=== PATIENT | male | born 1945 ===

== ENCOUNTER 2020-09-12 13:47 | Inpatient (IN) | payer MEDICARE, MEDICAID, SELFPAY ==
[2020-09-12] VITALS (10 sets, daily range): BP systolic 117–147; BP diastolic 62–86; PULSE 101–160; RESP 18–28; TEMP 36.5–37.8; O2SAT 87–100; BMI 35.4
--- NOTE | 2020-09-12 16:17 | PC.NURSE ---
sob with minimal exertion. skin pale, dusky finger tips at arrival but improvement with 4l nc. sao2 fluxates 86-93 on 4l.
--- NOTE | 2020-09-12 16:39 | ECG_ITS ---
Test Reason : ARHYTHMIA Blood Pressure : / mmHG Vent. Rate : 132 BPM Atrial Rate : 150 BPM P-R Int : 000 ms QRS Dur : 092 ms QT Int : 320 ms P-R-T Axes : 000 -26 042 degrees QTc Int : 474 ms Atrial fibrillation with rapid ventricular response Cannot rule out Inferior infarct , age undetermined Possible Anterior infarct , age undetermined Abnormal ECG No previous ECGs available Referred By: Julia Baum Electronically Signed By:ANGELICA EVANS MD
--- NOTE | 2020-09-12 16:40 | ED.GENADULT ---
HPI - General Adult General Chief complaint: Upper Respiratory Symptoms Stated complaint: covid symptoms Time Seen by Provider: 09/12/20 16:38 Source: patient Mode of arrival: ambulatory Limitations: no limitations History of Present Illness HPI narrative: 75 y/o male with history of COPD, HTN, DM on insulin, Afib on Coumadin who presents to the ED with 1 week of generalized body aches, fatigue, and cough for the last 1 week. He presents with his who has similar complaints. They live in an assisted living where there have been known COVID-19 cases. He reports compliance with Coumadin and over the last 1 week he has had bloody sputum. He has subjective fevers and chills at night. He denies chest pain. He reports decrease in PO intake and poor appetite. No N/V or abdominal pain but occassional diarrhea over the last week. MD complaint: COVID symptoms Onset (ago): day(s) (7) Location: head, chest and back Radiation: non-radiation Severity: moderate Quality: aching Pain Consistency: intermittent Relieving factors: none Exacerbating factors: movement Associated symptoms: cough, fever/chills, headaches, loss of appetite, malaise, shortness of breath and weakness Treatments prior to arrival: none Related Data Allergies Allergy/AdvReac Type Severity Reaction Status Date / Time No Known Allergies Allergy Verified 09/12/20 16:17 Review of Systems Review of Systems: Constitutional: + Fever, + Chills ENT/Mouth: + sore throat, No Rhinorrhea, No Swallowing Difficulty Eyes: No Eye Pain, No Swelling, No Redness Cardiovascular: No Chest Pain, No SOB, No Orthopnea, No Edema Respiratory: + Cough, + Sputum, No Wheezing, + dyspnea Gastrointestinal: No Nausea, No Vomiting, + Diarrhea, No abdominal Pain, No Hematochezia, No Melena Genitourinary: No Dysuria, No Urinary Frequency, No Hematuria Musculoskeletal: No joint pain, + Myalgias Skin: No Skin Lesions, No rash Neuro: + Weakness, No Numbness, No Dizziness, + Headache Psych: + Anxiety/Panic, No Depression Heme/Lymph: No Bruising, No Lymphadenopathy Endocrine: No Polyuria, No Polydipsia PMFSH Past Medical History Attestation statement: The following information was validated with the patient. Medical History (Updated 09/12/20 @ 18:00 by GABI Schwartz) Atrial fibrillation Diabetes Hypertension Social History Social History Advance Directives: No Advance Directives Information Provided: Yes Physical Exam Vital Signs: Vital Signs: Last Vital Signs Temp 98.6 F 09/12/20 17:25 Pulse 101 H 09/12/20 17:25 Resp 22 H 09/12/20 17:25 BP 117/67 09/12/20 17:25 Pulse Ox 98 09/12/20 17:25 Body Mass Index 35.4 Appearance: Alert. Oriented X3. No acute distress. Eyes: Pupils equal, round and reactive to light. ENT: Pharynx normal. Neck: Normal inspection. Neck supple. CVS: irregularly irregular, rapid rate. Pulses normal. Respiratory: Mild respiratory distress with RR Mid-20's, mild expiratory wheeze RLL. Abdomen: Soft and nontender. +BS x4 Skin: Skin warm and dry. Normal skin color. Normal skin turgor. No rashes. Extremities: No lower extremity edema. Negative Victorina's sign. Neuro: Oriented X 3. No motor deficit. No sensory deficit. Course Course Course Narrative: 75 yo male with hx COPD, HTN, DM, Afib on Coumadin presenting with COVID-19 symptoms. His is being seen in the ER with similar complaints and just returned COVID positive. COVID workup has been initiated. He is in mild respiratory distress, but overall is feeling better than arrival. Hypoxic to 80's on room air in the waiting room. Now on 4L NC with SpO2 93%. HR 140's - rapid afib. On metoprolol 50 mg PO BID. Will give 5 mg IV lopressor now and reassess. SBP 110's. IV decadron ordered. He reports mild hemoptysis, likely due to bronchitis/COVID infection, doubt PE given he is anticoagulated. INR pending. Patient will require admission. Reevaluation(s) Reevaluation #1: 5:15 - HR improved to 100's after 5 mg IV lopressor. Will continue with home dose of oral lopressor 50mg. Labs show ELLEN, lactic acid 2.8, troponin 323, INR 6.1. No chest pain at this time, likely demand ischemic due to sepsis and rapid afib. Sepsis is due to viral infection. 2nd liter IVF ordered. Medical Decision Making Lab Data Result diagrams: 09/12/20 16:44 09/12/20 16:43 Labs: Lab Results 09/12/20 09/12/20 09/12/20 Range/Units 16:42 16:43 16:43 WBC (4.8-10.8) X10*3/uL RBC (4.60-5.80) X10*6/uL Hgb (14.0-18.0) g/dl Hct (42-52) % MCV (80-98) fL MCH (27.0-33.0) pg MCHC (31.0-36.0) g/dl RDW (11.0-16.0) % Plt Count (160-400) X10*3/uL MPV (9.4-12.4) fL Immature Gran % (Auto) (0.0-0.4) % Neut % (Auto) (45-73) % Lymph % (Auto) (20-40) % [place] % (Auto) (2-11) % Eos % (Auto) (0-4) % Baso % (Auto) (0-2) % Lymph # (Auto) (1.2-4.9) X10*3/uL [place] # (Auto) (0.1-1.2) X10*3/uL Eos # (Auto) (0.0-0.4) X10*3/uL Baso # (Auto) (0.0-0.2) X10*3/uL Abs Immat Gran (auto) (0.00-0.03) X10*3/uL Absolute Neuts (auto) (2.0-8.3) X10*3/uL Absolute Nucleated RBC (0.0-0.012) X10*3/uL Nucleated RBC % (auto) (0.0-0.2) /100WBC Smear Tech's Comments PT (10.8-13.0) SEC INR (0.9-1.1) D-Dimer NG/ML Sodium 134 L (135-145) mmol/L Potassium 4.3 (3.3-5.1) mmol/l Chloride 100 (96-108) mmol/L Carbon Dioxide 19 L (22-29) mmol/L Anion Gap 19 (12-20) BUN 26 H (9-16) mg/dL Creatinine 1.67 H (0.5-1.4) mg/dL Estim Creat Clear Calc 46.4 Estimated GFR 40 Random Glucose 188 H (60-115) mg/dL Lactic Acid 2.8 H* (0.5-2.0) mmol/L Calcium 7.9 L (8.4-10.2) mg/dL Magnesium 1.7 (1.6-2.6) mg/dL Total Bilirubin 0.9 (0.0-1.0) mg/dL Direct Bilirubin 0.6 H (0.0-0.5) mg/dL AST 45 H (5-37) U/L ALT 28 (0-40) U/L Alkaline Phosphatase 74 (39-117) U/L Troponin I High Sens (<3.5-35.0) ng/L C-Reactive Protein 18.49 H (< or = 0.50) mg/dL B-Natriuretic Peptide (<100) pg/mL Total Protein 6.2 L (6.5-8.0) g/dL Albumin 3.7 (3.5-5.0) g/dL Procalcitonin ng/mL Coronavirus (PCR) POSITIVE A (Negative) Influenza Type A (PCR) NEGATIVE (Negative) Influenza Type B (PCR) NEGATIVE (Negative) RSV RNA Qual (PCR) NEGATIVE (Negative) 09/12/20 09/12/20 09/12/20 Range/Units 16:43 16:43 16:44 WBC 11.7 H (4.8-10.8) X10*3/uL RBC 4.80 (4.60-5.80) X10*6/uL Hgb 15.5 (14.0-18.0) g/dl Hct 45.6 (42-52) % MCV 95.0 (80-98) fL MCH 32.3 (27.0-33.0) pg MCHC 34.0 (31.0-36.0) g/dl RDW 13.6 (11.0-16.0) % Plt Count 140 L (160-400) X10*3/uL MPV 11.8 (9.4-12.4) fL Immature Gran % (Auto) 0.8 H (0.0-0.4) % Neut % (Auto) 91.8 H (45-73) % Lymph % (Auto) 4.5 L (20-40) % [place] % (Auto) 2.8 (2-11) % Eos % (Auto) 0.0 (0-4) % Baso % (Auto) 0.1 (0-2) % Lymph # (Auto) 0.5 L (1.2-4.9) X10*3/uL [place] # (Auto) 0.3 (0.1-1.2) X10*3/uL Eos # (Auto) 0.0 (0.0-0.4) X10*3/uL Baso # (Auto) 0.0 (0.0-0.2) X10*3/uL Abs Immat Gran (auto) 0.09 H (0.00-0.03) X10*3/uL Absolute Neuts (auto) 10.8 H (2.0-8.3) X10*3/uL Absolute Nucleated RBC 0.000 (0.0-0.012) X10*3/uL Nucleated RBC % (auto) 0.0 (0.0-0.2) /100WBC Smear Tech's Comments VERIFIED PT (10.8-13.0) SEC INR (0.9-1.1) D-Dimer NG/ML Sodium (135-145) mmol/L Potassium (3.3-5.1) mmol/l Chloride (96-108) mmol/L Carbon Dioxide (22-29) mmol/L Anion Gap (12-20) BUN (9-16) mg/dL Creatinine (0.5-1.4) mg/dL Estim Creat Clear Calc Estimated GFR Random Glucose (60-115) mg/dL Lactic Acid (0.5-2.0) mmol/L Calcium (8.4-10.2) mg/dL Magnesium (1.6-2.6) mg/dL Total Bilirubin (0.0-1.0) mg/dL Direct Bilirubin (0.0-0.5) mg/dL AST (5-37) U/L ALT (0-40) U/L Alkaline Phosphatase (39-117) U/L Troponin I High Sens 323.0 H (<3.5-35.0) ng/L C-Reactive Protein (< or = 0.50) mg/dL B-Natriuretic Peptide 209 H (<100) pg/mL Total Protein (6.5-8.0) g/dL Albumin (3.5-5.0) g/dL Procalcitonin 1.43 ng/mL Coronavirus (PCR) (Negative) Influenza Type A (PCR) (Negative) Influenza Type B (PCR) (Negative) RSV RNA Qual (PCR) (Negative) 09/12/20 Range/Units 16:44 WBC (4.8-10.8) X10*3/uL RBC (4.60-5.80) X10*6/uL Hgb (14.0-18.0) g/dl Hct (42-52) % MCV (80-98) fL MCH (27.0-33.0) pg MCHC (31.0-36.0) g/dl RDW (11.0-16.0) % Plt Count (160-400) X10*3/uL MPV (9.4-12.4) fL Immature Gran % (Auto) (0.0-0.4) % Neut % (Auto) (45-73) % Lymph % (Auto) (20-40) % [place] % (Auto) (2-11) % Eos % (Auto) (0-4) % Baso % (Auto) (0-2) % Lymph # (Auto) (1.2-4.9) X10*3/uL [place] # (Auto) (0.1-1.2) X10*3/uL Eos # (Auto) (0.0-0.4) X10*3/uL Baso # (Auto) (0.0-0.2) X10*3/uL Abs Immat Gran (auto) (0.00-0.03) X10*3/uL Absolute Neuts (auto) (2.0-8.3) X10*3/uL Absolute Nucleated RBC (0.0-0.012) X10*3/uL Nucleated RBC % (auto) (0.0-0.2) /100WBC Smear Tech's Comments PT 73.7 H (10.8-13.0) SEC INR 6.1 H* (0.9-1.1) D-Dimer 378 NG/ML Sodium (135-145) mmol/L Potassium (3.3-5.1) mmol/l Chloride (96-108) mmol/L Carbon Dioxide (22-29) mmol/L Anion Gap (12-20) BUN (9-16) mg/dL Creatinine (0.5-1.4) mg/dL Estim Creat Clear Calc Estimated GFR Random Glucose (60-115) mg/dL Lactic Acid (0.5-2.0) mmol/L Calcium (8.4-10.2) mg/dL Magnesium (1.6-2.6) mg/dL Total Bilirubin (0.0-1.0) mg/dL Direct Bilirubin (0.0-0.5) mg/dL AST (5-37) U/L ALT (0-40) U/L Alkaline Phosphatase (39-117) U/L Troponin I High Sens (<3.5-35.0) ng/L C-Reactive Protein (< or = 0.50) mg/dL B-Natriuretic Peptide (<100) pg/mL Total Protein (6.5-8.0) g/dL Albumin (3.5-5.0) g/dL Procalcitonin ng/mL Coronavirus (PCR) (Negative) Influenza Type A (PCR) (Negative) Influenza Type B (PCR) (Negative) RSV RNA Qual (PCR) (Negative) ECG Data Attestation: I personally reviewed and interpreted this ECG as follows: Interpretation: atrial fibrillation with rapid ventricular response, HR 132, normal QRS duration. Critical Care Time Critical Care Time Critical Care Time: Yes Total Critical Care Time: 60 Attestation: I attest to the critical care time being spent taking care of this patient with life-threatening diagnosis. Frequent bedside reassessments of respiratory status and hemodynamics. Discharge Plan Discharge Clinical Impression: Acute respiratory failure with hypoxia, Atrial fibrillation with RVR, COVID-19 Patient Disposition: Admitted As Inpatient
[2020-09-12 17:03] LABS: D Dimer 378 NG/ML
[2020-09-12 17:04] LABS: Basophils Percent Auto 0.1 % (0-2); Hemoglobin 15.5 g/dl (14.0-18.0); MANUAL DIFF FLAG SCAN; PLT CLUMP 1; Red Cell Distribution Width 13.6 % (11.0-16.0); SCAN SMEAR FLAG 1
[2020-09-12 17:06] LABS: Hematocrit 45.6 % (42-52); Imm Gran Abs Auto 0.09 X10*3/uL (0.00-0.03); Imm Gran Pct Auto 0.8 % (0.0-0.4); Lymphocytes Absolute Auto 0.5 X10*3/uL (1.2-4.9); Lymphocytes Percent Auto 4.5 % (20-40); Mean Corpuscular Hemoglobin 32.3 pg (27.0-33.0); Mean Platelet Volume 11.8 fL (9.4-12.4); Monocytes Absolute Auto 0.3 X10*3/uL (0.1-1.2); Monocytes Percent Auto 2.8 % (2-11); Neutrophils Absolute Auto 10.8 X10*3/uL (2.0-8.3); Neutrophils Percent Auto 91.8 % (45-73); White Blood Count 11.7 X10*3/uL (4.8-10.8)
[2020-09-12 17:07] LABS: Prothrombin Time 73.7 SEC (10.8-13.0)
[2020-09-12] MEDS: 0.9 % Sodium Chloride 1,000 ML 999 ML IVCONT ×2 (17:09→19:56)
[2020-09-12] MEDS: Metoprolol Tartrate 5 MG/5 ML VIAL IVPUSH ×2 (17:10→23:54)
[2020-09-12] MEDS: dexAMETHasone sod phosphate 4 MG/ML VIAL 6 MG IVPUSH (17:10)
[2020-09-12 17:21] LABS: Alanine Aminotransferase 28 U/L (0-40); Albumin Level 3.7 g/dL (3.5-5.0); Alkaline Phosphatase 74 U/L (39-117); Anion Gap 19 (12-20); Aspartate Amino Transferase 45 U/L (5-37); Bilirubin Direct 0.6 mg/dL (0.0-0.5); Bilirubin Total 0.9 mg/dL (0.0-1.0); Blood Urea Nitrogen 26 mg/dL (9-16); C Reactive Protein 18.49 mg/dL (< or = 0.50); Calcium 7.9 mg/dL (8.4-10.2); Carbon Dioxide 19 mmol/L (22-29); Chloride 100 mmol/L (96-108); Creatinine Clr Calc Pharmacy 46.4; Estimated Glomerular Filt Rate 40; Glucose Random 188 mg/dL (60-115); Magnesium 1.7 mg/dL (1.6-2.6); Potassium 4.3 mmol/l (3.3-5.1); Sodium 134 mmol/L (135-145); Total Protein 6.2 g/dL (6.5-8.0)
[2020-09-12 17:24] LABS: INTERNATIONAL NORM RATIO 6.1 (0.9-1.1)
[2020-09-12 17:29] LABS: B Type Natriuretic Peptide 209 pg/mL (<100); Lactic Acid 2.8 mmol/L (0.5-2.0)
[2020-09-12 17:32] LABS: Platelet Count 140 X10*3/uL (160-400)
[2020-09-12 17:33] LABS: SLIDE REVIEW VERIFIED
[2020-09-12 17:40] LABS: Influenza A PCR NEGATIVE (Negative); Influenza B PCR NEGATIVE (Negative); Resp Syncy Virus RNA Qual PCR NEGATIVE (Negative); SARS COV2 PCR INHOUSE POSITIVE (Negative)
[2020-09-12 17:40] LABS: Procalcitonin 1.43 ng/mL
--- NOTE | 2020-09-12 17:44 | XR_ITS ---
EXAMINATION: XR CHEST CLINICAL INFORMATION: Shortness of breath with hypoxia and Covid 19. COMPARISON: None TECHNIQUE: Frontal view of the chest was obtained. FINDINGS: Bilateral ill-defined patchy infiltrates are seen throughout the lungs, right greater than left. There is mild cardiomegaly. No effusions are seen. XR/XR chest 1V IMPRESSION: Multifocal ill-defined patchy infiltrates throughout both lungs. Appearances are suggestive of Covid 19 pulmonary disease.
[2020-09-12 18:27] LABS: Ferritin 3578 ng/mL (20-250)
[2020-09-12] MEDS: Metoprolol Tartrate 50 MG TABLET PO (18:37)
[2020-09-12] MEDS: Magnesium Sulfate/H2O 2 GM/50 ML PIGGYBACK IV (18:38)
--- NOTE | 2020-09-12 18:38 | PC.NURSE ---
unlabored at resp. skijn pwd. a fib on monitor. 100-1teens. sao2 100% on 4l titrated down to 2l.
[2020-09-12 18:48] LABS: Reflex Lactate? Lactic Acid Added
[2020-09-12 20:22] LABS: ~Lactic Acid-LAB USE ONLY 1.9 mmol/L (0.5-2.0)
[2020-09-12 20:36] LABS: Troponin-I High Sensitivity 1007.6 ng/L (<3.5-35.0)
--- NOTE | 2020-09-12 21:07 | PM.IMHP ---
History of Present Illness Date of Service: 09/12/20 Chief Complaint: weakness, sob This is a 75 A.fib, HTN and DM who comes to the hospital with complaints of his, shortness of breath, fatigue, and generally not feeling well. Patient reports that his symptoms started about a week ago. He was also had low appetite and oral intake. He is also having a mildly productive cough, diarrhea about 2 to 3 times a day, he denies any chest pain, no palpitations, no abdominal pain nausea or vomiting, no urinary symptoms and no lower extremity edema. He reports that him and his have similar symptoms of note his came in to the hospital with him and was found to be COVID-19 positive and is currently admitted the hospital. Patient reports that they usually do not have any outside contacts but they did go grocery shopping about a week ago at a [employer]. Heart rate of 123, temp of a 100.0?, respiratory rate of 26, blood pressure of 147/86, satting 87% on room air. Labs are significant for WBC count of 11.7, PT of 73.7, INR of 6.1, sodium of 134, BUN of 26, creatinine of 1.67 (), lactic acid of 2.8 that improved to 1.9 after fluids, ferritin of 3578, direct bili of 0.6, AST of 45, initial high sensitivity troponin of 323, rpt 1007.6, COVID 19 +ve chest xray shows multifocal ill-defined patchy infiltrates throughout both lungs. Past medical history: Hypertension, diabetes, AFib on Coumadin, COPD, colon cancer status post colectomy Surgical history: History of colon cancer status post colectomy 4 years ago Family history: Mother had cancer, Social history: Lives with , walks independently, denies any tobacco alcohol or illicit drugs Review of Systems Review of Systems: Yes all other systems are reviewed and are negative [facility] Medical History Atrial fibrillation Diabetes Hypertension Social History Advance Directives: No Advance Directives Information Provided: Yes Meds Allergies Allergy/AdvReac Type Severity Reaction Status Date / Time No Known Allergies Allergy Verified 09/12/20 16:17 Home Medications Medication Instructions Recorded Confirmed Type atorvastatin 80 mg PO DAILY 09/12/20 09/12/20 History glipizide 5 mg PO DAILY 09/12/20 09/12/20 History insulin degludec [Tresiba 10 unit SUBCUT BEDTIME 09/12/20 09/12/20 History FlexTouch U-100] lisinopril 20 mg PO DAILY 09/12/20 09/12/20 History metformin 500 mg PO BID 09/12/20 09/12/20 History metoprolol tartrate 50 mg PO BID 09/12/20 09/12/20 History montelukast 10 mg PO DAILY 09/12/20 09/12/20 History warfarin 5 mg PO DAILY 09/12/20 09/12/20 History Physical Exam Vital Signs and Narrative: Vital Signs: Last Vital Signs Temp 97.7 F 09/12/20 19:47 Pulse 105 H 09/12/20 19:47 Resp 26 H 09/12/20 19:47 BP 126/73 09/12/20 19:47 Pulse Ox 96 09/12/20 19:47 Body Mass Index 35.4 Const: General: cooperative and no acute distress Orientation/consciousness: patient oriented x3 Eyes: General: appearance normal, both eyes and all related structures Resp: Effort & Inspection: normal respiratory effort and able to speak in complete sentences Cardio: Rate: regular rate Rhythm: regular rhythm GI: Palpation (GI): Soft to palpation Auscultation: normal bowel sounds Skin: General skin exam: no rashes or lesions noted Neuro: General: patient oriented x3 Cognition (Neuro): normal cognition Extrem: General: Yes normal to inspection and Yes no pedal edema Results Labs CBC and Chem 7: 09/12/20 16:44 09/12/20 16:43 Labs: Laboratory Results - last 24 hr 09/12/20 09/12/20 09/12/20 16:42 16:43 16:43 MCV MCH MCHC RDW Plt Count MPV Immature Gran % (Auto) Neut % (Auto) Lymph % (Auto) [place] % (Auto) Eos % (Auto) Baso % (Auto) Lymph # (Auto) [place] # (Auto) Eos # (Auto) Baso # (Auto) Abs Immat Gran (auto) Absolute Neuts (auto) Absolute Nucleated RBC Nucleated RBC % (auto) Smear Tech's Comments PT INR D-Dimer Anion Gap 19 Estim Creat Clear Calc 46.4 Estimated GFR 40 Random Glucose 188 H Lactic Acid 2.8 H* Lactic Acid Fup @ 2Hr Calcium 7.9 L Magnesium 1.7 Ferritin Total Bilirubin 0.9 Direct Bilirubin 0.6 H AST 45 H ALT 28 Alkaline Phosphatase 74 Troponin I High Sens C-Reactive Protein 18.49 H B-Natriuretic Peptide Total Protein 6.2 L Albumin 3.7 Procalcitonin Coronavirus (PCR) POSITIVE A Influenza Type A (PCR) NEGATIVE Influenza Type B (PCR) NEGATIVE RSV RNA Qual (PCR) NEGATIVE 09/12/20 09/12/20 09/12/20 16:43 16:43 16:44 MCV 95.0 MCH 32.3 MCHC 34.0 RDW 13.6 Plt Count 140 L MPV 11.8 Immature Gran % (Auto) 0.8 H Neut % (Auto) 91.8 H Lymph % (Auto) 4.5 L [place] % (Auto) 2.8 Eos % (Auto) 0.0 Baso % (Auto) 0.1 Lymph # (Auto) 0.5 L [place] # (Auto) 0.3 Eos # (Auto) 0.0 Baso # (Auto) 0.0 Abs Immat Gran (auto) 0.09 H Absolute Neuts (auto) 10.8 H Absolute Nucleated RBC 0.000 Nucleated RBC % (auto) 0.0 Smear Tech's Comments VERIFIED PT INR D-Dimer Anion Gap Estim Creat Clear Calc Estimated GFR Random Glucose Lactic Acid Lactic Acid Fup @ 2Hr Calcium Magnesium Ferritin Total Bilirubin Direct Bilirubin AST ALT Alkaline Phosphatase Troponin I High Sens 323.0 H C-Reactive Protein B-Natriuretic Peptide 209 H Total Protein Albumin Procalcitonin 1.43 Coronavirus (PCR) Influenza Type A (PCR) Influenza Type B (PCR) RSV RNA Qual (PCR) 09/12/20 09/12/20 09/12/20 16:44 16:44 19:49 MCV MCH MCHC RDW Plt Count MPV Immature Gran % (Auto) Neut % (Auto) Lymph % (Auto) [place] % (Auto) Eos % (Auto) Baso % (Auto) Lymph # (Auto) [place] # (Auto) Eos # (Auto) Baso # (Auto) Abs Immat Gran (auto) Absolute Neuts (auto) Absolute Nucleated RBC Nucleated RBC % (auto) Smear Tech's Comments PT 73.7 H INR 6.1 H* D-Dimer 378 Anion Gap Estim Creat Clear Calc Estimated GFR Random Glucose Lactic Acid Lactic Acid Fup @ 2Hr 1.9 Calcium Magnesium Ferritin 3578 H Total Bilirubin Direct Bilirubin AST ALT Alkaline Phosphatase Troponin I High Sens C-Reactive Protein B-Natriuretic Peptide Total Protein Albumin Procalcitonin Coronavirus (PCR) Influenza Type A (PCR) Influenza Type B (PCR) RSV RNA Qual (PCR) 09/12/20 19:50 MCV MCH MCHC RDW Plt Count MPV Immature Gran % (Auto) Neut % (Auto) Lymph % (Auto) [place] % (Auto) Eos % (Auto) Baso % (Auto) Lymph # (Auto) [place] # (Auto) Eos # (Auto) Baso # (Auto) Abs Immat Gran (auto) Absolute Neuts (auto) Absolute Nucleated RBC Nucleated RBC % (auto) Smear Tech's Comments PT INR D-Dimer Anion Gap Estim Creat Clear Calc Estimated GFR Random Glucose Lactic Acid Lactic Acid Fup @ 2Hr Calcium Magnesium Ferritin Total Bilirubin Direct Bilirubin AST ALT Alkaline Phosphatase Troponin I High Sens 1007.6 H D C-Reactive Protein B-Natriuretic Peptide Total Protein Albumin Procalcitonin Coronavirus (PCR) Influenza Type A (PCR) Influenza Type B (PCR) RSV RNA Qual (PCR) Imaging Radiologist's Impressions: Impressions Chest X-Ray 09/12/20 17:44 IMPRESSION: Multifocal ill-defined patchy infiltrates throughout both lungs. Appearances are suggestive of Covid 19 pulmonary disease. Assessment and Plan (1) Acute respiratory failure with hypoxia: Status: Acute (2) Atrial fibrillation with RVR: Status: Acute (3) Pneumonia due to COVID-19 virus: Status: Acute (4) Elevated troponin: Status: Acute (5) Sepsis: Status: Acute (6) Supratherapeutic INR: Status: Acute This is a 75-year-old male with past medical history as mentioned above who presents to the hospital with complaints of shortness of breath found to be COVID-19 positive. # acute respiratory failure with hypoxia -secondary to COVID-19 pneumonia versus superimposed bacterial as his procalcitonin is elevated - has leukocytosis, febrile with a temp of 100.0 - presented with an O2 of a 7% on room air, currently on 4 L satting 96% Plan: - given elevated procalcitonin will start him on broad-spectrum antibiotics, strep and Legionella urine antigens, - given hypoxia will start patient on dexamethasone 6 mg daily - consult ID for possible remdesivir treatment - follow blood cultures # sepsis - secondary to pneumonia as above - has leukocytosis, febrile and lactic acidosis - lactic acidosis resolved with fluid Plan: - IV antibiotics, follow cultures # COVID-19 pneumonia - COVID PCR positive, chest x-ray findings correlates with COVID-19 pneumonia Plan: - dexamethasone daily - id consult for possible remdesivir # elevated troponin - has no chest pain, EKG is AFib with RVR - spoke to Cardiology, most likely type 2 in the setting of AFib, pneumonia, hypoxia - patient has supratherapeutic INR - will trend troponin - cardiology to follow # AFib with RVR - most likely secondary to pneumonia and sepsis - received Lopressor IV pushes, currently heart rate less than 100 - will continue home metoprolol - hold Coumadin in the setting of supratherapeutic INR # supratherapeutic INR - hold Coumadin, no evidence of bleed - follow PT INR daily DVT prophylaxis Coumadin
[2020-09-12] MEDS: cefTRIAXone sodium 1 GM in 0.9 % Sodium Chloride 50 ML IV (21:29)
[2020-09-12] MEDS: Azithromycin 500 MG TABLET PO (21:29)
[2020-09-12] MEDS: Insulin Glargine,Hum.rec.anlog 100 UNIT/ML 10 ML VIAL 7 UNIT SUBCUT (21:35)
[2020-09-12 22:24] LABS: Glucose Urine UA NEG (NEG); Leukocyte Esterase Urine NEG (NEG); Nitrite Urine NEG (NEG); PH 5.5 (5.0-8.0); Specific Gravity - Urine >= 1.030 (1.005-1.025); Urine Blood 1+ (NEG); Urine Ketones 5 MG/DL (NEG); Urine Protein 2+ MG/DL (NEG-TRACE)
[2020-09-12 22:26] LABS: Appearance Urine CLEAR; Color Urine YELLOW
[2020-09-12 22:54] LABS: Troponin-I High Sensitivity 822.3 ng/L (<3.5-35.0)
[2020-09-12 22:57] LABS: Bacteria Urine TRACE /LPF; RBC Urine 0-2 /HPF (0); Squamous Epithelial Cell Urine TRACE /LPF; WBC Urine 0-2 /HPF (0-4)
[2020-09-12 22:58] LABS: Amorphous Sediment Urine TRACE /LPF
[2020-09-13] VITALS (16 sets, daily range): BP systolic 95–170; BP diastolic 60–90; PULSE 91–158; RESP 19–25; TEMP 36.4–37.7; O2SAT 80–95; BMI 35.4
[2020-09-13] MEDS: Metoprolol Tartrate 50 MG TABLET PO ×3 (01:56→21:08)
[2020-09-13] MEDS: 0.9 % Sodium Chloride Flush 3 ML SYRINGE IVFLUSH ×2 (01:59→07:59)
--- NOTE | 2020-09-13 03:43 | PC.NURSE ---
REPORT GIVEN TO AMBREEN WASHINGTON. PT TO FLOOR ON STRETCHER WITH MONITOR. IV FLUSHES EASILY W/O RESISTANCE, SITE INTACT. PT LEFT ED IN NAD.
[2020-09-13] MEDS: dilTIAZem HCL 125 MG in 0.9 % Sodium Chloride 100 ML 10 MG IVCONT (05:52)
--- NOTE | 2020-09-13 06:13 | PC.NURSE ---
Patient admitted for Hypoxia and COVID , upon arrival to room patient ambulated from stretcher to bed HR increased to 150's. Patient continued to have fluctuating HR in range of 130's to 150's. MD notified, order for Cardizem drip at rate of 10mg/hr started at 0555. HR at 0620 noted to be 120's , increased drip rate by 5mg for new rate of 15mg/hr. will continue to monitor.
[2020-09-13 06:51] LABS: Basophils Percent Auto 0.1 % (0-2); Hematocrit 43.8 % (42-52); Hemoglobin 14.9 g/dl (14.0-18.0); Imm Gran Abs Auto 0.14 X10*3/uL (0.00-0.03); Imm Gran Pct Auto 0.9 % (0.0-0.4); Lymphocytes Absolute Auto 0.7 X10*3/uL (1.2-4.9); Lymphocytes Percent Auto 4.3 % (20-40); MANUAL DIFF FLAG SCAN; Mean Corpuscular Hemoglobin 32.1 pg (27.0-33.0); Mean Corpuscular Volume 94.4 fL (80-98); Monocytes Absolute Auto 0.5 X10*3/uL (0.1-1.2); Neutrophils Absolute Auto 13.8 X10*3/uL (2.0-8.3); Neutrophils Percent Auto 91.7 % (45-73); Platelet Count 151 X10*3/uL (160-400); Red Blood Count 4.64 X10*6/uL (4.60-5.80); Red Cell Distribution Width 13.6 % (11.0-16.0); SCAN SMEAR FLAG 1
[2020-09-13 07:20] LABS: Anion Gap 17 (12-20); Blood Urea Nitrogen 28 mg/dL (9-16); Calcium 7.6 mg/dL (8.4-10.2); Carbon Dioxide 16 mmol/L (22-29); Chloride 106 mmol/L (96-108); Creatinine Clr Calc Pharmacy 71.1; Estimated Glomerular Filt Rate > 60; Glucose Random 173 mg/dL (60-115); Sodium 135 mmol/L (135-145)
[2020-09-13 07:55] LABS: SLIDE REVIEW VERIFIED
[2020-09-13] MEDS: dexAMETHasone sod phosphate 4 MG/ML VIAL 6 MG IVPUSH (07:59)
[2020-09-13] MEDS: lisinopriL 20 MG TABLET PO (08:00)
[2020-09-13] MEDS: Montelukast Sodium 10 MG TABLET PO (08:00)
[2020-09-13] MEDS: Atorvastatin Calcium 80 MG TABLET PO (08:00)
--- NOTE | 2020-09-13 09:13 | MHC.CM.PN ---
IMM 09/13/20 MALE 75 DX COVID SYMPTOMS. Pt lives with his who is admitted to ISO unit DX Covid+. Info gathered for this assessment was obtained from EMR and staff. Patient was independent with all functional mobility. No HCP on file. Only contact listed is Pts . Plan to add additional contacts, as well as a HCP document. DP home with private transport. CM will follow for change in DC needs.
[2020-09-13 10:02] LABS: Prothrombin Time 83.1 SEC (10.8-13.0)
[2020-09-13 11:00] LABS: INTERNATIONAL NORM RATIO 6.9 (0.9-1.1)
--- NOTE | 2020-09-13 11:15 | MHC.CM.PN ---
HCP documented with Patient. Copies have been provided to the Patient. A copy has also been placed on his chart. Per NSG SUP, the Pt and his will be sharing a room, 469 on the COVID unit. CM will follow.
--- NOTE | 2020-09-13 14:43 | HO.PM.IMPN ---
Subjective Subjective Date of Service: 09/13/20 Interval History: Seen in f/u for acute hypoxic respiratory failure due to covid 19. Remains short or breath and requiring oxygen. Has been in AFIB with RVR Constitutional Constitutional: Denies fever(s) Respiratory Respiratory: Reports no additional respiratory complaints Physical Exam Vital Signs: Vital Signs: Last Vital Signs Temp 97.5 F 09/13/20 11:28 Pulse 123 H 09/13/20 11:28 Resp 19 09/13/20 11:28 BP 112/62 09/13/20 11:28 Pulse Ox 91 L 09/13/20 11:28 Body Mass Index 35.4 Const: General: cooperative and no acute distress Orientation/consciousness: patient oriented x3 Resp: Effort & Inspection: normal respiratory effort and able to speak in complete sentences Cardio: Rate: Other (iregular) Heart sounds: S1 normal heart sound present and S2 normal heart sound present GI: Palpation (GI): Soft to palpation Auscultation: normal bowel sounds Skin: General skin exam: no rashes or lesions noted Neuro: General: patient oriented x3 Cognition (Neuro): normal cognition Extrem: General: Yes normal to inspection and Yes no pedal edema Objective Data Current Medications Generic Name Dose Route Start Last Admin Trade Name Freq PRN Reason Stop Dose Admin Acetaminophen 650 mg 09/12/20 21:06 Acetaminophen 325 Mg Tablet PO Q6H PRN Pain, Mild (Pain Scale 1-3) Atorvastatin Calcium 80 mg 09/13/20 09:00 09/13/20 08:00 Atorvastatin Calcium 80 Mg Tablet PO 80 mg DAILY SAL Administration Azithromycin 500 mg 09/12/20 21:06 09/12/20 21:29 Azithromycin 500 Mg Tablet PO 500 mg Q24H SAL Administration Dexamethasone Sodium Phosphate 6 mg 09/13/20 09:00 09/13/20 07:59 Dexamethasone Sod Phosphate 4 Mg/Ml Vial IVPUSH 6 mg DAILY SAL Administration Docusate Sodium 100 mg 09/12/20 21:06 Docusate Sodium 100 Mg Capsule PO DAILY PRN Constipation Ceftriaxone Sodium 1 gm/ 50 mls @ 100 mls/hr 09/12/20 21:06 09/13/20 00:26 Sodium Chloride IV Infused Q24H SAL Infusion Diltiazem HCl 125 mg/ Sodium 125 mls @ 0 mls/hr 09/13/20 05:15 09/13/20 12:20 Chloride IVCONT 5 mg/hr .Q0M SAL 5 mls/hr Titration Protocol Per Protocol Insulin Glargine 7 unit 09/12/20 21:06 09/12/20 21:35 Insulin Glargine,Hum.Rec.Anlog 100 Unit/Ml 10 Ml Vial SUBCUT 7 unit BEDTIME SAL Administration Lisinopril 20 mg 09/13/20 09:00 09/13/20 08:00 Lisinopril 20 Mg Tablet PO 20 mg DAILY SAL Administration Protocol Metoprolol Tartrate 50 mg 09/12/20 21:06 09/13/20 08:00 Metoprolol Tartrate 50 Mg Tablet PO 50 mg BID SAL Administration Protocol Montelukast Sodium 10 mg 09/13/20 09:00 09/13/20 08:00 Montelukast Sodium 10 Mg Tablet PO 10 mg DAILY SAL Administration Ondansetron HCl 4 mg 09/13/20 04:14 Ondansetron Hcl 4 Mg/2 Ml Vial IVPUSH Q8H PRN Nausea and Vomiting Pharmacy Consult 1 each 09/12/20 17:34 Consult Rx Perform Med Rec MISCELLANE ONCE PRN Consult order Sodium Chloride 3 ml 09/13/20 00:00 09/13/20 07:59 0.9 % Sodium Chloride Flush 3 Ml Syringe IVFLUSH 3 ml QSHIFT SAL Administration Labs CBC & Chem 7: 09/13/20 05:44 09/13/20 05:44 Assessment and Plan (1) Acute respiratory failure with hypoxia: Status: Acute (2) Atrial fibrillation with RVR: Status: Acute (3) Pneumonia due to COVID-19 virus: Status: Acute (4) Elevated troponin: Status: Acute (5) Sepsis: Status: Acute (6) Supratherapeutic INR: Status: Acute Assessment and Plan: 75-year-old male with past medical history as mentioned above who presents to the hospital with complaints of shortness of breath found to be COVID-19 positive. # acute respiratory failure with hypoxia -secondary to COVID-19 pneumonia versus superimposed bacterial as his procalcitonin is elevated - has leukocytosis, febrile with a temp of 100.0 - presented with an O2 of a 76% on room air, then required high flow and back to nasal canula Plan: - given elevated procalcitonin will start him on broad-spectrum antibiotics, strep and Legionella urine antigens, - given hypoxia will start patient on dexamethasone 6 mg daily - consult ID for possible remdesivir treatment - follow blood cultures # Sepsis - secondary to pneumonia as above - has leukocytosis, febrile and lactic acidosis - lactic acidosis resolved with fluid Plan: - IV antibiotics, follow cultures # COVID-19 pneumonia - COVID PCR positive, chest x-ray findings correlates with COVID-19 pneumonia Plan: - dexamethasone daily - id consult for possible remdesivir # elevated troponin - has no chest pain, EKG is AFib with RVR - spoke to Cardiology, most likely type 2 in the setting of AFib, pneumonia, hypoxia - patient has supratherapeutic INR - will trend troponin - cardiology to follow # AFib with RVR - most likely secondary to pneumonia and sepsis - received Lopressor IV pushes, currently heart rate less than 100 - will continue home metoprolol - hold Coumadin in the setting of supratherapeutic INR -DC IV cardizem # supratherapeutic INR - hold Coumadin, no evidence of bleed - follow PT INR daily DVT prophylaxis Coumadin
--- NOTE | 2020-09-13 16:02 | P.CNID_ITS ---
History of Present Illness Data of Consult Service Date: 09/13/20 Requesting physician: Aubrey Purvis Primary Care Provider: Gonzalo Hollingsworth DO, MD [facility] Reason for consult: COVID He reports starting with cough and rhinorrhea on 09/05 specifically He was exposed to COVID at assisted living facility He has no fever or chills Review of Systems Review of Systems: Yes all other systems are reviewed and are negative PMFSH Past Medical History Medical History Atrial fibrillation Diabetes Hypertension Family History Family history: reviewed and not pertinent Social History Social History Household Members: Spouse Housing: Apartment Do you presently have visiting nurse or other home services: Yes Smoking Status: Former smoker Use of substances other than those prescribed or required for medical reasons: No Currently Displaying Signs/Symptoms of Drug Intoxication Withdrawal: No Have you been hit, kicked, punched, or otherwise hurt by someone within the past year? If so, by whom?: No Do you feel safe in your current relationship?: Yes Is there a partner from a previous relationship who is making you feel unsafe now?: No Are you made to feel afraid or neglected: No Advance Directives: No Advance Directives Information Provided: Yes Do you have thoughts of harming others: None Do you have a plan to hurt others: No Plan Recently lost weight without trying: No service: No Current occupational status: retired Meds Allergies Allergy/AdvReac Type Severity Reaction Status Date / Time No Known Allergies Allergy Verified 09/12/20 16:17 Home Medications Medication Instructions Recorded Confirmed Type atorvastatin 80 mg PO DAILY 09/12/20 09/12/20 History glipizide 5 mg PO DAILY 09/12/20 09/12/20 History insulin degludec [Tresiba 10 unit SUBCUT BEDTIME 09/12/20 09/12/20 History FlexTouch U-100] lisinopril 20 mg PO DAILY 09/12/20 09/12/20 History metformin 500 mg PO BID 09/12/20 09/12/20 History metoprolol tartrate 50 mg PO BID 09/12/20 09/12/20 History montelukast 10 mg PO DAILY 09/12/20 09/12/20 History warfarin 5 mg PO DAILY 09/12/20 09/12/20 History Physical Exam Vital Signs: Vital Signs: Last Vital Signs Temp 98.7 F 09/13/20 15:18 Pulse 91 09/13/20 15:18 Resp 19 09/13/20 15:18 BP 95/66 09/13/20 15:18 Pulse Ox 90 L 09/13/20 15:18 Body Mass Index 35.4 Const: General: cooperative Orientation/consciousness: patient oriented x3 HENMT: Head: Yes normal to inspection Mouth: Normal oral and palatal mucosa present Eyes: General: appearance normal, both eyes and all related structures Resp: Effort & Inspection: normal respiratory effort Cardio: Rate: regular rate Rhythm: regular rhythm GI: Inspection: Yes normal to inspection : General: Yes no CVA tenderness Back/Spine/Pelvis: Back: no CVA tenderness Skin: General skin exam: no rashes or lesions noted Neuro: General: patient oriented x3 Extrem: General: Yes normal to inspection Assessment and Plan (1) Pneumonia due to COVID-19 virus: Problem details: He has some shortness of breath He has hypoxia as well as his and recent COVID exposure Status: Acute Would give Remdesivir and Dexamethasone due to recent diagnosis Check LFTS Oxygen support (2) Sepsis: Status: Acute Results Labs CBC & Chem 7: 09/13/20 05:44 09/13/20 05:44 Labs: Short CBC 09/12/20 09/13/20 Range/Units 16:44 05:44 WBC 11.7 H 15.0 H (4.8-10.8) X10*3/uL Hgb 15.5 14.9 (14.0-18.0) g/dl Hct 45.6 43.8 (42-52) % Plt Count 140 L 151 L (160-400) X10*3/uL BMP 09/12/20 09/13/20 16:43 05:44 Sodium 134 L 135 Potassium 4.3 4.0 Chloride 100 106 Carbon Dioxide 19 L 16 L BUN 26 H 28 H Creatinine 1.67 H 1.09 Calcium 7.9 L 7.6 L Liver Function 09/12/20 Range/Units 16:43 Total Bilirubin 0.9 (0.0-1.0) mg/dL Direct Bilirubin 0.6 H (0.0-0.5) mg/dL AST 45 H (5-37) U/L ALT 28 (0-40) U/L Alkaline Phosphatase 74 (39-117) U/L Albumin 3.7 (3.5-5.0) g/dL Urine 09/12/20 Range/Units 22:19 Urine Color YELLOW Urine Appearance CLEAR Urine pH 5.5 (5.0-8.0) Ur Specific [place] >= 1.030 H (1.005-1.025) Urine Protein 2+ H (NEG-TRACE) MG/DL Urine Glucose (UA) NEG (NEG) MG/DL
[2020-09-13 17:00] LABS: Alanine Aminotransferase 32 U/L (0-40); Albumin Level 3.1 g/dL (3.5-5.0); Alkaline Phosphatase 71 U/L (39-117); Aspartate Amino Transferase 49 U/L (5-37); Bilirubin Direct 0.5 mg/dL (0.0-0.5); Bilirubin Total 0.8 mg/dL (0.0-1.0); Total Protein 5.3 g/dL (6.5-8.0)
[2020-09-13] MEDS: Remdesivir 200 MG in 0.9 % Sodium Chloride 210 ML 105 MG IV (18:51)
[2020-09-13 20:51] LABS: Glucose, Whole Blood 176 mg/dL (60-115)
[2020-09-13] MEDS: cefTRIAXone sodium 1 GM in 0.9 % Sodium Chloride 50 ML IV (21:05)
[2020-09-13] MEDS: Azithromycin 500 MG TABLET PO (21:06)
[2020-09-13] MEDS: Insulin Glargine,Hum.rec.anlog 100 UNIT/ML 10 ML VIAL 7 UNIT SUBCUT (21:09)
[2020-09-14] VITALS (8 sets, daily range): BP systolic 98–136; BP diastolic 53–76; PULSE 88–110; RESP 18–20; TEMP 36.4–37.1; O2SAT 89–96
[2020-09-14] MEDS: 0.9 % Sodium Chloride Flush 3 ML SYRINGE IVFLUSH ×4 (01:46→21:08)
--- NOTE | 2020-09-14 08:48 | MHC.CM.PN ---
DP Pts preference is home without services. Dispo will be determined by Pts recovery from COVID-19. His Oxygen Route of administration is now a non-rebreather.His has bee moved into hia room. She is also Covid+. CM will follow.
[2020-09-14] MEDS: Atorvastatin Calcium 80 MG TABLET PO (09:26)
[2020-09-14] MEDS: dexAMETHasone sod phosphate 4 MG/ML VIAL 6 MG IVPUSH (09:27)
[2020-09-14] MEDS: Montelukast Sodium 10 MG TABLET PO (09:27)
[2020-09-14] MEDS: Metoprolol Tartrate 50 MG TABLET PO ×2 (09:27→21:07)
[2020-09-14] MEDS: lisinopriL 20 MG TABLET PO (09:28)
[2020-09-14 09:53] LABS: Prothrombin Time 82.8 SEC (10.8-13.0)
[2020-09-14 10:18] LABS: INTERNATIONAL NORM RATIO 6.8 (0.9-1.1)
--- NOTE | 2020-09-14 15:03 | HO.PM.IMPN ---
Subjective Subjective Date of Service: 09/14/20 Interval History: Seen in f/u for acute hypoxic respiratory failure due to covid 19. Remains short or breath and requiring oxygen. Has been in AFIB with RVR Constitutional Constitutional: Denies fever(s) Respiratory Respiratory: Reports no additional respiratory complaints Physical Exam Vital Signs: Vital Signs: Last Vital Signs Temp 97.6 F 09/14/20 11:07 Pulse 88 09/14/20 11:07 Resp 18 09/14/20 11:07 BP 98/53 L 09/14/20 11:07 Pulse Ox 94 09/14/20 11:07 Body Mass Index 35.4 Const: General: cooperative and no acute distress Orientation/consciousness: patient oriented x3 Resp: Effort & Inspection: normal respiratory effort and able to speak in complete sentences Cardio: Rate: Other (iregular) Heart sounds: S1 normal heart sound present and S2 normal heart sound present GI: Palpation (GI): Soft to palpation Auscultation: normal bowel sounds Skin: General skin exam: no rashes or lesions noted Neuro: General: patient oriented x3 Cognition (Neuro): normal cognition Extrem: General: Yes normal to inspection and Yes no pedal edema Objective Data Current Medications Generic Name Dose Route Start Last Admin Trade Name Freq PRN Reason Stop Dose Admin Acetaminophen 650 mg 09/12/20 21:06 Acetaminophen 325 Mg Tablet PO Q6H PRN Pain, Mild (Pain Scale 1-3) Atorvastatin Calcium 80 mg 09/13/20 09:00 09/14/20 09:26 Atorvastatin Calcium 80 Mg Tablet PO 80 mg DAILY SAL Administration Azithromycin 500 mg 09/12/20 21:06 09/13/20 21:06 Azithromycin 500 Mg Tablet PO 500 mg Q24H SAL Administration Dexamethasone Sodium Phosphate 6 mg 09/13/20 09:00 09/14/20 09:27 Dexamethasone Sod Phosphate 4 Mg/Ml Vial IVPUSH 6 mg DAILY SAL Administration Docusate Sodium 100 mg 09/12/20 21:06 Docusate Sodium 100 Mg Capsule PO DAILY PRN Constipation Ceftriaxone Sodium 1 gm/ 50 mls @ 100 mls/hr 09/12/20 21:06 09/13/20 22:16 Sodium Chloride IV Infused Q24H SAL Infusion Remdesivir 100 mg/ Sodium 230 mls @ 115 mls/hr 09/14/20 17:00 Chloride IV Q24H SAL Insulin Glargine 7 unit 09/12/20 21:06 09/13/20 21:09 Insulin Glargine,Hum.Rec.Anlog 100 Unit/Ml 10 Ml Vial SUBCUT 7 unit BEDTIME [facility] Administration Lisinopril 20 mg 09/13/20 09:00 09/14/20 09:28 Lisinopril 20 Mg Tablet PO 20 mg DAILY [facility] Administration Protocol Metoprolol Tartrate 50 mg 09/12/20 21:06 09/14/20 09:27 Metoprolol Tartrate 50 Mg Tablet PO 50 mg BID [facility] Administration Protocol Montelukast Sodium 10 mg 09/13/20 09:00 09/14/20 09:27 Montelukast Sodium 10 Mg Tablet PO 10 mg DAILY [facility] Administration Ondansetron HCl 4 mg 09/13/20 04:14 Ondansetron Hcl 4 Mg/2 Ml Vial IVPUSH Q8H PRN Nausea and Vomiting Pharmacy Consult 1 each 09/12/20 17:34 Consult Rx Perform Med Rec MISCELLANE ONCE PRN Consult order Sodium Chloride 3 ml 09/13/20 00:00 09/14/20 09:26 0.9 % Sodium Chloride Flush 3 Ml Syringe IVFLUSH 3 ml QSHIFT [facility] Administration Labs CBC & Chem 7: 09/13/20 05:44 09/13/20 05:44 Microbiology Microbiology Results: Microbiology 09/12/20 16:55 Blood - Venous Blood Culture - Preliminary No growth after 24 hours. 09/12/20 16:42 Blood - Venous Blood Culture - Preliminary No growth after 24 hours. Assessment and Plan (1) Acute respiratory failure with hypoxia: Status: Acute (2) Atrial fibrillation with RVR: Status: Acute (3) Pneumonia due to COVID-19 virus: Status: Acute (4) Elevated troponin: Status: Acute (5) Sepsis: Status: Acute (6) Supratherapeutic INR: Status: Acute Assessment and Plan: 75-year-old male with past medical history as mentioned above who presents to the hospital with complaints of shortness of breath found to have covid 19 with resp failure # Acute respiratory failure with hypoxia d/t covid-persistent hypoxia on high flow -Supportive care with oxygen #Covid 19 with viral sepsis and Pneumonia. -empirically on Ceftriaxone in case of superimposed bacterial pneumonia. -Remdesevir D1/5 -Dexamethasone D2/10 -ID following AFIB now rate controlled. Continue Metorprolol. -INR is supratherapeutic, no bleeding so monitor # supratherapeutic INR 6.8 today - hold Coumadin, no evidence of bleed - follow PT INR daily DVT prophylaxis Coumadin
[2020-09-14 16:46] LABS: Glucose, Whole Blood 284 mg/dL (60-115)
[2020-09-14] MEDS: Remdesivir 100 MG in 0.9 % Sodium Chloride 230 ML 115 MG IV (17:45)
[2020-09-14] MEDS: Insulin Glargine,Hum.rec.anlog 100 UNIT/ML 10 ML VIAL 7 UNIT SUBCUT (21:07)
[2020-09-14] MEDS: Azithromycin 500 MG TABLET PO (21:07)
[2020-09-14] MEDS: cefTRIAXone sodium 1 GM in 0.9 % Sodium Chloride 50 ML IV (21:16)
[2020-09-14 21:21] LABS: Glucose, Whole Blood 266 mg/dL (60-115)
[2020-09-15] VITALS (8 sets, daily range): BP systolic 110–138; BP diastolic 61–89; PULSE 88–100; RESP 17–23; TEMP 36.2–37.1; O2SAT 90–98
[2020-09-15 08:37] LABS: Hematocrit 41.5 % (42-52); Hemoglobin 13.9 g/dl (14.0-18.0); Mean Corpuscular HGB Conc 33.5 g/dl (31.0-36.0); Mean Corpuscular Hemoglobin 31.5 pg (27.0-33.0); Mean Corpuscular Volume 94.1 fL (80-98); Mean Platelet Volume 10.9 fL (9.4-12.4); Platelet Count 207 X10*3/uL (160-400); Red Blood Count 4.41 X10*6/uL (4.60-5.80); Red Cell Distribution Width 13.6 % (11.0-16.0); White Blood Count 11.6 X10*3/uL (4.8-10.8)
[2020-09-15] MEDS: Montelukast Sodium 10 MG TABLET PO (08:37)
[2020-09-15] MEDS: 0.9 % Sodium Chloride Flush 3 ML SYRINGE IVFLUSH ×2 (08:37→16:41)
[2020-09-15] MEDS: dexAMETHasone sod phosphate 4 MG/ML VIAL 6 MG IVPUSH (08:37)
[2020-09-15] MEDS: Atorvastatin Calcium 80 MG TABLET PO (08:37)
[2020-09-15] MEDS: lisinopriL 20 MG TABLET PO (08:37)
[2020-09-15] MEDS: Metoprolol Tartrate 50 MG TABLET PO ×2 (08:38→20:28)
[2020-09-15 08:43] LABS: Prothrombin Time 59.9 SEC (10.8-13.0)
[2020-09-15 09:09] LABS: Alanine Aminotransferase 75 U/L (0-40); Albumin Level 2.9 g/dL (3.5-5.0); Alkaline Phosphatase 86 U/L (39-117); Anion Gap 15 (12-20); Aspartate Amino Transferase 69 U/L (5-37); Bilirubin Direct 0.5 mg/dL (0.0-0.5); Blood Urea Nitrogen 32 mg/dL (9-16); Calcium 7.8 mg/dL (8.4-10.2); Carbon Dioxide 18 mmol/L (22-29); Chloride 110 mmol/L (96-108); Creatinine Clr Calc Pharmacy 85.2; Estimated Glomerular Filt Rate > 60; Glucose Random 211 mg/dL (60-115); Potassium 4.2 mmol/l (3.3-5.1); Sodium 139 mmol/L (135-145); Total Protein 5.2 g/dL (6.5-8.0)
[2020-09-15] MEDS: Remdesivir 100 MG in 0.9 % Sodium Chloride 230 ML 115 MG IV (16:40)
[2020-09-15 17:04] LABS: Glucose, Whole Blood 276 mg/dL (60-115)
--- NOTE | 2020-09-15 17:15 | PC.NURSE ---
Patient remains on 14L humidifed NC. Vitals stable. Continues on remdesevir. OOB to chair. Will continue to monitor.
--- NOTE | 2020-09-15 17:48 | HO.PM.IMPN ---
Subjective Subjective Date of Service: 09/15/20 Interval History: seen and examined this AM feels intermittently sob, but okay otherwise ROS General - no fevers or chills Cardiovascular - no chest pain Respiratory - +SOB Abdominal- no abdominal pain, nausea, vomiting, diarrhea Physical Exam Vital Signs: Vital Signs: Last Vital Signs Temp 97.4 F 09/15/20 15:34 Pulse 88 09/15/20 15:34 Resp 20 09/15/20 15:34 BP 128/62 09/15/20 15:34 Pulse Ox 97 09/15/20 15:34 Body Mass Index 35.4 Const: Other: General - no acute distress, appears comfortable Cardiovascular - IRR, S1-S2 Lungs - normal respiratory effort, clear to auscultation bilaterally, no wheezing Abdomen - soft, nontender, no rebound or guarding Extremities - no edema bilaterally Neuro - awake and alert, no focal deficits Objective Data Current Medications Generic Name Dose Route Start Last Admin Trade Name Freq PRN Reason Stop Dose Admin Acetaminophen 650 mg 09/12/20 21:06 Acetaminophen 325 Mg Tablet PO Q6H PRN Pain, Mild (Pain Scale 1-3) Atorvastatin Calcium 80 mg 09/13/20 09:00 09/15/20 08:37 Atorvastatin Calcium 80 Mg Tablet PO 80 mg DAILY SAL Administration Azithromycin 500 mg 09/12/20 21:06 09/14/20 21:07 Azithromycin 500 Mg Tablet PO 500 mg Q24H SAL Administration Dexamethasone Sodium Phosphate 6 mg 09/13/20 09:00 09/15/20 08:37 Dexamethasone Sod Phosphate 4 Mg/Ml Vial IVPUSH 6 mg DAILY SAL Administration Docusate Sodium 100 mg 09/12/20 21:06 Docusate Sodium 100 Mg Capsule PO DAILY PRN Constipation Ceftriaxone Sodium 1 gm/ 50 mls @ 100 mls/hr 09/12/20 21:06 09/14/20 21:52 Sodium Chloride IV Infused Q24H SAL Infusion Remdesivir 100 mg/ Sodium 230 mls @ 115 mls/hr 09/14/20 17:00 09/15/20 16:40 Chloride IV 115 mls/hr Q24H SAL Administration Insulin Glargine 7 unit 09/12/20 21:06 09/14/20 21:07 Insulin Glargine,Hum.Rec.Anlog 100 Unit/Ml 10 Ml Vial SUBCUT 7 unit BEDTIME SAL Administration Lisinopril 20 mg 09/13/20 09:00 09/15/20 08:37 Lisinopril 20 Mg Tablet PO 20 mg DAILY [facility] Administration Protocol Metoprolol Tartrate 50 mg 09/12/20 21:06 09/15/20 08:38 Metoprolol Tartrate 50 Mg Tablet PO 50 mg BID SAL Administration Protocol Montelukast Sodium 10 mg 09/13/20 09:00 09/15/20 08:37 Montelukast Sodium 10 Mg Tablet PO 10 mg DAILY SAL Administration Ondansetron HCl 4 mg 09/13/20 04:14 Ondansetron Hcl 4 Mg/2 Ml Vial IVPUSH Q8H PRN Nausea and Vomiting Pharmacy Consult 1 each 09/12/20 17:34 Consult Rx Perform Med Rec MISCELLANE ONCE PRN Consult order Sodium Chloride 3 ml 09/13/20 00:00 09/15/20 16:41 0.9 % Sodium Chloride Flush 3 Ml Syringe IVFLUSH 3 ml QSHIFT SAL Administration Labs CBC & Chem 7: 09/15/20 08:19 09/15/20 08:19 Microbiology Microbiology Results: Microbiology 09/12/20 16:55 Blood - Venous Blood Culture - Preliminary No growth after 48 hours. 09/12/20 16:42 Blood - Venous Blood Culture - Preliminary No growth after 48 hours. Assessment and Plan (1) Acute respiratory failure with hypoxia: Status: Acute (2) Atrial fibrillation with RVR: Status: Acute (3) Pneumonia due to COVID-19 virus: Status: Acute (4) Elevated troponin: Status: Acute (5) Sepsis: Status: Acute (6) Supratherapeutic INR: Status: Acute Assessment and Plan: 75-year-old male with past medical history as mentioned above who presents to the hospital with complaints of shortness of breath found to have covid 19 with resp failure 1. Acute respiratory failure with hypoxia d/t covid-persistent hypoxia on high flow On O2, wean as tolerated 2. Covid 19 with viral sepsis remedesivir: day 11/04 + decadron: 11/09 empiric zithromax / rocephin 3., AFIB now rate controlled metoprolol INR downtrending, continue holding 4. supratherapeutic hold coumadin no evidence of bleeding 5. DM latnus + ISS DVT prophylaxis Coumadin
[2020-09-15 20:26] LABS: Glucose, Whole Blood 331 mg/dL (60-115)
[2020-09-15] MEDS: cefTRIAXone sodium 1 GM in 0.9 % Sodium Chloride 50 ML IV (20:28)
[2020-09-15] MEDS: Azithromycin 500 MG TABLET PO (20:28)
[2020-09-15] MEDS: Insulin Glargine,Hum.rec.anlog 100 UNIT/ML 10 ML VIAL 7 UNIT SUBCUT (20:28)
[2020-09-15] MEDS: Insulin Lispro 100 UNIT/ML 3 ML VIAL SUBCUT (20:29)
[2020-09-16] VITALS (8 sets, daily range): BP systolic 135–158; BP diastolic 63–93; PULSE 90–114; RESP 18–20; TEMP 36.4–37.2; O2SAT 90–100
--- NOTE | 2020-09-16 | XR_ITS ---
EXAMINATION: XR CHEST CLINICAL INFORMATION: Covid infection. Follow-up. COMPARISON: Previous x-ray 09/12/2020 TECHNIQUE: Frontal view of the chest was obtained. FINDINGS: The cardiac silhouette is enlarged but stable. Hilar and mediastinal contours are unremarkable. There are bilateral infiltrates and areas of increased attenuation. Findings are suggestive of bilateral multilobar pneumonia/pneumonitis. This does not appear appreciably changed from 09/12/2020 exam. There is no pleural effusion or pneumothorax. There are degenerative changes of the spine. XR/XR chest 1V IMPRESSION: Bilateral pulmonary infiltrates and areas of increased attenuation similar to 09/12/2020 exam.
[2020-09-16] MEDS: 0.9 % Sodium Chloride Flush 3 ML SYRINGE IVFLUSH ×4 (03:26→22:41)
[2020-09-16 07:26] LABS: Hematocrit 44.3 % (42-52); Hemoglobin 14.7 g/dl (14.0-18.0); Mean Corpuscular HGB Conc 33.2 g/dl (31.0-36.0); Mean Corpuscular Hemoglobin 31.7 pg (27.0-33.0); Mean Corpuscular Volume 95.5 fL (80-98); Mean Platelet Volume 11.1 fL (9.4-12.4); Platelet Count 247 X10*3/uL (160-400); Red Blood Count 4.64 X10*6/uL (4.60-5.80); Red Cell Distribution Width 13.5 % (11.0-16.0); White Blood Count 12.3 X10*3/uL (4.8-10.8)
[2020-09-16 07:27] LABS: INTERNATIONAL NORM RATIO 3.5 (0.9-1.1); Prothrombin Time 42.2 SEC (10.8-13.0)
[2020-09-16 07:42] LABS: Anion Gap 17 (12-20); Blood Urea Nitrogen 31 mg/dL (9-16); Carbon Dioxide 18 mmol/L (22-29); Chloride 109 mmol/L (96-108); Creatinine Clr Calc Pharmacy 93.5; Estimated Glomerular Filt Rate > 60; Glucose Random 165 mg/dL (60-115); Potassium 4.1 mmol/l (3.3-5.1); Sodium 140 mmol/L (135-145)
[2020-09-16 08:17] LABS: Glucose, Whole Blood 170 mg/dL (60-115)
[2020-09-16] MEDS: Insulin Lispro 100 UNIT/ML 3 ML VIAL SUBCUT ×4 (09:26→22:40)
[2020-09-16] MEDS: Montelukast Sodium 10 MG TABLET PO (09:26)
[2020-09-16] MEDS: Atorvastatin Calcium 80 MG TABLET PO (09:26)
[2020-09-16] MEDS: lisinopriL 20 MG TABLET PO (09:26)
[2020-09-16] MEDS: dexAMETHasone sod phosphate 4 MG/ML VIAL 6 MG IVPUSH (09:26)
[2020-09-16] MEDS: Metoprolol Tartrate 50 MG TABLET PO (09:27)
[2020-09-16 11:42] LABS: Glucose, Whole Blood 205 mg/dL (60-115)
--- NOTE | 2020-09-16 13:35 | MHC.CM.PN ---
DP home with services family transport. LOS R/T need for supplemental oxygen. CM will follow to assess for change in DC needs.
--- NOTE | 2020-09-16 14:30 | HO.PM.IMPN ---
Subjective Subjective Date of Service: 09/16/20 Interval History: seen and examined this AM feels better despite increasing o2 requirements ROS General - no fevers or chills Cardiovascular - no chest pain Respiratory - +SOB Abdominal- no abdominal pain, nausea, vomiting, diarrhea Physical Exam Vital Signs: Vital Signs: Last Vital Signs Temp 98.2 F 09/16/20 10:55 Pulse 103 H 09/16/20 10:55 Resp 20 09/16/20 10:55 BP 155/69 H 09/16/20 10:55 Pulse Ox 94 09/16/20 10:55 Body Mass Index 35.4 Const: Other: General - no acute distress, appears comfortable Cardiovascular - IRR, S1-S2 Lungs - normal respiratory effort, dim sounds, no distress at rest Abdomen - soft, nontender, no rebound or guarding Extremities - no edema bilaterally Neuro - awake and alert, no focal deficits Objective Data Current Medications Generic Name Dose Route Start Last Admin Trade Name Freq PRN Reason Stop Dose Admin Acetaminophen 650 mg 09/12/20 21:06 Acetaminophen 325 Mg Tablet PO Q6H PRN Pain, Mild (Pain Scale 1-3) Atorvastatin Calcium 80 mg 09/13/20 09:00 09/16/20 09:26 Atorvastatin Calcium 80 Mg Tablet PO 80 mg DAILY SAL Administration Azithromycin 500 mg 09/12/20 21:06 09/15/20 20:28 Azithromycin 500 Mg Tablet PO 500 mg Q24H SAL Administration Dexamethasone Sodium Phosphate 6 mg 09/13/20 09:00 09/16/20 09:26 Dexamethasone Sod Phosphate 4 Mg/Ml Vial IVPUSH 6 mg DAILY SAL Administration Docusate Sodium 100 mg 09/12/20 21:06 Docusate Sodium 100 Mg Capsule PO DAILY PRN Constipation Ceftriaxone Sodium 1 gm/ 50 mls @ 100 mls/hr 09/12/20 21:06 09/15/20 21:21 Sodium Chloride IV Infused Q24H SAL Infusion Remdesivir 100 mg/ Sodium 230 mls @ 115 mls/hr 09/14/20 17:00 09/15/20 20:30 Chloride IV Infused Q24H SAL Infusion Insulin Glargine 7 unit 09/12/20 21:06 09/15/20 20:28 Insulin Glargine,Hum.Rec.Anlog 100 Unit/Ml 10 Ml Vial SUBCUT 7 unit BEDTIME [facility] Administration Insulin Human Lispro 0 unit 09/15/20 21:00 09/16/20 12:00 Insulin Lispro 100 Unit/Ml 3 Ml Vial SUBCUT 4 unit QIDACHS [facility] Administration Protocol Lisinopril 20 mg 09/13/20 09:00 09/16/20 09:26 Lisinopril 20 Mg Tablet PO 20 mg DAILY [facility] Administration Protocol Metoprolol Tartrate 50 mg 09/12/20 21:06 09/16/20 09:27 Metoprolol Tartrate 50 Mg Tablet PO 50 mg BID [facility] Administration Protocol Montelukast Sodium 10 mg 09/13/20 09:00 09/16/20 09:26 Montelukast Sodium 10 Mg Tablet PO 10 mg DAILY [facility] Administration Ondansetron HCl 4 mg 09/13/20 04:14 Ondansetron Hcl 4 Mg/2 Ml Vial IVPUSH Q8H PRN Nausea and Vomiting Pharmacy Consult 1 each 09/12/20 17:34 Consult Rx Perform Med Rec MISCELLANE ONCE PRN Consult order Sodium Chloride 3 ml 09/13/20 00:00 09/16/20 09:26 0.9 % Sodium Chloride Flush 3 Ml Syringe IVFLUSH 3 ml QSHIFT [facility] Administration Labs CBC & Chem 7: 09/16/20 06:17 09/16/20 06:17 Microbiology Microbiology Results: Microbiology 09/12/20 16:55 Blood - Venous Blood Culture - Preliminary No growth after 48 hours. 09/12/20 16:42 Blood - Venous Blood Culture - Preliminary No growth after 48 hours. Assessment and Plan (1) Acute respiratory failure with hypoxia: Status: Acute (2) Atrial fibrillation with RVR: Status: Acute (3) Pneumonia due to COVID-19 virus: Status: Acute (4) Elevated troponin: Status: Acute (5) Sepsis: Status: Acute (6) Supratherapeutic INR: Status: Acute Assessment and Plan: 75-year-old male with past medical history as mentioned above who presents to the hospital with complaints of shortness of breath found to have covid 19 with resp failure 1. Acute respiratory failure with hypoxia d/t covid-persistent hypoxia on high flow On O2, wean as tolerated requirements increased from 15L NC to 100% NRBM 2. Covid 19 with viral sepsis remedesivir: day 4 + decadron: 12/10 empiric rocephin, change zithromax to doxy 3., AFIB now rate controlled metoprolol INR downtrending, continue holding 4. supratherapeutic hold coumadin no evidence of bleeding anticipate restarting by tomorrow 5. DM latnus + ISS DVT prophylaxis Coumadin
[2020-09-16 15:04] LABS: C Reactive Protein 5.21 mg/dL (< or = 0.50)
[2020-09-16] MEDS: Furosemide 20 MG/2 ML VIAL IVPUSH (15:10)
[2020-09-16 16:07] LABS: Strep Pneumo Ag urine Not Detected (Not Detected)
[2020-09-16 16:27] LABS: Glucose, Whole Blood 258 mg/dL (60-115)
--- NOTE | 2020-09-16 16:30 | PC.NURSE ---
Patient O2 sat was 82% on 15L via nasal cannula. Notified respiratory therapy patient placed on 100% nonrebreather, patient satting at 91%. Dr. Purvis recommended weaning patient off O2, patient placed on 55% ventimask, patient O2 sat 89% once place on ventimask. AT 1400 patient was satting at 85% on the ventimask, patient placed on nonrebreather and satting in the 91-92%.
[2020-09-16] MEDS: Remdesivir 100 MG in 0.9 % Sodium Chloride 230 ML 115 MG IV (17:09)
[2020-09-16 20:25] LABS: Glucose, Whole Blood 259 mg/dL (60-115)
[2020-09-16] MEDS: cefTRIAXone sodium 1 GM in 0.9 % Sodium Chloride 50 ML IV (22:39)
[2020-09-16] MEDS: Metoprolol Tartrate 50 MG TABLET 75 MG PO (22:39)
[2020-09-16] MEDS: Doxycycline Hyclate 100 MG in 0.9 % Sodium Chloride 250 ML 166.67 MG IV (22:39)
[2020-09-16] MEDS: Insulin Glargine,Hum.rec.anlog 100 UNIT/ML 10 ML VIAL 7 UNIT SUBCUT (22:40)
[2020-09-17 02:05] VITALS: O2SAT 91
[2020-09-17 04:00] VITALS: BP 134/70; PULSE 88; RESP 18; TEMP 36.8; O2SAT 92
--- NOTE | 2020-09-17 05:38 | PC.NURSE ---
Patient on 100% NRB @ 2300. Switched to [place] DC with humidification @ 15L. Satting low 90's. Desats easily with any exertion w/ prolonged recovery period. OOB to recliner this am. Offers no complaints.
[2020-09-17 07:12] LABS: INTERNATIONAL NORM RATIO 3.4 (0.9-1.1); Prothrombin Time 40.5 SEC (10.8-13.0)
[2020-09-17 07:32] LABS: Hematocrit 45.5 % (42-52); Hemoglobin 15.5 g/dl (14.0-18.0); Mean Corpuscular HGB Conc 34.1 g/dl (31.0-36.0); Mean Corpuscular Hemoglobin 32.5 pg (27.0-33.0); Mean Corpuscular Volume 95.4 fL (80-98); Platelet Count 169 X10*3/uL (160-400); Red Blood Count 4.77 X10*6/uL (4.60-5.80); Red Cell Distribution Width 13.4 % (11.0-16.0); White Blood Count 11.7 X10*3/uL (4.8-10.8)
[2020-09-17 07:37] LABS: Anion Gap 17 (12-20); Blood Urea Nitrogen 24 mg/dL (9-16); Calcium 8.2 mg/dL (8.4-10.2); Carbon Dioxide 19 mmol/L (22-29); Chloride 107 mmol/L (96-108); Creatinine Clr Calc Pharmacy 95.8; Estimated Glomerular Filt Rate > 60; Glucose Random 124 mg/dL (60-115); Potassium 4.2 mmol/l (3.3-5.1); Sodium 139 mmol/L (135-145)
[2020-09-17 07:55] LABS: Procalcitonin 0.15 ng/mL
[2020-09-17 08:00] VITALS: BP 133/77; PULSE 101; RESP 19; TEMP 36.8; O2SAT 91
[2020-09-17 08:05] LABS: Glucose, Whole Blood 137 mg/dL (60-115)
[2020-09-17] MEDS: 0.9 % Sodium Chloride Flush 3 ML SYRINGE IVFLUSH ×3 (08:28→23:14)
[2020-09-17] MEDS: Doxycycline Hyclate 100 MG in 0.9 % Sodium Chloride 250 ML 166.67 MG IV ×2 (08:28→19:40)
[2020-09-17] MEDS: Metoprolol Tartrate 50 MG TABLET 75 MG PO ×2 (08:29→20:52)
[2020-09-17] MEDS: dexAMETHasone sod phosphate 4 MG/ML VIAL 6 MG IVPUSH (08:29)
[2020-09-17] MEDS: Atorvastatin Calcium 80 MG TABLET PO (08:30)
[2020-09-17] MEDS: Montelukast Sodium 10 MG TABLET PO (08:30)
[2020-09-17] MEDS: lisinopriL 20 MG TABLET PO (08:30)
[2020-09-17] MEDS: Furosemide 20 MG/2 ML VIAL IVPUSH (10:06)
--- NOTE | 2020-09-17 10:59 | HO.PM.IMPN ---
Subjective Subjective Date of Service: 09/17/20 Interval History: seen and examined this AM feels the same sats dropping with activity ROS General - no fevers or chills Cardiovascular - no chest pain Respiratory - +SOB Abdominal- no abdominal pain, nausea, vomiting, diarrhea Physical Exam Vital Signs: Vital Signs: Last Vital Signs Temp 98.3 F 09/17/20 08:00 Pulse 101 H 09/17/20 08:00 Resp 19 09/17/20 08:00 BP 133/77 09/17/20 08:00 Pulse Ox 91 L 09/17/20 08:00 Body Mass Index 35.4 Const: Other: General - no acute distress, appears comfortable Cardiovascular - IRR, S1-S2 Lungs - normal respiratory effort, dim sounds, no distress at rest Abdomen - soft, nontender, no rebound or guarding Extremities - no edema bilaterally Neuro - awake and alert, no focal deficits Objective Data Current Medications Generic Name Dose Route Start Last Admin Trade Name Freq PRN Reason Stop Dose Admin Acetaminophen 650 mg 09/12/20 21:06 Acetaminophen 325 Mg Tablet PO Q6H PRN Pain, Mild (Pain Scale 1-3) Atorvastatin Calcium 80 mg 09/13/20 09:00 09/17/20 08:30 Atorvastatin Calcium 80 Mg Tablet PO 80 mg DAILY [facility] Administration Dexamethasone Sodium Phosphate 6 mg 09/13/20 09:00 09/17/20 08:29 Dexamethasone Sod Phosphate 4 Mg/Ml Vial IVPUSH 6 mg DAILY [facility] Administration Docusate Sodium 100 mg 09/12/20 21:06 Docusate Sodium 100 Mg Capsule PO DAILY PRN Constipation Ceftriaxone Sodium 1 gm/ 50 mls @ 100 mls/hr 09/12/20 21:06 09/16/20 23:16 Sodium Chloride IV Infused Q24H SAL Infusion Remdesivir 100 mg/ Sodium 230 mls @ 115 mls/hr 09/14/20 17:00 09/16/20 19:27 Chloride IV 09/17/20 18:59 Infused Q24H SAL Infusion Doxycycline Hyclate 100 mg/ 250 mls @ 166.67 mls/hr 09/16/20 20:00 09/17/20 10:06 Sodium Chloride IV Infused Q12H SAL Infusion Insulin Glargine 7 unit 09/12/20 21:06 09/16/20 22:40 Insulin Glargine,Hum.Rec.Anlog 100 Unit/Ml 10 Ml Vial SUBCUT 1 unit BEDTIME [facility] Administration Insulin Human Lispro 0 unit 09/15/20 21:00 09/17/20 08:29 Insulin Lispro 100 Unit/Ml 3 Ml Vial SUBCUT Not Given QIDACHS [facility] Protocol Lisinopril 20 mg 09/13/20 09:00 09/17/20 08:30 Lisinopril 20 Mg Tablet PO 20 mg DAILY [facility] Administration Protocol Metoprolol Tartrate 75 mg 09/16/20 21:00 09/17/20 08:29 Metoprolol Tartrate 50 Mg Tablet PO 75 mg BID [facility] Administration Protocol Montelukast Sodium 10 mg 09/13/20 09:00 09/17/20 08:30 Montelukast Sodium 10 Mg Tablet PO 10 mg DAILY [facility] Administration Ondansetron HCl 4 mg 09/13/20 04:14 Ondansetron Hcl 4 Mg/2 Ml Vial IVPUSH Q8H PRN Nausea and Vomiting Pharmacy Consult 1 each 09/12/20 17:34 Consult Rx Perform Med Rec MISCELLANE ONCE PRN Consult order Sodium Chloride 3 ml 09/13/20 00:00 09/17/20 08:28 0.9 % Sodium Chloride Flush 3 Ml Syringe IVFLUSH 3 ml QSHIFT [facility] Administration Labs CBC & Chem 7: 09/17/20 06:27 09/17/20 06:27 Microbiology Microbiology Results: Microbiology 09/12/20 16:55 Blood - Venous Blood Culture - Preliminary No growth after 48 hours. 09/12/20 16:42 Blood - Venous Blood Culture - Preliminary No growth after 48 hours. Assessment and Plan (1) Acute respiratory failure with hypoxia: Status: Acute (2) Atrial fibrillation with RVR: Status: Acute (3) Pneumonia due to COVID-19 virus: Status: Acute (4) Elevated troponin: Status: Acute (5) Sepsis: Status: Acute (6) Supratherapeutic INR: Status: Acute Assessment and Plan: 75-year-old male with past medical history as mentioned above who presents to the hospital with complaints of shortness of breath found to have covid 19 with resp failure 1. Acute respiratory failure with hypoxia d/t covid-persistent hypoxia on high flow On O2, wean as tolerated Back on 15L by [place] overnight 2. Covid 19 with viral sepsis remedesivir: day 5/5 + decadron: 02/09 empiric rocephin - 01/04; continue doxy - day #2 3., AFIB now rate controlled metoprolol 75mg BID INR downtrending, continue holding 4. supratherapeutic hold coumadin no evidence of bleeding restart coumadin once INR below 3 5. DM latnus + ISS DVT prophylaxis Coumadin
[2020-09-17 11:45] LABS: Glucose, Whole Blood 197 mg/dL (60-115)
[2020-09-17 12:00] VITALS: BP 120/72; PULSE 107; RESP 20; TEMP 36.4; O2SAT 92
[2020-09-17] MEDS: Insulin Lispro 100 UNIT/ML 3 ML VIAL SUBCUT ×3 (12:05→20:52)
[2020-09-17 15:22] VITALS: BP 170/70; PULSE 112; RESP 18; TEMP 36.6; O2SAT 96
[2020-09-17] MEDS: Remdesivir 100 MG in 0.9 % Sodium Chloride 230 ML 115 MG IV (16:10)
[2020-09-17 16:17] LABS: Glucose, Whole Blood 275 mg/dL (60-115)
[2020-09-17 18:56] VITALS: BP 121/59; PULSE 100; RESP 18; TEMP 36.5; O2SAT 97
[2020-09-17 20:17] LABS: Glucose, Whole Blood 211 mg/dL (60-115)
[2020-09-17] MEDS: Insulin Glargine,Hum.rec.anlog 100 UNIT/ML 10 ML VIAL 7 UNIT SUBCUT (20:53)
[2020-09-18] VITALS (11 sets, daily range): BP systolic 116–140; BP diastolic 66–86; PULSE 88–104; RESP 18–22; TEMP 35.9–36.6; O2SAT 90–95
[2020-09-18 06:24] LABS: Hematocrit 41.1 % (42-52); Mean Corpuscular HGB Conc 34.1 g/dl (31.0-36.0); Mean Corpuscular Hemoglobin 32.2 pg (27.0-33.0); Mean Corpuscular Volume 94.5 fL (80-98); Mean Platelet Volume 10.7 fL (9.4-12.4); Platelet Count 171 X10*3/uL (160-400); Red Blood Count 4.35 X10*6/uL (4.60-5.80); Red Cell Distribution Width 13.2 % (11.0-16.0)
[2020-09-18 06:48] LABS: Anion Gap 16 (12-20); Blood Urea Nitrogen 27 mg/dL (9-16); Carbon Dioxide 21 mmol/L (22-29); Chloride 106 mmol/L (96-108); Creatinine Clr Calc Pharmacy 100.7; Estimated Glomerular Filt Rate > 60; Glucose Random 167 mg/dL (60-115); Potassium 3.9 mmol/l (3.3-5.1); Sodium 139 mmol/L (135-145)
[2020-09-18 07:56] LABS: Glucose, Whole Blood 167 mg/dL (60-115)
[2020-09-18 08:02] LABS: INTERNATIONAL NORM RATIO 2.7 (0.9-1.1); Prothrombin Time 31.9 SEC (10.8-13.0)
[2020-09-18] MEDS: Insulin Lispro 100 UNIT/ML 3 ML VIAL SUBCUT ×4 (08:45→20:57)
[2020-09-18] MEDS: 0.9 % Sodium Chloride Flush 3 ML SYRINGE IVFLUSH ×2 (08:46→17:16)
[2020-09-18] MEDS: dexAMETHasone sod phosphate 4 MG/ML VIAL 6 MG IVPUSH (08:47)
[2020-09-18] MEDS: Metoprolol Tartrate 50 MG TABLET 75 MG PO ×2 (08:52→20:57)
[2020-09-18] MEDS: Atorvastatin Calcium 80 MG TABLET PO (08:53)
[2020-09-18] MEDS: lisinopriL 20 MG TABLET PO (08:53)
[2020-09-18] MEDS: Montelukast Sodium 10 MG TABLET PO (08:53)
[2020-09-18] MEDS: Doxycycline Hyclate 100 MG in 0.9 % Sodium Chloride 250 ML 166.67 MG IV ×2 (11:02→20:56)
[2020-09-18 11:41] LABS: Glucose, Whole Blood 226 mg/dL (60-115)
--- NOTE | 2020-09-18 12:12 | P.PNIM_ITS ---
Subjective Subjective Date of Service: 09/18/20 Interval History: seen and examined this AM reports slowly improving able to take deeper breaths ROS General - no fevers or chills Cardiovascular - no chest pain Respiratory - +SOB Abdominal- no abdominal pain, nausea, vomiting, diarrhea Physical Exam Vital Signs: Vital Signs: Last Vital Signs Temp 97.8 F 09/18/20 11:45 Pulse 96 09/18/20 11:45 Resp 19 09/18/20 11:45 BP 116/70 09/18/20 11:45 Pulse Ox 91 L 09/18/20 11:45 Body Mass Index 35.4 Const: Other: General - no acute distress, appears comfortable Cardiovascular - IRR, S1-S2 Lungs - normal respiratory effort, dim sounds, no distress at rest Abdomen - soft, nontender, no rebound or guarding Extremities - no edema bilaterally Neuro - awake and alert, no focal deficits Objective Data Current Medications Generic Name Dose Route Start Last Admin Trade Name Freq PRN Reason Stop Dose Admin Acetaminophen 650 mg 09/12/20 21:06 Acetaminophen 325 Mg Tablet PO Q6H PRN Pain, Mild (Pain Scale 1-3) Atorvastatin Calcium 80 mg 09/13/20 09:00 09/18/20 08:53 Atorvastatin Calcium 80 Mg Tablet PO 80 mg DAILY [facility] Administration Dexamethasone Sodium Phosphate 6 mg 09/13/20 09:00 09/18/20 08:47 Dexamethasone Sod Phosphate 4 Mg/Ml Vial IVPUSH 6 mg DAILY [facility] Administration Docusate Sodium 100 mg 09/12/20 21:06 Docusate Sodium 100 Mg Capsule PO DAILY PRN Constipation Doxycycline Hyclate 100 mg/ 250 mls @ 166.67 mls/hr 09/16/20 20:00 09/18/20 11:02 Sodium Chloride IV 166.67 mls/hr Q12H [facility] Administration Insulin Glargine 7 unit 09/12/20 21:06 09/17/20 20:53 Insulin Glargine,Hum.Rec.Anlog 100 Unit/Ml 10 Ml Vial SUBCUT 7 unit BEDTIME [facility] Administration Insulin Human Lispro 0 unit 09/15/20 21:00 09/18/20 11:46 Insulin Lispro 100 Unit/Ml 3 Ml Vial SUBCUT 4 unit QIDACHS [facility] Administration Protocol Lisinopril 20 mg 09/13/20 09:00 09/18/20 08:53 Lisinopril 20 Mg Tablet PO 20 mg DAILY [facility] Administration Protocol Metoprolol Tartrate 75 mg 09/16/20 21:00 09/18/20 08:52 Metoprolol Tartrate 50 Mg Tablet PO 75 mg BID [facility] Administration Protocol Montelukast Sodium 10 mg 09/13/20 09:00 09/18/20 08:53 Montelukast Sodium 10 Mg Tablet PO 10 mg DAILY [facility] Administration Ondansetron HCl 4 mg 09/13/20 04:14 Ondansetron Hcl 4 Mg/2 Ml Vial IVPUSH Q8H PRN Nausea and Vomiting Pharmacy Consult 1 each 09/12/20 17:34 Consult Rx Perform Med Rec MISCELLANE ONCE PRN Consult order Sodium Chloride 3 ml 09/13/20 00:00 09/18/20 08:46 0.9 % Sodium Chloride Flush 3 Ml Syringe IVFLUSH 3 ml QSHIFT [facility] Administration Labs CBC & Chem 7: 09/18/20 05:27 09/18/20 05:27 Microbiology Microbiology Results: Microbiology 09/12/20 16:55 Blood - Venous Blood Culture - Final No growth after 5 days. 09/12/20 16:42 Blood - Venous Blood Culture - Final No growth after 5 days. Assessment and Plan (1) Acute respiratory failure with hypoxia: Status: Acute (2) Atrial fibrillation with RVR: Status: Acute (3) Pneumonia due to COVID-19 virus: Status: Acute (4) Elevated troponin: Status: Acute (5) Sepsis: Status: Acute (6) Supratherapeutic INR: Status: Acute Assessment and Plan: 75-year-old male with past medical history as mentioned above who presents to the hospital with complaints of shortness of breath found to have covid 19 with resp failure 1. Acute respiratory failure with hypoxia d/t covid-persistent hypoxia on high flow On O2, wean as tolerated on 10L this AM, sats low 90s 2. Covid 19 with viral sepsis decadron day 03/11 completed remedesivir, 5 days of rocephin continue doxy - day #2/5 3., A. Fib with RVR now rate controlled metoprolol 75mg BID restart coumadin 4. supratherapeutic resolved restart coumadin 5. DM latnus + ISS DVT prophylaxis Coumadin
[2020-09-18 16:52] LABS: Glucose, Whole Blood 286 mg/dL (60-115)
[2020-09-18] MEDS: Warfarin Sodium 2.5 MG TABLET PO (17:16)
[2020-09-18 20:45] LABS: Glucose, Whole Blood 253 mg/dL (60-115)
[2020-09-18] MEDS: Insulin Glargine,Hum.rec.anlog 100 UNIT/ML 10 ML VIAL 7 UNIT SUBCUT (20:57)
--- NOTE | 2020-09-18 22:58 | PC.NURSE ---
Addendum entered by Evon Beal RN 09/19/20 06:10: RT at bedside attempted to wean pt off NRB onto 15L [place], pt desatted to 83/34% sustaining. Placed back on NRB by RT, O2 sustaining >90%. Addendum entered by Evon Beal RN 09/19/20 01:25: Pt noted to be desatting to 85 on 15 L [place], mouth breathing. Placed pt on nonrebreather, O2 sustaining > 95%. Will continue to monitor and titrate as tolerated. Original Note: Pt desatting at 85-86% on 12 L [place]. Pt titrated up to 15 L and maintaining O2 SAT > 90%.
[2020-09-19] VITALS (9 sets, daily range): BP systolic 101–167; BP diastolic 63–84; PULSE 82–101; RESP 18–22; TEMP 36.1–36.7; O2SAT 85–100
[2020-09-19] MEDS: 0.9 % Sodium Chloride Flush 3 ML SYRINGE IVFLUSH ×4 (00:47→21:53)
[2020-09-19 06:43] LABS: Hematocrit 39.7 % (42-52); Hemoglobin 13.4 g/dl (14.0-18.0); Mean Corpuscular HGB Conc 33.8 g/dl (31.0-36.0); Mean Corpuscular Hemoglobin 31.7 pg (27.0-33.0); Mean Corpuscular Volume 93.9 fL (80-98); Mean Platelet Volume 10.9 fL (9.4-12.4); Platelet Count 177 X10*3/uL (160-400); Red Blood Count 4.23 X10*6/uL (4.60-5.80); Red Cell Distribution Width 13.2 % (11.0-16.0)
[2020-09-19 07:01] LABS: Anion Gap 14 (12-20); Blood Urea Nitrogen 24 mg/dL (9-16); Calcium 7.9 mg/dL (8.4-10.2); Carbon Dioxide 21 mmol/L (22-29); Chloride 106 mmol/L (96-108); Creatinine Clr Calc Pharmacy 104.8; Estimated Glomerular Filt Rate > 60; Glucose Random 160 mg/dL (60-115); Potassium 3.9 mmol/l (3.3-5.1); Sodium 137 mmol/L (135-145)
[2020-09-19 07:02] LABS: INTERNATIONAL NORM RATIO 2.1 (0.9-1.1); Prothrombin Time 24.6 SEC (10.8-13.0)
[2020-09-19 08:32] LABS: Glucose, Whole Blood 144 mg/dL (60-115)
[2020-09-19] MEDS: dexAMETHasone sod phosphate 4 MG/ML VIAL 6 MG IVPUSH (09:23)
[2020-09-19] MEDS: Doxycycline Hyclate 100 MG in 0.9 % Sodium Chloride 250 ML 166.67 MG IV ×2 (09:25→19:47)
[2020-09-19] MEDS: Atorvastatin Calcium 80 MG TABLET PO (09:27)
[2020-09-19] MEDS: Metoprolol Tartrate 50 MG TABLET 75 MG PO ×2 (09:27→21:46)
[2020-09-19] MEDS: Montelukast Sodium 10 MG TABLET PO (09:27)
[2020-09-19] MEDS: lisinopriL 20 MG TABLET PO (09:27)
[2020-09-19 11:58] LABS: Glucose, Whole Blood 283 mg/dL (60-115)
[2020-09-19] MEDS: Insulin Lispro 100 UNIT/ML 3 ML VIAL SUBCUT ×3 (12:05→21:45)
--- NOTE | 2020-09-19 14:49 | HO.PM.IMPN ---
Subjective Subjective Date of Service: 09/19/20 Interval History: still sob, weak Cardiovascular Cardiovascular: Reports no additional cardiovascular complaints Gastrointestinal Gastrointestinal: Reports no additional gastrointestinal complaints Physical Exam Vital Signs: Vital Signs: Last Vital Signs Temp 97.7 F 09/19/20 12:00 Pulse 92 09/19/20 12:00 Resp 22 H 09/19/20 12:00 BP 101/63 09/19/20 12:00 Pulse Ox 92 09/19/20 12:00 Body Mass Index 35.4 General: AO X 3, no acute distress Resp: CTA bilateral CVS: S1,S2,RRR GI: soft, non tender, non distended Neuro: motor grossly intact Psych: appropriate affect Objective Data Current Medications Generic Name Dose Route Start Last Admin Trade Name Freq PRN Reason Stop Dose Admin Acetaminophen 650 mg 09/12/20 21:06 Acetaminophen 325 Mg Tablet PO Q6H PRN Pain, Mild (Pain Scale 1-3) Atorvastatin Calcium 80 mg 09/13/20 09:00 09/19/20 09:27 Atorvastatin Calcium 80 Mg Tablet PO 80 mg DAILY [facility] Administration Dexamethasone Sodium Phosphate 6 mg 09/13/20 09:00 09/19/20 09:23 Dexamethasone Sod Phosphate 4 Mg/Ml Vial IVPUSH 6 mg DAILY [facility] Administration Docusate Sodium 100 mg 09/12/20 21:06 Docusate Sodium 100 Mg Capsule PO DAILY PRN Constipation Doxycycline Hyclate 100 mg/ 250 mls @ 166.67 mls/hr 09/16/20 20:00 09/19/20 11:00 Sodium Chloride IV 09/21/20 09:29 Infused Q12H SAL Infusion Insulin Glargine 7 unit 09/12/20 21:06 09/18/20 20:57 Insulin Glargine,Hum.Rec.Anlog 100 Unit/Ml 10 Ml Vial SUBCUT 7 unit BEDTIME [facility] Administration Insulin Human Lispro 0 unit 09/15/20 21:00 09/19/20 12:05 Insulin Lispro 100 Unit/Ml 3 Ml Vial SUBCUT 6 unit QIDACHS [facility] Administration Protocol Lisinopril 20 mg 09/13/20 09:00 09/19/20 09:27 Lisinopril 20 Mg Tablet PO 20 mg DAILY [facility] Administration Protocol Metoprolol Tartrate 75 mg 09/16/20 21:00 09/19/20 09:27 Metoprolol Tartrate 50 Mg Tablet PO 75 mg BID [facility] Administration Protocol Montelukast Sodium 10 mg 09/13/20 09:00 09/19/20 09:27 Montelukast Sodium 10 Mg Tablet PO 10 mg DAILY [facility] Administration Ondansetron HCl 4 mg 09/13/20 04:14 Ondansetron Hcl 4 Mg/2 Ml Vial IVPUSH Q8H PRN Nausea and Vomiting Pharmacy Consult 1 each 09/12/20 17:34 Consult Rx Perform Med Rec MISCELLANE ONCE PRN Consult order Sodium Chloride 3 ml 09/13/20 00:00 09/19/20 09:25 0.9 % Sodium Chloride Flush 3 Ml Syringe IVFLUSH 3 ml QSHIFT [facility] Administration Warfarin Sodium 2.5 mg 09/18/20 18:00 09/18/20 17:16 Warfarin Sodium 2.5 Mg Tablet PO 2.5 mg DAILY@1800 [facility] Administration Labs CBC & Chem 7: 09/19/20 05:24 09/19/20 05:24 Microbiology Microbiology Results: Microbiology 09/12/20 16:55 Blood - Venous Blood Culture - Final No growth after 5 days. 09/12/20 16:42 Blood - Venous Blood Culture - Final No growth after 5 days. Assessment and Plan (1) Acute respiratory failure with hypoxia: Status: Acute (2) Atrial fibrillation with RVR: Status: Acute (3) Pneumonia due to COVID-19 virus: Status: Acute (4) Elevated troponin: Status: Acute (5) Sepsis: Status: Acute (6) Supratherapeutic INR: Status: Acute Assessment and Plan: 75-year-old male presented to the hospital with complaints of shortness of breath found to have covid 19 with resp failure Acute respiratory failure with hypoxia d/t covid On O2, wean as tolerated, now on 15L [place] viral sepsis decadron day 04/11 completed remedesivir, 5 days of rocephin continue doxy - day #3/5 A. Fib now rate controlled metoprolol 75mg BID restarted coumadin DM latnus + ISS
[2020-09-19 16:35] LABS: Glucose, Whole Blood 273 mg/dL (60-115)
[2020-09-19] MEDS: Warfarin Sodium 2.5 MG TABLET PO (17:00)
[2020-09-19] MEDS: Insulin Glargine,Hum.rec.anlog 100 UNIT/ML 10 ML VIAL 7 UNIT SUBCUT (21:44)
[2020-09-20] VITALS (8 sets, daily range): BP systolic 114–146; BP diastolic 59–83; PULSE 65–106; RESP 19–22; TEMP 36.4–37; O2SAT 95–99
[2020-09-20 00:01] LABS: Glucose, Whole Blood 277 mg/dL (60-115)
[2020-09-20 06:12] LABS: INTERNATIONAL NORM RATIO 2.3 (0.9-1.1); Prothrombin Time 27.4 SEC (10.8-13.0)
[2020-09-20 06:21] LABS: Hematocrit 43.1 % (42-52); Hemoglobin 14.7 g/dl (14.0-18.0); Mean Corpuscular HGB Conc 34.1 g/dl (31.0-36.0); Mean Corpuscular Hemoglobin 32.2 pg (27.0-33.0); Mean Corpuscular Volume 94.5 fL (80-98); Mean Platelet Volume 10.4 fL (9.4-12.4); Platelet Count 181 X10*3/uL (160-400); Red Blood Count 4.56 X10*6/uL (4.60-5.80); Red Cell Distribution Width 13.2 % (11.0-16.0); White Blood Count 14.7 X10*3/uL (4.8-10.8)
[2020-09-20 06:43] LABS: Anion Gap 14 (12-20); Blood Urea Nitrogen 23 mg/dL (9-16); Calcium 8.2 mg/dL (8.4-10.2); Carbon Dioxide 22 mmol/L (22-29); Chloride 105 mmol/L (96-108); Creatinine Clr Calc Pharmacy 98.2; Estimated Glomerular Filt Rate > 60; Glucose Random 173 mg/dL (60-115); Potassium 4.4 mmol/l (3.3-5.1); Sodium 137 mmol/L (135-145)
[2020-09-20 07:49] LABS: Glucose, Whole Blood 171 mg/dL (60-115)
[2020-09-20] MEDS: 0.9 % Sodium Chloride Flush 3 ML SYRINGE IVFLUSH ×2 (08:32→17:14)
[2020-09-20] MEDS: Montelukast Sodium 10 MG TABLET PO (08:39)
[2020-09-20] MEDS: Atorvastatin Calcium 80 MG TABLET PO (08:40)
[2020-09-20] MEDS: lisinopriL 20 MG TABLET PO (08:40)
[2020-09-20] MEDS: Metoprolol Tartrate 50 MG TABLET 75 MG PO ×2 (08:40→20:40)
[2020-09-20] MEDS: Doxycycline Hyclate 100 MG in 0.9 % Sodium Chloride 250 ML 166.67 MG IV ×2 (08:48→19:15)
[2020-09-20] MEDS: dexAMETHasone sod phosphate 4 MG/ML VIAL 6 MG IVPUSH (08:49)
[2020-09-20] MEDS: Omeprazole 40 MG CAPSULE.DR PO (10:53)
[2020-09-20 11:45] LABS: Glucose, Whole Blood 236 mg/dL (60-115)
[2020-09-20] MEDS: Insulin Lispro 100 UNIT/ML 3 ML VIAL SUBCUT ×3 (11:54→20:40)
--- NOTE | 2020-09-20 12:05 | HO.PM.IMPN ---
Subjective Subjective Date of Service: 09/20/20 Interval History: sob, heartburn Cardiovascular Cardiovascular: Reports no additional cardiovascular complaints Gastrointestinal Gastrointestinal: Reports no additional gastrointestinal complaints Physical Exam Vital Signs: Vital Signs: Last Vital Signs Temp 97.6 F 09/20/20 07:54 Pulse 106 H 09/20/20 08:40 Resp 22 H 09/20/20 07:54 BP 121/59 L 09/20/20 08:40 Pulse Ox 97 09/20/20 07:54 Body Mass Index 35.4 General: AO X 3, no acute distress Resp: CTA bilateral CVS: S1,S2,RRR GI: soft, non tender, non distended Neuro: motor grossly intact Psych: appropriate affect Objective Data Current Medications Generic Name Dose Route Start Last Admin Trade Name Freq PRN Reason Stop Dose Admin Acetaminophen 650 mg 09/12/20 21:06 Acetaminophen 325 Mg Tablet PO Q6H PRN Pain, Mild (Pain Scale 1-3) Atorvastatin Calcium 80 mg 09/13/20 09:00 09/20/20 08:40 Atorvastatin Calcium 80 Mg Tablet PO 80 mg DAILY [facility] Administration Dexamethasone Sodium Phosphate 6 mg 09/13/20 09:00 09/20/20 08:49 Dexamethasone Sod Phosphate 4 Mg/Ml Vial IVPUSH 6 mg DAILY [facility] Administration Docusate Sodium 100 mg 09/12/20 21:06 Docusate Sodium 100 Mg Capsule PO DAILY PRN Constipation Doxycycline Hyclate 100 mg/ 250 mls @ 166.67 mls/hr 09/16/20 20:00 09/20/20 10:50 Sodium Chloride IV 09/21/20 09:29 Infused Q12H SAL Infusion Insulin Glargine 7 unit 09/12/20 21:06 09/19/20 21:44 Insulin Glargine,Hum.Rec.Anlog 100 Unit/Ml 10 Ml Vial SUBCUT 7 unit BEDTIME [facility] Administration Insulin Human Lispro 0 unit 09/15/20 21:00 09/20/20 11:54 Insulin Lispro 100 Unit/Ml 3 Ml Vial SUBCUT 4 unit QIDACHS [facility] Administration Protocol Lisinopril 20 mg 09/13/20 09:00 09/20/20 08:40 Lisinopril 20 Mg Tablet PO 20 mg DAILY [facility] Administration Protocol Metoprolol Tartrate 75 mg 09/16/20 21:00 09/20/20 08:40 Metoprolol Tartrate 50 Mg Tablet PO 75 mg BID [facility] Administration Protocol Montelukast Sodium 10 mg 09/13/20 09:00 09/20/20 08:39 Montelukast Sodium 10 Mg Tablet PO 10 mg DAILY [facility] Administration Omeprazole 40 mg 09/20/20 09:35 09/20/20 10:53 Omeprazole 40 Mg Capsule. PO 40 mg DAILY@0630 [facility] Administration Ondansetron HCl 4 mg 09/13/20 04:14 Ondansetron Hcl 4 Mg/2 Ml Vial IVPUSH Q8H PRN Nausea and Vomiting Pharmacy Consult 1 each 09/12/20 17:34 Consult Rx Perform Med Rec MISCELLANE ONCE PRN Consult order Sodium Chloride 3 ml 09/13/20 00:00 09/20/20 08:32 0.9 % Sodium Chloride Flush 3 Ml Syringe IVFLUSH 3 ml QSHIFT [facility] Administration Warfarin Sodium 2.5 mg 09/18/20 18:00 09/19/20 17:00 Warfarin Sodium 2.5 Mg Tablet PO 2.5 mg DAILY@1800 [facility] Administration Labs CBC & Chem 7: 09/20/20 05:15 09/20/20 05:18 Microbiology Microbiology Results: Microbiology 09/12/20 16:55 Blood - Venous Blood Culture - Final No growth after 5 days. 09/12/20 16:42 Blood - Venous Blood Culture - Final No growth after 5 days. Assessment and Plan (1) Acute respiratory failure with hypoxia: Status: Acute (2) Atrial fibrillation with RVR: Status: Acute (3) Pneumonia due to COVID-19 virus: Status: Acute (4) Elevated troponin: Status: Acute (5) Sepsis: Status: Acute (6) Supratherapeutic INR: Status: Acute Assessment and Plan: 75-year-old male presented to the hospital with complaints of shortness of breath found to have covid 19 with resp failure Acute respiratory failure with hypoxia d/t covid On O2, wean as tolerated, now on 15L [place] viral sepsis decadron day 05/12 completed remedesivir, 5 days of rocephin continue doxy - day #4/5 continue to wean A. Fib now rate controlled metoprolol 75mg BID restarted coumadin DM latnus + ISS
--- NOTE | 2020-09-20 12:25 | MHC.CLN ---
F/U PO INTAKE 75/100% SLIGHT DECLINE TODAY 25/50% DIET RX: 2000DM-APPROPRIATE PT RECEIVING GLUCERNA TID PROVIDES 711KCALS, 30G PROTEIN MONITOR PO INTAKE CLOSELY FOLLOWING
[2020-09-20 16:47] LABS: Legionella Ag Urine Not Detected (Not Detected)
[2020-09-20 16:56] LABS: Glucose, Whole Blood 313 mg/dL (60-115)
[2020-09-20] MEDS: Warfarin Sodium 2.5 MG TABLET PO (17:17)
--- NOTE | 2020-09-20 18:10 | PC.NURSE ---
report called to Gonzalez, Nurse at [facility]. Pt awaits ambulance transport to facility. She is resting quietly and has tolerated a meal
[2020-09-20 20:15] LABS: Glucose, Whole Blood 231 mg/dL (60-115)
[2020-09-20] MEDS: Insulin Glargine,Hum.rec.anlog 100 UNIT/ML 10 ML VIAL 7 UNIT SUBCUT (20:41)
[2020-09-21] VITALS (8 sets, daily range): BP systolic 103–134; BP diastolic 63–74; PULSE 90–102; RESP 18–20; TEMP 36.4–36.8; O2SAT 90–98
[2020-09-21] MEDS: 0.9 % Sodium Chloride Flush 3 ML SYRINGE IVFLUSH ×4 (00:02→20:53)
[2020-09-21] MEDS: Omeprazole 40 MG CAPSULE.DR PO (05:33)
[2020-09-21 07:16] LABS: Anion Gap 12 (12-20); Blood Urea Nitrogen 18 mg/dL (9-16); Calcium 8.2 mg/dL (8.4-10.2); Carbon Dioxide 26 mmol/L (22-29); Chloride 104 mmol/L (96-108); Creatinine Clr Calc Pharmacy 106.3; Estimated Glomerular Filt Rate > 60; Glucose Random 148 mg/dL (60-115); Potassium 4.3 mmol/l (3.3-5.1); Sodium 138 mmol/L (135-145)
[2020-09-21 07:33] LABS: Hematocrit 43.2 % (42-52); Hemoglobin 14.6 g/dl (14.0-18.0); Mean Corpuscular HGB Conc 33.8 g/dl (31.0-36.0); Mean Corpuscular Volume 94.7 fL (80-98); Mean Platelet Volume 10.3 fL (9.4-12.4); Platelet Count 163 X10*3/uL (160-400); Red Blood Count 4.56 X10*6/uL (4.60-5.80); Red Cell Distribution Width 13.4 % (11.0-16.0); White Blood Count 15.8 X10*3/uL (4.8-10.8)
[2020-09-21 07:45] LABS: Glucose, Whole Blood 157 mg/dL (60-115)
[2020-09-21] MEDS: Doxycycline Hyclate 100 MG in 0.9 % Sodium Chloride 250 ML 166.67 MG IV (09:44)
[2020-09-21] MEDS: lisinopriL 20 MG TABLET PO (09:45)
[2020-09-21] MEDS: Atorvastatin Calcium 80 MG TABLET PO (09:45)
[2020-09-21] MEDS: Metoprolol Tartrate 50 MG TABLET 75 MG PO ×2 (09:45→20:53)
[2020-09-21] MEDS: dexAMETHasone sod phosphate 4 MG/ML VIAL 6 MG IVPUSH (09:45)
[2020-09-21] MEDS: Montelukast Sodium 10 MG TABLET PO (09:47)
[2020-09-21] MEDS: Insulin Lispro 100 UNIT/ML 3 ML VIAL SUBCUT ×4 (09:47→20:51)
[2020-09-21 11:18] LABS: Glucose, Whole Blood 238 mg/dL (60-115)
--- NOTE | 2020-09-21 12:27 | P.PNIM_ITS ---
Subjective Subjective Date of Service: 09/21/20 Interval History: a bit better today Cardiovascular Cardiovascular: Reports no additional cardiovascular complaints Gastrointestinal Gastrointestinal: Reports no additional gastrointestinal complaints Physical Exam Vital Signs: Vital Signs: Last Vital Signs Temp 97.8 F 09/21/20 08:00 Pulse 102 H 09/21/20 09:45 Resp 18 09/21/20 08:00 BP 130/74 09/21/20 09:45 Pulse Ox 90 L 09/21/20 08:00 Body Mass Index 35.4 General: AO X 3, no acute distress Resp: CTA bilateral CVS: S1,S2,RRR GI: soft, non tender, non distended Neuro: motor grossly intact Psych: appropriate affect Objective Data Current Medications Generic Name Dose Route Start Last Admin Trade Name Freq PRN Reason Stop Dose Admin Acetaminophen 650 mg 09/12/20 21:06 Acetaminophen 325 Mg Tablet PO Q6H PRN Pain, Mild (Pain Scale 1-3) Atorvastatin Calcium 80 mg 09/13/20 09:00 09/21/20 09:45 Atorvastatin Calcium 80 Mg Tablet PO 80 mg DAILY [facility] Administration Dexamethasone Sodium Phosphate 6 mg 09/13/20 09:00 09/21/20 09:45 Dexamethasone Sod Phosphate 4 Mg/Ml Vial IVPUSH 6 mg DAILY [facility] Administration Docusate Sodium 100 mg 09/12/20 21:06 Docusate Sodium 100 Mg Capsule PO DAILY PRN Constipation Insulin Glargine 7 unit 09/12/20 21:06 09/20/20 20:41 Insulin Glargine,Hum.Rec.Anlog 100 Unit/Ml 10 Ml Vial SUBCUT 7 unit BEDTIME [facility] Administration Insulin Human Lispro 0 unit 09/15/20 21:00 09/21/20 12:15 Insulin Lispro 100 Unit/Ml 3 Ml Vial SUBCUT 4 unit QIDACHS [facility] Administration Protocol Lisinopril 20 mg 09/13/20 09:00 09/21/20 09:45 Lisinopril 20 Mg Tablet PO 20 mg DAILY [facility] Administration Protocol Metoprolol Tartrate 75 mg 09/16/20 21:00 09/21/20 09:45 Metoprolol Tartrate 50 Mg Tablet PO 75 mg BID [facility] Administration Protocol Montelukast Sodium 10 mg 09/13/20 09:00 09/21/20 09:47 Montelukast Sodium 10 Mg Tablet PO 10 mg DAILY [facility] Administration Omeprazole 40 mg 09/20/20 09:35 09/21/20 05:33 Omeprazole 40 Mg Capsule. PO 40 mg DAILY@0630 [facility] Administration Ondansetron HCl 4 mg 09/13/20 04:14 Ondansetron Hcl 4 Mg/2 Ml Vial IVPUSH Q8H PRN Nausea and Vomiting Pharmacy Consult 1 each 09/12/20 17:34 Consult Rx Perform Med Rec MISCELLANE ONCE PRN Consult order Sodium Chloride 3 ml 09/13/20 00:00 09/21/20 09:45 0.9 % Sodium Chloride Flush 3 Ml Syringe IVFLUSH 3 ml QSHIFT [facility] Administration Warfarin Sodium 2.5 mg 09/18/20 18:00 09/20/20 17:17 Warfarin Sodium 2.5 Mg Tablet PO 2.5 mg DAILY@1800 [facility] Administration Labs CBC & Chem 7: 09/21/20 05:36 09/21/20 05:36 Microbiology Microbiology Results: Microbiology 09/12/20 16:55 Blood - Venous Blood Culture - Final No growth after 5 days. 09/12/20 16:42 Blood - Venous Blood Culture - Final No growth after 5 days. Assessment and Plan (1) Acute respiratory failure with hypoxia: Status: Acute (2) Atrial fibrillation with RVR: Status: Acute (3) Pneumonia due to COVID-19 virus: Status: Acute (4) Elevated troponin: Status: Acute (5) Sepsis: Status: Acute (6) Supratherapeutic INR: Status: Acute Assessment and Plan: 75-year-old male presented to the hospital with complaints of shortness of breath found to have covid 19 with resp failure Acute respiratory failure with hypoxia d/t covid On O2, wean as tolerated viral sepsis decadron day 06/11 completed remedesivir, 5 days of rocephin continue doxy - day #5/5 continue to wean A. Fib now rate controlled metoprolol 75mg BID restarted coumadin DM latnus + ISS
--- NOTE | 2020-09-21 12:34 | MHC.CM.PN ---
DP Male 75 DX Covid+. Discharge plan is home no services. Dispo will depend on Pts recovery. CM will follow to assess for change in DC needs.
[2020-09-21 17:13] LABS: Glucose, Whole Blood 244 mg/dL (60-115)
[2020-09-21] MEDS: Warfarin Sodium 2.5 MG TABLET PO (17:33)
[2020-09-21 20:45] LABS: Glucose, Whole Blood 338 mg/dL (60-115)
[2020-09-21] MEDS: Insulin Glargine,Hum.rec.anlog 100 UNIT/ML 10 ML VIAL 7 UNIT SUBCUT (20:51)
[2020-09-22] VITALS (9 sets, daily range): BP systolic 104–137; BP diastolic 57–77; PULSE 86–97; RESP 18–22; TEMP 36.4–36.8; O2SAT 94–96
[2020-09-22] MEDS: Omeprazole 40 MG CAPSULE.DR PO (06:43)
[2020-09-22 06:52] LABS: Hematocrit 41.6 % (42-52); Hemoglobin 13.9 g/dl (14.0-18.0); Mean Corpuscular HGB Conc 33.4 g/dl (31.0-36.0); Mean Corpuscular Hemoglobin 31.9 pg (27.0-33.0); Mean Corpuscular Volume 95.4 fL (80-98); Mean Platelet Volume 10.6 fL (9.4-12.4); Platelet Count 147 X10*3/uL (160-400); Red Blood Count 4.36 X10*6/uL (4.60-5.80); Red Cell Distribution Width 13.2 % (11.0-16.0); White Blood Count 18.9 X10*3/uL (4.8-10.8)
[2020-09-22 06:56] LABS: INTERNATIONAL NORM RATIO 3.3 (0.9-1.1); Prothrombin Time 39.2 SEC (10.8-13.0)
[2020-09-22 07:17] LABS: Anion Gap 14 (12-20); Blood Urea Nitrogen 20 mg/dL (9-16); Carbon Dioxide 20 mmol/L (22-29); Chloride 107 mmol/L (96-108); Creatinine Clr Calc Pharmacy 106.3; Estimated Glomerular Filt Rate > 60; Glucose Random 154 mg/dL (60-115); Potassium 4.2 mmol/l (3.3-5.1); Sodium 137 mmol/L (135-145)
[2020-09-22 07:36] LABS: Glucose, Whole Blood 146 mg/dL (60-115)
[2020-09-22] MEDS: Metoprolol Tartrate 50 MG TABLET 75 MG PO ×2 (08:25→20:26)
[2020-09-22] MEDS: Montelukast Sodium 10 MG TABLET PO (08:28)
[2020-09-22] MEDS: lisinopriL 20 MG TABLET PO (08:28)
[2020-09-22] MEDS: Atorvastatin Calcium 80 MG TABLET PO (08:28)
[2020-09-22] MEDS: 0.9 % Sodium Chloride Flush 3 ML SYRINGE IVFLUSH (08:28)
[2020-09-22] MEDS: dexAMETHasone sod phosphate 4 MG/ML VIAL 6 MG IVPUSH (08:29)
--- NOTE | 2020-09-22 10:01 | P.PNIM_ITS ---
Subjective Subjective Date of Service: 09/22/20 Interval History: a bit better today Cardiovascular Cardiovascular: Reports no additional cardiovascular complaints Gastrointestinal Gastrointestinal: Reports no additional gastrointestinal complaints Physical Exam Vital Signs: Vital Signs: Last Vital Signs Temp 97.6 F 09/22/20 07:47 Pulse 90 09/22/20 08:28 Resp 20 09/22/20 07:47 BP 104/67 09/22/20 08:28 Pulse Ox 96 09/22/20 07:47 Body Mass Index 35.4 General: AO X 3, no acute distress Resp: CTA bilateral CVS: S1,S2,RRR GI: soft, non tender, non distended Neuro: motor grossly intact Psych: appropriate affect Objective Data Current Medications Generic Name Dose Route Start Last Admin Trade Name Freq PRN Reason Stop Dose Admin Acetaminophen 650 mg 09/12/20 21:06 Acetaminophen 325 Mg Tablet PO Q6H PRN Pain, Mild (Pain Scale 1-3) Atorvastatin Calcium 80 mg 09/13/20 09:00 09/22/20 08:28 Atorvastatin Calcium 80 Mg Tablet PO 80 mg DAILY [facility] Administration Dexamethasone Sodium Phosphate 6 mg 09/13/20 09:00 09/22/20 08:29 Dexamethasone Sod Phosphate 4 Mg/Ml Vial IVPUSH 6 mg DAILY [facility] Administration Docusate Sodium 100 mg 09/12/20 21:06 Docusate Sodium 100 Mg Capsule PO DAILY PRN Constipation Insulin Glargine 7 unit 09/12/20 21:06 09/21/20 20:51 Insulin Glargine,Hum.Rec.Anlog 100 Unit/Ml 10 Ml Vial SUBCUT 7 unit BEDTIME [facility] Administration Insulin Human Lispro 0 unit 09/15/20 21:00 09/22/20 07:37 Insulin Lispro 100 Unit/Ml 3 Ml Vial SUBCUT Not Given QIDACHS [facility] Protocol Lisinopril 20 mg 09/13/20 09:00 09/22/20 08:28 Lisinopril 20 Mg Tablet PO 20 mg DAILY [facility] Administration Protocol Metoprolol Tartrate 75 mg 09/16/20 21:00 09/22/20 08:25 Metoprolol Tartrate 50 Mg Tablet PO 75 mg BID [facility] Administration Protocol Montelukast Sodium 10 mg 09/13/20 09:00 09/22/20 08:28 Montelukast Sodium 10 Mg Tablet PO 10 mg DAILY [facility] Administration Omeprazole 40 mg 09/20/20 09:35 09/22/20 06:43 Omeprazole 40 Mg Capsule. PO 40 mg DAILY@0630 [facility] Administration Ondansetron HCl 4 mg 09/13/20 04:14 Ondansetron Hcl 4 Mg/2 Ml Vial IVPUSH Q8H PRN Nausea and Vomiting Pharmacy Consult 1 each 09/12/20 17:34 Consult Rx Perform Med Rec MISCELLANE ONCE PRN Consult order Sodium Chloride 3 ml 09/13/20 00:00 09/22/20 08:28 0.9 % Sodium Chloride Flush 3 Ml Syringe IVFLUSH 3 ml QSHIFT [facility] Administration Warfarin Sodium 2.5 mg 09/18/20 18:00 09/21/20 17:33 Warfarin Sodium 2.5 Mg Tablet PO 2.5 mg DAILY@1800 [facility] Administration Labs CBC & Chem 7: 09/22/20 06:24 09/22/20 06:24 Microbiology Microbiology Results: Microbiology 09/12/20 16:55 Blood - Venous Blood Culture - Final No growth after 5 days. 09/12/20 16:42 Blood - Venous Blood Culture - Final No growth after 5 days. Assessment and Plan (1) Acute respiratory failure with hypoxia: Status: Acute (2) Atrial fibrillation with RVR: Status: Acute (3) Pneumonia due to COVID-19 virus: Status: Acute (4) Elevated troponin: Status: Acute (5) Sepsis: Status: Acute (6) Supratherapeutic INR: Status: Acute Assessment and Plan: 75-year-old male presented to the hospital with complaints of shortness of breath found to have covid 19 with resp failure Acute respiratory failure with hypoxia d/t covid On O2, wean as tolerated viral sepsis appears to be improving completed 10 days decadron completed remedesivir, 5 days of rocephin, doxy continue to wean A. Fib now rate controlled metoprolol 75mg BID coumadin DM latnus + ISS
[2020-09-22 11:47] LABS: Glucose, Whole Blood 270 mg/dL (60-115)
[2020-09-22] MEDS: Insulin Lispro 100 UNIT/ML 3 ML VIAL SUBCUT ×3 (12:21→20:26)
[2020-09-22 16:05] LABS: Glucose, Whole Blood 402 mg/dL (60-115)
[2020-09-22] MEDS: Insulin Lispro 100 UNIT/ML 3 ML VIAL 10 UNIT SUBCUT (16:35)
[2020-09-22 20:04] LABS: Glucose, Whole Blood 256 mg/dL (60-115)
[2020-09-22] MEDS: Insulin Glargine,Hum.rec.anlog 100 UNIT/ML 10 ML VIAL 7 UNIT SUBCUT (20:25)
[2020-09-23 03:49] VITALS: BP 117/59; PULSE 93; RESP 20; TEMP 37.1; O2SAT 97
[2020-09-23] MEDS: Omeprazole 40 MG CAPSULE.DR PO (06:17)
[2020-09-23 06:46] LABS: INTERNATIONAL NORM RATIO 2.1 (0.9-1.1); Prothrombin Time 25.6 SEC (10.8-13.0)
[2020-09-23 07:04] LABS: Eosinophils Percent Auto 0.4 % (0-4); MANUAL DIFF FLAG SCAN; PLT CLUMP 1; SCAN SMEAR FLAG 1
[2020-09-23 07:06] LABS: Basophils Percent Auto 0.2 % (0-2); Eosinophils Absolute Auto 0.1 X10*3/uL (0.0-0.4); Hematocrit 41.6 % (42-52); Imm Gran Abs Auto 0.51 X10*3/uL (0.00-0.03); Imm Gran Pct Auto 2.2 % (0.0-0.4); Lymphocytes Absolute Auto 1.7 X10*3/uL (1.2-4.9); Lymphocytes Percent Auto 7.4 % (20-40); Mean Corpuscular HGB Conc 33.7 g/dl (31.0-36.0); Mean Corpuscular Volume 95.2 fL (80-98); Monocytes Absolute Auto 1.4 X10*3/uL (0.1-1.2); Monocytes Percent Auto 5.9 % (2-11); Neutrophils Absolute Auto 19.6 X10*3/uL (2.0-8.3); Neutrophils Percent Auto 83.9 % (45-73); Red Blood Count 4.37 X10*6/uL (4.60-5.80); Red Cell Distribution Width 13.3 % (11.0-16.0); White Blood Count 23.4 X10*3/uL (4.8-10.8)
[2020-09-23 07:19] LABS: Anion Gap 14 (12-20); Blood Urea Nitrogen 24 mg/dL (9-16); Calcium 7.8 mg/dL (8.4-10.2); Carbon Dioxide 21 mmol/L (22-29); Chloride 105 mmol/L (96-108); Creatinine Clr Calc Pharmacy 106.3; Estimated Glomerular Filt Rate > 60; Glucose Fasting 134 mg/dL (60-99); Potassium 3.9 mmol/l (3.3-5.1); Sodium 136 mmol/L (135-145)
[2020-09-23 07:50] VITALS: BP 117/67; PULSE 95; RESP 20; TEMP 36.6; O2SAT 98
[2020-09-23 07:59] LABS: Glucose, Whole Blood 143 mg/dL (60-115)
[2020-09-23] MEDS: Atorvastatin Calcium 80 MG TABLET PO (08:16)
[2020-09-23] MEDS: Montelukast Sodium 10 MG TABLET PO (08:16)
[2020-09-23] MEDS: Metoprolol Tartrate 50 MG TABLET 75 MG PO ×2 (08:16→21:32)
[2020-09-23] MEDS: lisinopriL 20 MG TABLET PO (08:16)
[2020-09-23 08:44] LABS: Platelet Count 154 X10*3/uL (160-400)
--- NOTE | 2020-09-23 10:12 | PC.NURSE ---
DR BENITES AWARE THAT PT WITHOUT IV ACCESS
[2020-09-23 10:40] VITALS: O2SAT 96
--- NOTE | 2020-09-23 11:49 | P.PNIM_ITS ---
Subjective Subjective Date of Service: 09/23/20 Interval History: improving Cardiovascular Cardiovascular: Reports no additional cardiovascular complaints Gastrointestinal Gastrointestinal: Reports no additional gastrointestinal complaints Physical Exam Vital Signs: Vital Signs: Last Vital Signs Temp 97.8 F 09/23/20 07:50 Pulse 95 09/23/20 07:50 Resp 20 09/23/20 07:50 BP 117/67 09/23/20 07:50 Pulse Ox 96 09/23/20 10:40 Body Mass Index 35.4 General: AO X 3, no acute distress Resp: CTA bilateral CVS: S1,S2,RRR GI: soft, non tender, non distended Neuro: motor grossly intact Psych: appropriate affect Objective Data Current Medications Generic Name Dose Route Start Last Admin Trade Name Freq PRN Reason Stop Dose Admin Acetaminophen 650 mg 09/12/20 21:06 Acetaminophen 325 Mg Tablet PO Q6H PRN Pain, Mild (Pain Scale 1-3) Atorvastatin Calcium 80 mg 09/13/20 09:00 09/23/20 08:16 Atorvastatin Calcium 80 Mg Tablet PO 80 mg DAILY SAL Administration Docusate Sodium 100 mg 09/12/20 21:06 Docusate Sodium 100 Mg Capsule PO DAILY PRN Constipation Insulin Glargine 7 unit 09/12/20 21:06 09/22/20 20:25 Insulin Glargine,Hum.Rec.Anlog 100 Unit/Ml 10 Ml Vial SUBCUT 7 unit BEDTIME SAL Administration Insulin Human Lispro 0 unit 09/15/20 21:00 09/23/20 08:15 Insulin Lispro 100 Unit/Ml 3 Ml Vial SUBCUT Not Given QIDACHS PENDING SALE TO [facility] Protocol Lisinopril 20 mg 09/13/20 09:00 09/23/20 08:16 Lisinopril 20 Mg Tablet PO 20 mg DAILY SAL Administration Protocol Metoprolol Tartrate 75 mg 09/16/20 21:00 09/23/20 08:16 Metoprolol Tartrate 50 Mg Tablet PO 75 mg BID SAL Administration Protocol Montelukast Sodium 10 mg 09/13/20 09:00 09/23/20 08:16 Montelukast Sodium 10 Mg Tablet PO 10 mg DAILY SAL Administration Omeprazole 40 mg 09/20/20 09:35 09/23/20 06:17 Omeprazole 40 Mg Capsule.Dr PO 40 mg DAILY@0630 SAL Administration Ondansetron HCl 4 mg 09/13/20 04:14 Ondansetron Hcl 4 Mg/2 Ml Vial IVPUSH Q8H PRN Nausea and Vomiting Pharmacy Consult 1 each 09/12/20 17:34 Consult Rx Perform Med Rec MISCELLANE ONCE PRN Consult order Sodium Chloride 3 ml 09/13/20 00:00 09/23/20 08:16 0.9 % Sodium Chloride Flush 3 Ml Syringe IVFLUSH Not Given QSHIFT PENDING SALE TO [facility] Warfarin Sodium 2.5 mg 09/18/20 18:00 09/21/20 17:33 Warfarin Sodium 2.5 Mg Tablet PO 2.5 mg DAILY@1800 PENDING SALE TO [facility] Administration Labs CBC & Chem 7: 09/23/20 05:54 09/23/20 05:54 Microbiology Microbiology Results: Microbiology 09/12/20 16:55 Blood - Venous Blood Culture - Final No growth after 5 days. 09/12/20 16:42 Blood - Venous Blood Culture - Final No growth after 5 days. Assessment and Plan (1) Acute respiratory failure with hypoxia: Status: Acute (2) Atrial fibrillation with RVR: Status: Acute (3) Pneumonia due to COVID-19 virus: Status: Acute (4) Elevated troponin: Status: Acute (5) Sepsis: Status: Acute (6) Supratherapeutic INR: Status: Acute Assessment and Plan: 75-year-old male presented to the hospital with complaints of shortness of breath found to have covid 19 with resp failure Acute respiratory failure with hypoxia d/t covid On O2, wean as tolerated viral sepsis appears to be improving, continue to wean, once on about 4L will send to SNF completed 10 days decadron completed remedesivir, 5 days of rocephin, doxy ASharad Fib now rate controlled metoprolol 75mg BID coumadin DM latnus + ISS
[2020-09-23 11:52] LABS: Glucose, Whole Blood 218 mg/dL (60-115)
[2020-09-23 12:00] VITALS: BP 110/63; PULSE 90; RESP 20; TEMP 36.6; O2SAT 95
[2020-09-23] MEDS: Sodium Chloride 0.65 % Nasal 44 ML SPRBTL 1 SPRAY NOSTRIL-B (13:12)
[2020-09-23] MEDS: Insulin Lispro 100 UNIT/ML 3 ML VIAL SUBCUT ×3 (13:12→21:33)
--- NOTE | 2020-09-23 13:25 | MHC.CM.PN ---
DP Male 75 DX Covid. Pt continues on 13L Spo2 96%. The Pt is being weaned of o2. Home with VNA or STR. BLS for transportation. CM will follow.
--- NOTE | 2020-09-23 13:31 | MHC.CM.PN ---
DP Female Covid+, HF. Anticipate DC 2-3 days. She continues on IV LASIX. Her Dtr Is a retired [employer] [facility] nurse. She assists the Pt prn. Pt is not interested in VNA or STR. CM will follow.
[2020-09-23 13:42] LABS: SLIDE REVIEW VERIFIED
[2020-09-23 16:00] VITALS: BP 123/56; PULSE 89; RESP 18; TEMP 36.6; O2SAT 98
[2020-09-23 16:37] LABS: Glucose, Whole Blood 231 mg/dL (60-115)
[2020-09-23] MEDS: Warfarin Sodium 2.5 MG TABLET PO (17:11)
[2020-09-23 19:09] VITALS: BP 114/60; PULSE 96; RESP 18; TEMP 36.8; O2SAT 95
[2020-09-23 20:42] LABS: Glucose, Whole Blood 223 mg/dL (60-115)
[2020-09-23] MEDS: Insulin Glargine,Hum.rec.anlog 100 UNIT/ML 10 ML VIAL 7 UNIT SUBCUT (21:33)
[2020-09-24] VITALS (7 sets, daily range): BP systolic 104–131; BP diastolic 55–78; PULSE 88–97; RESP 16–19; TEMP 36–36.6; O2SAT 90–100
[2020-09-24] MEDS: Omeprazole 40 MG CAPSULE.DR PO (05:57)
[2020-09-24 06:29] LABS: Hematocrit 44.7 % (42-52); Hemoglobin 14.6 g/dl (14.0-18.0); Mean Corpuscular HGB Conc 32.7 g/dl (31.0-36.0); Mean Corpuscular Hemoglobin 31.5 pg (27.0-33.0); Mean Corpuscular Volume 96.5 fL (80-98); Mean Platelet Volume 10.3 fL (9.4-12.4); Platelet Count 167 X10*3/uL (160-400); Red Blood Count 4.63 X10*6/uL (4.60-5.80); Red Cell Distribution Width 13.3 % (11.0-16.0); White Blood Count 15.1 X10*3/uL (4.8-10.8)
[2020-09-24 06:31] LABS: INTERNATIONAL NORM RATIO 1.9 (0.9-1.1); Prothrombin Time 23.2 SEC (10.8-13.0)
[2020-09-24 07:09] LABS: Blood Urea Nitrogen 20 mg/dL (9-16); Calcium 7.9 mg/dL (8.4-10.2); Estimated Glomerular Filt Rate > 60; Glucose Random 152 mg/dL (60-115)
[2020-09-24 07:23] LABS: Anion Gap 17 (12-20); Carbon Dioxide 20 mmol/L (22-29); Chloride 106 mmol/L (96-108); Sodium 138 mmol/L (135-145)
[2020-09-24 07:27] LABS: Glucose, Whole Blood 156 mg/dL (60-115)
[2020-09-24] MEDS: Atorvastatin Calcium 80 MG TABLET PO (07:47)
[2020-09-24] MEDS: Montelukast Sodium 10 MG TABLET PO (07:47)
[2020-09-24] MEDS: lisinopriL 20 MG TABLET PO (07:47)
[2020-09-24] MEDS: Metoprolol Tartrate 50 MG TABLET 75 MG PO ×2 (07:49→20:10)
[2020-09-24] MEDS: Insulin Lispro 100 UNIT/ML 3 ML VIAL SUBCUT ×4 (07:50→20:11)
[2020-09-24 11:41] LABS: Glucose, Whole Blood 194 mg/dL (60-115)
--- NOTE | 2020-09-24 12:11 | HO.PM.IMPN ---
Subjective Subjective Date of Service: 09/24/20 Interval History: rash Cardiovascular Cardiovascular: Reports no additional cardiovascular complaints Gastrointestinal Gastrointestinal: Reports no additional gastrointestinal complaints Physical Exam Vital Signs: Vital Signs: Last Vital Signs Temp 97.5 F 09/24/20 07:40 Pulse 92 09/24/20 07:40 Resp 18 09/24/20 07:40 BP 115/78 09/24/20 07:40 Pulse Ox 95 09/24/20 07:40 Body Mass Index 35.4 General: AO X 3, no acute distress Resp: CTA bilateral CVS: S1,S2,RRR GI: soft, non tender, non distended Neuro: motor grossly intact Psych: appropriate affect SKIN: morbilliform rash on legs Objective Data Current Medications Generic Name Dose Route Start Last Admin Trade Name Freq PRN Reason Stop Dose Admin Acetaminophen 650 mg 09/12/20 21:06 Acetaminophen 325 Mg Tablet PO Q6H PRN Pain, Mild (Pain Scale 1-3) Atorvastatin Calcium 80 mg 09/13/20 09:00 09/24/20 07:47 Atorvastatin Calcium 80 Mg Tablet PO 80 mg DAILY SAL Administration Docusate Sodium 100 mg 09/12/20 21:06 Docusate Sodium 100 Mg Capsule PO DAILY PRN Constipation Insulin Glargine 7 unit 09/12/20 21:06 09/23/20 21:33 Insulin Glargine,Hum.Rec.Anlog 100 Unit/Ml 10 Ml Vial SUBCUT 7 unit BEDTIME SAL Administration Insulin Human Lispro 0 unit 09/15/20 21:00 09/24/20 11:56 Insulin Lispro 100 Unit/Ml 3 Ml Vial SUBCUT 2 unit QIDACHS SAL Administration Protocol Lisinopril 20 mg 09/13/20 09:00 09/24/20 07:47 Lisinopril 20 Mg Tablet PO 20 mg DAILY SAL Administration Protocol Metoprolol Tartrate 75 mg 09/16/20 21:00 09/24/20 07:49 Metoprolol Tartrate 50 Mg Tablet PO 75 mg BID SAL Administration Protocol Montelukast Sodium 10 mg 09/13/20 09:00 09/24/20 07:47 Montelukast Sodium 10 Mg Tablet PO 10 mg DAILY SAL Administration Omeprazole 40 mg 09/20/20 09:35 09/24/20 05:57 Omeprazole 40 Mg Capsule.Dr PO 40 mg DAILY@0630 SAL Administration Ondansetron HCl 4 mg 09/13/20 04:14 Ondansetron Hcl 4 Mg/2 Ml Vial IVPUSH Q8H PRN Nausea and Vomiting Pharmacy Consult 1 each 09/12/20 17:34 Consult Rx Perform Med Rec MISCELLANE ONCE PRN Consult order Sodium Chloride 3 ml 09/13/20 00:00 09/24/20 07:51 0.9 % Sodium Chloride Flush 3 Ml Syringe IVFLUSH Not Given QSHIFT [facility] Sodium Chloride 1 spray 09/23/20 12:31 09/23/20 13:12 Sodium Chloride 0.65 % Nasal 44 Ml Sprbtl NOSTRIL-B 1 spray Q1H PRN Administration Dry Nasal Passages Warfarin Sodium 2.5 mg 09/18/20 18:00 09/23/20 17:11 Warfarin Sodium 2.5 Mg Tablet PO 2.5 mg DAILY@1800 SAL Administration Labs CBC & Chem 7: 09/24/20 06:05 09/24/20 06:05 Microbiology Microbiology Results: Microbiology 09/12/20 16:55 Blood - Venous Blood Culture - Final No growth after 5 days. 09/12/20 16:42 Blood - Venous Blood Culture - Final No growth after 5 days. Assessment and Plan (1) Acute respiratory failure with hypoxia: Status: Acute (2) Atrial fibrillation with RVR: Status: Acute (3) Pneumonia due to COVID-19 virus: Status: Acute (4) Elevated troponin: Status: Acute (5) Sepsis: Status: Acute (6) Supratherapeutic INR: Status: Acute Assessment and Plan: 75-year-old male presented to the hospital with complaints of shortness of breath found to have covid 19 with resp failure Acute respiratory failure with hypoxia d/t covid On O2, wean as tolerated viral sepsis appears to be improving, continue to wean, once on about 4L will send to SNF, now on 12L completed 10 days decadron completed remedesivir, 5 days of rocephin, doxy moprbilliform rash likely due to covid no signs of mucosal involvement, will check crp and lfts, monitor A. Fib now rate controlled metoprolol 75mg BID coumadin DM latnus + ISS
[2020-09-24 16:21] LABS: Glucose, Whole Blood 188 mg/dL (60-115)
[2020-09-24] MEDS: Warfarin Sodium 2.5 MG TABLET PO (17:03)
[2020-09-24 20:07] LABS: Glucose, Whole Blood 224 mg/dL (60-115)
[2020-09-24] MEDS: Insulin Glargine,Hum.rec.anlog 100 UNIT/ML 10 ML VIAL 7 UNIT SUBCUT (20:11)
[2020-09-24] MEDS: 0.9 % Sodium Chloride Flush 3 ML SYRINGE IVFLUSH (20:12)
[2020-09-25] VITALS (10 sets, daily range): BP systolic 92–118; BP diastolic 54–71; PULSE 57–106; RESP 18–20; TEMP 36.1–37.1; O2SAT 91–99
[2020-09-25] MEDS: Omeprazole 40 MG CAPSULE.DR PO (05:18)
[2020-09-25 06:50] LABS: MANUAL DIFF FLAG NO
[2020-09-25 07:06] LABS: INTERNATIONAL NORM RATIO 1.9 (0.9-1.1); Prothrombin Time 22.7 SEC (10.8-13.0)
[2020-09-25 07:20] LABS: Basophils Percent Auto 0.2 % (0-2); Eosinophils Absolute Auto 0.1 X10*3/uL (0.0-0.4); Eosinophils Percent Auto 0.5 % (0-4); Hemoglobin 14.8 g/dl (14.0-18.0); Imm Gran Pct Auto 2.1 % (0.0-0.4); Lymphocytes Absolute Auto 1.5 X10*3/uL (1.2-4.9); Lymphocytes Percent Auto 10.6 % (20-40); Mean Corpuscular HGB Conc 32.9 g/dl (31.0-36.0); Mean Corpuscular Hemoglobin 32.2 pg (27.0-33.0); Mean Corpuscular Volume 97.8 fL (80-98); Mean Platelet Volume 10.9 fL (9.4-12.4); Monocytes Absolute Auto 1.2 X10*3/uL (0.1-1.2); Monocytes Percent Auto 8.6 % (2-11); Neutrophils Absolute Auto 11.1 X10*3/uL (2.0-8.3); Platelet Count 165 X10*3/uL (160-400); Red Cell Distribution Width 13.5 % (11.0-16.0); White Blood Count 14.2 X10*3/uL (4.8-10.8)
[2020-09-25 07:40] LABS: Alanine Aminotransferase 48 U/L (0-40); Albumin Level 2.7 g/dL (3.5-5.0); Alkaline Phosphatase 136 U/L (39-117); Anion Gap 14 (12-20); Aspartate Amino Transferase 43 U/L (5-37); Bilirubin Direct 0.4 mg/dL (0.0-0.5); Bilirubin Total 1.1 mg/dL (0.0-1.0); Blood Urea Nitrogen 17 mg/dL (9-16); C Reactive Protein 2.52 mg/dL (< or = 0.50); Calcium 7.8 mg/dL (8.4-10.2); Carbon Dioxide 21 mmol/L (22-29); Chloride 107 mmol/L (96-108); Creatinine Clr Calc Pharmacy 103.4; Estimated Glomerular Filt Rate > 60; Glucose Fasting 155 mg/dL (60-99); Potassium 4.1 mmol/l (3.3-5.1); Sodium 138 mmol/L (135-145); Total Protein 5.2 g/dL (6.5-8.0)
[2020-09-25 07:44] LABS: Glucose, Whole Blood 161 mg/dL (60-115)
[2020-09-25] MEDS: Insulin Lispro 100 UNIT/ML 3 ML VIAL SUBCUT ×4 (08:10→22:21)
[2020-09-25] MEDS: Atorvastatin Calcium 80 MG TABLET PO (08:11)
[2020-09-25] MEDS: Metoprolol Tartrate 50 MG TABLET 75 MG PO ×2 (08:11→22:21)
[2020-09-25] MEDS: Montelukast Sodium 10 MG TABLET PO (08:11)
[2020-09-25] MEDS: lisinopriL 20 MG TABLET PO (08:11)
--- NOTE | 2020-09-25 11:39 | HO.PM.IMPN ---
Subjective Subjective Date of Service: 09/25/20 Interval History: rash unchanged Cardiovascular Cardiovascular: Reports no additional cardiovascular complaints Gastrointestinal Gastrointestinal: Reports no additional gastrointestinal complaints Physical Exam Vital Signs: Vital Signs: Last Vital Signs Temp 98.7 F 09/25/20 07:55 Pulse 106 H 09/25/20 08:11 Resp 20 09/25/20 07:55 BP 101/55 L 09/25/20 08:11 Pulse Ox 91 L 09/25/20 10:35 Body Mass Index 35.4 General: AO X 3, no acute distress Resp: CTA bilateral CVS: S1,S2,RRR GI: soft, non tender, non distended Neuro: motor grossly intact Psych: appropriate affect Objective Data Current Medications Generic Name Dose Route Start Last Admin Trade Name Freq PRN Reason Stop Dose Admin Acetaminophen 650 mg 09/12/20 21:06 Acetaminophen 325 Mg Tablet PO Q6H PRN Pain, Mild (Pain Scale 1-3) Atorvastatin Calcium 80 mg 09/13/20 09:00 09/25/20 08:11 Atorvastatin Calcium 80 Mg Tablet PO 80 mg DAILY SAL Administration Docusate Sodium 100 mg 09/12/20 21:06 Docusate Sodium 100 Mg Capsule PO DAILY PRN Constipation Insulin Glargine 7 unit 09/12/20 21:06 09/24/20 20:11 Insulin Glargine,Hum.Rec.Anlog 100 Unit/Ml 10 Ml Vial SUBCUT 7 unit BEDTIME SAL Administration Insulin Human Lispro 0 unit 09/15/20 21:00 09/25/20 08:10 Insulin Lispro 100 Unit/Ml 3 Ml Vial SUBCUT 2 unit QIDACHS SLA Administration Protocol Lisinopril 20 mg 09/13/20 09:00 09/25/20 08:11 Lisinopril 20 Mg Tablet PO 20 mg DAILY SAL Administration Protocol Metoprolol Tartrate 75 mg 09/16/20 21:00 09/25/20 08:11 Metoprolol Tartrate 50 Mg Tablet PO 75 mg BID SAL Administration Protocol Montelukast Sodium 10 mg 09/13/20 09:00 09/25/20 08:11 Montelukast Sodium 10 Mg Tablet PO 10 mg DAILY SAL Administration Omeprazole 40 mg 09/20/20 09:35 09/25/20 05:18 Omeprazole 40 Mg Capsule.Dr PO 40 mg DAILY@0630 SAL Administration Ondansetron HCl 4 mg 09/13/20 04:14 Ondansetron Hcl 4 Mg/2 Ml Vial IVPUSH Q8H PRN Nausea and Vomiting Pharmacy Consult 1 each 09/12/20 17:34 Consult Rx Perform Med Rec MISCELLANE ONCE PRN Consult order Sodium Chloride 3 ml 09/13/20 00:00 09/25/20 08:10 0.9 % Sodium Chloride Flush 3 Ml Syringe IVFLUSH Not Given [facility] Sodium Chloride 1 spray 09/23/20 12:31 09/23/20 13:12 Sodium Chloride 0.65 % Nasal 44 Ml Sprbtl NOSTRIL-B 1 spray Q1H PRN Administration Dry Nasal Passages Warfarin Sodium 2.5 mg 09/18/20 18:00 09/24/20 17:03 Warfarin Sodium 2.5 Mg Tablet PO 2.5 mg DAILY@1800 SAL Administration Labs CBC & Chem 7: 09/25/20 05:58 09/25/20 05:57 Microbiology Microbiology Results: Microbiology 09/12/20 16:55 Blood - Venous Blood Culture - Final No growth after 5 days. 09/12/20 16:42 Blood - Venous Blood Culture - Final No growth after 5 days. Assessment and Plan (1) Acute respiratory failure with hypoxia: Status: Acute (2) Atrial fibrillation with RVR: Status: Acute (3) Pneumonia due to COVID-19 virus: Status: Acute (4) Elevated troponin: Status: Acute (5) Sepsis: Status: Acute (6) Supratherapeutic INR: Status: Acute Assessment and Plan: 75-year-old male presented to the hospital with complaints of shortness of breath found to have covid 19 with resp failure Acute respiratory failure with hypoxia d/t covid On O2, wean as tolerated viral sepsis appears to be improving, continue to wean, once on about 4L will send to SNF, now on 7L completed 10 days decadron completed remedesivir, 5 days of rocephin, doxy moprbilliform rash likely due to covid no signs of mucosal involvement A. Fib now rate controlled metoprolol 75mg BID coumadin DM latnus + ISS
[2020-09-25 11:40] LABS: Glucose, Whole Blood 204 mg/dL (60-115)
[2020-09-25 16:47] LABS: Glucose, Whole Blood 172 mg/dL (60-115)
[2020-09-25] MEDS: Warfarin Sodium 2.5 MG TABLET PO (17:25)
[2020-09-25 20:38] LABS: Glucose, Whole Blood 245 mg/dL (60-115)
[2020-09-25] MEDS: Insulin Glargine,Hum.rec.anlog 100 UNIT/ML 10 ML VIAL 7 UNIT SUBCUT (22:21)
[2020-09-26] VITALS (8 sets, daily range): BP systolic 98–123; BP diastolic 54–71; PULSE 85–113; RESP 18–20; TEMP 36.6–37.1; O2SAT 92–95
[2020-09-26 07:51] LABS: Glucose, Whole Blood 182 mg/dL (60-115)
[2020-09-26 08:41] LABS: Prothrombin Time 24.5 SEC (10.8-13.0)
[2020-09-26] MEDS: Insulin Lispro 100 UNIT/ML 3 ML VIAL SUBCUT ×4 (09:03→21:02)
[2020-09-26] MEDS: Montelukast Sodium 10 MG TABLET PO (09:04)
[2020-09-26] MEDS: Atorvastatin Calcium 80 MG TABLET PO (09:04)
[2020-09-26] MEDS: Metoprolol Tartrate 50 MG TABLET 75 MG PO ×2 (09:04→21:02)
[2020-09-26] MEDS: lisinopriL 20 MG TABLET PO (09:04)
[2020-09-26 11:52] LABS: Glucose, Whole Blood 225 mg/dL (60-115)
--- NOTE | 2020-09-26 11:52 | MHC.CM.PN ---
Male 75 Covid+ PT eval indicates the need for STR. Pt is agreeable to DP. A home O2 eval is planned as well. Otto Espinosa is following. CM will follow.
--- NOTE | 2020-09-26 11:54 | PM.DS ---
DS: Providers Provider Date of Service: 09/26/20 Date of admission: 09/12/20 20:32 Primary care physician: Gonzalo Hollingsworth DO, MD Consults: 09/12/20 21:06 Consult to Infectious Diseases Routine Consulting Provider: Dulce Grullon Reason for consultation: Remdesevir? Has provider been notified: No DS: Diagnosis Discharge Diagnosis (1) Acute respiratory failure with hypoxia: Status: Acute (2) Atrial fibrillation with RVR: Status: Acute (3) Pneumonia due to COVID-19 virus: Status: Acute (4) Elevated troponin: Status: Acute (5) Sepsis: Status: Acute (6) Supratherapeutic INR: Status: Acute DS: Medications Discharge Medications Home Medications: Home Medications Medication Instructions Recorded Confirmed atorvastatin 80 mg PO DAILY 09/12/20 09/12/20 glipizide 5 mg PO DAILY 09/12/20 09/12/20 insulin degludec [Tresiba 10 unit SUBCUT BEDTIME 09/12/20 09/12/20 FlexTouch U-100] lisinopril 20 mg PO DAILY 09/12/20 09/12/20 metformin 500 mg PO BID 09/12/20 09/12/20 metoprolol tartrate 50 mg PO BID 09/12/20 09/12/20 montelukast 10 mg PO DAILY 09/12/20 09/12/20 warfarin 5 mg PO DAILY 09/12/20 09/12/20 DS: Summary Hospital Course Hospital Course: Patient was admitted for acute hypoxic respiratory failure secondary to COVID. He was given 10 days of Decadron and 5 days of remdesivir, Rocephin, doxycycline. Symptoms improved. Patient was able to be weaned down to 2 L of oxygen. He did have a morbilliform rash which is likely viral exanthem. Otherwise, patient will continue with physical therapy and wean oxygen as tolerated. Time Spent with Patient Time attestation: Total time spent providing and/or coordinating discharge services: Discharge coordination time: Greater than 30 minutes Physical Exam Vital Signs: Vital Signs: Last Vital Signs Temp 98.3 F 09/26/20 08:00 Pulse 113 H 09/26/20 11:17 Resp 20 09/26/20 08:00 BP 101/58 L 09/26/20 11:17 Pulse Ox 92 09/26/20 11:17 Body Mass Index 35.4 General: AO X 3, no acute distress Resp: CTA bilateral CVS: S1,S2,RRR GI: soft, non tender, non distended Neuro: motor grossly intact Psych: appropriate affect DS: Data Data Completed and Pending Labs on day of discharge: Laboratory Tests 09/12/20 09/12/20 09/12/20 16:42 16:43 16:43 WBC RBC Hgb Hct MCV MCH MCHC RDW Plt Count MPV Immature Gran % (Auto) Neut % (Auto) Lymph % (Auto) [place] % (Auto) Eos % (Auto) Baso % (Auto) Lymph # (Auto) [place] # (Auto) Eos # (Auto) Baso # (Auto) Abs Immat Gran (auto) Absolute Neuts (auto) Absolute Nucleated RBC Nucleated RBC % (auto) Smear Tech's Comments PT INR D-Dimer Sodium 134 L Potassium 4.3 Chloride 100 Carbon Dioxide 19 L Anion Gap 19 BUN 26 H Creatinine 1.67 H Estim Creat Clear Calc 46.4 Estimated GFR 40 POC Glucose Random Glucose 188 H Fasting Glucose Lactic Acid 2.8 H* Lactic Acid Fup @ 2Hr Calcium 7.9 L Magnesium 1.7 Ferritin Total Bilirubin 0.9 Direct Bilirubin 0.6 H AST 45 H ALT 28 Alkaline Phosphatase 74 Troponin I High Sens C-Reactive Protein 18.49 H B-Natriuretic Peptide Total Protein 6.2 L Albumin 3.7 Procalcitonin Urine Color Urine Appearance Urine pH Ur Specific [place] Urine Protein Urine Glucose (UA) Urine Ketones Urine Blood Urine Nitrite Ur Leukocyte Esterase Urine RBC Urine WBC Ur Squamous Epith Cells Amorphous Sediment Urine Bacteria Hyaline Casts Granular Casts Coronavirus (PCR) POSITIVE A Influenza Type A (PCR) NEGATIVE Influenza Type B (PCR) NEGATIVE Ur L.pneumophila Ag RSV RNA Qual (PCR) NEGATIVE Ur Strep pneumoniae Ag 09/12/20 09/12/20 09/12/20 16:43 16:43 16:44 WBC 11.7 H RBC 4.80 Hgb 15.5 Hct 45.6 MCV 95.0 MCH 32.3 MCHC 34.0 RDW 13.6 Plt Count 140 L MPV 11.8 Immature Gran % (Auto) 0.8 H Neut % (Auto) 91.8 H Lymph % (Auto) 4.5 L [place] % (Auto) 2.8 Eos % (Auto) 0.0 Baso % (Auto) 0.1 Lymph # (Auto) 0.5 L [place] # (Auto) 0.3 Eos # (Auto) 0.0 Baso # (Auto) 0.0 Abs Immat Gran (auto) 0.09 H Absolute Neuts (auto) 10.8 H Absolute Nucleated RBC 0.000 Nucleated RBC % (auto) 0.0 Smear Tech's Comments VERIFIED PT INR D-Dimer Sodium Potassium Chloride Carbon Dioxide Anion Gap BUN Creatinine Estim Creat Clear Calc Estimated GFR POC Glucose Random Glucose Fasting Glucose Lactic Acid Lactic Acid Fup @ 2Hr Calcium Magnesium Ferritin Total Bilirubin Direct Bilirubin AST ALT Alkaline Phosphatase Troponin I High Sens 323.0 H C-Reactive Protein B-Natriuretic Peptide 209 H Total Protein Albumin Procalcitonin 1.43 Urine Color Urine Appearance Urine pH Ur Specific [place] Urine Protein Urine Glucose (UA) Urine Ketones Urine Blood Urine Nitrite Ur Leukocyte Esterase Urine RBC Urine WBC Ur Squamous Epith Cells Amorphous Sediment Urine Bacteria Hyaline Casts Granular Casts Coronavirus (PCR) Influenza Type A (PCR) Influenza Type B (PCR) Ur L.pneumophila Ag RSV RNA Qual (PCR) Ur Strep pneumoniae Ag 09/12/20 09/12/20 09/12/20 16:44 16:44 19:49 WBC RBC Hgb Hct MCV MCH MCHC RDW Plt Count MPV Immature Gran % (Auto) Neut % (Auto) Lymph % (Auto) [place] % (Auto) Eos % (Auto) Baso % (Auto) Lymph # (Auto) [place] # (Auto) Eos # (Auto) Baso # (Auto) Abs Immat Gran (auto) Absolute Neuts (auto) Absolute Nucleated RBC Nucleated RBC % (auto) Smear Tech's Comments PT 73.7 H INR 6.1 H* D-Dimer 378 Sodium Potassium Chloride Carbon Dioxide Anion Gap BUN Creatinine Estim Creat Clear Calc Estimated GFR POC Glucose Random Glucose Fasting Glucose Lactic Acid Lactic Acid Fup @ 2Hr 1.9 Calcium Magnesium Ferritin 3578 H Total Bilirubin Direct Bilirubin AST ALT Alkaline Phosphatase Troponin I High Sens C-Reactive Protein B-Natriuretic Peptide Total Protein Albumin Procalcitonin Urine Color Urine Appearance Urine pH Ur Specific [place] Urine Protein Urine Glucose (UA) Urine Ketones Urine Blood Urine Nitrite Ur Leukocyte Esterase Urine RBC Urine WBC Ur Squamous Epith Cells Amorphous Sediment Urine Bacteria Hyaline Casts Granular Casts Coronavirus (PCR) Influenza Type A (PCR) Influenza Type B (PCR) Ur L.pneumophila Ag RSV RNA Qual (PCR) Ur Strep pneumoniae Ag 09/12/20 09/12/20 09/12/20 19:50 22:08 22:19 WBC RBC Hgb Hct MCV MCH MCHC RDW Plt Count MPV Immature Gran % (Auto) Neut % (Auto) Lymph % (Auto) [place] % (Auto) Eos % (Auto) Baso % (Auto) Lymph # (Auto) [place] # (Auto) Eos # (Auto) Baso # (Auto) Abs Immat Gran (auto) Absolute Neuts (auto) Absolute Nucleated RBC Nucleated RBC % (auto) Smear Tech's Comments PT INR D-Dimer Sodium Potassium Chloride Carbon Dioxide Anion Gap BUN Creatinine Estim Creat Clear Calc Estimated GFR POC Glucose Random Glucose Fasting Glucose Lactic Acid Lactic Acid Fup @ 2Hr Calcium Magnesium Ferritin Total Bilirubin Direct Bilirubin AST ALT Alkaline Phosphatase Troponin I High Sens 1007.6 H D 822.3 H C-Reactive Protein B-Natriuretic Peptide Total Protein Albumin Procalcitonin Urine Color YELLOW Urine Appearance CLEAR Urine pH 5.5 Ur Specific [place] >= 1.030 H Urine Protein 2+ H Urine Glucose (UA) NEG Urine Ketones 5 Urine Blood 1+ H Urine Nitrite NEG Ur Leukocyte Esterase NEG Urine RBC 0-2 Urine WBC 0-2 Ur Squamous Epith Cells TRACE Amorphous Sediment TRACE Urine Bacteria TRACE Hyaline Casts 1-4 Granular Casts 1-4 Coronavirus (PCR) Influenza Type A (PCR) Influenza Type B (PCR) Ur L.pneumophila Ag RSV RNA Qual (PCR) Ur Strep pneumoniae Ag 09/12/20 09/13/20 09/13/20 22:19 05:44 05:44 WBC 15.0 H RBC 4.64 Hgb 14.9 Hct 43.8 MCV 94.4 MCH 32.1 MCHC 34.0 RDW 13.6 Plt Count 151 L MPV 12.0 Immature Gran % (Auto) 0.9 H Neut % (Auto) 91.7 H Lymph % (Auto) 4.3 L [place] % (Auto) 3.0 Eos % (Auto) 0.0 Baso % (Auto) 0.1 Lymph # (Auto) 0.7 L [place] # (Auto) 0.5 Eos # (Auto) 0.0 Baso # (Auto) 0.0 Abs Immat Gran (auto) 0.14 H Absolute Neuts (auto) 13.8 H Absolute Nucleated RBC 0.000 Nucleated RBC % (auto) 0.0 Smear Tech's Comments VERIFIED PT INR D-Dimer Sodium 135 Potassium 4.0 Chloride 106 Carbon Dioxide 16 L Anion Gap 17 BUN 28 H Creatinine 1.09 Estim Creat Clear Calc 71.1 Estimated GFR > 60 POC Glucose Random Glucose 173 H Fasting Glucose Lactic Acid Lactic Acid Fup @ 2Hr Calcium 7.6 L Magnesium Ferritin Total Bilirubin Direct Bilirubin AST ALT Alkaline Phosphatase Troponin I High Sens C-Reactive Protein B-Natriuretic Peptide Total Protein Albumin Procalcitonin Urine Color Urine Appearance Urine pH Ur Specific [place] Urine Protein Urine Glucose (UA) Urine Ketones Urine Blood Urine Nitrite Ur Leukocyte Esterase Urine RBC Urine WBC Ur Squamous Epith Cells Amorphous Sediment Urine Bacteria Hyaline Casts Granular Casts Coronavirus (PCR) Influenza Type A (PCR) Influenza Type B (PCR) Ur L.pneumophila Ag Not Detected RSV RNA Qual (PCR) Ur Strep pneumoniae Ag Not Detected 09/13/20 09/13/20 09/13/20 09:19 16:05 16:20 WBC RBC Hgb Hct MCV MCH MCHC RDW Plt Count MPV Immature Gran % (Auto) Neut % (Auto) Lymph % (Auto) [place] % (Auto) Eos % (Auto) Baso % (Auto) Lymph # (Auto) [place] # (Auto) Eos # (Auto) Baso # (Auto) Abs Immat Gran (auto) Absolute Neuts (auto) Absolute Nucleated RBC Nucleated RBC % (auto) Smear Tech's Comments PT 83.1 H INR 6.9 H* D-Dimer Sodium Potassium Chloride Carbon Dioxide Anion Gap BUN Creatinine Estim Creat Clear Calc Estimated GFR POC Glucose Random Glucose Fasting Glucose Lactic Acid Lactic Acid Fup @ 2Hr Calcium Magnesium Ferritin Total Bilirubin 0.8 Cancelled Direct Bilirubin 0.5 Cancelled AST 49 H Cancelled ALT 32 Cancelled Alkaline Phosphatase 71 Cancelled Troponin I High Sens C-Reactive Protein B-Natriuretic Peptide Total Protein 5.3 L Cancelled Albumin 3.1 L Cancelled Procalcitonin Urine Color Urine Appearance Urine pH Ur Specific [place] Urine Protein Urine Glucose (UA) Urine Ketones Urine Blood Urine Nitrite Ur Leukocyte Esterase Urine RBC Urine WBC Ur Squamous Epith Cells Amorphous Sediment Urine Bacteria Hyaline Casts Granular Casts Coronavirus (PCR) Influenza Type A (PCR) Influenza Type B (PCR) Ur L.pneumophila Ag RSV RNA Qual (PCR) Ur Strep pneumoniae Ag 01/12/21 01/13/21 01/13/21 20:48 09:09 16:42 WBC RBC Hgb Hct MCV MCH MCHC RDW Plt Count MPV Immature Gran % (Auto) Neut % (Auto) Lymph % (Auto) [place] % (Auto) Eos % (Auto) Baso % (Auto) Lymph # (Auto) [place] # (Auto) Eos # (Auto) Baso # (Auto) Abs Immat Gran (auto) Absolute Neuts (auto) Absolute Nucleated RBC Nucleated RBC % (auto) Smear Tech's Comments PT 82.8 H INR 6.8 H* D-Dimer Sodium Potassium Chloride Carbon Dioxide Anion Gap BUN Creatinine Estim Creat Clear Calc Estimated GFR POC Glucose 176 H 284 H Random Glucose Fasting Glucose Lactic Acid Lactic Acid Fup @ 2Hr Calcium Magnesium Ferritin Total Bilirubin Direct Bilirubin AST ALT Alkaline Phosphatase Troponin I High Sens C-Reactive Protein B-Natriuretic Peptide Total Protein Albumin Procalcitonin Urine Color Urine Appearance Urine pH Ur Specific [place] Urine Protein Urine Glucose (UA) Urine Ketones Urine Blood Urine Nitrite Ur Leukocyte Esterase Urine RBC Urine WBC Ur Squamous Epith Cells Amorphous Sediment Urine Bacteria Hyaline Casts Granular Casts Coronavirus (PCR) Influenza Type A (PCR) Influenza Type B (PCR) Ur L.pneumophila Ag RSV RNA Qual (PCR) Ur Strep pneumoniae Ag 09/14/20 09/15/20 09/15/20 21:12 08:19 08:19 WBC 11.6 H RBC 4.41 L Hgb 13.9 L Hct 41.5 L MCV 94.1 MCH 31.5 MCHC 33.5 RDW 13.6 Plt Count 207 D MPV 10.9 Immature Gran % (Auto) Neut % (Auto) Lymph % (Auto) [place] % (Auto) Eos % (Auto) Baso % (Auto) Lymph # (Auto) [place] # (Auto) Eos # (Auto) Baso # (Auto) Abs Immat Gran (auto) Absolute Neuts (auto) Absolute Nucleated RBC 0.000 Nucleated RBC % (auto) 0.0 Smear Tech's Comments PT 59.9 H D INR 5.0 H* D D-Dimer Sodium Potassium Chloride Carbon Dioxide Anion Gap BUN Creatinine Estim Creat Clear Calc Estimated GFR POC Glucose 266 H Random Glucose Fasting Glucose Lactic Acid Lactic Acid Fup @ 2Hr Calcium Magnesium Ferritin Total Bilirubin Direct Bilirubin AST ALT Alkaline Phosphatase Troponin I High Sens C-Reactive Protein B-Natriuretic Peptide Total Protein Albumin Procalcitonin Urine Color Urine Appearance Urine pH Ur Specific [place] Urine Protein Urine Glucose (UA) Urine Ketones Urine Blood Urine Nitrite Ur Leukocyte Esterase Urine RBC Urine WBC Ur Squamous Epith Cells Amorphous Sediment Urine Bacteria Hyaline Casts Granular Casts Coronavirus (PCR) Influenza Type A (PCR) Influenza Type B (PCR) Ur L.pneumophila Ag RSV RNA Qual (PCR) Ur Strep pneumoniae Ag 09/15/20 09/15/20 09/15/20 08:19 08:19 17:01 WBC RBC Hgb Hct MCV MCH MCHC RDW Plt Count MPV Immature Gran % (Auto) Neut % (Auto) Lymph % (Auto) [place] % (Auto) Eos % (Auto) Baso % (Auto) Lymph # (Auto) [place] # (Auto) Eos # (Auto) Baso # (Auto) Abs Immat Gran (auto) Absolute Neuts (auto) Absolute Nucleated RBC Nucleated RBC % (auto) Smear Tech's Comments PT INR D-Dimer Sodium 139 Potassium 4.2 Chloride 110 H Carbon Dioxide 18 L Anion Gap 15 BUN 32 H Creatinine 0.91 Estim Creat Clear Calc 85.2 Estimated GFR > 60 POC Glucose 276 H Random Glucose 211 H Fasting Glucose Lactic Acid Lactic Acid Fup @ 2Hr Calcium 7.8 L Magnesium Ferritin Total Bilirubin 1.0 Direct Bilirubin 0.5 AST 69 H ALT 75 H Alkaline Phosphatase 86 D Troponin I High Sens C-Reactive Protein B-Natriuretic Peptide Total Protein 5.2 L Albumin 2.9 L Procalcitonin Urine Color Urine Appearance Urine pH Ur Specific [place] Urine Protein Urine Glucose (UA) Urine Ketones Urine Blood Urine Nitrite Ur Leukocyte Esterase Urine RBC Urine WBC Ur Squamous Epith Cells Amorphous Sediment Urine Bacteria Hyaline Casts Granular Casts Coronavirus (PCR) Influenza Type A (PCR) Influenza Type B (PCR) Ur L.pneumophila Ag RSV RNA Qual (PCR) Ur Strep pneumoniae Ag 09/15/20 09/16/20 09/16/20 20:10 06:17 06:17 WBC 12.3 H RBC 4.64 Hgb 14.7 Hct 44.3 MCV 95.5 MCH 31.7 MCHC 33.2 RDW 13.5 Plt Count 247 MPV 11.1 Immature Gran % (Auto) Neut % (Auto) Lymph % (Auto) [place] % (Auto) Eos % (Auto) Baso % (Auto) Lymph # (Auto) [place] # (Auto) Eos # (Auto) Baso # (Auto) Abs Immat Gran (auto) Absolute Neuts (auto) Absolute Nucleated RBC 0.000 Nucleated RBC % (auto) 0.0 Smear Tech's Comments PT 42.2 H D INR 3.5 H D-Dimer Sodium Potassium Chloride Carbon Dioxide Anion Gap BUN Creatinine Estim Creat Clear Calc Estimated GFR POC Glucose 331 H Random Glucose Fasting Glucose Lactic Acid Lactic Acid Fup @ 2Hr Calcium Magnesium Ferritin Total Bilirubin Direct Bilirubin AST ALT Alkaline Phosphatase Troponin I High Sens C-Reactive Protein B-Natriuretic Peptide Total Protein Albumin Procalcitonin Urine Color Urine Appearance Urine pH Ur Specific [place] Urine Protein Urine Glucose (UA) Urine Ketones Urine Blood Urine Nitrite Ur Leukocyte Esterase Urine RBC Urine WBC Ur Squamous Epith Cells Amorphous Sediment Urine Bacteria Hyaline Casts Granular Casts Coronavirus (PCR) Influenza Type A (PCR) Influenza Type B (PCR) Ur L.pneumophila Ag RSV RNA Qual (PCR) Ur Strep pneumoniae Ag 09/16/20 09/16/20 09/16/20 06:17 07:13 11:28 WBC RBC Hgb Hct MCV MCH MCHC RDW Plt Count MPV Immature Gran % (Auto) Neut % (Auto) Lymph % (Auto) [place] % (Auto) Eos % (Auto) Baso % (Auto) Lymph # (Auto) [place] # (Auto) Eos # (Auto) Baso # (Auto) Abs Immat Gran (auto) Absolute Neuts (auto) Absolute Nucleated RBC Nucleated RBC % (auto) Smear Tech's Comments PT INR D-Dimer Sodium 140 Potassium 4.1 Chloride 109 H Carbon Dioxide 18 L Anion Gap 17 BUN 31 H Creatinine 0.83 Estim Creat Clear Calc 93.5 Estimated GFR > 60 POC Glucose 170 H 205 H Random Glucose 165 H Fasting Glucose Lactic Acid Lactic Acid Fup @ 2Hr Calcium 8.0 L Magnesium Ferritin Total Bilirubin Direct Bilirubin AST ALT Alkaline Phosphatase Troponin I High Sens C-Reactive Protein 5.21 H B-Natriuretic Peptide Total Protein Albumin Procalcitonin Urine Color Urine Appearance Urine pH Ur Specific [place] Urine Protein Urine Glucose (UA) Urine Ketones Urine Blood Urine Nitrite Ur Leukocyte Esterase Urine RBC Urine WBC Ur Squamous Epith Cells Amorphous Sediment Urine Bacteria Hyaline Casts Granular Casts Coronavirus (PCR) Influenza Type A (PCR) Influenza Type B (PCR) Ur L.pneumophila Ag RSV RNA Qual (PCR) Ur Strep pneumoniae Ag 09/16/20 09/16/20 09/17/20 16:15 20:20 06:27 WBC 11.7 H RBC 4.77 Hgb 15.5 Hct 45.5 MCV 95.4 MCH 32.5 MCHC 34.1 RDW 13.4 Plt Count 169 D MPV 11.0 Immature Gran % (Auto) Neut % (Auto) Lymph % (Auto) [place] % (Auto) Eos % (Auto) Baso % (Auto) Lymph # (Auto) [place] # (Auto) Eos # (Auto) Baso # (Auto) Abs Immat Gran (auto) Absolute Neuts (auto) Absolute Nucleated RBC 0.000 Nucleated RBC % (auto) 0.0 Smear Tech's Comments PT INR D-Dimer Sodium Potassium Chloride Carbon Dioxide Anion Gap BUN Creatinine Estim Creat Clear Calc Estimated GFR POC Glucose 258 H 259 H Random Glucose Fasting Glucose Lactic Acid Lactic Acid Fup @ 2Hr Calcium Magnesium Ferritin Total Bilirubin Direct Bilirubin AST ALT Alkaline Phosphatase Troponin I High Sens C-Reactive Protein B-Natriuretic Peptide Total Protein Albumin Procalcitonin Urine Color Urine Appearance Urine pH Ur Specific [place] Urine Protein Urine Glucose (UA) Urine Ketones Urine Blood Urine Nitrite Ur Leukocyte Esterase Urine RBC Urine WBC Ur Squamous Epith Cells Amorphous Sediment Urine Bacteria Hyaline Casts Granular Casts Coronavirus (PCR) Influenza Type A (PCR) Influenza Type B (PCR) Ur L.pneumophila Ag RSV RNA Qual (PCR) Ur Strep pneumoniae Ag 09/17/20 09/17/20 09/17/20 06:27 06:27 06:27 WBC RBC Hgb Hct MCV MCH MCHC RDW Plt Count MPV Immature Gran % (Auto) Neut % (Auto) Lymph % (Auto) [place] % (Auto) Eos % (Auto) Baso % (Auto) Lymph # (Auto) [place] # (Auto) Eos # (Auto) Baso # (Auto) Abs Immat Gran (auto) Absolute Neuts (auto) Absolute Nucleated RBC Nucleated RBC % (auto) Smear Tech's Comments PT 40.5 H INR 3.4 H D-Dimer Sodium 139 Potassium 4.2 Chloride 107 Carbon Dioxide 19 L Anion Gap 17 BUN 24 H Creatinine 0.81 Estim Creat Clear Calc 95.8 Estimated GFR > 60 POC Glucose Random Glucose 124 H Fasting Glucose Lactic Acid Lactic Acid Fup @ 2Hr Calcium 8.2 L Magnesium Ferritin Total Bilirubin Direct Bilirubin AST ALT Alkaline Phosphatase Troponin I High Sens C-Reactive Protein B-Natriuretic Peptide Total Protein Albumin Procalcitonin 0.15 Urine Color Urine Appearance Urine pH Ur Specific [place] Urine Protein Urine Glucose (UA) Urine Ketones Urine Blood Urine Nitrite Ur Leukocyte Esterase Urine RBC Urine WBC Ur Squamous Epith Cells Amorphous Sediment Urine Bacteria Hyaline Casts Granular Casts Coronavirus (PCR) Influenza Type A (PCR) Influenza Type B (PCR) Ur L.pneumophila Ag RSV RNA Qual (PCR) Ur Strep pneumoniae Ag 09/17/20 09/17/20 09/17/20 07:16 11:29 16:13 WBC RBC Hgb Hct MCV MCH MCHC RDW Plt Count MPV Immature Gran % (Auto) Neut % (Auto) Lymph % (Auto) [place] % (Auto) Eos % (Auto) Baso % (Auto) Lymph # (Auto) [place] # (Auto) Eos # (Auto) Baso # (Auto) Abs Immat Gran (auto) Absolute Neuts (auto) Absolute Nucleated RBC Nucleated RBC % (auto) Smear Tech's Comments PT INR D-Dimer Sodium Potassium Chloride Carbon Dioxide Anion Gap BUN Creatinine Estim Creat Clear Calc Estimated GFR POC Glucose 137 H 197 H 275 H Random Glucose Fasting Glucose Lactic Acid Lactic Acid Fup @ 2Hr Calcium Magnesium Ferritin Total Bilirubin Direct Bilirubin AST ALT Alkaline Phosphatase Troponin I High Sens C-Reactive Protein B-Natriuretic Peptide Total Protein Albumin Procalcitonin Urine Color Urine Appearance Urine pH Ur Specific [place] Urine Protein Urine Glucose (UA) Urine Ketones Urine Blood Urine Nitrite Ur Leukocyte Esterase Urine RBC Urine WBC Ur Squamous Epith Cells Amorphous Sediment Urine Bacteria Hyaline Casts Granular Casts Coronavirus (PCR) Influenza Type A (PCR) Influenza Type B (PCR) Ur L.pneumophila Ag RSV RNA Qual (PCR) Ur Strep pneumoniae Ag 09/17/20 09/18/20 09/18/20 20:13 05:27 05:27 WBC 13.0 H RBC 4.35 L Hgb 14.0 Hct 41.1 L MCV 94.5 MCH 32.2 MCHC 34.1 RDW 13.2 Plt Count 171 MPV 10.7 Immature Gran % (Auto) Neut % (Auto) Lymph % (Auto) [place] % (Auto) Eos % (Auto) Baso % (Auto) Lymph # (Auto) [place] # (Auto) Eos # (Auto) Baso # (Auto) Abs Immat Gran (auto) Absolute Neuts (auto) Absolute Nucleated RBC 0.000 Nucleated RBC % (auto) 0.0 Smear Tech's Comments PT 31.9 H D INR 2.7 H D-Dimer Sodium Potassium Chloride Carbon Dioxide Anion Gap BUN Creatinine Estim Creat Clear Calc Estimated GFR POC Glucose 211 H Random Glucose Fasting Glucose Lactic Acid Lactic Acid Fup @ 2Hr Calcium Magnesium Ferritin Total Bilirubin Direct Bilirubin AST ALT Alkaline Phosphatase Troponin I High Sens C-Reactive Protein B-Natriuretic Peptide Total Protein Albumin Procalcitonin Urine Color Urine Appearance Urine pH Ur Specific [place] Urine Protein Urine Glucose (UA) Urine Ketones Urine Blood Urine Nitrite Ur Leukocyte Esterase Urine RBC Urine WBC Ur Squamous Epith Cells Amorphous Sediment Urine Bacteria Hyaline Casts Granular Casts Coronavirus (PCR) Influenza Type A (PCR) Influenza Type B (PCR) Ur L.pneumophila Ag RSV RNA Qual (PCR) Ur Strep pneumoniae Ag 09/18/20 09/18/20 09/18/20 05:27 07:38 11:10 WBC RBC Hgb Hct MCV MCH MCHC RDW Plt Count MPV Immature Gran % (Auto) Neut % (Auto) Lymph % (Auto) [place] % (Auto) Eos % (Auto) Baso % (Auto) Lymph # (Auto) [place] # (Auto) Eos # (Auto) Baso # (Auto) Abs Immat Gran (auto) Absolute Neuts (auto) Absolute Nucleated RBC Nucleated RBC % (auto) Smear Tech's Comments PT INR D-Dimer Sodium 139 Potassium 3.9 Chloride 106 Carbon Dioxide 21 L Anion Gap 16 BUN 27 H Creatinine 0.77 Estim Creat Clear Calc 100.7 Estimated GFR > 60 POC Glucose 167 H 226 H Random Glucose 167 H Fasting Glucose Lactic Acid Lactic Acid Fup @ 2Hr Calcium 8.0 L Magnesium Ferritin Total Bilirubin Direct Bilirubin AST ALT Alkaline Phosphatase Troponin I High Sens C-Reactive Protein B-Natriuretic Peptide Total Protein Albumin Procalcitonin Urine Color Urine Appearance Urine pH Ur Specific [place] Urine Protein Urine Glucose (UA) Urine Ketones Urine Blood Urine Nitrite Ur Leukocyte Esterase Urine RBC Urine WBC Ur Squamous Epith Cells Amorphous Sediment Urine Bacteria Hyaline Casts Granular Casts Coronavirus (PCR) Influenza Type A (PCR) Influenza Type B (PCR) Ur L.pneumophila Ag RSV RNA Qual (PCR) Ur Strep pneumoniae Ag 09/18/20 09/18/20 09/19/20 16:36 20:30 05:24 WBC 13.0 H RBC 4.23 L Hgb 13.4 L Hct 39.7 L MCV 93.9 MCH 31.7 MCHC 33.8 RDW 13.2 Plt Count 177 MPV 10.9 Immature Gran % (Auto) Neut % (Auto) Lymph % (Auto) [place] % (Auto) Eos % (Auto) Baso % (Auto) Lymph # (Auto) [place] # (Auto) Eos # (Auto) Baso # (Auto) Abs Immat Gran (auto) Absolute Neuts (auto) Absolute Nucleated RBC 0.000 Nucleated RBC % (auto) 0.0 Smear Tech's Comments PT INR D-Dimer Sodium Potassium Chloride Carbon Dioxide Anion Gap BUN Creatinine Estim Creat Clear Calc Estimated GFR POC Glucose 286 H 253 H Random Glucose Fasting Glucose Lactic Acid Lactic Acid Fup @ 2Hr Calcium Magnesium Ferritin Total Bilirubin Direct Bilirubin AST ALT Alkaline Phosphatase Troponin I High Sens C-Reactive Protein B-Natriuretic Peptide Total Protein Albumin Procalcitonin Urine Color Urine Appearance Urine pH Ur Specific [place] Urine Protein Urine Glucose (UA) Urine Ketones Urine Blood Urine Nitrite Ur Leukocyte Esterase Urine RBC Urine WBC Ur Squamous Epith Cells Amorphous Sediment Urine Bacteria Hyaline Casts Granular Casts Coronavirus (PCR) Influenza Type A (PCR) Influenza Type B (PCR) Ur L.pneumophila Ag RSV RNA Qual (PCR) Ur Strep pneumoniae Ag 09/19/20 09/19/20 09/19/20 05:24 05:24 08:28 WBC RBC Hgb Hct MCV MCH MCHC RDW Plt Count MPV Immature Gran % (Auto) Neut % (Auto) Lymph % (Auto) [place] % (Auto) Eos % (Auto) Baso % (Auto) Lymph # (Auto) [place] # (Auto) Eos # (Auto) Baso # (Auto) Abs Immat Gran (auto) Absolute Neuts (auto) Absolute Nucleated RBC Nucleated RBC % (auto) Smear Tech's Comments PT 24.6 H D INR 2.1 H D-Dimer Sodium 137 Potassium 3.9 Chloride 106 Carbon Dioxide 21 L Anion Gap 14 BUN 24 H Creatinine 0.74 Estim Creat Clear Calc 104.8 Estimated GFR > 60 POC Glucose 144 H Random Glucose 160 H Fasting Glucose Lactic Acid Lactic Acid Fup @ 2Hr Calcium 7.9 L Magnesium Ferritin Total Bilirubin Direct Bilirubin AST ALT Alkaline Phosphatase Troponin I High Sens C-Reactive Protein B-Natriuretic Peptide Total Protein Albumin Procalcitonin Urine Color Urine Appearance Urine pH Ur Specific [place] Urine Protein Urine Glucose (UA) Urine Ketones Urine Blood Urine Nitrite Ur Leukocyte Esterase Urine RBC Urine WBC Ur Squamous Epith Cells Amorphous Sediment Urine Bacteria Hyaline Casts Granular Casts Coronavirus (PCR) Influenza Type A (PCR) Influenza Type B (PCR) Ur L.pneumophila Ag RSV RNA Qual (PCR) Ur Strep pneumoniae Ag 09/19/20 09/19/20 09/19/20 11:55 16:22 21:30 WBC RBC Hgb Hct MCV MCH MCHC RDW Plt Count MPV Immature Gran % (Auto) Neut % (Auto) Lymph % (Auto) [place] % (Auto) Eos % (Auto) Baso % (Auto) Lymph # (Auto) [place] # (Auto) Eos # (Auto) Baso # (Auto) Abs Immat Gran (auto) Absolute Neuts (auto) Absolute Nucleated RBC Nucleated RBC % (auto) Smear Tech's Comments PT INR D-Dimer Sodium Potassium Chloride Carbon Dioxide Anion Gap BUN Creatinine Estim Creat Clear Calc Estimated GFR POC Glucose 283 H 273 H 277 H Random Glucose Fasting Glucose Lactic Acid Lactic Acid Fup @ 2Hr Calcium Magnesium Ferritin Total Bilirubin Direct Bilirubin AST ALT Alkaline Phosphatase Troponin I High Sens C-Reactive Protein B-Natriuretic Peptide Total Protein Albumin Procalcitonin Urine Color Urine Appearance Urine pH Ur Specific [place] Urine Protein Urine Glucose (UA) Urine Ketones Urine Blood Urine Nitrite Ur Leukocyte Esterase Urine RBC Urine WBC Ur Squamous Epith Cells Amorphous Sediment Urine Bacteria Hyaline Casts Granular Casts Coronavirus (PCR) Influenza Type A (PCR) Influenza Type B (PCR) Ur L.pneumophila Ag RSV RNA Qual (PCR) Ur Strep pneumoniae Ag 09/20/20 09/20/20 09/20/20 05:15 05:18 06:00 WBC 14.7 H RBC 4.56 L Hgb 14.7 Hct 43.1 MCV 94.5 MCH 32.2 MCHC 34.1 RDW 13.2 Plt Count 181 MPV 10.4 Immature Gran % (Auto) Neut % (Auto) Lymph % (Auto) [place] % (Auto) Eos % (Auto) Baso % (Auto) Lymph # (Auto) [place] # (Auto) Eos # (Auto) Baso # (Auto) Abs Immat Gran (auto) Absolute Neuts (auto) Absolute Nucleated RBC 0.000 Nucleated RBC % (auto) 0.0 Smear Tech's Comments PT 27.4 H INR 2.3 H D-Dimer Sodium 137 Potassium 4.4 Chloride 105 Carbon Dioxide 22 Anion Gap 14 BUN 23 H Creatinine 0.79 Estim Creat Clear Calc 98.2 Estimated GFR > 60 POC Glucose Random Glucose 173 H Fasting Glucose Lactic Acid Lactic Acid Fup @ 2Hr Calcium 8.2 L Magnesium Ferritin Total Bilirubin Direct Bilirubin AST ALT Alkaline Phosphatase Troponin I High Sens C-Reactive Protein B-Natriuretic Peptide Total Protein Albumin Procalcitonin Urine Color Urine Appearance Urine pH Ur Specific [place] Urine Protein Urine Glucose (UA) Urine Ketones Urine Blood Urine Nitrite Ur Leukocyte Esterase Urine RBC Urine WBC Ur Squamous Epith Cells Amorphous Sediment Urine Bacteria Hyaline Casts Granular Casts Coronavirus (PCR) Influenza Type A (PCR) Influenza Type B (PCR) Ur L.pneumophila Ag RSV RNA Qual (PCR) Ur Strep pneumoniae Ag 09/20/20 09/20/20 09/20/20 07:44 11:41 16:36 WBC RBC Hgb Hct MCV MCH MCHC RDW Plt Count MPV Immature Gran % (Auto) Neut % (Auto) Lymph % (Auto) [place] % (Auto) Eos % (Auto) Baso % (Auto) Lymph # (Auto) [place] # (Auto) Eos # (Auto) Baso # (Auto) Abs Immat Gran (auto) Absolute Neuts (auto) Absolute Nucleated RBC Nucleated RBC % (auto) Smear Tech's Comments PT INR D-Dimer Sodium Potassium Chloride Carbon Dioxide Anion Gap BUN Creatinine Estim Creat Clear Calc Estimated GFR POC Glucose 171 H 236 H 313 H Random Glucose Fasting Glucose Lactic Acid Lactic Acid Fup @ 2Hr Calcium Magnesium Ferritin Total Bilirubin Direct Bilirubin AST ALT Alkaline Phosphatase Troponin I High Sens C-Reactive Protein B-Natriuretic Peptide Total Protein Albumin Procalcitonin Urine Color Urine Appearance Urine pH Ur Specific [place] Urine Protein Urine Glucose (UA) Urine Ketones Urine Blood Urine Nitrite Ur Leukocyte Esterase Urine RBC Urine WBC Ur Squamous Epith Cells Amorphous Sediment Urine Bacteria Hyaline Casts Granular Casts Coronavirus (PCR) Influenza Type A (PCR) Influenza Type B (PCR) Ur L.pneumophila Ag RSV RNA Qual (PCR) Ur Strep pneumoniae Ag 09/20/20 09/21/20 09/21/20 19:57 05:36 05:36 WBC 15.8 H RBC 4.56 L Hgb 14.6 Hct 43.2 MCV 94.7 MCH 32.0 MCHC 33.8 RDW 13.4 Plt Count 163 MPV 10.3 Immature Gran % (Auto) Neut % (Auto) Lymph % (Auto) [place] % (Auto) Eos % (Auto) Baso % (Auto) Lymph # (Auto) [place] # (Auto) Eos # (Auto) Baso # (Auto) Abs Immat Gran (auto) Absolute Neuts (auto) Absolute Nucleated RBC 0.000 Nucleated RBC % (auto) 0.0 Smear Tech's Comments PT 36.0 H D INR 3.0 H D-Dimer Sodium Potassium Chloride Carbon Dioxide Anion Gap BUN Creatinine Estim Creat Clear Calc Estimated GFR POC Glucose 231 H Random Glucose Fasting Glucose Lactic Acid Lactic Acid Fup @ 2Hr Calcium Magnesium Ferritin Total Bilirubin Direct Bilirubin AST ALT Alkaline Phosphatase Troponin I High Sens C-Reactive Protein B-Natriuretic Peptide Total Protein Albumin Procalcitonin Urine Color Urine Appearance Urine pH Ur Specific [place] Urine Protein Urine Glucose (UA) Urine Ketones Urine Blood Urine Nitrite Ur Leukocyte Esterase Urine RBC Urine WBC Ur Squamous Epith Cells Amorphous Sediment Urine Bacteria Hyaline Casts Granular Casts Coronavirus (PCR) Influenza Type A (PCR) Influenza Type B (PCR) Ur L.pneumophila Ag RSV RNA Qual (PCR) Ur Strep pneumoniae Ag 09/21/20 09/21/20 09/21/20 05:36 07:36 11:15 WBC RBC Hgb Hct MCV MCH MCHC RDW Plt Count MPV Immature Gran % (Auto) Neut % (Auto) Lymph % (Auto) [place] % (Auto) Eos % (Auto) Baso % (Auto) Lymph # (Auto) [place] # (Auto) Eos # (Auto) Baso # (Auto) Abs Immat Gran (auto) Absolute Neuts (auto) Absolute Nucleated RBC Nucleated RBC % (auto) Smear Tech's Comments PT INR D-Dimer Sodium 138 Potassium 4.3 Chloride 104 Carbon Dioxide 26 Anion Gap 12 BUN 18 H Creatinine 0.73 Estim Creat Clear Calc 106.3 Estimated GFR > 60 POC Glucose 157 H 238 H Random Glucose 148 H Fasting Glucose Lactic Acid Lactic Acid Fup @ 2Hr Calcium 8.2 L Magnesium Ferritin Total Bilirubin Direct Bilirubin AST ALT Alkaline Phosphatase Troponin I High Sens C-Reactive Protein B-Natriuretic Peptide Total Protein Albumin Procalcitonin Urine Color Urine Appearance Urine pH Ur Specific [place] Urine Protein Urine Glucose (UA) Urine Ketones Urine Blood Urine Nitrite Ur Leukocyte Esterase Urine RBC Urine WBC Ur Squamous Epith Cells Amorphous Sediment Urine Bacteria Hyaline Casts Granular Casts Coronavirus (PCR) Influenza Type A (PCR) Influenza Type B (PCR) Ur L.pneumophila Ag RSV RNA Qual (PCR) Ur Strep pneumoniae Ag 09/21/20 09/21/20 09/22/20 15:48 19:17 06:24 WBC 18.9 H RBC 4.36 L Hgb 13.9 L Hct 41.6 L MCV 95.4 MCH 31.9 MCHC 33.4 RDW 13.2 Plt Count 147 L MPV 10.6 Immature Gran % (Auto) Neut % (Auto) Lymph % (Auto) [place] % (Auto) Eos % (Auto) Baso % (Auto) Lymph # (Auto) [place] # (Auto) Eos # (Auto) Baso # (Auto) Abs Immat Gran (auto) Absolute Neuts (auto) Absolute Nucleated RBC 0.000 Nucleated RBC % (auto) 0.0 Smear Tech's Comments PT INR D-Dimer Sodium Potassium Chloride Carbon Dioxide Anion Gap BUN Creatinine Estim Creat Clear Calc Estimated GFR POC Glucose 244 H 338 H Random Glucose Fasting Glucose Lactic Acid Lactic Acid Fup @ 2Hr Calcium Magnesium Ferritin Total Bilirubin Direct Bilirubin AST ALT Alkaline Phosphatase Troponin I High Sens C-Reactive Protein B-Natriuretic Peptide Total Protein Albumin Procalcitonin Urine Color Urine Appearance Urine pH Ur Specific [place] Urine Protein Urine Glucose (UA) Urine Ketones Urine Blood Urine Nitrite Ur Leukocyte Esterase Urine RBC Urine WBC Ur Squamous Epith Cells Amorphous Sediment Urine Bacteria Hyaline Casts Granular Casts Coronavirus (PCR) Influenza Type A (PCR) Influenza Type B (PCR) Ur L.pneumophila Ag RSV RNA Qual (PCR) Ur Strep pneumoniae Ag 09/22/20 09/22/20 09/22/20 06:24 06:24 07:19 WBC RBC Hgb Hct MCV MCH MCHC RDW Plt Count MPV Immature Gran % (Auto) Neut % (Auto) Lymph % (Auto) [place] % (Auto) Eos % (Auto) Baso % (Auto) Lymph # (Auto) [place] # (Auto) Eos # (Auto) Baso # (Auto) Abs Immat Gran (auto) Absolute Neuts (auto) Absolute Nucleated RBC Nucleated RBC % (auto) Smear Tech's Comments PT 39.2 H INR 3.3 H D-Dimer Sodium 137 Potassium 4.2 Chloride 107 Carbon Dioxide 20 L Anion Gap 14 BUN 20 H Creatinine 0.73 Estim Creat Clear Calc 106.3 Estimated GFR > 60 POC Glucose 146 H Random Glucose 154 H Fasting Glucose Lactic Acid Lactic Acid Fup @ 2Hr Calcium 8.0 L Magnesium Ferritin Total Bilirubin Direct Bilirubin AST ALT Alkaline Phosphatase Troponin I High Sens C-Reactive Protein B-Natriuretic Peptide Total Protein Albumin Procalcitonin Urine Color Urine Appearance Urine pH Ur Specific [place] Urine Protein Urine Glucose (UA) Urine Ketones Urine Blood Urine Nitrite Ur Leukocyte Esterase Urine RBC Urine WBC Ur Squamous Epith Cells Amorphous Sediment Urine Bacteria Hyaline Casts Granular Casts Coronavirus (PCR) Influenza Type A (PCR) Influenza Type B (PCR) Ur L.pneumophila Ag RSV RNA Qual (PCR) Ur Strep pneumoniae Ag 09/22/20 09/22/20 09/22/20 11:30 15:19 19:15 WBC RBC Hgb Hct MCV MCH MCHC RDW Plt Count MPV Immature Gran % (Auto) Neut % (Auto) Lymph % (Auto) [place] % (Auto) Eos % (Auto) Baso % (Auto) Lymph # (Auto) [place] # (Auto) Eos # (Auto) Baso # (Auto) Abs Immat Gran (auto) Absolute Neuts (auto) Absolute Nucleated RBC Nucleated RBC % (auto) Smear Tech's Comments PT INR D-Dimer Sodium Potassium Chloride Carbon Dioxide Anion Gap BUN Creatinine Estim Creat Clear Calc Estimated GFR POC Glucose 270 H 402 H* 256 H Random Glucose Fasting Glucose Lactic Acid Lactic Acid Fup @ 2Hr Calcium Magnesium Ferritin Total Bilirubin Direct Bilirubin AST ALT Alkaline Phosphatase Troponin I High Sens C-Reactive Protein B-Natriuretic Peptide Total Protein Albumin Procalcitonin Urine Color Urine Appearance Urine pH Ur Specific [place] Urine Protein Urine Glucose (UA) Urine Ketones Urine Blood Urine Nitrite Ur Leukocyte Esterase Urine RBC Urine WBC Ur Squamous Epith Cells Amorphous Sediment Urine Bacteria Hyaline Casts Granular Casts Coronavirus (PCR) Influenza Type A (PCR) Influenza Type B (PCR) Ur L.pneumophila Ag RSV RNA Qual (PCR) Ur Strep pneumoniae Ag 09/23/20 09/23/20 09/23/20 05:54 05:54 05:54 WBC 23.4 H RBC 4.37 L Hgb 14.0 Hct 41.6 L MCV 95.2 MCH 32.0 MCHC 33.7 RDW 13.3 Plt Count 154 L MPV 11.0 Immature Gran % (Auto) 2.2 H Neut % (Auto) 83.9 H Lymph % (Auto) 7.4 L [place] % (Auto) 5.9 Eos % (Auto) 0.4 Baso % (Auto) 0.2 Lymph # (Auto) 1.7 [place] # (Auto) 1.4 H Eos # (Auto) 0.1 Baso # (Auto) 0.0 Abs Immat Gran (auto) 0.51 H Absolute Neuts (auto) 19.6 H Absolute Nucleated RBC 0.000 Nucleated RBC % (auto) 0.0 Smear Tech's Comments VERIFIED PT 25.6 H D INR 2.1 H D-Dimer Sodium 136 Potassium 3.9 Chloride 105 Carbon Dioxide 21 L Anion Gap 14 BUN 24 H Creatinine 0.73 Estim Creat Clear Calc 106.3 Estimated GFR > 60 POC Glucose Random Glucose TNP Fasting Glucose 134 H Lactic Acid Lactic Acid Fup @ 2Hr Calcium 7.8 L Magnesium Ferritin Total Bilirubin Direct Bilirubin AST ALT Alkaline Phosphatase Troponin I High Sens C-Reactive Protein B-Natriuretic Peptide Total Protein Albumin Procalcitonin Urine Color Urine Appearance Urine pH Ur Specific [place] Urine Protein Urine Glucose (UA) Urine Ketones Urine Blood Urine Nitrite Ur Leukocyte Esterase Urine RBC Urine WBC Ur Squamous Epith Cells Amorphous Sediment Urine Bacteria Hyaline Casts Granular Casts Coronavirus (PCR) Influenza Type A (PCR) Influenza Type B (PCR) Ur L.pneumophila Ag RSV RNA Qual (PCR) Ur Strep pneumoniae Ag 09/23/20 09/23/20 09/23/20 07:48 11:26 16:28 WBC RBC Hgb Hct MCV MCH MCHC RDW Plt Count MPV Immature Gran % (Auto) Neut % (Auto) Lymph % (Auto) [place] % (Auto) Eos % (Auto) Baso % (Auto) Lymph # (Auto) [place] # (Auto) Eos # (Auto) Baso # (Auto) Abs Immat Gran (auto) Absolute Neuts (auto) Absolute Nucleated RBC Nucleated RBC % (auto) Smear Tech's Comments PT INR D-Dimer Sodium Potassium Chloride Carbon Dioxide Anion Gap BUN Creatinine Estim Creat Clear Calc Estimated GFR POC Glucose 143 H 218 H 231 H Random Glucose Fasting Glucose Lactic Acid Lactic Acid Fup @ 2Hr Calcium Magnesium Ferritin Total Bilirubin Direct Bilirubin AST ALT Alkaline Phosphatase Troponin I High Sens C-Reactive Protein B-Natriuretic Peptide Total Protein Albumin Procalcitonin Urine Color Urine Appearance Urine pH Ur Specific [place] Urine Protein Urine Glucose (UA) Urine Ketones Urine Blood Urine Nitrite Ur Leukocyte Esterase Urine RBC Urine WBC Ur Squamous Epith Cells Amorphous Sediment Urine Bacteria Hyaline Casts Granular Casts Coronavirus (PCR) Influenza Type A (PCR) Influenza Type B (PCR) Ur L.pneumophila Ag RSV RNA Qual (PCR) Ur Strep pneumoniae Ag 09/23/20 09/24/20 09/24/20 20:28 06:05 06:05 WBC 15.1 H RBC 4.63 Hgb 14.6 Hct 44.7 MCV 96.5 MCH 31.5 MCHC 32.7 RDW 13.3 Plt Count 167 MPV 10.3 Immature Gran % (Auto) Neut % (Auto) Lymph % (Auto) [place] % (Auto) Eos % (Auto) Baso % (Auto) Lymph # (Auto) [place] # (Auto) Eos # (Auto) Baso # (Auto) Abs Immat Gran (auto) Absolute Neuts (auto) Absolute Nucleated RBC 0.000 Nucleated RBC % (auto) 0.0 Smear Tech's Comments PT 23.2 H INR 1.9 H D-Dimer Sodium Potassium Chloride Carbon Dioxide Anion Gap BUN Creatinine Estim Creat Clear Calc Estimated GFR POC Glucose 223 H Random Glucose Fasting Glucose Lactic Acid Lactic Acid Fup @ 2Hr Calcium Magnesium Ferritin Total Bilirubin Direct Bilirubin AST ALT Alkaline Phosphatase Troponin I High Sens C-Reactive Protein B-Natriuretic Peptide Total Protein Albumin Procalcitonin Urine Color Urine Appearance Urine pH Ur Specific [place] Urine Protein Urine Glucose (UA) Urine Ketones Urine Blood Urine Nitrite Ur Leukocyte Esterase Urine RBC Urine WBC Ur Squamous Epith Cells Amorphous Sediment Urine Bacteria Hyaline Casts Granular Casts Coronavirus (PCR) Influenza Type A (PCR) Influenza Type B (PCR) Ur L.pneumophila Ag RSV RNA Qual (PCR) Ur Strep pneumoniae Ag 09/24/20 09/24/20 09/24/20 06:05 07:20 11:32 WBC RBC Hgb Hct MCV MCH MCHC RDW Plt Count MPV Immature Gran % (Auto) Neut % (Auto) Lymph % (Auto) [place] % (Auto) Eos % (Auto) Baso % (Auto) Lymph # (Auto) [place] # (Auto) Eos # (Auto) Baso # (Auto) Abs Immat Gran (auto) Absolute Neuts (auto) Absolute Nucleated RBC Nucleated RBC % (auto) Smear Tech's Comments PT INR D-Dimer Sodium 138 Potassium 5.0 D Chloride 106 Carbon Dioxide 20 L Anion Gap 17 BUN 20 H Creatinine 0.80 Estim Creat Clear Calc 97.0 Estimated GFR > 60 POC Glucose 156 H 194 H Random Glucose 152 H Fasting Glucose Lactic Acid Lactic Acid Fup @ 2Hr Calcium 7.9 L Magnesium Ferritin Total Bilirubin Direct Bilirubin AST ALT Alkaline Phosphatase Troponin I High Sens C-Reactive Protein B-Natriuretic Peptide Total Protein Albumin Procalcitonin Urine Color Urine Appearance Urine pH Ur Specific [place] Urine Protein Urine Glucose (UA) Urine Ketones Urine Blood Urine Nitrite Ur Leukocyte Esterase Urine RBC Urine WBC Ur Squamous Epith Cells Amorphous Sediment Urine Bacteria Hyaline Casts Granular Casts Coronavirus (PCR) Influenza Type A (PCR) Influenza Type B (PCR) Ur L.pneumophila Ag RSV RNA Qual (PCR) Ur Strep pneumoniae Ag 09/24/20 09/24/20 09/25/20 16:12 19:57 05:57 WBC RBC Hgb Hct MCV MCH MCHC RDW Plt Count MPV Immature Gran % (Auto) Neut % (Auto) Lymph % (Auto) [place] % (Auto) Eos % (Auto) Baso % (Auto) Lymph # (Auto) [place] # (Auto) Eos # (Auto) Baso # (Auto) Abs Immat Gran (auto) Absolute Neuts (auto) Absolute Nucleated RBC Nucleated RBC % (auto) Smear Tech's Comments PT 22.7 H INR 1.9 H D-Dimer Sodium Potassium Chloride Carbon Dioxide Anion Gap BUN Creatinine Estim Creat Clear Calc Estimated GFR POC Glucose 188 H 224 H Random Glucose Fasting Glucose Lactic Acid Lactic Acid Fup @ 2Hr Calcium Magnesium Ferritin Total Bilirubin Direct Bilirubin AST ALT Alkaline Phosphatase Troponin I High Sens C-Reactive Protein B-Natriuretic Peptide Total Protein Albumin Procalcitonin Urine Color Urine Appearance Urine pH Ur Specific [place] Urine Protein Urine Glucose (UA) Urine Ketones Urine Blood Urine Nitrite Ur Leukocyte Esterase Urine RBC Urine WBC Ur Squamous Epith Cells Amorphous Sediment Urine Bacteria Hyaline Casts Granular Casts Coronavirus (PCR) Influenza Type A (PCR) Influenza Type B (PCR) Ur L.pneumophila Ag RSV RNA Qual (PCR) Ur Strep pneumoniae Ag 09/25/20 09/25/20 09/25/20 05:57 05:58 07:10 WBC 14.2 H RBC 4.60 Hgb 14.8 Hct 45.0 MCV 97.8 MCH 32.2 MCHC 32.9 RDW 13.5 Plt Count 165 MPV 10.9 Immature Gran % (Auto) 2.1 H Neut % (Auto) 78.0 H Lymph % (Auto) 10.6 L [place] % (Auto) 8.6 Eos % (Auto) 0.5 Baso % (Auto) 0.2 Lymph # (Auto) 1.5 [place] # (Auto) 1.2 Eos # (Auto) 0.1 Baso # (Auto) 0.0 Abs Immat Gran (auto) 0.30 H Absolute Neuts (auto) 11.1 H Absolute Nucleated RBC 0.000 Nucleated RBC % (auto) 0.0 Smear Tech's Comments PT INR D-Dimer Sodium 138 Potassium 4.1 Chloride 107 Carbon Dioxide 21 L Anion Gap 14 BUN 17 H Creatinine 0.75 Estim Creat Clear Calc 103.4 Estimated GFR > 60 POC Glucose 161 H Random Glucose TNP Fasting Glucose 155 H Lactic Acid Lactic Acid Fup @ 2Hr Calcium 7.8 L Magnesium Ferritin Total Bilirubin 1.1 H Direct Bilirubin 0.4 AST 43 H ALT 48 H Alkaline Phosphatase 136 H D Troponin I High Sens C-Reactive Protein 2.52 H B-Natriuretic Peptide Total Protein 5.2 L Albumin 2.7 L Procalcitonin Urine Color Urine Appearance Urine pH Ur Specific [place] Urine Protein Urine Glucose (UA) Urine Ketones Urine Blood Urine Nitrite Ur Leukocyte Esterase Urine RBC Urine WBC Ur Squamous Epith Cells Amorphous Sediment Urine Bacteria Hyaline Casts Granular Casts Coronavirus (PCR) Influenza Type A (PCR) Influenza Type B (PCR) Ur L.pneumophila Ag RSV RNA Qual (PCR) Ur Strep pneumoniae Ag 09/25/20 09/25/20 09/25/20 11:19 16:30 20:20 WBC RBC Hgb Hct MCV MCH MCHC RDW Plt Count MPV Immature Gran % (Auto) Neut % (Auto) Lymph % (Auto) [place] % (Auto) Eos % (Auto) Baso % (Auto) Lymph # (Auto) [place] # (Auto) Eos # (Auto) Baso # (Auto) Abs Immat Gran (auto) Absolute Neuts (auto) Absolute Nucleated RBC Nucleated RBC % (auto) Smear Tech's Comments PT INR D-Dimer Sodium Potassium Chloride Carbon Dioxide Anion Gap BUN Creatinine Estim Creat Clear Calc Estimated GFR POC Glucose 204 H 172 H 245 H Random Glucose Fasting Glucose Lactic Acid Lactic Acid Fup @ 2Hr Calcium Magnesium Ferritin Total Bilirubin Direct Bilirubin AST ALT Alkaline Phosphatase Troponin I High Sens C-Reactive Protein B-Natriuretic Peptide Total Protein Albumin Procalcitonin Urine Color Urine Appearance Urine pH Ur Specific [place] Urine Protein Urine Glucose (UA) Urine Ketones Urine Blood Urine Nitrite Ur Leukocyte Esterase Urine RBC Urine WBC Ur Squamous Epith Cells Amorphous Sediment Urine Bacteria Hyaline Casts Granular Casts Coronavirus (PCR) Influenza Type A (PCR) Influenza Type B (PCR) Ur L.pneumophila Ag RSV RNA Qual (PCR) Ur Strep pneumoniae Ag 09/26/20 09/26/20 09/26/20 07:44 08:25 11:46 WBC RBC Hgb Hct MCV MCH MCHC RDW Plt Count MPV Immature Gran % (Auto) Neut % (Auto) Lymph % (Auto) [place] % (Auto) Eos % (Auto) Baso % (Auto) Lymph # (Auto) [place] # (Auto) Eos # (Auto) Baso # (Auto) Abs Immat Gran (auto) Absolute Neuts (auto) Absolute Nucleated RBC Nucleated RBC % (auto) Smear Tech's Comments PT 24.5 H INR 2.0 H D-Dimer Sodium Potassium Chloride Carbon Dioxide Anion Gap BUN Creatinine Estim Creat Clear Calc Estimated GFR POC Glucose 182 H 225 H Random Glucose Fasting Glucose Lactic Acid Lactic Acid Fup @ 2Hr Calcium Magnesium Ferritin Total Bilirubin Direct Bilirubin AST ALT Alkaline Phosphatase Troponin I High Sens C-Reactive Protein B-Natriuretic Peptide Total Protein Albumin Procalcitonin Urine Color Urine Appearance Urine pH Ur Specific [place] Urine Protein Urine Glucose (UA) Urine Ketones Urine Blood Urine Nitrite Ur Leukocyte Esterase Urine RBC Urine WBC Ur Squamous Epith Cells Amorphous Sediment Urine Bacteria Hyaline Casts Granular Casts Coronavirus (PCR) Influenza Type A (PCR) Influenza Type B (PCR) Ur L.pneumophila Ag RSV RNA Qual (PCR) Ur Strep pneumoniae Ag Discharge Plan Discharge Referrals: Gonzalo Hollingsworth DO, MD [Primary Care Provider] - Discharge Medications: Continued metformin 500 mg tablet 500 mg PO BID RF: 0 atorvastatin 80 mg tablet 80 mg PO DAILY RF: 0 lisinopril 20 mg tablet 20 mg PO DAILY RF: 0 glipizide 5 mg tablet extended release 24hr 5 mg PO DAILY RF: 0 warfarin 5 mg tablet 5 mg PO DAILY RF: 0 metoprolol tartrate 50 mg tablet 50 mg PO BID RF: 0 montelukast 10 mg tablet 10 mg PO DAILY RF: 0 Tresiba FlexTouch U-100 100 unit/mL (3 mL) insulin pen 10 unit subcut BEDTIME RF: 0 Diet: advance to usual diet Activity on Discharge: As tolerated Care Plan Goals: recovery Health Concerns: covid Plan of Treatment: PT, wean o2 as tolerated
--- NOTE | 2020-09-26 14:35 | P.PNIM_ITS ---
Subjective Subjective Date of Service: 09/26/20 Interval History: Improving Cardiovascular Cardiovascular: Reports no additional cardiovascular complaints Respiratory Respiratory: Reports no additional respiratory complaints Physical Exam Vital Signs: Vital Signs: Last Vital Signs Temp 98.0 F 09/26/20 11:58 Pulse 85 09/26/20 11:58 Resp 20 09/26/20 11:58 BP 98/54 L 09/26/20 11:58 Pulse Ox 94 09/26/20 11:58 Body Mass Index 35.4 General: AO X 3, no acute distress Resp: CTA bilateral CVS: S1,S2,RRR GI: soft, non tender, non distended Neuro: motor grossly intact Psych: appropriate affect Objective Data Current Medications Generic Name Dose Route Start Last Admin Trade Name Freq PRN Reason Stop Dose Admin Acetaminophen 650 mg 09/12/20 21:06 Acetaminophen 325 Mg Tablet PO Q6H PRN Pain, Mild (Pain Scale 1-3) Atorvastatin Calcium 80 mg 09/13/20 09:00 09/26/20 09:04 Atorvastatin Calcium 80 Mg Tablet PO 80 mg DAILY [facility] Administration Docusate Sodium 100 mg 09/12/20 21:06 Docusate Sodium 100 Mg Capsule PO DAILY PRN Constipation Insulin Glargine 7 unit 09/12/20 21:06 09/25/20 22:21 Insulin Glargine,Hum.Rec.Anlog 100 Unit/Ml 10 Ml Vial SUBCUT 7 unit BEDTIME [facility] Administration Insulin Human Lispro 0 unit 09/15/20 21:00 09/26/20 12:10 Insulin Lispro 100 Unit/Ml 3 Ml Vial SUBCUT 4 unit QIDACHS [facility] Administration Protocol Lisinopril 20 mg 09/13/20 09:00 09/26/20 09:04 Lisinopril 20 Mg Tablet PO 20 mg DAILY [facility] Administration Protocol Metoprolol Tartrate 75 mg 09/16/20 21:00 09/26/20 09:04 Metoprolol Tartrate 50 Mg Tablet PO 75 mg BID [facility] Administration Protocol Montelukast Sodium 10 mg 09/13/20 09:00 09/26/20 09:04 Montelukast Sodium 10 Mg Tablet PO 10 mg DAILY [facility] Administration Omeprazole 40 mg 09/20/20 09:35 09/26/20 06:30 Omeprazole 40 Mg Capsule.Dr PO Not Given DAILY@0630 [facility] Ondansetron HCl 4 mg 09/13/20 04:14 Ondansetron Hcl 4 Mg/2 Ml Vial IVPUSH Q8H PRN Nausea and Vomiting Pharmacy Consult 1 each 09/12/20 17:34 Consult Rx Perform Med Rec MISCELLANE ONCE PRN Consult order Sodium Chloride 3 ml 09/13/20 00:00 09/26/20 09:04 0.9 % Sodium Chloride Flush 3 Ml Syringe IVFLUSH Not Given QSHIFT [facility] Sodium Chloride 1 spray 09/23/20 12:31 09/23/20 13:12 Sodium Chloride 0.65 % Nasal 44 Ml Sprbtl NOSTRIL-B 1 spray Q1H PRN Administration Dry Nasal Passages Warfarin Sodium 2.5 mg 09/18/20 18:00 09/25/20 17:25 Warfarin Sodium 2.5 Mg Tablet PO 2.5 mg DAILY@1800 SAL Administration Labs CBC & Chem 7: 09/25/20 05:58 09/25/20 05:57 Microbiology Microbiology Results: Microbiology 09/12/20 16:55 Blood - Venous Blood Culture - Final No growth after 5 days. 09/12/20 16:42 Blood - Venous Blood Culture - Final No growth after 5 days. Assessment and Plan (1) Acute respiratory failure with hypoxia: Status: Acute (2) Atrial fibrillation with RVR: Status: Acute (3) Pneumonia due to COVID-19 virus: Status: Acute (4) Elevated troponin: Status: Acute (5) Sepsis: Status: Acute (6) Supratherapeutic INR: Status: Acute Assessment and Plan: 75-year-old male presented to the hospital with complaints of shortness of breath found to have covid 19 with resp failure Acute respiratory failure with hypoxia d/t covid On O2, wean as tolerated viral sepsis appears to be improving, was able to be weaned down to 2 L, awaiting snf placement completed 10 days decadron completed remedesivir, 5 days of rocephin, doxy moprbilliform rash likely due to covid no signs of mucosal involvement A. Fib now rate controlled metoprolol 75mg BID coumadin DM latnus + ISS
[2020-09-26 16:51] LABS: Glucose, Whole Blood 187 mg/dL (60-115)
[2020-09-26] MEDS: Warfarin Sodium 2.5 MG TABLET PO (17:02)
[2020-09-26 20:19] LABS: Glucose, Whole Blood 181 mg/dL (60-115)
[2020-09-26] MEDS: Insulin Glargine,Hum.rec.anlog 100 UNIT/ML 10 ML VIAL 7 UNIT SUBCUT (21:02)
[2020-09-26] MEDS: 0.9 % Sodium Chloride Flush 3 ML SYRINGE IVFLUSH (21:06)
[2020-09-27 03:07] VITALS: BP 106/69; PULSE 97; RESP 18; TEMP 36.6; O2SAT 94
[2020-09-27] MEDS: Omeprazole 40 MG CAPSULE.DR PO (06:16)
[2020-09-27 07:26] VITALS: BP 121/56; PULSE 93; RESP 20; TEMP 36.6; O2SAT 93
[2020-09-27 07:29] LABS: Glucose, Whole Blood 167 mg/dL (60-115)
[2020-09-27] MEDS: Insulin Lispro 100 UNIT/ML 3 ML VIAL SUBCUT ×2 (07:49→11:39)
[2020-09-27] MEDS: Atorvastatin Calcium 80 MG TABLET PO (07:50)
[2020-09-27] MEDS: Metoprolol Tartrate 50 MG TABLET 75 MG PO (07:50)
[2020-09-27] MEDS: Montelukast Sodium 10 MG TABLET PO (07:50)
[2020-09-27] MEDS: lisinopriL 20 MG TABLET PO (07:50)
[2020-09-27 09:05] LABS: INTERNATIONAL NORM RATIO 2.3 (0.9-1.1); Prothrombin Time 28.1 SEC (10.8-13.0)
--- NOTE | 2020-09-27 11:28 | MHC.CM.PN ---
IMM 09/27/20 DC today Covid+ to [facility] 1pm STR weakness due to Covid and new oxygen.
[2020-09-27 11:36] LABS: Glucose, Whole Blood 182 mg/dL (60-115)
--- NOTE | 2020-09-27 11:42 | MHC.CLN ---
F/U GOOD PO DIET RX: 2000DM -APPROPRIATE PT RECEIVING GLUCERNA TID TO INCREASE KCALS FOLLOWING
[2020-09-27 12:00] VITALS: BP 100/59; PULSE 82; RESP 20; TEMP 36.2
== END 2020-09-27 13:10 | disposition skilled nursing facility (03) | DRG 871 ==
LOC: HO.ED 17:01 → HO.IMC 09-13 02:32
PROVIDERS: Family Medicine; Internal Medicine; Physician Assistant; Admitting Provider Internal Medicine; Emergency Provider Emergency Medicine; PCP Internal Medicine; Visit Provider Internal Medicine
DX: A41.89 Other specified sepsis (principal); U07.1 COVID-19; J96.01 Acute respiratory failure with hypoxia; J12.82 Pneumonia due to coronavirus disease 2019; R04.2 Hemoptysis; R79.1 Abnormal coagulation profile; I48.91 Unspecified atrial fibrillation; E11.9 Type 2 diabetes mellitus without complications; Z79.4 Long term (current) use of insulin; Z79.01 Long term (current) use of anticoagulants; Z79.899 Other long term (current) drug therapy
CPT/HCPCS: 0241U; 36415; 71045; 80048; 80076; 81001; 82728; 82947; 83605; 83735; 83880; 84145; 84484; 85025; 85027; 85379; 85610; 86140; 87040; 87449; 87899; 93005; 96361; 96365; 96366; 96375; 97163; 97166; 99285; J0696; J1100; J1940; J3475; J3490

== ENCOUNTER 2020-10-17 05:00 | Outpatient (REF) | payer MEDICARE, MEDICAID, SELFPAY ==
[2020-10-17 06:49] LABS: MANUAL DIFF FLAG NO
[2020-10-17 07:01] LABS: Basophils Percent Auto 0.3 % (0-2); Eosinophils Absolute Auto 0.1 X10*3/uL (0.0-0.4); Eosinophils Percent Auto 1.4 % (0-4); Hematocrit 34.5 % (42-52); Hemoglobin 11.2 g/dl (14.0-18.0); Imm Gran Abs Auto 0.04 X10*3/uL (0.00-0.03); Imm Gran Pct Auto 0.7 % (0.0-0.4); Lymphocytes Absolute Auto 1.7 X10*3/uL (1.2-4.9); Lymphocytes Percent Auto 29.1 % (20-40); Mean Corpuscular HGB Conc 32.5 g/dl (31.0-36.0); Mean Corpuscular Hemoglobin 32.1 pg (27.0-33.0); Mean Corpuscular Volume 98.9 fL (80-98); Monocytes Absolute Auto 0.5 X10*3/uL (0.1-1.2); Monocytes Percent Auto 9.2 % (2-11); Neutrophils Absolute Auto 3.5 X10*3/uL (2.0-8.3); Neutrophils Percent Auto 59.3 % (45-73); Platelet Count 154 X10*3/uL (160-400); Red Blood Count 3.49 X10*6/uL (4.60-5.80); Red Cell Distribution Width 14.9 % (11.0-16.0); White Blood Count 5.9 X10*3/uL (4.8-10.8)
[2020-10-17 07:25] LABS: Anion Gap 12 (12-20); Blood Urea Nitrogen 16 mg/dL (9-16); Calcium 8.2 mg/dL (8.4-10.2); Carbon Dioxide 23 mmol/L (22-29); Chloride 111 mmol/L (96-108); Estimated Glomerular Filt Rate > 60; Glucose Random 91 mg/dL (60-115); Sodium 142 mmol/L (135-145)
[2020-10-17 07:34] LABS: INTERNATIONAL NORM RATIO 1.4 (0.9-1.1)
== END 2020-10-17 05:01 | disposition home or self-care (01) ==
LOC: HO.MMNH1L 05:00
PROVIDERS: Visit Provider Family Medicine
DX: I48.91 Unspecified atrial fibrillation (principal); E11.9 Type 2 diabetes mellitus without complications; U07.1 COVID-19; E78.5 Hyperlipidemia, unspecified
CPT/HCPCS: 36415; 80048; 85025; 85610

== ENCOUNTER 2021-08-26 10:06 | Inpatient (IN) | payer MEDICARE, MEDICAID, SELFPAY ==
[2021-08-26] VITALS (9 sets, daily range): BP systolic 108–137; BP diastolic 62–97; PULSE 85–174; RESP 16–28; TEMP 37.2; O2SAT 95–99; BMI 32.1
--- NOTE | 2021-08-26 | ECG_ITS ---
Test Reason : TACHYCARDIA Blood Pressure : / mmHG Vent. Rate : 141 BPM Atrial Rate : 000 BPM P-R Int : 000 ms QRS Dur : 086 ms QT Int : 296 ms P-R-T Axes : 000 -27 142 degrees QTc Int : 453 ms Atrial fibrillation with rapid ventricular response Low voltage QRS Inferior infarct (cited on or before 12-SEP-2020) Cannot rule out Anterior infarct (cited on or before 12-SEP-2020) Abnormal ECG When compared with ECG of 12-SEP-2020 16:17, No significant change was found Referred By: Generic ED Physician Electronically Signed By:TELLY CLIFTON
--- NOTE | ~2021-08-26 | XR_ITS ---
EXAMINATION: XR CHEST CLINICAL INFORMATION: Rapid atrial fibrillation. COMPARISON: None TECHNIQUE: Frontal view of the chest was obtained. FINDINGS: The heart size is normal. No effusions or pneumothoraces. Focal groundglass opacity is noted in the left midlung zone. Low lung volumes are visualized. XR/XR chest 1V IMPRESSION: *Focal groundglass opacity within the left middle lung zone which is suspicious for viral infection. Alternatively, findings could represent mild asymmetric pulmonary edema. *No pleural effusions. *Low lung volumes.
--- NOTE | ~2021-08-26 | CT_ITS ---
EXAMINATION: CT CERVICAL SPINE WITHOUT CONTRAST CLINICAL INFORMATION: Left-sided neck pain with intermittent left finger tingling. COMPARISON: None TECHNIQUE: CT cervical spine with coronal and sagittal reconstruction This CT examination was performed using dose optimization techniques as appropriate, variously including the following: *Automated exposure control *Adjustment of mA and/or kV according to patient size (this includes techniques or standardized protocols for targeted exams where dose is matched to indication/reason for exam; i.e. extremities or head) *Use of iterative reconstruction technique DLP: 745 mGy-cm FINDINGS: No abnormal prevertebral soft tissue swelling is seen. The paraspinal muscle fat planes are maintained. No acute cervical spine fracture is noted. There is multilevel degenerative disc disease present most significant at the C1-C2 and C6-C7 disc space levels. There is prominent spurring of the joints of L[place]ch[place] at C6-C7 causing some anterior neural foraminal encroachment bilaterally. Pterygoid plates are intact. Visualized paranasal sinuses unremarkable. No significant temporal mandibular joint abnormalities appreciated. CT/CT cervical spine wo con IMPRESSION: No acute cervical spine fracture. Multilevel degenerative disc disease and facet degenerative change. Anterior neural foraminal encroachment at the C6-C7 level bilaterally.
--- NOTE | ~2021-08-26 | CT_ITS ---
EXAMINATION: CT ANGIOGRAM OF THE CHEST WITH AND WITHOUT CONTRAST (CT PULMONARY ANGIOGRAM FOR PE) CLINICAL INFORMATION: Rule out PE versus viral infection. COMPARISON: Chest x-ray of 08/26/2021, 09/16/2020 TECHNIQUE: Prior to contrast administration, noncontrast localization images were obtained. Subsequently, multidetector volumetric imaging was performed from the thoracic inlet to below the diaphragms following the administration of 70 mL Omnipaque 350 intravenous contrast. No contrast reaction reported. Sagittal, coronal, and MIP oblique sagittal reformatted images were obtained on the CT workstation, uploaded to PACS, and reviewed. This CT examination was performed using dose optimization techniques as appropriate, variously including the following: *Automated exposure control *Adjustment of mA and/or kV according to patient size (this includes techniques or standardized protocols for targeted exams where dose is matched to indication/reason for exam; i.e. extremities or head) *Use of iterative reconstruction technique Total exam dose-length product 430 mGy-cm FINDINGS: QUALITY OF STUDY/CONTRAST BOLUS: There is satisfactory enhancement of the pulmonary arterial tree. Multiple right respiratory motion artifacts are noted. PULMONARY ARTERIES: No central or segmental pulmonary emboli. THORACIC AORTA: No aneurysm or dissection. Mild scattered calcific atherosclerosis of the aorta. LUNG: Multiple respiratory motion artifacts limit the evaluation of the lung parenchyma. Patchy airspace opacities are noted in the left upper lobe and left lower lobe. Changes of emphysema are noted in the upper lobes. A small calcified granuloma is noted in the right upper lobe medially (series 7 image 182). PLEURA: Trace right pleural effusion and small left pleural effusion. MEDIASTINUM: Normal heart size. Very small pericardial effusion. Moderate calcifications of the left anterior descending artery and left circumflex artery. There is a pretracheal lymph node measuring 1.4 cm in short axis. No hilar adenopathy. Trachea and central bronchi are well patent. No evidence of septal bowing or right heart strain. CHEST WALL/AXILLA: No axillary or internal mammary lymphadenopathy. OSSEOUS STRUCTURES: No acute or suspicious osseous abnormality. Multilevel mild degenerative changes throughout the visualized spine. UPPER ABDOMEN: There is mild thickening of the left adrenal gland without discrete nodule. No reflux of contrast into the hepatic veins to suggest elevated right heart pressures. CT/CT angio chest PE protocol IMPRESSION: 1. No evidence of pulmonary embolism. 2. Multiple respiratory motion artifacts limit evaluation of the pulmonary parenchyma. There are patchy airspace opacities in the left lung. Imaging features can be seen with COVID pneumonia, though are nonspecific and can occur with a variety of infectious and noninfectious processes. Note that multifocal bilateral patchy airspace opacities are noted on the previous x-rays of 09/12/2020 and 09/16/2020. 3. Trace right pleural effusion and small left pleural effusion. 4. A mildly prominent pretracheal lymph node, likely reactive. VTE: negative
--- NOTE | 2021-08-26 10:50 | ED.GENADULT ---
HPI - General Adult General Chief complaint: General Medical Stated complaint: neck pain spitting up blood Time Seen by Provider: 08/26/21 10:22 Source: patient Mode of arrival: ambulatory History of Present Illness HPI narrative: 76-year-old male with a past medical history of AFib on Coumadin, diabetes, HTN, presenting to the ED complaining of acute on chronic left-sided neck pain with associated intermittent left finger tingling, and spinning/coughing up blood since 5:00 a.m. Reports forcefully coughing and noted blood mixed in mucous. Reports atraumatic neck pain, similar to prior symptoms, worse with neck movement. Denies headache, CP/SOB, abdominal pain, nausea/vomiting, pedal edema Onset (ago): hour(s) Related Data Home Medications Medication Instructions Recorded Confirmed atorvastatin 80 mg tablet 80 mg PO DAILY 09/12/20 08/26/21 glipizide 5 mg tablet, extended 5 mg PO DAILY 09/12/20 08/26/21 release 24 hr insulin degludec 100 unit/mL (3 10 unit SUBCUT BEDTIME 09/12/20 08/26/21 mL) subcutaneous pen (Tresiba FlexTouch U-100 insulin) lisinopril 20 mg tablet 20 mg PO DAILY 09/12/20 08/26/21 metformin 500 mg tablet 500 mg PO BID 09/12/20 08/26/21 metoprolol tartrate 50 mg tablet 75 mg PO BID 09/12/20 08/26/21 montelukast 10 mg tablet 10 mg PO DAILY 09/12/20 08/26/21 warfarin 5 mg tablet 7.5 mg PO DAILY 09/12/20 09/12/20 amlodipine 5 mg tablet 1 tab PO DAILY 08/26/21 08/26/21 meclizine 25 mg tablet 25 mg PO TID PRN 08/26/21 08/26/21 sertraline 25 mg tablet 1 tab PO DAILY 08/26/21 08/26/21 warfarin 5 mg tablet 1 tab PO DAILY 08/26/21 08/26/21 Allergies Allergy/AdvReac Type Severity Reaction Status Date / Time No Known Allergies Allergy Verified 09/12/20 16:17 Review of Systems Review of Systems: Constitutional: No Fever, No Chills, No Fatigue, No Malaise ENT/Mouth: No Ear Pain, No Nasal Congestion, No sore throat, No Rhinorrhea Eyes: No Eye Pain, No Discharge, No Vision Changes Cardiovascular: No Chest Pain, No SOB, No Orthopnea, No Edema, No Palpitations Respiratory: + Cough, + Sputum, No Wheezing, No Dyspnea, +Hemoptysis Gastrointestinal: No Nausea, No Vomiting, No Diarrhea, No Constipation, No Abdominal pain Genitourinary: No Dysuria, No Urinary Frequency, No Hematuria, No Urinary Incontinence, No Flank Pain Musculoskeletal: + neck pain, No Myalgias, No Joint Swelling Skin: No Skin Lesions, No rash Neuro: No Weakness, No Numbness, +Paresthesias, No Dizziness, No Headache Yes all other systems are reviewed and are negative [facility] Past Medical History Attestation statement: The following information was validated with the patient. Medical History Atrial fibrillation Diabetes Hypertension Social History Social History Household Members: Spouse Housing: Apartment Do you presently have visiting nurse or other home services: Yes Advance Directives: No Advance Directives Information Provided: No service: No Current occupational status: retired Physical Exam Vital Signs: Vital Signs: Last Vital Signs Temp 98.9 F 08/26/21 10:22 Pulse 85 08/26/21 14:21 Resp 24 H 08/26/21 14:21 BP 108/68 08/26/21 14:21 Pulse Ox 97 08/26/21 14:21 BMI result Body Mass Index 32.1 Const: General: cooperative, healthy appearing and no acute distress Orientation/consciousness: patient oriented x3 Limitations: no limitations HENMT: Head: Yes normal to inspection Ears: hearing grossly normal bilaterally General nose exam: Normal external nose present Face and sinus: Yes normal facial exam Mouth: Normal oral and palatal mucosa present Eyes: General: appearance normal, both eyes and all related structures Pupils: Equal, round and reactive pupils present EOM: EOMs intact bilaterally Neck: Other: No midline cervical spinous tenderness. No paraspinal tenderness. Full range of motion intact Neck: Yes normal visual inspection, Yes no meningeal signs, Yes supple and No anterior neck swelling Resp: Effort & Inspection: normal respiratory effort Auscultation: clear to auscultation bilaterally, no rales, no rhonchi and no wheezes Cardio: Rate: regular rate Heart sounds: S1 normal heart sound present and S2 normal heart sound present GI: Inspection: Yes normal to inspection Palpation (GI): Soft to palpation, nontender, no guarding and not rigid : General: Yes no CVA tenderness Back/Spine/Pelvis: Back: no CVA tenderness Skin: Rashes: no rashes Wounds: no wounds Neuro: General: patient oriented x3, tone normal, moves all extremities and no meningeal signs Cranial nerves: Yes Equal, round and reactive pupils present Gait exam (Neuro): Normal gait present Extrem: Other: 2+ bilateral LE pitting edema General: Yes normal to inspection Course Course Course Narrative: 1143--XR chest 1V IMPRESSION: *Focal groundglass opacity within the left middle lung zone which is suspicious for viral infection. Alternatively, findings could represent mild asymmetric pulmonary edema. *No pleural effusions. *Low lung volumes. ?>> will empirically cover with Rocephin and obtain CTA to rule PE as well as pneumonia -1153--heart rate improved to 97-110 after 20mg Diltiazem -1158--added leukocytosis of 15.9. H&H is stable. INR supratherapeutic at 4.8. Lactic acid negative -1227--magnesium low 1.5 >IV repletion ordered. Bilirubin chronically elevated. BNP 493. Troponin 4.7. COVID-[address] cervical spine wo con IMPRESSION: No acute cervical spine fracture. Multilevel degenerative disc disease and facet degenerative change. Anterior neural foraminal encroachment at the C6-C7 level bilaterally. -1233--heart rate still jumping up to 115 will give 10 more mg of IV Diltiazem -1352--heart rate improved to 85-95 after 2nd dose of IV Diltiazem 1458--CT angio chest PE protocol IMPRESSION: 1. No evidence of pulmonary embolism. 2. Multiple respiratory motion artifacts limit evaluation of the pulmonary parenchyma. There are patchy airspace opacities in the left lung. Imaging features can be seen with COVID pneumonia, though are nonspecific and can occur with a variety of infectious and noninfectious processes. Note that multifocal bilateral patchy airspace opacities are noted on the previous x-rays of 09/12/2020 and 09/16/2020. 3. Trace right pleural effusion and small left pleural effusion. 4. A mildly prominent pretracheal lymph node, likely reactive. VTE: negative >> findings could be sequela previous COVID-19 infection on 09/12/2020, however with WBC of 15.9 infection now suspected. Patient meets SIRS criteria, not severe sepsis. Plan for admission Medical Decision Making MDM Narrative Medical decision making narrative: 76-year-old male with a past medical history of AFib on Coumadin, diabetes, HTN, presenting to the ED complaining of acute on chronic left-sided neck pain with associated intermittent left finger tingling, and spinning/coughing up blood since 5:00 a.m. On exam patient anxious, in rapid AFib with a heart rate 130-160, lungs CTA, no midline cervical spinous tenderness, no focal neuro deficits. Concern for bronchitis vs PNA, lower concern for PE as patient is anticoagulated. Neck pain likely musculoskeletal, not reproducible. Low concern for cervical dissection, fracture or cord compression. Lower concern for hematemesis or malignancy Low concern for severe sepsis, elevated heart rate from rapid AFib Plan: EKG, labs, CXR, cervical CT, UA, rate control, re-evaluate Medical Records Medical records reviewed: Yes I reviewed the patient's medical records. Lab Data Lab results reviewed: Yes I reviewed the patient's lab results. Result diagrams: 08/26/21 11:35 08/26/21 11:35 Labs: Lab Results 08/26/21 08/26/21 08/26/21 Range/Units 11:35 11:35 11:35 WBC 15.9 H (4.8-10.8) X10*3/uL RBC 4.70 (4.60-5.80) X10*6/uL Hgb 15.6 (14.0-18.0) g/dl Hct 46.1 (42.0-52.0) % MCV 98.1 H (80.0-98.0) fL MCH 33.2 H (27.0-33.0) pg MCHC 33.8 (31.0-36.0) g/dl RDW 13.7 (11.0-16.0) % Plt Count 130 L (160-400) X10*3/uL MPV 11.7 (9.4-12.4) fL Immature Gran % (Auto) 0.6 H (0.0-0.4) % Neut % (Auto) 86.5 H (45-73) % Lymph % (Auto) 4.7 L (20-40) % [place] % (Auto) 8.1 (2-11) % Eos % (Auto) 0.0 (0-4) % Baso % (Auto) 0.1 (0-2) % Lymph # (Auto) 0.7 L (1.2-4.9) X10*3/uL [place] # (Auto) 1.3 H (0.1-1.2) X10*3/uL Eos # (Auto) 0.0 (0.0-0.4) X10*3/uL Baso # (Auto) 0.0 (0.0-0.2) X10*3/uL Abs Immat Gran (auto) 0.09 H (0.00-0.03) X10*3/uL Absolute Neuts (auto) 13.7 H (2.0-8.3) x10*3/uL Absolute Nucleated RBC 0.000 (0.0-0.012) X10*3/uL Nucleated RBC % (auto) 0.0 (0.0-0.2) /100WBC PT 56.8 H (9.9-13.0) SEC INR 4.8 H (0.9-1.1) Sodium 140 (135-145) mmol/L Potassium 4.4 (3.3-5.1) mmol/L Chloride 109 H (96-108) mmol/L Carbon Dioxide 20 L (22-29) mmol/L Anion Gap 15 (12-20) BUN 21 H (9-16) mg/dL Creatinine 1.17 (0.5-1.4) mg/dL Estim Creat Clear Calc 66.0 Estimated GFR > 60 Random Glucose 184 H D (60-115) mg/dL Lactic Acid (0.5-2.0) mmol/L Calcium 9.4 D (8.4-10.2) mg/dL Magnesium 1.5 L (1.6-2.6) mg/dL Total Bilirubin 1.4 H (0.0-1.0) mg/dL Direct Bilirubin 0.6 H (0.0-0.5) mg/dL AST 19 D (5-37) U/L ALT 27 (0-40) U/L Alkaline Phosphatase 93 D (39-117) U/L Troponin I High Sens (<3.5-35.0) ng/L B-Natriuretic Peptide (<100) pg/mL Total Protein 6.4 L D (6.5-8.0) g/dL Albumin 4.2 D (3.5-5.0) g/dL COVID-19 (BREA) (Negative) COVID-19 Clin Com 08/26/21 08/26/21 08/26/21 Range/Units 11:35 11:35 11:35 WBC (4.8-10.8) X10*3/uL RBC (4.60-5.80) X10*6/uL Hgb (14.0-18.0) g/dl Hct (42.0-52.0) % MCV (80.0-98.0) fL MCH (27.0-33.0) pg MCHC (31.0-36.0) g/dl RDW (11.0-16.0) % Plt Count (160-400) X10*3/uL MPV (9.4-12.4) fL Immature Gran % (Auto) (0.0-0.4) % Neut % (Auto) (45-73) % Lymph % (Auto) (20-40) % [place] % (Auto) (2-11) % Eos % (Auto) (0-4) % Baso % (Auto) (0-2) % Lymph # (Auto) (1.2-4.9) X10*3/uL [place] # (Auto) (0.1-1.2) X10*3/uL Eos # (Auto) (0.0-0.4) X10*3/uL Baso # (Auto) (0.0-0.2) X10*3/uL Abs Immat Gran (auto) (0.00-0.03) X10*3/uL Absolute Neuts (auto) (2.0-8.3) x10*3/uL Absolute Nucleated RBC (0.0-0.012) X10*3/uL Nucleated RBC % (auto) (0.0-0.2) /100WBC PT (9.9-13.0) SEC INR (0.9-1.1) Sodium (135-145) mmol/L Potassium (3.3-5.1) mmol/L Chloride (96-108) mmol/L Carbon Dioxide (22-29) mmol/L Anion Gap (12-20) BUN (9-16) mg/dL Creatinine (0.5-1.4) mg/dL Estim Creat Clear Calc Estimated GFR Random Glucose (60-115) mg/dL Lactic Acid 1.9 (0.5-2.0) mmol/L Calcium (8.4-10.2) mg/dL Magnesium (1.6-2.6) mg/dL Total Bilirubin (0.0-1.0) mg/dL Direct Bilirubin (0.0-0.5) mg/dL AST (5-37) U/L ALT (0-40) U/L Alkaline Phosphatase (39-117) U/L Troponin I High Sens 4.7 (<3.5-35.0) ng/L B-Natriuretic Peptide 493 H (<100) pg/mL Total Protein (6.5-8.0) g/dL Albumin (3.5-5.0) g/dL COVID-19 (BREA) Negative (Negative) COVID-19 Clin Com See Note ECG Data Attestation: I personally reviewed and interpreted this ECG as follows: Interpretation: EKG AFib with RVR at a rate of 141. No STEMI. Inverted T-wave in leads 1 and aVL. Q-waves in lead 3 and AVF Critical Care Time Critical Care Time Critical Care Time: Yes Total Critical Care Time: 45 Attestation: I have personally provided critical care time exclusive of time spent on separately billable procedures. Time includes review of lab data, radiology results, discussion with consultants, and monitoring for potential decompensation. Intervention performed as documented. Discharge Plan Discharge Clinical Impression: Atrial fibrillation with RVR, Supratherapeutic INR, Atypical pneumonia Patient Disposition: Admitted As Inpatient
[2021-08-26] MEDS: dilTIAZem HCL 50 MG/10 ML VIAL 20 MG IVPUSH (11:39)
[2021-08-26 11:41] LABS: MANUAL DIFF FLAG NO
[2021-08-26 11:47] LABS: Basophils Percent Auto 0.1 % (0-2); Hematocrit 46.1 % (42.0-52.0); Hemoglobin 15.6 g/dl (14.0-18.0); Imm Gran Abs Auto 0.09 X10*3/uL (0.00-0.03); Imm Gran Pct Auto 0.6 % (0.0-0.4); Lymphocytes Absolute Auto 0.7 X10*3/uL (1.2-4.9); Lymphocytes Percent Auto 4.7 % (20-40); Mean Corpuscular HGB Conc 33.8 g/dl (31.0-36.0); Mean Corpuscular Hemoglobin 33.2 pg (27.0-33.0); Mean Corpuscular Volume 98.1 fL (80.0-98.0); Mean Platelet Volume 11.7 fL (9.4-12.4); Monocytes Absolute Auto 1.3 X10*3/uL (0.1-1.2); Monocytes Percent Auto 8.1 % (2-11); Neutrophils Absolute Auto 13.7 x10*3/uL (2.0-8.3); Neutrophils Percent Auto 86.5 % (45-73); Platelet Count 130 X10*3/uL (160-400); Red Cell Distribution Width 13.7 % (11.0-16.0); White Blood Count 15.9 X10*3/uL (4.8-10.8)
[2021-08-26 11:48] LABS: INTERNATIONAL NORM RATIO 4.8 (0.9-1.1); Prothrombin Time 56.8 SEC (9.9-13.0)
[2021-08-26 11:51] LABS: Lactic Acid 1.9 mmol/L (0.5-2.0)
[2021-08-26 11:59] LABS: Alanine Aminotransferase 27 U/L (0-40); Albumin Level 4.2 g/dL (3.5-5.0); Alkaline Phosphatase 93 U/L (39-117); Anion Gap 15 (12-20); Aspartate Amino Transferase 19 U/L (5-37); Bilirubin Direct 0.6 mg/dL (0.0-0.5); Bilirubin Total 1.4 mg/dL (0.0-1.0); Blood Urea Nitrogen 21 mg/dL (9-16); Calcium 9.4 mg/dL (8.4-10.2); Carbon Dioxide 20 mmol/L (22-29); Chloride 109 mmol/L (96-108); Estimated Glomerular Filt Rate > 60; Glucose Random 184 mg/dL (60-115); Magnesium 1.5 mg/dL (1.6-2.6); Potassium 4.4 mmol/L (3.3-5.1); Sodium 140 mmol/L (135-145); Total Protein 6.4 g/dL (6.5-8.0)
[2021-08-26] MEDS: cefTRIAXone sodium 1 GM in 0.9 % Sodium Chloride 50 ML IV (11:59)
[2021-08-26 12:02] LABS: B Type Natriuretic Peptide 493 pg/mL (<100); COVID-19 Test Negative (Negative); IDNOW Serial# 9DD0AD1C; Troponin-I High Sensitivity 4.7 ng/L (<3.5-35.0)
[2021-08-26] MEDS: dilTIAZem HCL 50 MG/10 ML VIAL 10 MG IVPUSH (12:54)
[2021-08-26] MEDS: Magnesium Sulfate/H2O 2 GM/50 ML PIGGYBACK IV (13:00)
[2021-08-26] MEDS: iohexoL 350 MG/ML 100 ML INFUS..BTL IV (13:27)
[2021-08-26] MEDS: Azithromycin 500 MG in 0.9 % Sodium Chloride 250 ML 125 MG IV (15:26)
--- NOTE | 2021-08-26 15:37 | PC.NURSE ---
call placed to pts sister in law (Jocelyne) [phone] to obtain phone number for pts Daughter (zana) as pt does not have his cell phone with him
--- NOTE | 2021-08-26 15:57 | PM.IMHP ---
History of Present Illness Date of Service: 08/26/21 Attending physician on admission: Kei Thornton Chief Complaint: Hemoptysis/neck pain This is a 76-year-old gentleman with past medical history significant for atrial fibrillation on Coumadin, history of hypertension, diabetes mellitus, status post COVID infection in September of 2020 presented to [facility] due to acute onset of left-sided neck discomfort that started at 05:30 this morning when he woke up without associated numbness tingling of extremities patient has history of chronic neck pain for which he does range of motion neck exercises, also for last 2 days he was having some nasal congestion and this morning when he cleared his throat yellow phlegm came but he says he continue to clear his throat and when he coughed he noted blood in his sputum that made him concerned and very nervous therefore he came to the emergency room where he was noted to be in AFib with RVR therefore required treatment with IV Cardizem bolus 10 mg followed by 20 mg bolus His heart rate since has improved, he denies any chest pain, no palpitations, but he does feel very nervous, his laboratory data showed an elevated inr of 4.8 , elevated WBC count of 15.9, chronically low platelet of 130, CTA chest showed patchy air space opacity in the left lung as seen in COVID pneumonia though are nonspecific and multifocal bilateral patchy airspace opacities were noted on the previous x-rays of 09/12/2020, demonstrates bilateral pleural effusion also noted. Since patient noted to be tachypneic tachycardic with elevated leukocytosis as a concern of pneumonia therefore patient being admitted to [facility] with a diagnosis of sepsis related to pneumonia, atrial fibrillation with RVR and hemoptysis likely due to elevated INR. Review of Systems Review of Systems: General no headache no dizziness, no fever chills. CVS no chest pain, no palpitation. Respiratory cough productive of blood-tinged sputum , sinus congestion Gastrointestinal no nausea no vomiting, no abdominal pain no urinary symptoms of urgency frequency Musculoskeletal left neck pain that is improving Skin no rash PMFSH Medical History Atrial fibrillation Diabetes Hypertension Pertinent family history: No pertinent family history to current medical admission. Social History Household Members: Spouse Housing: Apartment Do you presently have visiting nurse or other home services: Yes Advance Directives: No Advance Directives Information Provided: No service: No Current occupational status: retired Meds Allergies Allergy/AdvReac Type Severity Reaction Status Date / Time No Known Allergies Allergy Verified 09/12/20 16:17 Active Medications: Current Medications Acetaminophen (Acetaminophen 325 Mg Tablet) 650 mg PO Q6H PRN PRN Reason: Pain, Mild (Pain Scale 1-3) Atorvastatin Calcium (Atorvastatin Calcium 80 Mg Tablet) 80 mg PO BEDTIME SAL Dextrose (Dextrose 50 % 25 Gm/50 Ml Vial) 25 gm IVPUSH Q15M PRN; Protocol PRN Reason: per Hypoglycemia Standing Ord. Glucose (Glucose Gel 15 Gm Gel..Gram.) 15 gm PO Q15M PRN; Protocol PRN Reason: per Hypoglycemia Standing Ord. Azithromycin 500 mg/ Sodium (Chloride) 250 mls @ 125 mls/hr IV ONCE ONE Stop: 08/26/21 17:10 Last Admin: 08/26/21 15:26 Dose: 125 mls/hr Documented by: Insulin Human Lispro (Insulin Lispro 100 Unit/Ml 3 Ml Vial) 0 unit SUBCUT [facility]IDACHS [facility]; Protocol Metoprolol Tartrate (Metoprolol Tartrate 50 Mg Tablet) 50 mg PO BID [facility]; Protocol Ondansetron HCl (Ondansetron Hcl 4 Mg/2 Ml Vial) 4 mg IVPUSH Q8H PRN PRN Reason: Nausea and Vomiting Sodium Chloride (0.9 % Sodium Chloride Flush 3 Ml Syringe) 3 ml IVFLUSH [facility] Home Medications Medication Instructions Recorded Confirmed Last Taken Type atorvastatin 80 mg tablet 80 mg PO DAILY 09/12/20 09/12/20 Unknown History glipizide 5 mg tablet, extended 5 mg PO DAILY 09/12/20 09/12/20 Unknown History release 24 hr insulin degludec 100 unit/mL (3 10 unit SUBCUT BEDTIME 09/12/20 09/12/20 Unknown History mL) subcutaneous pen (Tresiba FlexTouch U-100 insulin) lisinopril 20 mg tablet 20 mg PO DAILY 09/12/20 09/12/20 Unknown History metformin 500 mg tablet 500 mg PO BID 09/12/20 09/12/20 Unknown History metoprolol tartrate 50 mg tablet 50 mg PO BID 09/12/20 09/12/20 Unknown History montelukast 10 mg tablet 10 mg PO DAILY 09/12/20 09/12/20 Unknown History warfarin 5 mg tablet 5 mg PO DAILY 09/12/20 09/12/20 Unknown History Physical Exam Vital Signs and Narrative: Vital Signs: Last Vital Signs Temp 98.9 F 08/26/21 10:22 Pulse 85 08/26/21 14:21 Resp 24 H 08/26/21 14:21 BP 108/68 08/26/21 14:21 Pulse Ox 97 08/26/21 14:21 BMI result Body Mass Index 32.1 General awake alert x3, anxious, no acute distress. HEENT pupils equal round reactive to light and accommodation Neck supple no JVD good range of motion exercises no muscle spasm CVS irregular rate rhythm, Respiratory lungs clear to auscultation, no respiratory distress, no wheeze, no rhonchi. Gastrointestinal abdomen soft, nontender, bowel sounds audible, obese, no guarding , no rigidity. Extremities no edema. Neuro nonfocal,speech clear. Skin no rash Psych appropriate affect/anxious Back no CVA tenderness Results Labs CBC and Chem 7: 08/26/21 11:35 08/26/21 11:35 Labs: Laboratory Results - last 24 hr 08/26/21 08/26/21 08/26/21 11:35 11:35 11:35 MCV 98.1 H MCH 33.2 H MCHC 33.8 RDW 13.7 Plt Count 130 L MPV 11.7 Immature Gran % (Auto) 0.6 H Neut % (Auto) 86.5 H Lymph % (Auto) 4.7 L [place] % (Auto) 8.1 Eos % (Auto) 0.0 Baso % (Auto) 0.1 Lymph # (Auto) 0.7 L [place] # (Auto) 1.3 H Eos # (Auto) 0.0 Baso # (Auto) 0.0 Abs Immat Gran (auto) 0.09 H Absolute Neuts (auto) 13.7 H Absolute Nucleated RBC 0.000 Nucleated RBC % (auto) 0.0 PT 56.8 H INR 4.8 H Anion Gap 15 Estim Creat Clear Calc 66.0 Estimated GFR > 60 Random Glucose 184 H D Lactic Acid Calcium 9.4 D Magnesium 1.5 L Total Bilirubin 1.4 H Direct Bilirubin 0.6 H AST 19 D ALT 27 Alkaline Phosphatase 93 D Troponin I High Sens B-Natriuretic Peptide Total Protein 6.4 L D Albumin 4.2 D COVID-19 (BREA) COVID-19 Clin Com 08/26/21 08/26/21 08/26/21 11:35 11:35 11:35 MCV MCH MCHC RDW Plt Count MPV Immature Gran % (Auto) Neut % (Auto) Lymph % (Auto) [place] % (Auto) Eos % (Auto) Baso % (Auto) Lymph # (Auto) [place] # (Auto) Eos # (Auto) Baso # (Auto) Abs Immat Gran (auto) Absolute Neuts (auto) Absolute Nucleated RBC Nucleated RBC % (auto) PT INR Anion Gap Estim Creat Clear Calc Estimated GFR Random Glucose Lactic Acid 1.9 Calcium Magnesium Total Bilirubin Direct Bilirubin AST ALT Alkaline Phosphatase Troponin I High Sens 4.7 B-Natriuretic Peptide 493 H Total Protein Albumin COVID-19 (BREA) Negative COVID-19 Clin Com See Note Imaging Radiologist's Impressions: Impressions Chest X-Ray 08/26/21 11:10 IMPRESSION: *Focal groundglass opacity within the left middle lung zone which is suspicious for viral infection. Alternatively, findings could represent mild asymmetric pulmonary edema. *No pleural effusions. *Low lung volumes. Cervical Spine CT 08/26/21 11:15 IMPRESSION: No acute cervical spine fracture. Multilevel degenerative disc disease and facet degenerative change. Anterior neural foraminal encroachment at the C6-C7 level bilaterally. Chest CTA 08/26/21 13:26 IMPRESSION: 1. No evidence of pulmonary embolism. 2. Multiple respiratory motion artifacts limit evaluation of the pulmonary parenchyma. There are patchy airspace opacities in the left lung. Imaging features can be seen with COVID pneumonia, though are nonspecific and can occur with a variety of infectious and noninfectious processes. Note that multifocal bilateral patchy airspace opacities are noted on the previous x-rays of 09/12/2020 and 09/16/2020. 3. Trace right pleural effusion and small left pleural effusion. 4. A mildly prominent pretracheal lymph node, likely reactive. VTE: negative Assessment and Plan (1) Atypical pneumonia: Status: Acute (2) Supratherapeutic INR: Status: Acute (3) Sepsis: Status: Acute (4) Hypomagnesemia: Status: Acute 76-year-old gentleman with past medical history significant for atrial fibrillation on Coumadin, hypertension, diabetes mellitus on Tresiba, history of COVID infection in September of 2020 presented to [facility] with acute onset of left-sided neck pain, hemoptysis come my in the emergency room noted to be in atrial fibrillation with RVR are, elevated INR of 4.8, as well as abnormal CTA chest with a negative COVID 19 infection patient also noted to have low magnesium will be admitted to [facility] for further treatment and evaluation. Sepsis due to pneumonia Patient noted to have tachycardia, tachypnea and elevated WBC count Will treat with IV ceftriaxone and azithromycin, follow 2 set of blood cultures CBC Supportive care with cough medication and oxygen Hemoptysis likely due to elevated INR with underlying pneumonia will hold Coumadin follow PT INR Hypomagnesemia will replete and follow labs Permanent Atrial fibrillation with RVR Continue metoprolol 50 mg b.i.d., patient asymptomatic, soft blood pressure, symptoms likely due to anxiety if noted to have worsening ventricular rate will add digoxin Neck pain history of chronic neck pain CT neck showed no acute cervical spine fracture, showed multilevel degenerative disc disease, anti and neural foraminal encroachment at the C6-C7 level bilaterally Will use Tylenol/Aspercreme and hot pack Diabetes mellitus on Tresiba since that is non formulary will place on Lantus and insulin sliding scale, diabetic DVT prophylaxis on Coumadin with therapeutic INR Code status full code Quality Stroke Does the patient have a stroke diagnosis?: No VTE Prior VTE?: No VTE Risk Level:: Medical - moderate - high VTE Device Contraindication: Treatment Not Indicated VTE Drug Contraindication: N/A - Med Ordered
--- NOTE | 2021-08-26 16:28 | PC.NURSE ---
med rec complete by this RN
[2021-08-26 18:32] LABS: Glucose, Whole Blood 96 mg/dL (60-115)
[2021-08-26] MEDS: 0.9 % Sodium Chloride Flush 3 ML SYRINGE IVFLUSH (19:19)
[2021-08-26] MEDS: Metoprolol Tartrate 50 MG TABLET PO (20:50)
[2021-08-26] MEDS: guaiFENesin DM 100/10/5 ML 5 ML SYRUP 10 ML PO (20:51)
[2021-08-26] MEDS: Insulin Glargine,Hum.rec.anlog 100 UNIT/ML 10 ML VIAL SUBCUT (20:51)
[2021-08-26 20:56] LABS: Glucose, Whole Blood 175 mg/dL (60-115)
[2021-08-26] MEDS: Insulin Lispro 100 UNIT/ML 3 ML VIAL SUBCUT (20:56)
[2021-08-27] VITALS (9 sets, daily range): BP systolic 115–136; BP diastolic 55–87; PULSE 85–107; RESP 14–22; TEMP 36.4–37.2; O2SAT 95–99
[2021-08-27 07:46] LABS: Glucose, Whole Blood 129 mg/dL (60-115)
[2021-08-27 08:00] LABS: MANUAL DIFF FLAG NO
[2021-08-27 08:01] LABS: Basophils Percent Auto 0.1 % (0-2); Eosinophils Percent Auto 0.3 % (0-4); Hematocrit 44.8 % (42.0-52.0); Imm Gran Abs Auto 0.04 X10*3/uL (0.00-0.03); Imm Gran Pct Auto 0.4 % (0.0-0.4); Lymphocytes Absolute Auto 1.5 X10*3/uL (1.2-4.9); Lymphocytes Percent Auto 14.5 % (20-40); Mean Corpuscular HGB Conc 33.5 g/dl (31.0-36.0); Mean Corpuscular Hemoglobin 33.3 pg (27.0-33.0); Mean Corpuscular Volume 99.3 fL (80.0-98.0); Mean Platelet Volume 12.5 fL (9.4-12.4); Neutrophils Absolute Auto 7.4 x10*3/uL (2.0-8.3); Neutrophils Percent Auto 74.7 % (45-73); Platelet Count 112 X10*3/uL (160-400); Red Blood Count 4.51 X10*6/uL (4.60-5.80); Red Cell Distribution Width 13.9 % (11.0-16.0)
[2021-08-27 08:06] LABS: INTERNATIONAL NORM RATIO 4.2 (0.9-1.1); Prothrombin Time 49.8 SEC (9.9-13.0)
--- NOTE | 2021-08-27 08:17 | PHA.MEDREC ---
Pharmacy Consult ? Medication Reconciliation RN completed med rec, pharmacy reviewed.
[2021-08-27 08:29] LABS: Anion Gap 13 (12-20); Blood Urea Nitrogen 17 mg/dL (9-16); Carbon Dioxide 22 mmol/L (22-29); Chloride 109 mmol/L (96-108); Creatinine Clr Calc Pharmacy 87.7; Estimated Glomerular Filt Rate > 60; Glucose Random 129 mg/dL (60-115); Magnesium 1.8 mg/dL (1.6-2.6); Potassium 3.8 mmol/L (3.3-5.1); Sodium 140 mmol/L (135-145)
[2021-08-27] MEDS: guaiFENesin DM 100/10/5 ML 5 ML SYRUP 10 ML PO ×3 (09:44→20:24)
[2021-08-27] MEDS: Metoprolol Tartrate 50 MG TABLET PO ×2 (09:45→20:25)
[2021-08-27 13:03] LABS: Glucose, Whole Blood 171 mg/dL (60-115)
[2021-08-27] MEDS: cefTRIAXone sodium 1 GM in 0.9 % Sodium Chloride 50 ML IV (13:10)
[2021-08-27] MEDS: Insulin Lispro 100 UNIT/ML 3 ML VIAL SUBCUT ×2 (13:13→20:25)
--- NOTE | 2021-08-27 15:22 | HO.PM.IMPN ---
Subjective Subjective Date of Service: 08/27/21 Interval History: Complaining of persistent blood tinged sputum, no further complain of neck pain, denies chest pain, no palpitations no other acute issues overnight. Review of Systems General no headache no dizziness no fever chills. CVS no chest pain, no palpitation. Respiratory blood tinged sputum Gastrointestinal no nausea, no vomiting, no abdominal pain Review of Systems: Yes all other systems are reviewed and are negative Physical Exam Vital Signs: Vital Signs: Last Vital Signs Temp 98.7 F 08/27/21 14:24 Pulse 93 08/27/21 14:24 Resp 14 08/27/21 14:24 BP 126/75 08/27/21 14:24 Pulse Ox 96 08/27/21 14:24 BMI result Body Mass Index 32.1 General awake emerita rt x3, anxious, no acute distress.? Neck supple no JVD good range of mot ion exercises no m uscle spasm CVS? i rregular rate rhyt hm, Respiratory george ngs clear to auscu ltation, no respir atory distress, no wheeze, no rhonch i. Gastrointestina l abdomen soft, no ntender, bowel dominick nds audible, obese ,no rigidity. Extr emities no? edema. Neuro nonfocal,sp eech clear. Skin n o rash Psych appro priate affect/anxi ous Back no CVA te nderness Objective Data Active Medications Acetaminophen (Acetaminophen 325 Mg Tablet) 650 mg PO Q6H PRN PRN Reason: Pain, Mild (Pain Scale 1-3) Atorvastatin Calcium (Atorvastatin Calcium 80 Mg Tablet) 80 mg PO BEDTIME [facility] Dextrose (Dextrose 50 % 25 Gm/50 Ml Vial) 25 gm IVPUSH Q15M PRN; Protocol PRN Reason: per Hypoglycemia Standing Ord. Glucose (Glucose Gel 15 Gm Gel..Gram.) 15 gm PO Q15M PRN; Protocol PRN Reason: per Hypoglycemia Standing Ord. Guaifenesin/Dextromethorphan (Guaifenesin Dm 100/10/5 Ml 5 Ml Syrup) 10 ml PO TID [facility] Last Admin: 08/27/21 09:44 Dose: 10 ml Documented by: HENRY Azithromycin 500 mg/ Sodium (Chloride) 250 mls @ 125 mls/hr IV Q24H [facility] Ceftriaxone Sodium 1 gm/ (Sodium Chloride) 50 mls @ 100 mls/hr IV Q24H [facility] Last Infusion: 08/27/21 13:46 Dose: 0 mls/hr Documented by: HENRY Insulin Glargine (Insulin Glargine,Hum.Rec.Anlog 100 Unit/Ml 10 Ml Vial) 5 unit SUBCUT BEDTIME [facility] Last Admin: 08/26/21 20:51 Dose: 5 unit Documented by: MARIZOL Insulin Human Lispro (Insulin Lispro 100 Unit/Ml 3 Ml Vial) 0 unit SUBCUT QIDACHS [facility]; Protocol Last Admin: 08/27/21 13:13 Dose: 2 unit Documented by: HENRY Metoprolol Tartrate (Metoprolol Tartrate 50 Mg Tablet) 50 mg PO BID [facility]; Protocol Last Admin: 08/27/21 09:45 Dose: 50 mg Documented by: HENRY Ondansetron HCl (Ondansetron Hcl 4 Mg/2 Ml Vial) 4 mg IVPUSH Q8H PRN PRN Reason: Nausea and Vomiting Sodium Chloride (0.9 % Sodium Chloride Flush 3 Ml Syringe) 3 ml IVFLUSH QSHIFT [facility] Last Admin: 08/27/21 07:28 Dose: Not Given Documented by: FRANCINE Non-Admin Reason: Med Not Available Trolamine Salicylate/Aloe Vera (Trolamine Salicylate 10%/Aloe Cream 35.4 Gm) 1 appl TOPICAL TID PRN PRN Reason: Pain, Mild (Pain Scale 1-3) Labs CBC & Chem 7: 08/27/21 07:07 08/27/21 07:07 Labs: Laboratory Results - last 24 hr 08/26/21 08/26/21 08/27/21 18:12 20:48 07:07 MCV 99.3 H MCH 33.3 H MCHC 33.5 RDW 13.9 Plt Count 112 L MPV 12.5 H Immature Gran % (Auto) 0.4 Neut % (Auto) 74.7 H Lymph % (Auto) 14.5 L [place] % (Auto) 10.0 Eos % (Auto) 0.3 Baso % (Auto) 0.1 Lymph # (Auto) 1.5 [place] # (Auto) 1.0 Eos # (Auto) 0.0 Baso # (Auto) 0.0 Abs Immat Gran (auto) 0.04 H Absolute Neuts (auto) 7.4 Absolute Nucleated RBC 0.000 Nucleated RBC % (auto) 0.0 PT INR Anion Gap Estim Creat Clear Calc Estimated GFR POC Glucose 96 175 H Random Glucose Calcium Magnesium 08/27/21 08/27/21 08/27/21 07:07 07:07 07:22 MCV MCH MCHC RDW Plt Count MPV Immature Gran % (Auto) Neut % (Auto) Lymph % (Auto) [place] % (Auto) Eos % (Auto) Baso % (Auto) Lymph # (Auto) [place] # (Auto) Eos # (Auto) Baso # (Auto) Abs Immat Gran (auto) Absolute Neuts (auto) Absolute Nucleated RBC Nucleated RBC % (auto) PT 49.8 H INR 4.2 H Anion Gap 13 Estim Creat Clear Calc 87.7 Estimated GFR > 60 POC Glucose 129 H Random Glucose 129 H Calcium 9.0 Magnesium 1.8 08/27/21 12:41 MCV MCH MCHC RDW Plt Count MPV Immature Gran % (Auto) Neut % (Auto) Lymph % (Auto) [place] % (Auto) Eos % (Auto) Baso % (Auto) Lymph # (Auto) [place] # (Auto) Eos # (Auto) Baso # (Auto) Abs Immat Gran (auto) Absolute Neuts (auto) Absolute Nucleated RBC Nucleated RBC % (auto) PT INR Anion Gap Estim Creat Clear Calc Estimated GFR POC Glucose 171 H Random Glucose Calcium Magnesium Microbiology Microbiology Results: Microbiology 08/26/21 11:38 Blood Culture - Preliminary Blood - Venous No growth after 24 hours. 08/26/21 11:35 Blood Culture - Preliminary Blood - Venous No growth after 24 hours. Assessment and Plan (1) Hypomagnesemia: Status: Acute (2) Supratherapeutic INR: Status: Acute (3) Sepsis: Status: Acute (4) Atrial fibrillation with RVR: Status: Acute (5) Atypical pneumonia: Status: Acute Assessment and Plan: 76-year-old gentleman with past medical history significant for atrial fibrillation on Coumadin, hypertension, diabetes mellitus on Tresiba, history of COVID infection in September of 2020 presented to [facility] with acute onset of left-sided neck pain, hemoptysis come my in the emergency room noted to be in atrial fibrillation with RVR are, elevated INR of 4.8, as well as abnormal CTA chest with a negative COVID 19 infection patient also noted to have low magnesium will be admitted to [facility] for further treatment and evaluation. Sepsis due to pneumonia WBC normalized, tachycardia and tachypnea improved Persistent hemoptysis likely due to elevated INR and infection Continue IV ceftriaxone and azithromycin, day 2, blood cultures x2 negative in 24 hours Continue Supportive care ,cough medication, oxygenation improved now on room air Hemoptysis likely due to elevated INR with underlying pneumonia ,hold Coumadin INR remains elevated at 4.2 Hypomagnesemia repleted repeat magnesium 1.8 Permanent Atrial fibrillation with RVR Noted to have AFib with RVR in the emergency room treated with Cardizem with good response care Stable ventricular rate, Continue metoprolol 50 mg b.i.d., patient asymptomatic, soft blood pressure, symptoms likely due to anxiety if noted to have worsening ventricular rate will add digoxin Neck pain history of chronic neck pain CT neck showed no acute cervical spine fracture, showed multilevel degenerative disc disease, b/l neural foraminal encroachment at the C6-C7 level bilaterally cont. Tylenol/Aspercreme and hot pack Diabetes mellitus is stable blood sugar, Tresiba non formulary , continue Lantus and insulin sliding scale, diabetic diet DVT prophylaxis on Coumadin with elevated INR Code status full code Quality Stroke Does the patient have a stroke diagnosis?: No VTE Prior VTE?: No VTE Risk Level:: Medical - moderate - high VTE Device Contraindication: Treatment Not Indicated VTE Drug Contraindication: N/A - Med Ordered
--- NOTE | 2021-08-27 15:55 | MHC.CM.PN ---
Met with pt to discuss d/c planning: pt resides alone - spouse passed this April: pt very teary during interview; notes how sad he feels but states his grief support group is helpful. Pt independent with care needs, drives, active with no identifiable barriers to care. Pt has a dtr, Kate who can assist if needed and who is pt's HCP - copy from home requested. IMM signed and in chart. Kate to transport home: no additional services planned at this time.
[2021-08-27] MEDS: Azithromycin 500 MG in 0.9 % Sodium Chloride 250 ML 125 MG IV (16:18)
[2021-08-27] MEDS: 0.9 % Sodium Chloride Flush 3 ML SYRINGE IVFLUSH ×2 (16:22→20:48)
[2021-08-27 17:28] LABS: Glucose, Whole Blood 92 mg/dL (60-115)
[2021-08-27 20:20] LABS: Glucose, Whole Blood 153 mg/dL (60-115)
[2021-08-27] MEDS: Insulin Glargine,Hum.rec.anlog 100 UNIT/ML 10 ML VIAL SUBCUT (20:25)
[2021-08-27] MEDS: Atorvastatin Calcium 80 MG TABLET PO (20:25)
[2021-08-28] VITALS (8 sets, daily range): BP systolic 109–145; BP diastolic 55–93; PULSE 81–103; RESP 16–25; TEMP 36.7–37.1; O2SAT 93–98
[2021-08-28 07:15] LABS: INTERNATIONAL NORM RATIO 2.1 (0.9-1.1); Prothrombin Time 24.4 SEC (9.9-13.0)
[2021-08-28 07:50] LABS: Glucose, Whole Blood 149 mg/dL (60-115)
[2021-08-28] MEDS: 0.9 % Sodium Chloride Flush 3 ML SYRINGE IVFLUSH ×2 (08:05→15:55)
[2021-08-28] MEDS: Metoprolol Tartrate 50 MG TABLET PO ×2 (08:12→20:32)
[2021-08-28] MEDS: Sertraline HCL 25 MG TABLET PO (08:12)
[2021-08-28] MEDS: guaiFENesin DM 100/10/5 ML 5 ML SYRUP 10 ML PO ×3 (08:12→20:33)
--- NOTE | 2021-08-28 08:16 | PC.NURSE ---
DENIES PAIN. PT STATES COUGHED UP VERY LITTLE BLOOD THIS MORNING WILL CONTINUE TO MONITOR.
[2021-08-28] MEDS: glipiZIDE XL 5 MG TAB.ER.24 PO (08:46)
[2021-08-28] MEDS: Insulin Lispro 100 UNIT/ML 3 ML VIAL SUBCUT ×2 (11:27→20:34)
[2021-08-28] MEDS: cefTRIAXone sodium 1 GM in 0.9 % Sodium Chloride 50 ML IV (11:28)
[2021-08-28 11:39] LABS: Glucose, Whole Blood 178 mg/dL (60-115)
--- NOTE | 2021-08-28 11:39 | HO.PM.IMPN ---
Subjective Subjective Date of Service: 08/28/21 Interval History: seen and examined this AM reports no further blood tinged sputum Review of Systems General no headache no dizziness no fever chills. CVS no chest pain, no palpitation. Respiratory blood tinged sputum resolved Gastrointestinal no nausea, no vomiting, no abdominal pain Physical Exam Vital Signs: Vital Signs: Last Vital Signs Temp 98.1 F 08/28/21 11:22 Pulse 91 08/28/21 11:22 Resp 20 08/28/21 11:22 BP 129/78 08/28/21 11:22 Pulse Ox 96 08/28/21 11:22 BMI result Body Mass Index 32.1 Const: Other: General - no acute distress, appears comfortable Cardiovascular - irregular rate and rhythm, S1-S2 Lungs - normal respiratory effort, clear to auscultation bilaterally, no wheezing Abdomen - soft, nontender, no rebound or guarding Extremities - no edema bilaterally Neuro - awake and alert, no focal deficits Objective Data Active Medications Acetaminophen (Acetaminophen 325 Mg Tablet) 650 mg PO Q6H PRN PRN Reason: Pain, Mild (Pain Scale 1-3) Atorvastatin Calcium (Atorvastatin Calcium 80 Mg Tablet) 80 mg PO BEDTIME [facility] Last Admin: 08/27/21 20:25 Dose: 80 mg Documented by: HENRY Atorvastatin Calcium (Atorvastatin Calcium 80 Mg Tablet) 80 mg PO BEDTIME [facility] Dextrose (Dextrose 50 % 25 Gm/50 Ml Vial) 25 gm IVPUSH Q15M PRN; Protocol PRN Reason: per Hypoglycemia Standing Ord. Glipizide (Glipizide Xl 5 Mg Tab.Er.24) 5 mg PO DAILY [facility] Last Admin: 08/28/21 08:46 Dose: 5 mg Documented by: KENROY Glucose (Glucose Gel 15 Gm Gel..Gram.) 15 gm PO Q15M PRN; Protocol PRN Reason: per Hypoglycemia Standing Ord. Guaifenesin/Dextromethorphan (Guaifenesin Dm 100/10/5 Ml 5 Ml Syrup) 10 ml PO TID [facility] Last Admin: 08/28/21 08:12 Dose: 10 ml Documented by: KENROY Azithromycin 500 mg/ Sodium (Chloride) 250 mls @ 125 mls/hr IV Q24H [facility] Last Infusion: 08/27/21 18:30 Dose: 0 mls/hr Documented by: HENRY Ceftriaxone Sodium 1 gm/ (Sodium Chloride) 50 mls @ 100 mls/hr IV Q24H [facility] Last Admin: 08/28/21 11:28 Dose: 100 mls/hr Documented by: KENROY Insulin Glargine (Insulin Glargine,Hum.Rec.Anlog 100 Unit/Ml 10 Ml Vial) 5 unit SUBCUT BEDTIME [facility] Last Admin: 08/27/21 20:25 Dose: 5 unit Documented by: HENRY Insulin Human Lispro (Insulin Lispro 100 Unit/Ml 3 Ml Vial) 0 unit SUBCUT QIDACHS [facility]; Protocol Last Admin: 08/28/21 11:27 Dose: 2 unit Documented by: KENROY Metoprolol Tartrate (Metoprolol Tartrate 50 Mg Tablet) 50 mg PO BID [facility]; Protocol Last Admin: 08/28/21 08:12 Dose: 50 mg Documented by: KENROY Montelukast Sodium (Montelukast Sodium 10 Mg Tablet) 10 mg PO BEDTIME [facility] Ondansetron HCl (Ondansetron Hcl 4 Mg/2 Ml Vial) 4 mg IVPUSH Q8H PRN PRN Reason: Nausea and Vomiting Sertraline HCl (Sertraline Hcl 25 Mg Tablet) 25 mg PO DAILY [facility] Last Admin: 08/28/21 08:12 Dose: 25 mg Documented by: KENROY Sodium Chloride (0.9 % Sodium Chloride Flush 3 Ml Syringe) 3 ml IVFLUSH QSHIFT [facility] Last Admin: 08/28/21 08:05 Dose: 3 ml Documented by: KENROY Trolamine Salicylate/Aloe Vera (Trolamine Salicylate 10%/Aloe Cream 35.4 Gm) 1 appl TOPICAL TID PRN PRN Reason: Pain, Mild (Pain Scale 1-3) Labs CBC & Chem 7: 08/27/21 07:07 08/27/21 07:07 Labs: Laboratory Results - last 24 hr 08/27/21 08/27/21 08/27/21 12:41 17:17 20:17 PT INR POC Glucose 171 H 92 153 H 08/28/21 08/28/21 06:43 07:47 PT 24.4 H INR 2.1 H D POC Glucose 149 H Microbiology Microbiology Results: Microbiology 08/26/21 11:38 Blood Culture - Preliminary Blood - Venous No growth after 24 hours. 08/26/21 11:35 Blood Culture - Preliminary Blood - Venous No growth after 24 hours. Assessment and Plan (1) Atypical pneumonia: Status: Acute (2) Supratherapeutic INR: Status: Acute (3) Sepsis: Status: Acute Assessment and Plan: 76-year-old gentleman with past medical history significant for atrial fibrillation on Coumadin, hypertension, diabetes mellitus on Tresiba, history of COVID infection in September of 2020 presented to [facility] with acute onset of left-sided neck pain, hemoptysis come my in the emergency room noted to be in atrial fibrillation with RVR are, elevated INR of 4.8, as well as abnormal CTA chest with a negative COVID 19 infection patient also noted to have low magnesium will be admitted to [facility] for further treatment and evaluation. Sepsis due to pneumonia WBC normalized, tachycardia and tachypnea improved Persistent hemoptysis likely due to elevated INR and infection Continue IV ceftriaxone and azithromycin, day 2, blood cultures x2 negative in 24 hours Continue Supportive care ,cough medication, oxygenation improved now on room air Hemoptysis likely due to elevated INR with underlying pneumonia resolved INR within range -- will restart coumadin, lower dose of 2.5mg Hypomagnesemia resolved Permanent Atrial fibrillation with RVR now rates controlled tolerating metoprolol Neck pain history of chronic neck pain CT neck showed no acute cervical spine fracture, showed multilevel degenerative disc disease, b/l neural foraminal encroachment at the C6-C7 level bilaterally cont. Tylenol/Aspercreme and hot pack Diabetes mellitus is stable blood sugar, Tresiba non formulary , continue Lantus and insulin sliding scale, diabetic diet HTN bp now improving (was soft at the time of admission) continue metoprolol 25mg bid, hold others for now Full Code DVT pptx, on coumadin Quality Stroke Does the patient have a stroke diagnosis?: No VTE Prior VTE?: No VTE Risk Level:: Medical - moderate - high VTE Device Contraindication: Treatment Not Indicated VTE Drug Contraindication: N/A - Med Ordered
[2021-08-28] MEDS: Azithromycin 500 MG in 0.9 % Sodium Chloride 250 ML 125 MG IV (15:51)
--- NOTE | 2021-08-28 16:04 | PC.NURSE ---
Pt medicated as per MAR orders, pt offers no complaints at this time. Aware of plan to restart coumadin tonight. Awaiting bed assignment, will continue to monitor.
--- NOTE | 2021-08-28 18:32 | PC.NURSE ---
Pt eating dinner at this time, no coverage needed, A&Ox3. Will continue to monitor.
--- NOTE | 2021-08-28 19:28 | PC.NURSE ---
Assumed care of pt at 1900. Pt resting in bed, in NAD, attached to alarm security or surveillance monitor, denies needs. Educated to call for assistance
[2021-08-28 20:07] LABS: Glucose, Whole Blood 119 mg/dL (60-115)
[2021-08-28 20:16] LABS: Glucose, Whole Blood 289 mg/dL (60-115)
[2021-08-28] MEDS: Montelukast Sodium 10 MG TABLET PO (20:31)
[2021-08-28] MEDS: Atorvastatin Calcium 80 MG TABLET PO (20:31)
[2021-08-28] MEDS: Warfarin Sodium 2.5 MG TABLET PO (20:32)
[2021-08-28] MEDS: Insulin Glargine,Hum.rec.anlog 100 UNIT/ML 10 ML VIAL SUBCUT (20:34)
[2021-08-29 00:16] VITALS: PULSE 83; RESP 16; O2SAT 96
[2021-08-29 04:00] VITALS: PULSE 86; RESP 20; O2SAT 94
[2021-08-29 06:02] VITALS: BP 133/73; PULSE 101; RESP 16; O2SAT 96
[2021-08-29 07:30] LABS: Glucose, Whole Blood 174 mg/dL (60-115)
[2021-08-29 07:38] LABS: Alanine Aminotransferase 20 U/L (0-40); Albumin Level 3.5 g/dL (3.5-5.0); Alkaline Phosphatase 78 U/L (39-117); Aspartate Amino Transferase 16 U/L (5-37); Bilirubin Direct 0.5 mg/dL (0.0-0.5); Bilirubin Total 1.3 mg/dL (0.0-1.0); Total Protein 5.6 g/dL (6.5-8.0)
[2021-08-29 07:44] VITALS: BP 127/79; PULSE 99
[2021-08-29] MEDS: Metoprolol Tartrate 50 MG TABLET PO (07:44)
[2021-08-29] MEDS: glipiZIDE XL 5 MG TAB.ER.24 PO (07:46)
[2021-08-29] MEDS: guaiFENesin DM 100/10/5 ML 5 ML SYRUP 10 ML PO (07:46)
[2021-08-29] MEDS: Sertraline HCL 25 MG TABLET PO (07:46)
[2021-08-29] MEDS: Insulin Lispro 100 UNIT/ML 3 ML VIAL SUBCUT (07:47)
[2021-08-29 07:50] VITALS: BP 127/79; PULSE 99; RESP 17; O2SAT 99
--- NOTE | 2021-08-29 07:52 | PC.NURSE ---
Pt A&Ox3, no cpmplaints of pain at this time, lab results regarding INR from yesterday reviewed w/pt, no results for today at this time. Pt afib in the 90-100's on the monitor. Using bedside urinal as well as ambulating independently. Awaiting bed assignment, will continue to monitor.
[2021-08-29 08:50] LABS: INTERNATIONAL NORM RATIO 1.6 (0.9-1.1); Prothrombin Time 18.5 SEC (9.9-13.0)
[2021-08-29 10:08] VITALS: BP 110/70; PULSE 85; RESP 22; O2SAT 96
--- NOTE | 2021-08-29 10:47 | P.F2F_ITS ---
Service Date Service Date: 08/29/21 Encounter Date of encounter: 08/29/21 Reasons for Services Signs and symptoms assessed: Changes to BP meds Changes to Coumadin Needs INR and monitoring for hemoptysis VNA needs to see patient 08/30 or latest 08/31 Reason for custodial: monitoring of PT/INR, medication management and medication treatment MD Overseeing Care: Gonzalo Hollingsworth Homebound: Leaving the home is medically contraindicated at this time without the asist of a device and/or another person due th the listed conditions above and below. Certification: Based on the above findings, I certify that this patient is confined to the home and needs intermittent custodial care, physical therapy and/or speech therapy, or continues to need occupational therapy. The patient is under my care, and I have initiated the establishment of the plan of care. The patient will be followed by a physician who will periodically review the plan of care.
--- NOTE | 2021-08-29 10:51 | PM.DS ---
DS: Providers Provider Date of Service: 08/29/21 Date of admission: 08/26/21 15:50 Primary care physician: Gonzalo Hollingsworth DO, MD Consults: 08/28/21 11:39 Consult to Care Team Routine Comment: Reason for consultation: patient is depressed since his DS: Diagnosis Discharge Diagnosis (1) Atypical pneumonia: Status: Acute (2) Supratherapeutic INR: Status: Acute (3) Sepsis: Status: Acute (4) Hemoptysis: Status: Acute (5) Hypomagnesemia: Status: Acute (6) Atrial fibrillation with RVR: Status: Acute DS: Summary Hospital Course Hospital Course: From the admission H&P: This is a 76-year-old gentleman with past medical history significant for atrial fibrillation on Coumadin, history of hypertension, diabetes mellitus, status post COVID infection in September of 2020 presented to [facility] due to acute onset of left-sided neck discomfort that started at 05:30 this morning when he woke up without associated numbness tingling of extremities patient has history of chronic neck pain for which he does range of motion neck exercises, also for last 2 days he was having some nasal congestion and this morning when he cleared his throat yellow phlegm came but he says he continue to clear his throat and when he coughed he noted blood in his sputum that made him concerned and very nervous therefore he came to the emergency room where he was noted to be in AFib with RVR therefore required treatment with IV Cardizem bolus 10 mg followed by 20 mg bolus His heart rate since has improved, he denies any chest pain, no palpitations, but he does feel very nervous, his laboratory data showed an elevated inr of 4.8 , elevated WBC count of 15.9, chronically low platelet of 130, CTA chest showed patchy air space opacity in the left lung as seen in COVID pneumonia though are nonspecific and multifocal bilateral patchy airspace opacities were noted on the previous x-rays of 09/12/2020, demonstrates bilateral pleural effusion also noted.? Since patient noted to be tachypneic tachycardic with elevated leukocytosis as a concern of pneumonia therefore patient being admitted to [facility] with a diagnosis of sepsis related to pneumonia, atrial fibrillation with RVR and hemoptysis likely due to elevated INR. Hospital Course: Did with sepsis secondary to pneumonia as well as hemoptysis which was deemed secondary to his pneumonia and supratherapeutic INR. His Coumadin was held for this reason. His hemoptysis resolved. He was treated with IV ceftriaxone and azithromycin. He will be transitioned to oral cefuroxime and azithromycin for 5 more days. Patient's blood pressure was on the softer side in the hospital. He was treated with metoprolol and his Norvasc and lisinopril were held. These will be held at the time of discharge, until seen by PCP. His Coumadin has been restarted at half the dose of 2.5 mg. He will have [facility] services arranged for INR monitoring. He should see PCP with 1 week. Time Spent with Patient Time attestation: Total time spent providing and/or coordinating discharge services: Discharge coordination time: Greater than 30 minutes Quality: Stroke Does the patient have a stroke diagnosis?: No Physical Exam Vital Signs: Vital Signs: Last Vital Signs Temp 98.3 F 08/28/21 20:04 Pulse 85 08/29/21 10:08 Resp 22 H 08/29/21 10:08 BP 110/70 08/29/21 10:08 Pulse Ox 96 08/29/21 10:08 BMI result Body Mass Index 32.1 Const: Other: General - no acute distress, appears comfortable Cardiovascular - regular rate and rhythm, S1-S2 Lungs - normal respiratory effort, clear to auscultation bilaterally, no wheezing Abdomen - soft, non-tender, no rebound or guarding Extremities - no edema bilaterally Neuro - awake and alert, no focal deficits DS: Data Data Completed and Pending Completed studies during hospitalization [Text1]: Procedures Introduction of Remdesivir Anti-infective into Peripheral Vein, Percutaneous Approach, [employer] 5 (09/12/20) Labs on day of discharge: Laboratory Results - last 24 hr 08/28/21 08/28/21 08/28/21 11:21 17:19 20:11 PT INR POC Glucose 178 H 119 H 289 H Total Bilirubin Direct Bilirubin AST ALT Alkaline Phosphatase Total Protein Albumin 08/29/21 08/29/21 08/29/21 07:08 07:21 08:37 PT 18.5 H INR 1.6 H POC Glucose 174 H Total Bilirubin 1.3 H Direct Bilirubin 0.5 AST 16 ALT 20 Alkaline Phosphatase 78 Total Protein 5.6 L Albumin 3.5 Preliminary micro results at discharge 08/26/21 11:38 Blood Culture - Preliminary Blood - Venous No growth after 48 hours. 08/26/21 11:35 Blood Culture - Preliminary Blood - Venous No growth after 48 hours. Discharge Plan Discharge Patient Disposition: Home Health Service Discharge Diagnosis: Atypical Pneumonia Referrals: Gonzalo Hollingsworth DO, MD [Primary Care Provider] - 1 Week Discharge Medications: New warfarin [Jantoven] 2.5 mg Tablet 2.5 mg PO DAILY@1800 30 Days RF: 0 cefuroxime axetil 500 mg tablet 500 mg PO BID Qty: 10 RF: 0 azithromycin 500 mg tablet 500 mg PO DAILY 5 Days Qty: 5 RF: 0 Continued metformin 500 mg tablet 500 mg PO BID RF: 0 atorvastatin 80 mg tablet 80 mg PO DAILY RF: 0 glipizide 5 mg tablet extended release 24hr 5 mg PO DAILY RF: 0 metoprolol tartrate 50 mg tablet 75 mg PO BID RF: 0 montelukast 10 mg tablet 10 mg PO DAILY RF: 0 Tresiba FlexTouch U-100 100 unit/mL (3 mL) insulin pen 10 unit subcut BEDTIME RF: 0 meclizine 25 mg Tablet 25 mg PO TID PRN (Reason: Dizziness) RF: 0 sertraline 25 mg tablet 1 tab PO DAILY RF: 0 Held lisinopril 20 mg tablet 20 mg PO DAILY RF: 0 Hold Instructions: Resume on 09/05/21. Do not start until seen by PCP amlodipine 5 mg tablet 1 tab PO DAILY RF: 0 Hold Instructions: Resume on 09/05/21. Do not start until seen by PCP Discontinued warfarin 5 mg tablet 1 tab PO DAILY RF: 0 Discharge Orders: Discharge Order (Routine); Ordered 08/29/21 Ordered By: Aubrey Purvis Diet: advance to usual diet Activity on Discharge: As tolerated Stand Alone Forms: Patient Portal Discharge page Care Plan Goals: To stay healthy and out of the hospital. Health Concerns: Hemoptysis - Pneumonia - Blood pressure Plan of Treatment: Hemoptysis - Take a lower dose of warfarin (2.5mg daily). Check your INR daily until between 2-3. Pneumonia - Take 5 more days of antibiotics Blood pressure - your blood pressure has been on the lower side. Do not take amlodipine or lisinopril until seen by your primary. You can take your metoprolol Assessment: See d/c summary
--- NOTE | 2021-08-29 11:05 | MHC.CM.PN ---
Received notification from Dr Purvis that patient will be discharged home with [facility] for INR checks and medication education. [facility] is not able to accept patient's at this time. [facility] is willing to accept patient. Dr Purvis aware face to face will be needed. Attempted to notify daughter, Kate, via telephone at [phone]. Left message stating patient will be discharged today with [facility]NA. Requested return telephone call. Continue to monitor for d/c needs.
--- NOTE | 2021-08-29 11:54 | PC.NURSE ---
DC teaching including updating his home medication list done by this RN. Pt verbalizes an understanding. Wheeled out to vehicle by tech
--- NOTE | 2021-08-29 14:52 | MHC.CARE ---
Patient discharged from [facility] [place] prior to CARE Team completing consult.
[2021-08-31 22:06] LABS: Legionella Ag Urine Not Detected (Not Detected)
== END 2021-08-29 11:57 | disposition home health service (06) | DRG 871 ==
LOC: HO.ED 15:30 → HO.EDOVER 16:01
PROVIDERS: Physician Assistant; Admitting Provider Hospitalist; Emergency Provider Emergency Medicine Emergency Medical Services; PCP Internal Medicine; Visit Provider Family Medicine
DX: A41.9 Sepsis, unspecified organism (principal); J18.9 Pneumonia, unspecified organism; R04.2 Hemoptysis; I48.21 Permanent atrial fibrillation; D68.32 Hemorrhagic disorder due to extrinsic circulating anticoagulants; I10 Essential (primary) hypertension; E83.42 Hypomagnesemia; G89.29 Other chronic pain; E11.9 Type 2 diabetes mellitus without complications; Z86.16 Personal history of COVID-19; Z20.822 Contact with and (suspected) exposure to COVID-19; Z79.01 Long term (current) use of anticoagulants; Z79.84 Long term (current) use of oral hypoglycemic drugs; Z79.899 Other long term (current) drug therapy
CPT/HCPCS: 36415; 71045; 71275; 72125; 80048; 80076; 82947; 83605; 83735; 83880; 84484; 85025; 85610; 87040; 87449; 87635; 93005; 99285; J0456; J0696; J3475; Q9967

== ENCOUNTER 2022-03-16 10:11 | Inpatient (IN) | payer MEDICARE, MEDICAID, SELFPAY ==
--- NOTE | ~2022-03-16 | XR_ITS ---
EXAMINATION: XR CHEST CLINICAL INFORMATION: Pneumonia COMPARISON: March 16, 2022 TECHNIQUE: AP portable view of the chest was obtained. FINDINGS: There has been slight improvement in aeration of the parenchymal disease within the lingula. The disease has not resolved totally. Continued follow-up is recommended. No pneumothorax or significant pleural effusion. Heart normal size. No evidence of pulmonary edema. XR/XR chest 1V IMPRESSION: Improving lingular pneumonia.
--- NOTE | ~2022-03-16 | XR_ITS ---
EXAMINATION: XR CHEST CLINICAL INFORMATION: Coughing up blood COMPARISON: Previous chest x-ray most recent August 2021 TECHNIQUE: 2 views of the chest were obtained. FINDINGS: The cardiac silhouette is enlarged but stable. Hilar and mediastinal contours are unremarkable. There is bilateral central or perihilar airspace disease, left greater than right. There is a similar in distribution but appears larger denser than on August 2021 exam. Differential would include pneumonia, pulmonary edema and pulmonary hemorrhage. There is no pleural effusion. There is no pneumothorax. There are degenerative changes of the spine. XR/XR chest 2V IMPRESSION: Bilateral perihilar airspace disease, left greater than right. Differential would include pneumonia, pulmonary edema pulmonary hemorrhage.
--- NOTE | ~2022-03-16 | CT_ITS ---
EXAMINATION: CT CHEST WITHOUT CONTRAST CLINICAL INFORMATION: Hemoptysis COMPARISON: Previous chest x-ray from earlier the same day and chest CTA August 2021 TECHNIQUE: Multidetector volumetric CT imaging of the chest was done. Axial MIP volume rendering provided. Sagittal and coronal reformatted images were obtained. This CT examination was performed using dose optimization techniques as appropriate, variously including the following: *Automated exposure control *Adjustment of mA and/or kV according to patient size (this includes techniques or standardized protocols for targeted exams where dose is matched to indication/reason for exam; i.e. extremities or head) *Use of iterative reconstruction technique DLP: 417 mGy-cm FINDINGS: LUNGS: There are multiple clustered round nodular opacities in the left upper lobe more suggestive of pneumonia than pulmonary edema or hemorrhage. There is some denser consolidation with air bronchograms. Mild cystic or emphysematous changes seen in the right upper lobe. There are small 2 mm right upper lobe nodules. The lungs are otherwise clear. MEDIASTINUM: The heart is upper normal in size. There is coronary artery and aortic valve calcification. There is a small pericardial effusion. There are no enlarged hilar or mediastinal lymph nodes. PLEURA: There is a small left pleural effusion. There is no right pleural effusion. AXILLA: No lymphadenopathy. There is increased attenuation in the subcutaneous fat of the right upper back. There is a skin thickening. Appearance is similar to 2020 exam. UPPER ABDOMEN: Small calcification in the liver. OSSEOUS STRUCTURES: There are degenerative changes of the spine. CT/CT chest wo con IMPRESSION: Clustered small nodular opacities in the left upper lobe suggestive of pneumonia. Small left pleural effusion. Coronary artery and aortic valve calcification. Small pericardial effusion. Fleischner guidelines were followed.
[2022-03-16 11:01] VITALS: BP 141/78; PULSE 97; RESP 20; TEMP 36.9; O2SAT 97; BMI 32.8
[2022-03-16 11:21] LABS: MANUAL DIFF FLAG NO
[2022-03-16 11:24] LABS: Basophils Percent Auto 0.2 % (0-2); Eosinophils Percent Auto 0.1 % (0-4); Hematocrit 47.9 % (42.0-52.0); Hemoglobin 15.8 g/dl (14.0-18.0); Imm Gran Abs Auto 0.07 X10*3/uL (0.00-0.03); Imm Gran Pct Auto 0.5 % (0.0-0.4); Lymphocytes Absolute Auto 0.8 X10*3/uL (1.2-4.9); Lymphocytes Percent Auto 5.5 % (20-40); Mean Corpuscular Hemoglobin 32.7 pg (27.0-33.0); Mean Corpuscular Volume 99.2 fL (80.0-98.0); Mean Platelet Volume 11.7 fL (9.4-12.4); Monocytes Absolute Auto 1.2 X10*3/uL (0.1-1.2); Monocytes Percent Auto 8.7 % (2-11); Platelet Count 137 X10*3/uL (160-400); Red Blood Count 4.83 X10*6/uL (4.60-5.80); Red Cell Distribution Width 13.7 % (11.0-16.0); White Blood Count 14.1 X10*3/uL (4.8-10.8)
[2022-03-16 11:36] LABS: Prothrombin Time 24.1 SEC (10.0-13.1)
[2022-03-16 11:39] LABS: Alanine Aminotransferase 25 U/L (0-40); Albumin Level 4.1 g/dL (3.5-5.0); Alkaline Phosphatase 121 U/L (39-117); Anion Gap 14 (12-20); Aspartate Amino Transferase 20 U/L (5-37); Blood Urea Nitrogen 20 mg/dL (9-16); COVID-19 Test Negative (Negative); Calcium 8.8 mg/dL (8.4-10.2); Carbon Dioxide 24 mmol/L (22-29); Chloride 109 mmol/L (96-108); Creatinine Clr Calc Pharmacy 66.7; Estimated Glomerular Filt Rate > 60; Glucose Random 193 mg/dL (60-115); IDNOW Serial# 16C4AD1C; Partial Thromboplastin Time 40.2 SEC (24.1-38.0); Potassium 4.7 mmol/L (3.3-5.1); Sodium 142 mmol/L (135-145); Total Protein 6.3 g/dL (6.5-8.0)
[2022-03-16 11:43] LABS: Troponin-I High Sensitivity 37.6 ng/L (<3.5-35.0)
--- NOTE | 2022-03-16 17:12 | ECG_ITS ---
Test Reason : VOMITTING BLOOD Blood Pressure : / mmHG Vent. Rate : 146 BPM Atrial Rate : 000 BPM P-R Int : 000 ms QRS Dur : 084 ms QT Int : 286 ms P-R-T Axes : 000 003 109 degrees QTc Int : 445 ms Atrial fibrillation with rapid ventricular response Low voltage QRS Cannot rule out Anterior infarct (cited on or before 12-SEP-2020) Abnormal ECG When compared with ECG of 26-AUG-2021 10:35, No significant change was found Referred By: Elana Lunsfodr Electronically Signed By:ANGELICA EVANS MD
--- NOTE | 2022-03-16 17:30 | ED.GENADULT ---
HPI - General Adult General Chief complaint: General Medical Stated complaint: coughing up blood Time Seen by Provider: 03/16/22 17:12 Source: patient Mode of arrival: ambulatory History of Present Illness HPI narrative: 76-year-old male with AFib on Coumadin, diabetes, COPD who comes in with onset of hemoptysis that he describes as blood tinged phlegm this started at approximately 08:00 this morning. He denies any shortness of breath, chest pain/palpitations, recent fevers/chills, GI or symptoms, denies any diarrhea or change in medications and denies any new lower extremity swelling. He states that this has happened once before 08/26/2021. Related Data Home Medications Medication Instructions Recorded Confirmed atorvastatin 80 mg tablet 80 mg PO DAILY 09/12/20 03/16/22 glipizide 5 mg tablet, extended 5 mg PO DAILY 09/12/20 03/16/22 release 24 hr insulin degludec 100 unit/mL (3 20 unit subcut BEDTIME 09/12/20 03/16/22 mL) subcutaneous pen (Tresiba FlexTouch U-100 insulin) lisinopril 20 mg tablet 20 mg PO DAILY 09/12/20 03/16/22 metformin 500 mg tablet 500 mg PO BIDWM 09/12/20 03/16/22 metoprolol tartrate 50 mg tablet 75 mg PO BID 09/12/20 03/16/22 montelukast 10 mg tablet 10 mg PO DAILY 09/12/20 03/16/22 meclizine 25 mg tablet 25 mg PO TID PRN Dizziness 08/26/21 03/16/22 sertraline 25 mg tablet 1 tab PO DAILY 08/26/21 03/16/22 warfarin 5 mg tablet 1 tab PO DAILY 03/16/22 03/16/22 Allergies Allergy/AdvReac Type Severity Reaction Status Date / Time No Known Allergies Allergy Verified 03/16/22 11:06 Review of Systems Review of Systems: Pertinent positives and negatives as stated in HPI 10 point review of systems is otherwise negative. [facility] Past Medical History Source: nursing notes reviewed Medical History Atrial fibrillation Atrial fibrillation with RVR Atypical pneumonia Diabetes Hypertension Sepsis Supratherapeutic INR Social History Social History Household Members: Spouse Housing: Apartment Do you presently have visiting nurse or other home services: Yes Alcohol intake: former Patient Tobacco Use Status: Former Tobacco user Smoked in Last 30 Days: No Use of substances other than those prescribed or required for medical reasons: No Advance Directives: Yes Advance Directives Information Provided: No Advance Directives on File: No service: No Current occupational status: retired Physical Exam ED Vital Signs: Vital Signs - 24 hr 03/16/22 11:01 03/16/22 17:39 03/16/22 17:43 Temperature 98.4 F 99.5 F Pulse Rate 97 161 H Pulse Rate [Apical] 161 H Respiratory Rate 20 16 Blood Pressure 141/78 H 118/66 Pulse Oximetry 97 93 Oxygen Delivery Method Room Air Room Air BMI result Body Mass Index 32.8 VITAL SIGNS: Reviewed. GENERAL: Well developed, well nourished, in no acute distress. HEAD: Normocephalic/atraumatic EYES: PERRLA, EOMI EARS: Ext canals without abnormality OROPHARYNX: no oral lesions noted, posterior pharynx clear, no pale mucosa LUNGS: Good inspiratory effort, phlegm is definitely blood-tinged but not a gross amount, rales positive, mild tachypnea. SpO2<97> CARDIOVASCULAR: IRR/IRR, rapid, and rhythm without noted murmurs, no JVD but bilateral 1+ pitting edema to lower extremities ABDOMEN: Soft, non-tender, non-distended with bowel sounds. No rigidity. No guarding. No palpable masses or hernias noted SKIN: Inspection of the skin reveals no rashes NEUROLOGIC: Alert and oriented x 4. Strength and sensation to light touch were grossly intact x 4. Course Course Course Narrative: 76-year-old male with history and clinical presentation consistent with hemoptysis, currently in atrial fibrillation with RVR but otherwise hemodynamically stable. On review of all investigations he is noted to have a leukocytosis as well as a mildly elevated troponin which could be secondary to patient's RVR. INR is therapeutic -2, no evidence pneumonia and COVID-19 is negative Review of all investigations demonstrates the patient has atrial fibrillation with RVR, mild hemoptysis and is otherwise hemodynamically stable, INR-2, COVID-19 is negative, CT chest noncontrast is pending and the case was discussed with the inpatient hospitalist. Although the troponin is noted to be trending upwards patient has no symptoms of chest pain and suspect that this is type 2 but will discuss with Cardiology as well. Patient received 60 mg of Lasix. Medical Decision Making Lab Data Result diagrams: 03/16/22 11:15 03/16/22 11:15 Labs: Lab Results 03/16/22 03/16/22 03/16/22 Range/Units 11:15 11:15 11:15 WBC 14.1 H (4.8-10.8) X10*3/uL RBC 4.83 (4.60-5.80) X10*6/uL Hgb 15.8 (14.0-18.0) g/dl Hct 47.9 (42.0-52.0) % MCV 99.2 H (80.0-98.0) fL MCH 32.7 (27.0-33.0) pg MCHC 33.0 (31.0-36.0) g/dl RDW 13.7 (11.0-16.0) % Plt Count 137 L (160-400) X10*3/uL MPV 11.7 (9.4-12.4) fL Immature Gran % (Auto) 0.5 H (0.0-0.4) % Neut % (Auto) 85.0 H (45-73) % Lymph % (Auto) 5.5 L (20-40) % Evangeline % (Auto) 8.7 (2-11) % Eos % (Auto) 0.1 (0-4) % Baso % (Auto) 0.2 (0-2) % Lymph # (Auto) 0.8 L (1.2-4.9) X10*3/uL Evangeline # (Auto) 1.2 (0.1-1.2) X10*3/uL Eos # (Auto) 0.0 (0.0-0.4) X10*3/uL Baso # (Auto) 0.0 (0.0-0.2) X10*3/uL Abs Immat Gran (auto) 0.07 H (0.00-0.03) X10*3/uL Absolute Neuts (auto) 12.0 H (2.0-8.3) x10*3/uL Absolute Nucleated RBC 0.000 (0.0-0.012) X10*3/uL Nucleated RBC % (auto) 0.0 (0.0-0.2) /100WBC PT 24.1 H (10.0-13.1) SEC INR 2.0 H (0.9-1.1) APTT 40.2 H (24.1-38.0) SEC Sodium 142 (135-145) mmol/L Potassium 4.7 D (3.3-5.1) mmol/L Chloride 109 H (96-108) mmol/L Carbon Dioxide 24 (22-29) mmol/L Anion Gap 14 (12-20) BUN 20 H (9-16) mg/dL Creatinine 1.17 (0.5-1.4) mg/dL Estim Creat Clear Calc 66.7 Estimated GFR > 60 Random Glucose 193 H D (60-115) mg/dL Calcium 8.8 (8.4-10.2) mg/dL Total Bilirubin 1.0 (0.0-1.0) mg/dL AST 20 (5-37) U/L ALT 25 (0-40) U/L Alkaline Phosphatase 121 H D (39-117) U/L Troponin I High Sens (<3.5-35.0) ng/L B-Natriuretic Peptide (<100) pg/mL Total Protein 6.3 L (6.5-8.0) g/dL Albumin 4.1 (3.5-5.0) g/dL Lipase 29 (8-78) U/L COVID-19 (BREA) (Negative) COVID-19 Clin Com 03/16/22 03/16/22 03/16/22 Range/Units 11:15 11:15 17:33 WBC (4.8-10.8) X10*3/uL RBC (4.60-5.80) X10*6/uL Hgb (14.0-18.0) g/dl Hct (42.0-52.0) % MCV (80.0-98.0) fL MCH (27.0-33.0) pg MCHC (31.0-36.0) g/dl RDW (11.0-16.0) % Plt Count (160-400) X10*3/uL MPV (9.4-12.4) fL Immature Gran % (Auto) (0.0-0.4) % Neut % (Auto) (45-73) % Lymph % (Auto) (20-40) % Evangeline % (Auto) (2-11) % Eos % (Auto) (0-4) % Baso % (Auto) (0-2) % Lymph # (Auto) (1.2-4.9) X10*3/uL Evangeline # (Auto) (0.1-1.2) X10*3/uL Eos # (Auto) (0.0-0.4) X10*3/uL Baso # (Auto) (0.0-0.2) X10*3/uL Abs Immat Gran (auto) (0.00-0.03) X10*3/uL Absolute Neuts (auto) (2.0-8.3) x10*3/uL Absolute Nucleated RBC (0.0-0.012) X10*3/uL Nucleated RBC % (auto) (0.0-0.2) /100WBC PT (10.0-13.1) SEC INR (0.9-1.1) APTT (24.1-38.0) SEC Sodium (135-145) mmol/L Potassium (3.3-5.1) mmol/L Chloride (96-108) mmol/L Carbon Dioxide (22-29) mmol/L Anion Gap (12-20) BUN (9-16) mg/dL Creatinine (0.5-1.4) mg/dL Estim Creat Clear Calc Estimated GFR Random Glucose (60-115) mg/dL Calcium (8.4-10.2) mg/dL Total Bilirubin (0.0-1.0) mg/dL AST (5-37) U/L ALT (0-40) U/L Alkaline Phosphatase (39-117) U/L Troponin I High Sens 37.6 H D 90.4 H D (<3.5-35.0) ng/L B-Natriuretic Peptide 471 H (<100) pg/mL Total Protein (6.5-8.0) g/dL Albumin (3.5-5.0) g/dL Lipase (8-78) U/L COVID-19 (BREA) Negative (Negative) COVID-19 Clin Com See Note ECG Data Attestation: I personally reviewed and interpreted this ECG as follows: Prior ECG tracings: available for review Interpretation: Atrial fibrillation, HR-146, no STEMI, QRS/QTC are within normal limits. Critical Care Time Critical Care Time Critical Care Time: Yes Total Critical Care Time: 30 Attestation: I personally attest to this time spent taking care of the patient. Discharge Plan Discharge Clinical Impression: Hemoptysis, Atrial fibrillation with RVR, Chronic anticoagulation, CHF exacerbation Patient Disposition: Admitted As Inpatient
[2022-03-16 17:39] VITALS: BP 118/66; PULSE 161; RESP 16; TEMP 37.5; O2SAT 93
[2022-03-16] MEDS: Metoprolol Tartrate 5 MG/5 ML VIAL IVPUSH (17:39)
[2022-03-16 17:40] LABS: Lipase 29 U/L (8-78)
[2022-03-16 17:43] VITALS: PULSE 161
--- NOTE | 2022-03-16 17:50 | PC.NURSE ---
pt A&Ox4, placed on [employer]. vital signs updated, iv placed and med given per oct. call fitzgerald within reach. will continue to monitor closely. NAD.
[2022-03-16] MEDS: Metoprolol Tartrate 5 MG/5 ML VIAL 2.5 MG IVPUSH ×2 (18:04→20:22)
[2022-03-16 18:06] LABS: B Type Natriuretic Peptide 471 pg/mL (<100); Troponin-I High Sensitivity 90.4 ng/L (<3.5-35.0)
[2022-03-16] MEDS: Furosemide 100 MG/10 ML VIAL 60 MG IVPUSH (18:19)
--- NOTE | 2022-03-16 18:32 | PHA.MEDREC ---
Pharmacy Consult ? Medication Reconciliation Pharmacy has completed the medication reconciliation. Pt states that he takes metformin 500 mg bid not 1000 mg bid
[2022-03-16] MEDS: Metoprolol Tartrate 50 MG TABLET PO (20:21)
--- NOTE | 2022-03-16 23:20 | P.HPHOSP_ITS ---
History of Present Illness Date of Service: 03/16/22 Chief Complaint: Hemoptysis This is a pleasant 76-year-old male with past medical history of AFib on Coumadin, diabetes, hypertension, presents to the hospital with complaints of hemoptysis. Patient reports that he woke up this morning, felt like there was mucus in his throat, when he cleared his throat he found the mucus to be pink tinged. He reports no chest pain, no shortness of breath more than usual, reports feeling no palpitations. He reports no headache or change in vision. He reports no dizziness no other vomiting, no diarrhea constipation, no urinary symptoms and no lower extremity edema. He denies having any cough at this time. Denies any orthopnea or PND. No fever or chills. He reports chronic lower extremity edema that has not changed, he denies any urinary symptoms. By the time of my interview, patient had sputum production that was clear. On arrival to the ED patient was found to have a heart rate in the 160s, vitals otherwise stable satting 97% on room air Labs are significant for WBC count of 14.1, left shift with neutrophil of 85, INR of 2.0, troponin of 37 that increased to 90.4, BNP of 471, Chest CT showed clusters small nodular opacities in the left upper lobe suggestive of pneumonia. Pleural effusion. Patient started on Lasix and IV antibiotics, will be admitted for further management Review of Systems Review of Systems: Yes all other systems are reviewed and are negative [facility] Medical History (Updated 03/17/22 @ 00:29 by Dominick Suero MD) Atrial fibrillation Atrial fibrillation with RVR Atypical pneumonia Diabetes History of colon cancer Hypertension Sepsis Supratherapeutic INR Family History (Updated 03/17/22 @ 00:23 by Dominick Suero MD) Other No family history of coronary artery disease Surgical History (Updated 03/17/22 @ 00:23 by Dominick Suero MD) No pertinent past surgical history Social History Household Members: Spouse Housing: Apartment Do you presently have visiting nurse or other home services: Yes Alcohol intake: former Patient Tobacco Use Status: Former Tobacco user Smoked in Last 30 Days: No Use of substances other than those prescribed or required for medical reasons: No Advance Directives: Yes Advance Directives Information Provided: No Advance Directives on File: No service: No Current occupational status: retired Meds Allergies Allergy/AdvReac Type Severity Reaction Status Date / Time No Known Allergies Allergy Verified 03/16/22 11:06 Active Medications: Current Medications Acetaminophen (Acetaminophen 325 Mg Tablet) 650 mg PO Q6H PRN PRN Reason: Pain, Mild (Pain Scale 1-3) Atorvastatin Calcium (Atorvastatin Calcium 80 Mg Tablet) 80 mg PO DAILY [facility] Dextrose (Dextrose 50 % 25 Gm/50 Ml Syringe) 25 gm IVPUSH Q15M PRN; Protocol PRN Reason: per Hypoglycemia Standing Ord. Docusate Sodium (Docusate Sodium 100 Mg Capsule) 100 mg PO DAILY PRN PRN Reason: Constipation Furosemide (Furosemide 40 Mg/4 Ml Vial) 40 mg IVPUSH DAILY [facility]; Protocol Glucose (Glucose Gel 15 Gm Gel..Gram.) 15 gm PO Q15M PRN; Protocol PRN Reason: per Hypoglycemia Standing Ord. Ceftriaxone Sodium 1 gm/ (Sodium Chloride) 50 mls @ 100 mls/hr IV Q24H [facility] Azithromycin 500 mg/ Sodium (Chloride) 250 mls @ 125 mls/hr IV Q24H [facility] Insulin Human Lispro (Insulin Lispro 100 Unit/Ml 3 Ml Vial) 0 unit SUBCUT QIDACHS [facility]; Protocol Lisinopril (Lisinopril 20 Mg Tablet) 20 mg PO DAILY [facility]; Protocol Meclizine HCl (Meclizine Hcl 25 Mg Tablet) 25 mg PO TID PRN PRN Reason: Dizziness Metoprolol Tartrate (Metoprolol Tartrate 25 Mg Tablet) 75 mg PO BID [facility]; Prot ocol Montelukast Sodium (Montelukast Sodium 10 Mg Tablet) 10 mg PO DAILY [facility] Non-Formulary Medication (Insulin Degludec [Tresiba Flextouch U-100]) 20 unit SUBCUT BEDTIME [facility] Ondansetron HCl (Ondansetron Hcl 4 Mg/2 Ml Vial) 4 mg IVPUSH Q8H PRN PRN Reason: Nausea and Vomiting Pharmacy Consult (Consult Rx Perform Med Rec) 1 each MISCELLANE ONCE PRN PRN Reason: Consult order Sertraline HCl (Sertraline Hcl 25 Mg Tablet) 25 mg PO DAILY [facility] Sodium Chloride (0.9 % Sodium Chloride Flush 3 Ml Syringe) [facility] Medications Medication Instructions Recorded Confirmed Last Taken Type atorvastatin 80 mg tablet 80 mg PO DAILY 09/12/20 03/16/22 03/16/22 History glipizide 5 mg tablet, extended 5 mg PO DAILY 09/12/20 03/16/22 03/16/22 History release 24 hr insulin degludec 100 unit/mL (3 20 unit subcut BEDTIME 09/12/20 03/16/22 03/16/22 History mL) subcutaneous pen (Tresiba FlexTouch U-100 insulin) lisinopril 20 mg tablet 20 mg PO DAILY 09/12/20 03/16/22 03/16/22 History metformin 500 mg tablet 500 mg PO BIDWM 09/12/20 03/16/22 03/16/22 History metoprolol tartrate 50 mg tablet 75 mg PO BID 09/12/20 03/16/22 03/16/22 History montelukast 10 mg tablet 10 mg PO DAILY 09/12/20 03/16/22 03/16/22 History meclizine 25 mg tablet 25 mg PO TID PRN Dizziness 08/26/21 03/16/22 Unknown History sertraline 25 mg tablet 1 tab PO DAILY 08/26/21 03/16/22 03/16/22 History warfarin 5 mg tablet 1 tab PO DAILY 03/16/22 03/16/22 03/15/22 History Physical Exam Vital Signs and Narrative: Vital Signs: Last Vital Signs Temp 99.5 F 03/16/22 17:39 Pulse 161 H 03/16/22 17:43 Resp 16 03/16/22 17:39 BP 118/66 03/16/22 17:39 Pulse Ox 93 03/16/22 17:39 O2 Del Method 03/16/22 17:39 BMI result Body Mass Index 32.8 Const: General: cooperative and no acute distress Orientation/consc iousness: patient oriented x3 Eyes: General: appearance normal, both eyes and all related structures Resp: Effort & Inspection: normal respiratory effort Auscultation: clear to auscultation bilaterally Cardio: Other: Fast rate, irregular GI: Palpation (GI): Soft to palpation Auscultation: normal bowel sounds Skin: General skin exam: no rashes or lesions noted Neuro: General: patient oriented x3 Cognition (Neuro): normal cognition Extrem: Other: Trace pitting edema General: Yes normal to inspection and Yes no pedal edema Results Labs CBC and Chem 7: 03/16/22 11:15 03/16/22 11:15 Labs: Laboratory Results - last 24 hr 03/16/22 03/16/22 03/16/22 11:15 11:15 11:15 MCV 99.2 H MCH 32.7 MCHC 33.0 RDW 13.7 Plt Count 137 L MPV 11.7 Immature Gran % (Auto) 0.5 H Neut % (Auto) 85.0 H Lymph % (Auto) 5.5 L Owen % (Auto) 8.7 Eos % (Auto) 0.1 Baso % (Auto) 0.2 Lymph # (Auto) 0.8 L Owen # (Auto) 1.2 Eos # (Auto) 0.0 Baso # (Auto) 0.0 Abs Immat Gran (auto) 0.07 H Absolute Neuts (auto) 12.0 H Absolute Nucleated RBC 0.000 Nucleated RBC % (auto) 0.0 PT 24.1 H INR 2.0 H APTT 40.2 H Anion Gap 14 Estim Creat Clear Calc 66.7 Estimated GFR > 60 Random Glucose 193 H D Calcium 8.8 Total Bilirubin 1.0 AST 20 ALT 25 Alkaline Phosphatase 121 H D Troponin I High Sens C-Reactive Protein 0.10 B-Natriuretic Peptide Total Protein 6.3 L Albumin 4.1 Lipase 29 COVID-19 (BREA) COVID-[facility] 03/16/22 03/16/22 03/16/22 11:15 11:15 17:33 MCV MCH MCHC RDW Plt Count MPV Immature Gran % (Auto) Neut % (Auto) Lymph % (Auto) Owen % (Auto) Eos % (Auto) Baso % (Auto) Lymph # (Auto) Owen # (Auto) Eos # (Auto) Baso # (Auto) Abs Immat Gran (auto) Absolute Neuts (auto) Absolute Nucleated RBC Nucleated RBC % (auto) PT INR APTT Anion Gap Estim Creat Clear Calc Estimated GFR Random Glucose Calcium Total Bilirubin AST ALT Alkaline Phosphatase Troponin I High Sens 37.6 H D 90.4 H D C-Reactive Protein B-Natriuretic Peptide 471 H Total Protein Albumin Lipase COVID-19 (BREA) Negative COVID-19 Clin Com See Note Imaging Radiologist's Impressions: Impressions Chest X-Ray 03/16/22 11:21 IMPRESSION: Bilateral perihilar airspace disease, left greater than right. Differential would include pneumonia, pulmonary edema pulmonary hemorrhage. Chest CT 03/16/22 18:57 IMPRESSION: Clustered small nodular opacities in the left upper lobe suggestive of pneumonia. Small left pleural effusion. Coronary artery and aortic valve calcification. Small pericardial effusion. Fleischner guidelines were followed. Assessment and Plan (1) Hemoptysis: Status: Acute (2) Atrial fibrillation with RVR: Status: Acute (3) Pneumonia: Status: Acute (4) CHF exacerbation: Status: Acute Plan This is a 76-year-old male with past medical in presents to the hospital with complaints of multiple episodes of pink tinged sputum # hemoptysis - likely in the setting of pneumonia - no large amount of hemoptysis, pink tinged sputum, it has now cleared - INR therapeutic - will hold Coumadin tonight - we can resume Coumadin tomorrow as patient has now no evidence of hemoptysis # AFib with RVR - likely in the setting of CHF as well as pneumonia - given multiple rounds of IV Lopressor as well as his home metoprolol with improvement of his heart rate - hemodynamically stable - continue metoprolol - hold Coumadin for tonight given his hemoptysis # pneumonia - has evidence of infiltrates in the left upper lobe - has leukocytosis, afebrile - will treat with IV antibiotics - follow cultures # acute CHF exacerbation - although denies any symptoms, patient has evidence of volume overload with surinder vated BNP, traced lower extremity edema as well as pleural effusion on chest x- ray - will treat with IV Lasix - will obtain echocardiogram - consult cardiology - low sodium diet as well as strict I&O # diabetes - continue his home glargine - low-dose sliding scale insulin - diabetic diet # hypertension - stable - continue home medications DVT prophylaxis: Coumadin Quality Stroke Does the patient have a stroke diagnosis?: No VTE Prior VTE?: No VTE Risk Level:: Medical - moderate - high VTE Device Contraindication: N/A - Device Ordered VTE Drug Contraindication: Treatment Not Indicated
[2022-03-16 23:29] LABS: Procalcitonin 0.08 ng/mL
[2022-03-16 23:57] LABS: Lactic Acid 1.7 mmol/L (0.5-2.0)
[2022-03-17] MEDS: Piperacillin Sodium/Tazobactam 3.375 GM in 0.9 % Sodium Chloride 50 ML IV (00:24)
[2022-03-17] MEDS: Azithromycin 500 MG in 0.9 % Sodium Chloride 250 ML 125 MG IV (00:25)
[2022-03-17 01:16] VITALS: BP 119/63; PULSE 102; RESP 22; O2SAT 95
[2022-03-17 06:11] VITALS: BMI 32.8
--- NOTE | 2022-03-17 06:12 | PC.NURSE ---
I assumed nursing care of Mauricio at 1900. Mauricio is admitted to the hospital for CHF, Afib with RVR and pneumonia. He verbalized an understanding of this. When I initially assumed care Mauricio was resting in bed with a HR of 130-140's, Afib. At that time he was asymptomatic - no chest pain, no diff. breathing, no palpitations. Cristian MENDEZ was notified and requested pt be given 2.5mg IVP Lopressor as well as his daily dose of Metoprolol 50mg PO that he typically takes at 1700 (this was at approximately 2000). Within 30 minutes of administering these two medications his HR had decreased to 90's-low 100's, AFib. Again, he remained asymptomatic. Mauricio has ambulated to and from the bathroom independently and with steady gait. Mauricio has been voiding into a bedside urinal without difficulty. Clear, yellow urine has been drained and I&O's have been monitored. Respirations have been non-labored, RR remains WNL, room air sat's 95% or better, he speaks in full sentences, no cyanosis. Mauricio has also been expectorating small amounts of bloody sputum associated with an occasional congested sounding cough. MD aware. We will contiue to monitor Mauricio.
[2022-03-17 06:57] LABS: MANUAL DIFF FLAG NO
[2022-03-17 07:10] LABS: Basophils Percent Auto 0.1 % (0-2); Eosinophils Percent Auto 0.2 % (0-4); Hematocrit 42.6 % (42.0-52.0); Hemoglobin 14.3 g/dl (14.0-18.0); Imm Gran Abs Auto 0.09 X10*3/uL (0.00-0.03); Imm Gran Pct Auto 0.7 % (0.0-0.4); Lymphocytes Absolute Auto 1.3 X10*3/uL (1.2-4.9); Lymphocytes Percent Auto 10.7 % (20-40); Mean Corpuscular HGB Conc 33.6 g/dl (31.0-36.0); Mean Corpuscular Hemoglobin 32.6 pg (27.0-33.0); Mean Corpuscular Volume 97.3 fL (80.0-98.0); Mean Platelet Volume 11.7 fL (9.4-12.4); Monocytes Absolute Auto 1.3 X10*3/uL (0.1-1.2); Neutrophils Absolute Auto 9.4 x10*3/uL (2.0-8.3); Neutrophils Percent Auto 77.3 % (45-73); Platelet Count 123 X10*3/uL (160-400); Red Blood Count 4.38 X10*6/uL (4.60-5.80); Red Cell Distribution Width 13.8 % (11.0-16.0); White Blood Count 12.2 X10*3/uL (4.8-10.8)
[2022-03-17 07:11] LABS: Anion Gap 12 (12-20); Blood Urea Nitrogen 18 mg/dL (9-16); Calcium 8.6 mg/dL (8.4-10.2); Carbon Dioxide 26 mmol/L (22-29); Chloride 105 mmol/L (96-108); Creatinine Clr Calc Pharmacy 66.7; Estimated Glomerular Filt Rate > 60; Glucose Random 144 mg/dL (60-115); Potassium 3.9 mmol/L (3.3-5.1); Sodium 139 mmol/L (135-145)
[2022-03-17 07:14] VITALS: BP 132/85; PULSE 62
--- NOTE | 2022-03-17 07:15 | PC.NURSE ---
pt sitting up in bed. he denies si/hi. c/o feeling a little anxious. no other complaint.
[2022-03-17 07:20] LABS: Glucose, Whole Blood 137 mg/dL (60-115)
[2022-03-17 08:38] LABS: INTERNATIONAL NORM RATIO 2.4 (0.9-1.1); Prothrombin Time 28.2 SEC (10.0-13.1)
[2022-03-17] MEDS: 0.9 % Sodium Chloride Flush 3 ML SYRINGE IVFLUSH ×2 (09:22→15:15)
[2022-03-17] MEDS: Metoprolol Tartrate 25 MG TABLET 75 MG PO ×2 (09:22→21:15)
[2022-03-17] MEDS: Atorvastatin Calcium 80 MG TABLET PO (09:23)
[2022-03-17] MEDS: Sertraline HCL 25 MG TABLET PO (09:23)
[2022-03-17] MEDS: Furosemide 40 MG/4 ML VIAL IVPUSH (09:23)
[2022-03-17] MEDS: lisinopriL 20 MG TABLET PO (09:23)
[2022-03-17] MEDS: Montelukast Sodium 10 MG TABLET PO (09:23)
[2022-03-17 09:32] VITALS: BP 143/79; PULSE 87; RESP 17; O2SAT 95
--- NOTE | 2022-03-17 10:26 | MHC.CM.PN ---
PT REPORTS HE LIVES ALONE AND IS INDEPENDENT WITH CARE PT DENIES USE OF DME BUT SAYS HE DOES HAVE A WALKER IF NEEDED PT HAS NO HOME SERVICES PT HAS A HCP ON FILE AND HIS PCP IS CARI TINAJERO PT REPORTS HE IS COVID-19 VACCINATED IMM DELIVERED, COPY SENT TO [facility] CURRENT DC PLAN IS HOME, NO SERVICES PT WILL DRIVE HIMSELF AT DC
--- NOTE | 2022-03-17 11:40 | P.PNIM_ITS ---
Subjective Subjective Date of Service: 03/17/22 Interval History: seen and examined this morning follow up for hemoptysis denies SOB, reports cough with pink tinged phlegm. no eloy blood and no clots no chest pain or palpitations Review of Systems Review of Systems: Yes all other systems are reviewed and are negative Constitutional Constitutional: Denies chills and Denies fever(s) Cardiovascular Cardiovascular: Denies chest pain, Denies palpitations and Denies dyspnea Respiratory Respiratory: Reports change in phlegm color, Reports cough and Denies dyspnea Gastrointestinal Gastrointestinal: Denies abdominal pain, Denies nausea and Denies vomiting Endocrine Endocrine: Denies palpitations Physical Exam Vital Signs: Vital Signs: Last Vital Signs Temp 99.5 F 03/16/22 17:39 Pulse 87 03/17/22 09:32 Resp 17 03/17/22 09:32 BP 143/79 H 03/17/22 09:32 Pulse Ox 95 03/17/22 09:32 O2 Del Method 03/17/22 09:32 BMI result Body Mass Index 32.8 Const: General: cooperative, comfortable, no acute distress, alert and awake Nutritional Appearance: average body habitus Orientation/consciousness: patient oriented x3 Resp: Effort & Inspection: normal respiratory effort and able to speak in complete sentences Auscultation: clear to auscultation bilaterally, no rales, no rhonchi and no wheezes Cardio: Other: irregular Rate: regular rate Heart sounds: Murmur heart sound present GI: Inspection: No distended Palpation (GI): Soft to palpation and nontender Neuro: General: patient oriented x3 and CN's II-XI intact bilaterally Extrem: Other: b/l trace leg edema Objective Data Active Medications Acetaminophen (Acetaminophen 325 Mg Tablet) 650 mg PO Q6H PRN PRN Reason: Pain, Mild (Pain Scale 1-3) Atorvastatin Calcium (Atorvastatin Calcium 80 Mg Tablet) 80 mg PO DAILY [facility] Last Admin: 03/17/22 09:23 Dose: 80 mg Documented By: RASTA Dextrose (Dextrose 50 % 25 Gm/50 Ml Syringe) 25 gm IVPUSH Q15M PRN; Protocol PRN Reason: per Hypoglycemia Standing Ord. Docusate Sodium (Docusate Sodium 100 Mg Capsule) 100 mg PO DAILY PRN PRN Reason: Constipation Furosemide (Furosemide 40 Mg/4 Ml Vial) 40 mg IVPUSH DAILY [facility]; Protocol Last Admin: 03/17/22 09:23 Dose: 40 mg Documented By: RASTA Glucose (Glucose Gel 15 Gm Gel..Gram.) 15 gm PO Q15M PRN; Protocol PRN Reason: per Hypoglycemia Standing Ord. Ceftriaxone Sodium 1 gm/ (Sodium Chloride) 50 mls @ 100 mls/hr IV Q24H [facility] Azithromycin 500 mg/ Sodium (Chloride) 250 mls @ 125 mls/hr IV Q24H [facility] Last Infusion: 03/17/22 06:05 Dose: 0 mls/hr Documented By: RAYRAY Insulin Glargine (Insulin Glargine,Hum.Rec.Anlog 100 Unit/Ml 10 Ml Vial) 14 unit SUBCUT BEDTIME [facility] Insulin Human Lispro (Insulin Lispro 100 Unit/Ml 3 Ml Vial) 0.1 - 10 unit SUBCUT QIDACHS [facility]; Protocol Last Admin: 03/17/22 08:37 Dose: Not Given Documented By: RASTA Non-Admin Reason: No Insulin Coverage Lisinopril (Lisinopril 20 Mg Tablet) 20 mg PO DAILY [facility]; Protocol Last Admin: 03/17/22 09:23 Dose: 20 mg Documented By: RASTA Meclizine HCl (Meclizine Hcl 25 Mg Tablet) 25 mg PO TID PRN PRN Reason: Dizziness Metoprolol Tartrate (Metoprolol Tartrate 25 Mg Tablet) 75 mg PO BID [facility]; Protocol Last Admin: 03/17/22 09:22 Dose: 75 mg Documented By: RASTA Montelukast Sodium (Montelukast Sodium 10 Mg Tablet) 10 mg PO DAILY [facility] Last Admin: 03/17/22 09:23 Dose: 10 mg Documented By: RASTA Ondansetron HCl (Ondansetron Hcl 4 Mg/2 Ml Vial) 4 mg IVPUSH Q8H PRN PRN Reason: Nausea and Vomiting Pharmacy Consult (Consult Rx Perform Med Rec) 1 each MISCELLANE ONCE PRN PRN Reason: Consult order Sertraline HCl (Sertraline Hcl 25 Mg Tablet) 25 mg PO DAILY [facility] Last Admin: 03/17/22 09:23 Dose: 25 mg Documented By: RASTA Sodium Chloride (0.9 % Sodium Chloride Flush 3 Ml Syringe) 3 ml IVFLUSH QSHIFT [facility] Last Admin: 03/17/22 09:22 Dose: 3 ml Documented By: RASTA Labs CBC & Chem 7: 03/17/22 06:50 03/17/22 06:50 Labs: Laboratory Results - last 24 hr 03/16/22 03/16/22 03/16/22 11:15 11:15 11:15 MCV MCH MCHC RDW Plt Count MPV Immature Gran % (Auto) Neut % (Auto) Lymph % (Auto) Gaines % (Auto) Eos % (Auto) Baso % (Auto) Lymph # (Auto) Gaines # (Auto) Eos # (Auto) Baso # (Auto) Abs Immat Gran (auto) Absolute Neuts (auto) Absolute Nucleated RBC Nucleated RBC % (auto) PT 24.1 H INR 2.0 H APTT 40.2 H Anion Gap 14 Estim Creat Clear Calc 66.7 Estimated GFR > 60 POC Glucose Random Glucose 193 H D Lactic Acid Calcium 8.8 Total Bilirubin 1.0 AST 20 ALT 25 Alkaline Phosphatase 121 H D Troponin I High Sens 37.6 H D C-Reactive Protein 0.10 B-Natriuretic Peptide Total Protein 6.3 L Albumin 4.1 Lipase 29 Procalcitonin COVID-19 (BREA) COVID-19 Clin Com 03/16/22 03/16/22 03/16/22 11:15 11:15 17:33 MCV MCH MCHC RDW Plt Count MPV Immature Gran % (Auto) Neut % (Auto) Lymph % (Auto) Gaines % (Auto) Eos % (Auto) Baso % (Auto) Lymph # (Auto) Gaines # (Auto) Eos # (Auto) Baso # (Auto) Abs Immat Gran (auto) Absolute Neuts (auto) Absolute Nucleated RBC Nucleated RBC % (auto) PT INR APTT Anion Gap Estim Creat Clear Calc Estimated GFR POC Glucose Random Glucose Lactic Acid Calcium Total Bilirubin AST ALT Alkaline Phosphatase Troponin I High Sens 90.4 H D C-Reactive Protein B-Natriuretic Peptide 471 H Total Protein Albumin Lipase Procalcitonin 0.08 COVID-19 (BREA) Negative COVID-19 Clin Com See Note 03/16/22 03/17/22 03/17/22 23:42 06:50 06:50 MCV 97.3 MCH 32.6 MCHC 33.6 RDW 13.8 Plt Count 123 L MPV 11.7 Immature Gran % (Auto) 0.7 H Neut % (Auto) 77.3 H Lymph % (Auto) 10.7 L Gaines % (Auto) 11.0 Eos % (Auto) 0.2 Baso % (Auto) 0.1 Lymph # (Auto) 1.3 Gaines # (Auto) 1.3 H Eos # (Auto) 0.0 Baso # (Auto) 0.0 Abs Immat Gran (auto) 0.09 H Absolute Neuts (auto) 9.4 H Absolute Nucleated RBC 0.000 Nucleated RBC % (auto) 0.0 PT INR APTT Anion Gap 12 Estim Creat Clear Calc 66.7 Estimated GFR > 60 POC Glucose Random Glucose 144 H Lactic Acid 1.7 Calcium 8.6 Total Bilirubin AST ALT Alkaline Phosphatase Troponin I High Sens C-Reactive Protein B-Natriuretic Peptide Total Protein Albumin Lipase Procalcitonin COVID-19 (BREA) COVID-19 [facility] Com 03/17/22 03/17/22 07:17 08:28 MCV MCH MCHC RDW Plt Count MPV Immature Gran % (Auto) Neut % (Auto) Lymph % (Auto) Gaines % (Auto) Eos % (Auto) Baso % (Auto) Lymph # (Auto) Gaines # (Auto) Eos # (Auto) Baso # (Auto) Abs Immat Gran (auto) Absolute Neuts (auto) Absolute Nucleated RBC Nucleated RBC % (auto) PT 28.2 H INR 2.4 H APTT Anion Gap Estim Creat Clear Calc Estimated GFR POC Glucose 137 H Random Glucose Lactic Acid Calcium Total Bilirubin AST ALT Alkaline Phosphatase Troponin I High Sens C-Reactive Protein B-Natriuretic Peptide Total Protein Albumin Lipase Procalcitonin COVID-19 (BREA) COVID-19 Clin Com Assessment and Plan (1) Pneumonia: Status: Acute (2) Atrial fibrillation with RVR: Status: Acute (3) CHF exacerbation: Status: Acute Plan This is a 76-year-old male with past medical in presents to the hospital with complaints of multiple episodes of pink tinged sputum hemoptysis no large amount of hemoptysis, pink tinged sputum likely in the setting of pneumonia - hold Coumadin AFib with RVR given multiple rounds of IV Lopressor as well as his home metoprolol with improvement of his heart rate - continue metoprolol - hold Coumadin for hemoptysis pneumonia Nodular opacities in the left upper lobe on chest CT leukocytosis trending down, afebrile - continue IV ceftriaxone, azithromycin - follow cultures acute CHF exacerbation elevated BNP, traced lower extremity edema as well as pleural effusion on chest x-ray - continue low sodium diet, I&O - continue IV Lasix - echo pending - consult cardiology Thrombocytopenia Appears chronic -follow CBC diabetes - Tresiba converted to Lantus - hold metformin, glipizide - low-dose sliding scale insulin - diabetic diet hypertension - stable - continue lisinopril, metoprolol Mood Continue Zoloft DVT prophylaxis: Coumadin Attending-Dr. Purvis Requires ongoing inpatient hospitalization for treatment of CHF, hemoptysis, pneumonia, requires cardiology evaluation Quality Stroke Does the patient have a stroke diagnosis?: No VTE Prior VTE?: No VTE Risk Level:: Medical - moderate - high VTE Device Contraindication: N/A - Device Ordered VTE Drug Contraindication: Treatment Not Indicated
--- NOTE | 2022-03-17 11:49 | PM.CNCAR ---
History of Present Illness History of Present Illness Date of Service: 03/17/22 Requesting physician: Annalise Mejia Consult reason: atrial fibrillation and other (Elevated BNP) Chief complaint: CHF, A Fib w RVR, PNA, hemoptysis Narrative: I was consulted to see Mauricio in cardiology consultation today for atrial fibrillation with rapid ventricular response as well as elevated BNP. He came in because he started coughing and had some phlegm with blood tinged sputum and he was concern. When he came in he was noted to have atrial fibrillation rapid ventricular response elevated BNP 400 range. It he was then treated his heart rate is not controlled is also given some diuretics. Noted to have pneumonia is currently receiving antibiotics. He denies prior history of heart failure. He is on warfarin therapy for anticoagulation metoprolol for rate control. Denies any history of coronary artery disease. He said he had similar in mopped assist few months ago when he was admitted, question at that time having viral syndrome question COVID. He denies any lightheadedness, syncope. Review of Systems Constitutional: Constitutional: Reports no additional constitutional complaints Eyes: Eyes: Reports no additional eye complaints Cardiovascular: Cardiovascular: Reports no additional cardiovascular complaints Respiratory: Respiratory: Reports cough and Reports hemoptysis Gastrointestinal: Gastrointestinal: Reports no additional gastrointestinal complaints Genitourinary: Genitourinary: Reports no additional male genitourinary complaints Musculoskeletal: Musculoskeletal: Reports no additional musculoskeletal complaints Integumentary/Breasts: Skin/Breast: Reports system reviewed and no additional complaints, except as docu Neurologic: Reports system reviewed and no additional complaints, except as documented Endocrine: Endocrine: Reports no additional endocrine complaints [facility] Past Medical History Medical History Atrial fibrillation Atrial fibrillation with RVR Atypical pneumonia Diabetes History of colon cancer Hypertension Sepsis Supratherapeutic INR Family History Family History Other No family history of coronary artery disease Surgical History Surgical History No pertinent past surgical history Social History Social History Household Members: Spouse Housing: Apartment Do you presently have visiting nurse or other home services: Yes Alcohol intake: former Patient Tobacco Use Status: Former Tobacco user Smoked in Last 30 Days: No Use of substances other than those prescribed or required for medical reasons: No Advance Directives: Yes Advance Directives Information Provided: No Advance Directives on File: No service: No Current occupational status: retired Meds Allergies Allergy/AdvReac Type Severity Reaction Status Date / Time No Known Allergies Allergy Verified 03/16/22 11:06 Active Medications: Current Medications Acetaminophen (Acetaminophen 325 Mg Tablet) 650 mg PO Q6H PRN PRN Reason: Pain, Mild (Pain Scale 1-3) Atorvastatin Calcium (Atorvastatin Calcium 80 Mg Tablet) 80 mg PO DAILY [facility] Last Admin: 03/17/22 09:23 Dose: 80 mg Dextrose (Dextrose 50 % 25 Gm/50 Ml Syringe) 25 gm IVPUSH Q15M PRN; Protocol PRN Reason: per Hypoglycemia Standing Ord. Docusate Sodium (Docusate Sodium 100 Mg Capsule) 100 mg PO DAILY PRN PRN Reason: Constipation Furosemide (Furosemide 40 Mg/4 Ml Vial) 40 mg IVPUSH DAILY [facility]; Protocol Last Admin: 03/17/22 09:23 Dose: 40 mg Glucose (Glucose Gel 15 Gm Gel..Gram.) 15 gm PO Q15M PRN; Protocol PRN Reason: per Hypoglycemia Standing Ord. Ceftriaxone Sodium 1 gm/ (Sodium Chloride) 50 mls @ 100 mls/hr IV Q24H [facility] Azithromycin 500 mg/ Sodium (Chloride) 250 mls @ 125 mls/hr IV Q24H [facility] Last Infusion: 03/17/22 06:05 Dose: Infused Insulin Glargine (Insulin Glargine,Hum.Rec.Anlog 100 Unit/Ml 10 Ml Vial) 14 unit SUBCUT BEDTIME [facility] Insulin Human Lispro (Insulin Lispro 100 Unit/Ml 3 Ml Vial) 0.1 - 10 unit SUBCUT QIDACHS [facility]; Protocol Last Admin: 03/17/22 08:37 Dose: Not Given Lisinopril (Lisinopril 20 Mg Tablet) 20 mg PO DAILY [facility]; Protocol Last Admin: 03/17/22 09:23 Dose: 20 mg Meclizine HCl (Meclizine Hcl 25 Mg Tablet) 25 mg PO TID PRN PRN Reason: Dizziness Metoprolol Tartrate (Metoprolol Tartrate 25 Mg Tablet) 75 mg PO BID [facility]; Protocol Last Admin: 03/17/22 09:22 Dose: 75 mg Montelukast Sodium (Montelukast Sodium 10 Mg Tablet) 10 mg PO DAILY [facility] Last Admin: 03/17/22 09:23 Dose: 10 mg Ondansetron HCl (Ondansetron Hcl 4 Mg/2 Ml Vial) 4 mg IVPUSH Q8H PRN PRN Reason: Nausea and Vomiting Pharmacy Consult (Consult Rx Perform Med Rec) 1 each MISCELLANE ONCE PRN PRN Reason: Consult order Sertraline HCl (Sertraline Hcl 25 Mg Tablet) 25 mg PO DAILY [facility] Last Admin: 03/17/22 09:23 Dose: 25 mg Sodium Chloride (0.9 % Sodium Chloride Flush 3 Ml Syringe) 3 ml IVFLUSH QSHIFT [facility] Last Admin: 03/17/22 09:22 Dose: 3 ml Home Medications Medication Instructions Recorded Confirmed Last Taken Type atorvastatin 80 mg tablet 80 mg PO DAILY 09/12/20 03/16/22 03/16/22 History glipizide 5 mg tablet, extended 5 mg PO DAILY 09/12/20 03/16/22 03/16/22 History release 24 hr insulin degludec 100 unit/mL (3 20 unit subcut BEDTIME 09/12/20 03/16/22 03/16/22 History mL) subcutaneous pen (Tresiba FlexTouch U-100 insulin) lisinopril 20 mg tablet 20 mg PO DAILY 09/12/20 03/16/22 03/16/22 History metformin 500 mg tablet 500 mg PO BIDWM 09/12/20 03/16/22 03/16/22 History metoprolol tartrate 50 mg tablet 75 mg PO BID 09/12/20 03/16/22 03/16/22 History montelukast 10 mg tablet 10 mg PO DAILY 09/12/20 03/16/22 03/16/22 History meclizine 25 mg tablet 25 mg PO TID PRN Dizziness 08/26/21 03/16/22 Unknown History sertraline 25 mg tablet 1 tab PO DAILY 08/26/21 03/16/22 03/16/22 History warfarin 5 mg tablet 1 tab PO DAILY 03/16/22 03/16/22 03/15/22 History Physical Exam Vital Signs: Vital Signs: Last Vital Signs Temp 99.5 F 03/16/22 17:39 Pulse 87 03/17/22 09:32 Resp 17 07/16/22 09:32 BP 143/79 H 03/17/22 09:32 Pulse Ox 95 03/17/22 09:32 O2 Del Method 03/17/22 09:32 BMI result Body Mass Index 32.8 Const: General: cooperative, comfortable, no acute distress, alert and awake Nutritional Appearance: obese Orientation/consciousness: patient oriented x3 HEENT: Head: Yes normocephalic and Yes atraumatic Neck: Neck: Yes trachea midline and Yes no JVD Resp: Effort & Inspection: normal respiratory effort Auscultation: clear to auscultation bilaterally, no crackles, no rales, no wheezes and diminished lung sounds Cardio: Jugular venous distension: no JVD Palpation: normal PMI Rhythm: abnormal rhythm irregularly irregular Heart sounds: S1 normal heart sound present, S2 normal heart sound present, no click, no gallops and Murmur heart sound present systolic mid, decrescendo and crescendo GI: Auscultation: normal bowel sounds Skin: General skin exam: no rashes or lesions noted Neuro: General: patient oriented x3 and no focal motor deficits Extrem: General: Yes no clubbing, cyanosis or edema Objective Labs and Meds Result diagrams: 03/17/22 06:50 03/17/22 06:50 Lab results: Laboratory Results - last 24 hr 03/16/22 03/16/22 03/16/22 11:15 11:15 17:33 WBC RBC Hgb Hct MCV MCH MCHC RDW Plt Count MPV Immature Gran % (Auto) Neut % (Auto) Lymph % (Auto) [place] % (Auto) Eos % (Auto) Baso % (Auto) Lymph # (Auto) [place] # (Auto) Eos # (Auto) Baso # (Auto) Abs Immat Gran (auto) Absolute Neuts (auto) Absolute Nucleated RBC Nucleated RBC % (auto) PT INR Sodium Potassium Chloride Carbon Dioxide Anion Gap BUN Creatinine Estim Creat Clear Calc Estimated GFR POC Glucose Random Glucose Lactic Acid Calcium Troponin I High Sens 90.4 H D C-Reactive Protein 0.10 B-Natriuretic Peptide 471 H Lipase 29 Procalcitonin 0.08 03/16/22 03/17/22 03/17/22 23:42 06:50 06:50 WBC 12.2 H RBC 4.38 L Hgb 14.3 Hct 42.6 MCV 97.3 MCH 32.6 MCHC 33.6 RDW 13.8 Plt Count 123 L MPV 11.7 Immature Gran % (Auto) 0.7 H Neut % (Auto) 77.3 H Lymph % (Auto) 10.7 L [place] % (Auto) 11.0 Eos % (Auto) 0.2 Baso % (Auto) 0.1 Lymph # (Auto) 1.3 [place] # (Auto) 1.3 H Eos # (Auto) 0.0 Baso # (Auto) 0.0 Abs Immat Gran (auto) 0.09 H Absolute Neuts (auto) 9.4 H Absolute Nucleated RBC 0.000 Nucleated RBC % (auto) 0.0 PT INR Sodium 139 Potassium 3.9 Chloride 105 Carbon Dioxide 26 Anion Gap 12 BUN 18 H Creatinine 1.17 Estim Creat Clear Calc 66.7 Estimated GFR > 60 POC Glucose Random Glucose 144 H Lactic Acid 1.7 Calcium 8.6 Troponin I High Sens C-Reactive Protein B-Natriuretic Peptide Lipase Procalcitonin 03/17/22 03/17/22 07:17 08:28 WBC RBC Hgb Hct MCV MCH MCHC RDW Plt Count MPV Immature Gran % (Auto) Neut % (Auto) Lymph % (Auto) [place] % (Auto) Eos % (Auto) Baso % (Auto) Lymph # (Auto) [place] # (Auto) Eos # (Auto) Baso # (Auto) Abs Immat Gran (auto) Absolute Neuts (auto) Absolute Nucleated RBC Nucleated RBC % (auto) PT 28.2 H INR 2.4 H Sodium Potassium Chloride Carbon Dioxide Anion Gap BUN Creatinine Estim Creat Clear Calc Estimated GFR POC Glucose 137 H Random Glucose Lactic Acid Calcium Troponin I High Sens C-Reactive Protein B-Natriuretic Peptide Lipase Procalcitonin Imaging Radiologist's impression: Impressions Chest X-Ray 03/16/22 11:21 IMPRESSION: Bilateral perihilar airspace disease, left greater than right. Differential would include pneumonia, pulmonary edema pulmonary hemorrhage. Chest CT 03/16/22 18:57 IMPRESSION: Clustered small nodular opacities in the left upper lobe suggestive of pneumonia. Small left pleural effusion. Coronary artery and aortic valve calcification. Small pericardial effusion. Fleischner guidelines were followed. Assessment and Plan (1) Atrial fibrillation with RVR: Status: Acute Atrial fibrillation controlled ventricular response. She tends to get anxious. Continue metoprolol therapy for now. No need for additional other therapy. Echocardiogram to assess for LV systolic function biatrial chamber size and suggestion of aortic stenosis by clinical exam. Can hold warfarin for few days till his hemoptysis resolves and his pneumonia is better. (2) CHF exacerbation: Status: Acute Patient present with elevated BNP and was thought to be in CHF exacerbation. Her clinically today does appear to be in any overt heart failure. Does not need continued IV diuresis. Continue rate control approach. Elevated BNP can be due to persistent and chronic atrial fibrillation. Echocardiogram as above. Continue treat and support for his underlying pneumonia. Will review the echocardiogram once performed. Will sign of the case. I do not think it requires chronic diuretic therapy. Heart failure education should be provided. Procedures Date of Service Date of Service: 03/17/22
[2022-03-17 12:15] VITALS: BP 99/65; PULSE 76; RESP 12; TEMP 36.9; O2SAT 97
[2022-03-17 12:21] LABS: Glucose, Whole Blood 181 mg/dL (60-115)
[2022-03-17] MEDS: Insulin Lispro 100 UNIT/ML 3 ML VIAL SUBCUT (15:14)
[2022-03-17 18:10] LABS: Glucose, Whole Blood 119 mg/dL (60-115)
--- NOTE | 2022-03-17 20:44 | PC.NURSE ---
RN-RN report given - pt to ED overflow.
[2022-03-17 20:50] VITALS: BP 115/63; PULSE 104; RESP 24; TEMP 37.2; O2SAT 93
[2022-03-17 21:02] LABS: Glucose, Whole Blood 144 mg/dL (60-115)
[2022-03-17] MEDS: cefTRIAXone sodium 1 GM in 0.9 % Sodium Chloride 50 ML IV (21:15)
[2022-03-17] MEDS: Insulin Glargine,Hum.rec.anlog 100 UNIT/ML 10 ML VIAL 14 UNIT SUBCUT (21:15)
--- NOTE | 2022-03-17 22:15 | CA_ITS ---
Transthoracic Echocardiogram Patient (Last, First, Middle): Mauricio Naqvi L Gender: Male Date of : 1945 Age: 76 Procedure Date: 03/17/2022 Procedure Type: Transthoracic Echocardiogram Location: ER Height: 180.34 cm Weight: 106.14 kg BSA: 2.25 m2 Heart Rate: bpm BP: 143 / 79 mmHg Parts Remover: TO Referring MD: Elana Lunsford MD Telecom Analyst: Jairo Edward MD Symptoms: a-fib RVR, CHF Study Quality: Fair ECG Rhythm: Atrial Fibrillation Conclusions: - 1. Low normal LV systolic function with LVEF of 50-55% with moderate LVH 2. Moderate left atrial enlargement 3. Moderately reduced right ventricle systolic function 4. Severe aortic stenosis 5. Normal RV systolic pressure 6. Small pericardial effusion without tamponade Findings Left Ventricle Normal left ventricular cavity size. There is moderately increased left ventricular wall thickness. The left ventricular systolic function is low normal. The visually estimated ejection fraction is between 50-55%. Diastolic function is indeterminate on the basis of available data. Right Ventricle Normal right ventricular cavity size. There is moderately decreased right ventricular systolic function. Atria The left atrium is moderately dilated. Interatrial shunt cannot be excluded. The right atrium was not well visualized. Aortic Valve There is moderate calcification of the aortic valve. There is severe aortic valve stenosis. The peak aortic gradient is 59 mmHg.The mean gradient is 36 mmHg. The aortic valve area is 0.82 cm2. There is mild aortic valve regurgitation. Mitral Valve There is mild anterior and moderate posterior mitral leaflet thickening. There is mild mitral valve regurgitation. There is no mitral valve stenosis. Pulmonic Valve The pulmonic valve was not well visualized. Tricuspid Valve Likely normal tricuspid valve structure and function. There is mild tricuspid valve regurgitation. The right ventricular systolic pressure is normal. Normal right atrial pressure. There is no evidence of pulmonary hypertension. Great Vessels The pulmonary artery was not well visualized. There is mild dilatation of the ascending aorta measuring 3.80 cm. Venous The inferior vena cava is normal in size and collapses greater than 50% with inspiration. Pericardium/Pleural There is a small circumferential pericardial effusion. Prior Study Comparison No prior study available for comparison. Measurements 2D Linear Measurements IVSd: 1.51 0.6-0.9/0.6-1.0 cm LVIDd: 4.24 3.9-5.3/4.2-5.9 cm LVIDd Index: 1.88 2.4-3.2/2.2-3.1 cm/m2 LVIDs: 2.80 2.0-3.6 cm LVPWd: 1.38 0.7-1.1 cm LA Diam: 4.50 2.7-3.8/3.0-4.0 cm LAIDs Index: 2.00 1.5-2.3 cm/m2 LV Mass: 297.69 67-162/88-224 g LV Mass Index: 132.31 43-95/49-115 g/m2 LVOT Diam: 2.20 3.0+(-)1.3 cm 2D Systolic Function EF 4C: 42.90 >55% EF 2C: 55.40 >55% EF BiP: 50.90 >55% Mitral Valve MV Pk E: 1.09 MV Decel Time: 203.00 E'Lateral: 7.18 E'Medial: 5.66 E/E' Med: 19.30 E/E' Lat: 15.20 PHT: 59.00 MVA PHT: 3.73 Decel [place]: 5.39 Aortic Valve AoV Pk Leroy: 3.84 AoV Mn Leroy: 2.84 AoV VTI: 0.81 AoV Pk Grad: 59.00 Aov Mn Grad: 36.00 MOHAMUD Cont.VTI: 0.82 LVOT LVOT Pk Leroy: 0.73 LVOT Mn Leroy: 0.48 LVOT VTI: 0.17 LVOT Pk Grad: 2.00 LVOT Mn Grad: 1.00 LVOT Diam: 2.20 LVOT Area: 3.80 Diastolic Function MV Pk E: 1.09 E'Medial: 5.66 E/E' Med: 19.30 E' Laterial: 7.18 E/E' Lat: 15.20 Right Ventricle TAPSE (mm): 10.70 TVS' Leroy: 8.16 Tricuspid Valve TR Pk Leroy: 2.11 TR Pk Grad: 18.00 RA Press: 3.00 RVSP: 21.00 Great Vessels Aorta Sinus of Valsalva: 3.86 2.0-3.[address] [place]: 3.17 1.7-3.4 cm Ao Asc: 3.80 2.1-3.4 cm Ao Arch: 3.50 Updated in Other Vendor System with Status of Final Jairo Edward MD electronically signed on 03/18/2022 10:24:43 AM with status of Final
[2022-03-17 23:22] VITALS: BP 117/65; PULSE 89; RESP 20; TEMP 36.9; O2SAT 96
[2022-03-18] MEDS: Azithromycin 500 MG in 0.9 % Sodium Chloride 250 ML 125 MG IV ×2 (01:18→22:28)
[2022-03-18 03:52] VITALS: BP 110/63; PULSE 92; RESP 20; TEMP 37.1; O2SAT 98
[2022-03-18 04:53] VITALS: BMI 33.1
[2022-03-18 07:14] LABS: Glucose, Whole Blood 136 mg/dL (60-115)
[2022-03-18 07:27] LABS: Hematocrit 41.4 % (42.0-52.0); Mean Corpuscular HGB Conc 33.8 g/dl (31.0-36.0); Mean Corpuscular Volume 97.6 fL (80.0-98.0); Mean Platelet Volume 11.3 fL (9.4-12.4); Platelet Count 121 X10*3/uL (160-400); Red Blood Count 4.24 X10*6/uL (4.60-5.80); Red Cell Distribution Width 13.8 % (11.0-16.0); White Blood Count 7.9 X10*3/uL (4.8-10.8)
[2022-03-18 07:28] LABS: INTERNATIONAL NORM RATIO 1.8 (0.9-1.1); Prothrombin Time 20.6 SEC (10.0-13.1)
[2022-03-18 07:40] LABS: Anion Gap 12 (12-20); Blood Urea Nitrogen 20 mg/dL (9-16); Calcium 8.4 mg/dL (8.4-10.2); Carbon Dioxide 26 mmol/L (22-29); Chloride 104 mmol/L (96-108); Creatinine Clr Calc Pharmacy 65.9; Estimated Glomerular Filt Rate 59; Glucose Random 150 mg/dL (60-115); Potassium 3.4 mmol/L (3.3-5.1); Sodium 139 mmol/L (135-145)
[2022-03-18] MEDS: lisinopriL 20 MG TABLET PO (07:53)
[2022-03-18] MEDS: Montelukast Sodium 10 MG TABLET PO (07:53)
[2022-03-18] MEDS: Insulin Lispro 100 UNIT/ML 3 ML VIAL SUBCUT ×3 (07:54→21:19)
[2022-03-18] MEDS: Atorvastatin Calcium 80 MG TABLET PO (07:54)
[2022-03-18] MEDS: Sertraline HCL 25 MG TABLET PO (07:54)
[2022-03-18] MEDS: Metoprolol Tartrate 25 MG TABLET 75 MG PO ×2 (07:54→21:20)
[2022-03-18] MEDS: 0.9 % Sodium Chloride Flush 3 ML SYRINGE IVFLUSH ×3 (07:55→22:05)
[2022-03-18] MEDS: Furosemide 40 MG/4 ML VIAL IVPUSH (07:56)
--- NOTE | 2022-03-18 12:17 | P.PNCA_ITS ---
Subjective Subjective Date of Service: 03/18/22 Principal diagnosis: Aortic stenosis, atrial fibrillation, elevated BNP Interval history: Patient continues to have cough and blood-tinged phlegm. Denies any chest pain or palpitations. Review of Systems Review of Systems Yes all other systems are reviewed and are negative Physical Exam Vital Signs: Last Vital Signs Temp 98.8 F 03/18/22 03:52 Pulse 92 03/18/22 03:52 Resp 20 03/18/22 03:52 BP 110/63 03/18/22 03:52 Pulse Ox 98 03/18/22 03:52 O2 Del Method 03/18/22 03:52 BMI result Body Mass Index 33.1 Const General: cooperative, comfortable, no acute distress, alert and awake Nutritional Appearance: obese Orientation/consciousness: patient oriented x3 HEENT Head: Yes normocephalic and Yes atraumatic Neck Neck: Yes trachea midline and Yes no JVD Resp Effort & Inspection: normal respiratory effort Auscultation: clear to auscultation bilaterally, no crackles, no rales, no wheezes and diminished lung sounds Cardio Jugular venous distension: no JVD Palpation: normal PMI Rhythm: abnormal rhythm irregularly irregular Heart sounds: S1 normal heart sound present, S2 normal heart sound present, no click, no gallops and Murmur heart sound present systolic late, decrescendo, crescendo and soft GI Auscultation: normal bowel sounds Skin General skin exam: no rashes or lesions noted Neuro General: patient oriented x3 and no focal motor deficits Extrem General: Yes no clubbing, cyanosis or edema Objective Labs and Meds Result diagrams: 03/18/22 07:08 03/18/22 07:07 Lab results: Laboratory Results - last 24 hr 03/17/22 03/17/22 03/17/22 12:17 18:07 20:54 WBC RBC Hgb Hct MCV MCH MCHC RDW Plt Count MPV Absolute Nucleated RBC Nucleated RBC % (auto) PT INR Sodium Potassium Chloride Carbon Dioxide Anion Gap BUN Creatinine Estim Creat Clear Calc Estimated GFR POC Glucose 181 H 119 H 144 H Random Glucose Calcium 03/18/22 03/18/22 03/18/22 07:07 07:07 07:08 WBC 7.9 RBC 4.24 L Hgb 14.0 Hct 41.4 L MCV 97.6 MCH 33.0 MCHC 33.8 RDW 13.8 Plt Count 121 L MPV 11.3 Absolute Nucleated RBC 0.000 Nucleated RBC % (auto) 0.0 PT 20.6 H INR 1.8 H Sodium 139 Potassium 3.4 Chloride 104 Carbon Dioxide 26 Anion Gap 12 BUN 20 H Creatinine 1.19 Estim Creat Clear Calc 65.9 Estimated GFR 59 POC Glucose Random Glucose 150 H Calcium 8.4 03/18/22 07:11 WBC RBC Hgb Hct MCV MCH MCHC RDW Plt Count MPV Absolute Nucleated RBC Nucleated RBC % (auto) PT INR Sodium Potassium Chloride Carbon Dioxide Anion Gap BUN Creatinine Estim Creat Clear Calc Estimated GFR POC Glucose 136 H Random Glucose Calcium Progress Note: A&P Assessment and plan (1) Atrial fibrillation with RVR: Status: Acute Assessment and Plan: Atrial fibrillation controlled ventricular response at this point time. Continue rate control with metoprolol. He has still mild hemoptysis. Hold as oral anticoagulation therapy till is pneumonia and hemoptysis resolved. Patient eventually wants to switch to an alternative agent such as Eliquis. 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 (2) Aortic stenosis: Status: Acute Assessment and Plan: Aortic stenosis which is severe by echocardiogram. Advised to follow-up with his retail event assistant. Currently acutely not affecting him. Eventually may need consideration for transcatheter aortic valve replacement. Most likely responsible for elevated BNP in the setting of atrial fibrillation with rapid ventricular response. Clinically does not appear to be in heart failure at this point in time. Can hold his diuretics. Continue underlying pneumonia. Will sign of the case. Thank you for allowing us to partake in his care Time Spent With Patient Time: Total time spent is greater than 50% in coordination of care (as documented) at patient's floor/unit and/or counseling patient: Progress Note: Quality Stroke Does the patient have a stroke diagnosis?: No Procedures Date of Service Date of Service: 03/18/22
[2022-03-18 12:43] LABS: Glucose, Whole Blood 154 mg/dL (60-115)
[2022-03-18 13:47] VITALS: BP 113/54; PULSE 83; RESP 20; O2SAT 97
[2022-03-18 16:00] VITALS: BP 115/64; PULSE 74; RESP 16; TEMP 36.7; O2SAT 98
--- NOTE | 2022-03-18 17:12 | HO.PM.IMPN ---
Subjective Subjective Date of Service: 03/18/22 Interval History: seen and examined this morning follow up for PNA, afib, CHF, hemoptysis still with hemoptysis and cough no sob, chest pain or palpitations Denies fever or chills Review of Systems Review of Systems: Yes all other systems are reviewed and are negative Constitutional Constitutional: Denies chills and Denies fever(s) ENT Ears, Nose, Mouth, and Throat: Denies dizziness Cardiovascular Cardiovascular: Denies chest pain, Denies lightheadedness, Denies palpitations and Denies dyspnea Respiratory Respiratory: Reports change in phlegm color, Reports cough and Denies dyspnea Gastrointestinal Gastrointestinal: Denies abdominal pain, Denies diarrhea, Denies nausea and Denies vomiting Neurologic Neurologic: Denies dizziness Endocrine Endocrine: Denies palpitations Physical Exam Vital Signs: Vital Signs: Last Vital Signs Temp 98.1 F 03/18/22 16:00 Pulse 74 03/18/22 16:00 Resp 16 03/18/22 16:00 BP 115/64 03/18/22 16:00 Pulse Ox 98 03/18/22 16:00 O2 Del Method 03/18/22 16:00 BMI result Body Mass Index 33.1 Const: General: cooperative, comfortable, no acute distress, alert and awake Nutritional Appearance: average body habitus Orientation/consciousness: patient oriented x3 Resp: Effort & Inspection: normal respiratory effort and able to speak in complete sentences Auscultation: clear to auscultation bilaterally, no rales, no rhonchi and no wheezes Cardio: Other: irregular Rate: regular rate Rhythm: abnormal rhythm (iregular) Heart sounds: Murmur heart sound present GI: Inspection: No distended Palpation (GI): Soft to palpation and nontender Neuro: General: patient oriented x3 and CN's II-XI intact bilaterally Extrem: Other: b/l trace leg edema Objective Data Active Medications Acetaminophen (Acetaminophen 325 Mg Tablet) 650 mg PO Q6H PRN PRN Reason: Pain, Mild (Pain Scale 1-3) Atorvastatin Calcium (Atorvastatin Calcium 80 Mg Tablet) 80 mg PO DAILY [facility] Last Admin: 03/18/22 07:54 Dose: 80 mg Documented By: RASTA Dextrose (Dextrose 50 % 25 Gm/50 Ml Syringe) 25 gm IVPUSH Q15M PRN; Protocol PRN Reason: per Hypoglycemia Standing Ord. Docusate Sodium (Docusate Sodium 100 Mg Capsule) 100 mg PO DAILY PRN PRN Reason: Constipation Glucose (Glucose Gel 15 Gm Gel..Gram.) 15 gm PO Q15M PRN; Protocol PRN Reason: per Hypoglycemia Standing Ord. Ceftriaxone Sodium 1 gm/ (Sodium Chloride) 50 mls @ 100 mls/hr IV Q24H [facility] Last Infusion: 03/18/22 00:35 Dose: 0 mls/hr Documented By: YOSHI Azithromycin 500 mg/ Sodium (Chloride) 250 mls @ 125 mls/hr IV Q24H [facility] Last Infusion: 03/18/22 03:34 Dose: 0 mls/hr Documented By: YOSHI Insulin Glargine (Insulin Glargine,Hum.Rec.Anlog 100 Unit/Ml 10 Ml Vial) 14 unit SUBCUT BEDTIME [facility] Last Admin: 03/17/22 21:15 Dose: 14 unit Documented By: ROMAINE Insulin Human Lispro (Insulin Lispro 100 Unit/Ml 3 Ml Vial) 0.1 - 10 unit SUBCUT QIDACHS [facility]; Protocol Last Admin: 03/18/22 13:05 Dose: 2 unit Documented By: RASTA Lisinopril (Lisinopril 20 Mg Tablet) 20 mg PO DAILY [facility]; Protocol Last Admin: 03/18/22 07:53 Dose: 20 mg Documented By: RASTA Meclizine HCl (Meclizine Hcl 25 Mg Tablet) 25 mg PO TID PRN PRN Reason: Dizziness Metoprolol Tartrate (Metoprolol Tartrate 25 Mg Tablet) 75 mg PO BID [facility]; Protocol Last Admin: 03/18/22 07:54 Dose: 75 mg Documented By: RASTA Montelukast Sodium (Montelukast Sodium 10 Mg Tablet) 10 mg PO DAILY [facility] Last Admin: 03/18/22 07:53 Dose: 10 mg Documented By: RASTA Ondansetron HCl (Ondansetron Hcl 4 Mg/2 Ml Vial) 4 mg IVPUSH Q8H PRN PRN Reason: Nausea and Vomiting Pharmacy Consult (Consult Rx Perform Med Rec) 1 each MISCELLANE ONCE PRN PRN Reason: Consult order Sertraline HCl (Sertraline Hcl 25 Mg Tablet) 25 mg PO DAILY [facility] Last Admin: 03/18/22 07:54 Dose: 25 mg Documented By: RASTA Sodium Chloride (0.9 % Sodium Chloride Flush 3 Ml Syringe) 3 ml IVFLUSH QSHIFT [facility] Last Admin: 03/18/22 07:55 Dose: 3 ml Documented By: RASTA Labs CBC & Chem 7: 03/18/22 07:08 03/18/22 07:07 Labs: Laboratory Results - last 24 hr 03/17/22 03/17/22 03/18/22 18:07 20:54 07:07 MCV MCH MCHC RDW Plt Count MPV Absolute Nucleated RBC Nucleated RBC % (auto) PT 20.6 H INR 1.8 H Anion Gap Estim Creat Clear Calc Estimated GFR POC Glucose 119 H 144 H Random Glucose Calcium 03/18/22 03/18/22 03/18/22 07:07 07:08 07:11 MCV 97.6 MCH 33.0 MCHC 33.8 RDW 13.8 Plt Count 121 L MPV 11.3 Absolute Nucleated RBC 0.000 Nucleated RBC % (auto) 0.0 PT INR Anion Gap 12 Estim Creat Clear Calc 65.9 Estimated GFR 59 POC Glucose 136 H Random Glucose 150 H Calcium 8.4 03/18/22 12:37 MCV MCH MCHC RDW Plt Count MPV Absolute Nucleated RBC Nucleated RBC % (auto) PT INR Anion Gap Estim Creat Clear Calc Estimated GFR POC Glucose 154 H Random Glucose Calcium Microbiology Microbiology Results: Microbiology 03/16/22 23:42 Blood Culture - Preliminary Blood - Venous No growth after 24 hours. 03/16/22 23:42 Blood Culture - Preliminary Blood - Venous No growth after 24 hours. Assessment and Plan (1) Aortic stenosis: Status: Acute (2) Pneumonia: Status: Acute (3) Atrial fibrillation with RVR: Status: Acute Plan This is a 76-year-old male with past medical in presents to the hospital with complaints of multiple episodes of pink tinged sputum hemoptysis likely in the setting of pneumonia - Coumadin on hold - pulm consult pending AFib with RVR given multiple rounds of IV Lopressor as well as his home metoprolol in ED with improvement of his heart rate - continue metoprolol - hold Coumadin for hemoptysis pneumonia Nodular opacities in the left upper lobe on chest CT leukocytosis resolved, afebrile - continue IV ceftriaxone, azithromycin - BCx negative to date HFpEF elevated BNP, traced lower extremity edema as well as pleural effusion on chest x-ray ECHo showing EF 50-55% Severe s/p IV lasix, no need to continue lasix per cardiology - continue low sodium diet, I&O - seen by cardiology Severe Outpatient follow-up with his primary integration developer for consideration of TAVR Thrombocytopenia Appears chronic -follow CBC diabetes - Tresiba converted to Lantus - hold metformin, glipizide - low-dose sliding scale insulin - diabetic diet hypertension - stable - continue lisinopril, metoprolol Mood Continue Zoloft DVT prophylaxis: Coumadin Attending-Dr. Purvis Requires ongoing inpatient hospitalization for treatment of CHF, hemoptysis, pneumonia,pulm evaluation Quality Stroke Does the patient have a stroke diagnosis?: No VTE Prior VTE?: No VTE Risk Level:: Medical - moderate - high VTE Device Contraindication: N/A - Device Ordered VTE Drug Contraindication: Treatment Not Indicated
[2022-03-18 17:36] LABS: Glucose, Whole Blood 142 mg/dL (60-115)
--- NOTE | 2022-03-18 17:43 | PC.NURSE ---
PT ALERT AND ORIENTED, VSS, DENIES PAIN. PT UP TO USE RESTROOM INDEPENDENTLY. 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 NO COMPLAINTS.
--- NOTE | 2022-03-18 18:29 | PC.NURSE ---
NURSE - NURSE GIVEN TO AMBREEN ELIZALDE. PT WILL BE TRANSFERRED TO ROOM 373. PT AWARE OF PLAN.
[2022-03-18 19:30] VITALS: BP 123/62; PULSE 81; RESP 18; TEMP 36.4; O2SAT 96
[2022-03-18 19:58] LABS: Glucose, Whole Blood 177 mg/dL (60-115)
[2022-03-18] MEDS: Insulin Glargine,Hum.rec.anlog 100 UNIT/ML 10 ML VIAL 14 UNIT SUBCUT (21:19)
[2022-03-18] MEDS: cefTRIAXone sodium 1 GM in 0.9 % Sodium Chloride 50 ML IV (22:04)
[2022-03-19] VITALS: BP 93/46; PULSE 80; RESP 18; TEMP 36.7; O2SAT 100
[2022-03-19 03:57] VITALS: BP 130/59; PULSE 78; RESP 18; TEMP 36.4; O2SAT 99
[2022-03-19 06:15] LABS: INTERNATIONAL NORM RATIO 1.4 (0.9-1.1); Prothrombin Time 16.3 SEC (10.0-13.1)
[2022-03-19 07:31] VITALS: BP 115/64; PULSE 84; RESP 17; TEMP 36.6; O2SAT 95
[2022-03-19 07:50] LABS: Glucose, Whole Blood 138 mg/dL (60-115)
--- NOTE | 2022-03-19 09:20 | P.PNIM_ITS ---
Subjective Subjective Date of Service: 03/19/22 Interval History: follow up for PNA, afib, CHF, hemoptysis no sob, chest pain or palpitations Denies fever or chills Review of Systems Review of Systems: Yes all other systems are reviewed and are negative Constitutional Constitutional: Denies chills and Denies fever(s) ENT Ears, Nose, Mouth, and Throat: Denies dizziness Cardiovascular Cardiovascular: Denies chest pain, Denies lightheadedness, Denies palpitations and Denies dyspnea Respiratory Respiratory: Reports change in phlegm color, Reports cough and Denies dyspnea Gastrointestinal Gastrointestinal: Denies abdominal pain, Denies diarrhea, Denies nausea and Denies vomiting Neurologic Neurologic: Denies dizziness Endocrine Endocrine: Denies palpitations Physical Exam Vital Signs: Vital Signs: Last Vital Signs Temp 98 F 03/19/22 07:31 Pulse 84 03/19/22 07:31 Resp 17 03/19/22 07:31 BP 115/64 03/19/22 07:31 Pulse Ox 95 03/19/22 07:31 O2 Del Method 03/19/22 07:31 BMI result Body Mass Index 33.1 Appearing in no acute distress lung sounds are clear to auscultation heart regular rate rhythm, clear S1, S2 positive bowel sounds, abdomen is soft, nontender neuro patient is alert x3, no focal deficits Objective Data Active Medications Acetaminophen (Acetaminophen 325 Mg Tablet) 650 mg PO Q6H PRN PRN Reason: Pain, Mild (Pain Scale 1-3) Atorvastatin Calcium (Atorvastatin Calcium 80 Mg Tablet) 80 mg PO DAILY [facility] Last Admin: 03/18/22 07:54 Dose: 80 mg Documented By: RASTA Dextrose (Dextrose 50 % 25 Gm/50 Ml Syringe) 25 gm IVPUSH Q15M PRN; Protocol PRN Reason: per Hypoglycemia Standing Ord. Docusate Sodium (Docusate Sodium 100 Mg Capsule) 100 mg PO DAILY PRN PRN Reason: Constipation Glucose (Glucose Gel 15 Gm Gel..Gram.) 15 gm PO Q15M PRN; Protocol PRN Reason: per Hypoglycemia Standing Ord. Ceftriaxone Sodium 1 gm/ (Sodium Chloride) 50 mls @ 100 mls/hr IV Q24H [facility] Last Infusion: 03/18/22 22:33 Dose: 100 mls/hr Documented By: IDA Azithromycin 500 mg/ Sodium (Chloride) 250 mls @ 125 mls/hr IV Q24H [facility] Last Infusion: 03/19/22 00:30 Dose: 0 mls/hr Documented By: IDA Insulin Glargine (Insulin Glargine,Hum.Rec.Anlog 100 Unit/Ml 10 Ml Vial) 14 unit SUBCUT BEDTIME [facility] Last Admin: 03/18/22 21:19 Dose: 14 unit Documented By: IAD Insulin Human Lispro (Insulin Lispro 100 Unit/Ml 3 Ml Vial) 0.1 - 10 unit SUBCUT QIDACHS [facility]; Protocol Last Admin: 03/19/22 07:52 Dose: Not Given Documented By: ASA Non-Admin Reason: No Insulin Coverage Lisinopril (Lisinopril 20 Mg Tablet) 20 mg PO DAILY [facility]; Protocol Last Admin: 03/18/22 07:53 Dose: 20 mg Documented By: RASTA Meclizine HCl (Meclizine Hcl 25 Mg Tablet) 25 mg PO TID PRN PRN Reason: Dizziness Metoprolol Tartrate (Metoprolol Tartrate 25 Mg Tablet) 75 mg PO BID [facility]; Protocol Last Admin: 03/18/22 21:20 Dose: 75 mg Documented By: IDA Montelukast Sodium (Montelukast Sodium 10 Mg Tablet) 10 mg PO DAILY [facility] Last Admin: 03/18/22 07:53 Dose: 10 mg Documented By: RASTA Ondansetron HCl (Ondansetron Hcl 4 Mg/2 Ml Vial) 4 mg IVPUSH Q8H PRN PRN Reason: Nausea and Vomiting Pharmacy Consult (Consult Rx Perform Med Rec) 1 each MISCELLANE ONCE PRN PRN Reason: Consult order Sertraline HCl (Sertraline Hcl 25 Mg Tablet) 25 mg PO DAILY [facility] Last Admin: 03/18/22 07:54 Dose: 25 mg Documented By: RASTA Sodium Chloride (0.9 % Sodium Chloride Flush 3 Ml Syringe) 3 ml IVFLUSH QSHIFT [facility] Last Admin: 03/18/22 22:05 Dose: 3 ml Documented By: IDA Labs CBC & Chem 7: 03/18/22 07:08 03/18/22 07:07 Labs: Laboratory Results - last 24 hr 03/18/22 03/18/22 03/18/22 12:37 17:17 19:50 PT INR POC Glucose 154 H 142 H 177 H 03/19/22 03/19/22 05:37 07:41 PT 16.3 H INR 1.4 H POC Glucose 138 H Microbiology Microbiology Results: Microbiology 03/16/22 23:42 Blood Culture - Preliminary Blood - Venous No growth after 48 hours. 03/16/22 23:42 Blood Culture - Preliminary Blood - Venous No growth after 48 hours. Assessment and Plan (1) Aortic stenosis: Status: Acute (2) Pneumonia: Status: Acute (3) Atrial fibrillation with RVR: Status: Acute Plan This is a 76-year-old male with past medical in presents to the hospital with complaints of multiple episodes of pink tinged sputum hemoptysis. Resolved likely in the setting of pneumonia Coumadin on hold Seen by pulm, hold warfarin untill o/p follow up with pulm repeat CXR in am AFib with RVR continue metoprolol hold Coumadin for hemoptysis pneumonia Nodular opacities in the left upper lobe on chest CT leukocytosis resolved, afebrile 2nd such pna as per pulmomology continue IV ceftriaxone, azithromycin BCx negative to date HFpEF elevated BNP, traced lower extremity edema as well as pleural effusion on chest x-ray ECHo showing EF 50-55% Severe s/p IV lasix, no need to continue lasix per cardiology continue low sodium diet, I&O Severe Outpatient follow-up with his primary keno writer for consideration of TAVR Thrombocytopenia Appears chronic -follow CBC diabetes ssw, ada diet lantus hypertension stable continue lisinopril, metoprolol Mood Continue Zoloft DVT prophylaxis: Coumadin Attending-Dr. Purvis Requires ongoing inpatient hospitalization for treatment of CHF, hemoptysis, pneumonia Quality Stroke Does the patient have a stroke diagnosis?: No VTE Prior VTE?: No VTE Risk Level:: Medical - moderate - high VTE Device Contraindication: N/A - Device Ordered VTE Drug Contraindication: Treatment Not Indicated
--- NOTE | 2022-03-19 09:21 | PM.HPPUL ---
History of Present Illness History of Present Illness Date of Service: 03/19/22 Chief complaint: CHF, A Fib w RVR, PNA, hemoptysis Narrative: This is a inpt pulmonary consultation. The patient is a pleasant 76-year-old male with past medical history of AFib on Coumadin, diabetes, hypertension, presents to the hospital with complaints of hemoptysis.? He had an episode back in Dece2020 where he has founf to have LLL and CORKY pneumonia. Now the Patient reports that he woke up this morning, felt like there was mucus in his throat, when he cleared his throat he found the mucus to be pink tinged.? He reports no chest pain, no shortness of breath more than usual, reports feeling no palpitations.? He reports no headache or change in vision.? He reports no dizziness no other vomiting, no diarrhea constipation, no urinary symptoms and no lower extremity edema.? He denies having any cough at this time.? Denies any orthopnea or PND.? No fever or chills.? He reports chronic lower extremity edema that has not changed, he denies any urinary symptoms.?On arrival to the ED patient was found to have a heart rate in the 160s, vitals otherwise stable satting 97% on room air. Labs are significant for WBC count of 14.1, left shift with neutrophil of 85, INR of 2.0, troponin of 37 that increased to 90.4, BNP of 471, Chest CT showed clusters small nodular opacities in the left upper lobe suggestive of pneumonia. Review of Systems Constitutional: Constitutional: Denies chills and Denies fever(s) Eyes: Eyes: Denies change in vision ENT: Denies epistaxis Cardiovascular: Cardiovascular: Denies chest pain Respiratory: Respiratory: Reports chest congestion, Reports cough, Reports hemoptysis, Denies pain on inspiration and Denies pain with cough Gastrointestinal: Gastrointestinal: Reports no additional gastrointestinal complaints Musculoskeletal: Musculoskeletal: Reports no additional musculoskeletal complaints Integumentary/Breasts: Skin/Breast: Reports rash Neurologic: Reports system reviewed and no additional complaints, except as documented Hematologic/Lymphatic: Hematologic/Lymphatic: Reports easy bruising and Denies lymphadenopathy PMFSH Past Medical History Medical History Atrial fibrillation Atrial fibrillation with RVR Atypical pneumonia Diabetes History of colon cancer Hypertension Sepsis Supratherapeutic INR Family History Family History Other No family history of coronary artery disease Surgical History Surgical History No pertinent past surgical history Social History Social History Household Members: None Housing: Apartment Housing Other:: elderly housing Do you presently have visiting nurse or other home services: No Alcohol intake: former Patient Tobacco Use Status: Former Tobacco user e-Cigarette/Vaping Use: Never Used Second Hand Smoke Exposure: No Advance Directives Date on File: 03/11/22 service: No Current occupational status: retired [employer] Allergies Allergy/AdvReac Type Severity Reaction Status Date / Time No Known Allergies Allergy Verified 03/16/22 11:06 Active Medications: Current Medications Acetaminophen (Acetaminophen 325 Mg Tablet) 650 mg PO Q6H PRN PRN Reason: Pain, Mild (Pain Scale 1-3) Atorvastatin Calcium (Atorvastatin Calcium 80 Mg Tablet) 80 mg PO DAILY [facility] Last Admin: 03/18/22 07:54 Dose: 80 mg Dextrose (Dextrose 50 % 25 Gm/50 Ml Syringe) 25 gm IVPUSH Q15M PRN; Protocol PRN Reason: per Hypoglycemia Standing Ord. Docusate Sodium (Docusate Sodium 100 Mg Capsule) 100 mg PO DAILY PRN PRN Reason: Constipation Glucose (Glucose Gel 15 Gm Gel..Gram.) 15 gm PO Q15M PRN; Protocol PRN Reason: per Hypoglycemia Standing Ord. Ceftriaxone Sodium 1 gm/ (Sodium Chloride) 50 mls @ 100 mls/hr IV Q24H [facility] Last Infusion: 03/18/22 22:33 Dose: Infused Azithromycin 500 mg/ Sodium (Chloride) 250 mls @ 125 mls/hr IV Q24H [facility] Last Infusion: 03/19/22 00:30 Dose: Infused Insulin Glargine (Insulin Glargine,Hum.Rec.Anlog 100 Unit/Ml 10 Ml Vial) 14 unit SUBCUT BEDTIME [facility] Last Admin: 03/18/22 21:19 Dose: 14 unit Insulin Human Lispro (Insulin Lispro 100 Unit/Ml 3 Ml Vial) 0.1 - 10 unit SUBCUT QIDACHS [facility]; Protocol Last Admin: 03/19/22 07:52 Dose: Not Given Lisinopril (Lisinopril 20 Mg Tablet) 20 mg PO DAILY [facility]; Protocol Last Admin: 03/18/22 07:53 Dose: 20 mg Meclizine HCl (Meclizine Hcl 25 Mg Tablet) 25 mg PO TID PRN PRN Reason: Dizziness Metoprolol Tartrate (Metoprolol Tartrate 25 Mg Tablet) 75 mg PO BID [facility]; Protocol Last Admin: 03/18/22 21:20 Dose: 75 mg Montelukast Sodium (Montelukast Sodium 10 Mg Tablet) 10 mg PO DAILY [facility] Last Admin: 03/18/22 07:53 Dose: 10 mg Ondansetron HCl (Ondansetron Hcl 4 Mg/2 Ml Vial) 4 mg IVPUSH Q8H PRN PRN Reason: Nausea and Vomiting Pharmacy Consult (Consult Rx Perform Med Rec) 1 each MISCELLANE ONCE PRN PRN Reason: Consult order Sertraline HCl (Sertraline Hcl 25 Mg Tablet) 25 mg PO DAILY [facility] Last Admin: 03/18/22 07:54 Dose: 25 mg Sodium Chloride (0.9 % Sodium Chloride Flush 3 Ml Syringe) [facility] Admin: 03/18/22 22:05 Dose: 3 ml Home Medications Medication Instructions Recorded Confirmed Last Taken Type atorvastatin 80 mg tablet 80 mg PO DAILY 09/12/20 03/16/22 03/16/22 History glipizide 5 mg tablet, extended 5 mg PO DAILY 09/12/20 03/16/22 03/16/22 History release 24 hr insulin degludec 100 unit/mL (3 20 unit subcut BEDTIME 09/12/20 03/16/22 03/16/22 History mL) subcutaneous pen (Tresiba FlexTouch U-100 insulin) lisinopril 20 mg tablet 20 mg PO DAILY 09/12/20 03/16/22 03/16/22 History metformin 500 mg tablet 500 mg PO BIDWM 09/12/20 03/16/22 03/16/22 History metoprolol tartrate 50 mg tablet 75 mg PO BID 09/12/20 03/16/22 03/16/22 History montelukast 10 mg tablet 10 mg PO DAILY 09/12/20 03/16/22 03/16/22 History meclizine 25 mg tablet 25 mg PO TID PRN Dizziness 08/26/21 03/16/22 Unknown History sertraline 25 mg tablet 1 tab PO DAILY 08/26/21 03/16/22 03/16/22 History warfarin 5 mg tablet 1 tab PO DAILY 03/16/22 03/16/22 03/15/22 History Physical Exam Vital Signs: Vital Signs: Last Vital Signs Temp 98 F 03/19/22 07:31 Pulse 84 03/19/22 07:31 Resp 17 03/19/22 07:31 BP 115/64 03/19/22 07:31 Pulse Ox 95 03/19/22 07:31 O2 Del Method 03/19/22 07:31 BMI result Body Mass Index 33.1 Const: General: comfortable and no acute distress HEENT: Head: Yes normal to inspection Eyes: General: appearance normal, both eyes and all related structures Neck: Neck: Yes normal visual inspection and Yes supple Chest: Chest palpation & inspection: normal inspection of the chest Resp: Effort & Inspection: normal respiratory effort Auscultation: normal I/E ratio, no crackles, rhonchi, no wheezes and diminished lung sounds Cardio: Rate: regular rate Rhythm: regular rhythm Heart sounds: S1 normal heart sound present and S2 normal heart sound present : General: Yes no CVA tenderness Back/Spine/Pelvis: Back: no CVA tenderness Skin: Rashes: rashes noted Extrem: General: Yes no clubbing, cyanosis or edema Results Laboratory Findings CBC and BMP: 03/18/22 07:08 03/18/22 07:07 ABG, PT/INR, D-dimer: PT/INR, D-dimer PT 16.3 SEC (10.0-13.1) H 03/19/22 05:37 INR 1.4 (0.9-1.1) H 03/19/22 05:37 Abnormal lab findings: Abnormal Labs 03/16/22 03/16/22 03/16/22 11:15 11:15 11:15 WBC 14.1 H RBC Hct MCV 99.2 H Plt Count 137 L Immature Gran % (Auto) 0.5 H Neut % (Auto) 85.0 H Lymph % (Auto) 5.5 L Lymph # (Auto) 0.8 L [place]eman # (Auto) Abs Immat Gran (auto) 0.07 H Absolute Neuts (auto) 12.0 H PT 24.1 H INR 2.0 H APTT 40.2 H Chloride 109 H BUN 20 H POC Glucose Random Glucose 193 H D Alkaline Phosphatase 121 H D Troponin I High Sens B-Natriuretic Peptide Total Protein 6.3 L 03/16/22 03/16/22 03/17/22 11:15 17:33 06:50 WBC 12.2 H RBC 4.38 L Hct MCV Plt Count 123 L Immature Gran % (Auto) 0.7 H Neut % (Auto) 77.3 H Lymph % (Auto) 10.7 L Lymph # (Auto) [place]eman # (Auto) 1.3 H Abs Immat Gran (auto) 0.09 H Absolute Neuts (auto) 9.4 H PT INR APTT Chloride BUN POC Glucose Random Glucose Alkaline Phosphatase Troponin I High Sens 37.6 H D 90.4 H D B-Natriuretic Peptide 471 H Total Protein 03/17/22 03/17/22 03/17/22 06:50 07:17 08:28 WBC RBC Hct MCV Plt Count Immature Gran % (Auto) Neut % (Auto) Lymph % (Auto) Lymph # (Auto) [place] # (Auto) Abs Immat Gran (auto) Absolute Neuts (auto) PT 28.2 H INR 2.4 H APTT Chloride BUN 18 H POC Glucose 137 H Random Glucose 144 H Alkaline Phosphatase Troponin I High Sens B-Natriuretic Peptide Total Protein 03/17/22 03/17/22 03/17/22 12:17 18:07 20:54 WBC RBC Hct MCV Plt Count Immature Gran % (Auto) Neut % (Auto) Lymph % (Auto) Lymph # (Auto) [place]eman # (Auto) Abs Immat Gran (auto) Absolute Neuts (auto) PT INR APTT Chloride BUN POC Glucose 181 H 119 H 144 H Random Glucose Alkaline Phosphatase Troponin I High Sens B-Natriuretic Peptide Total Protein 03/18/22 03/18/22 03/18/22 07:07 07:07 07:08 WBC RBC 4.24 L Hct 41.4 L MCV Plt Count 121 L Immature Gran % (Auto) Neut % (Auto) Lymph % (Auto) Lymph # (Auto) [place] # (Auto) Abs Immat Gran (auto) Absolute Neuts (auto) PT 20.6 H INR 1.8 H APTT Chloride BUN 20 H POC Glucose Random Glucose 150 H Alkaline Phosphatase Troponin I High Sens B-Natriuretic Peptide Total Protein 03/18/22 03/18/22 03/18/22 07:11 12:37 17:17 WBC RBC Hct MCV Plt Count Immature Gran % (Auto) Neut % (Auto) Lymph % (Auto) Lymph # (Auto) [place]eman # (Auto) Abs Immat Gran (auto) Absolute Neuts (auto) PT INR APTT Chloride BUN POC Glucose 136 H 154 H 142 H Random Glucose Alkaline Phosphatase Troponin I High Sens B-Natriuretic Peptide Total Protein 03/18/22 03/19/22 03/19/22 19:50 05:37 07:41 WBC RBC Hct MCV Plt Count Immature Gran % (Auto) Neut % (Auto) Lymph % (Auto) Lymph # (Auto) [place]eman # (Auto) Abs Immat Gran (auto) Absolute Neuts (auto) PT 16.3 H INR 1.4 H APTT Chloride BUN POC Glucose 177 H 138 H Random Glucose Alkaline Phosphatase Troponin I High Sens B-Natriuretic Peptide Total Protein Microbiology: Microbiology 03/16/22 23:42 Blood - Venous Blood Culture - Preliminary No growth after 48 hours. 03/16/22 23:42 Blood - Venous Blood Culture - Preliminary No growth after 48 hours. Assessment and Plan (1) Pneumonia: Status: Acute (2) Chronic anticoagulation: Status: Acute (3) Hemoptysis: Status: Acute Plan Continue Antibiotics CXR in am Bloodwork requestes Hold COumadin for 2 weeks Follow up with outpt pulmonary in 1-2 weeks Hopefully, d/c tomorrow if clinically better and CXR stable Holding off on bronchoscopy at this time. But in view of his second episode with abnormal findings in the same location we will consider it as an outpt. Quality Stroke Does the patient have a stroke diagnosis?: No VTE Prior VTE?: No VTE Risk Level:: Medical - moderate - high VTE Device Contraindication: N/A - Device Ordered VTE Drug Contraindication: Treatment Not Indicated Procedures Date of Service Date of Service: 03/19/22
[2022-03-19] MEDS: Metoprolol Tartrate 25 MG TABLET 75 MG PO ×2 (09:47→20:17)
[2022-03-19] MEDS: Montelukast Sodium 10 MG TABLET PO (09:48)
[2022-03-19] MEDS: Atorvastatin Calcium 80 MG TABLET PO (09:48)
[2022-03-19] MEDS: Sertraline HCL 25 MG TABLET PO (09:48)
[2022-03-19] MEDS: 0.9 % Sodium Chloride Flush 3 ML SYRINGE IVFLUSH ×3 (09:49→20:17)
[2022-03-19] MEDS: lisinopriL 20 MG TABLET PO (09:52)
[2022-03-19 11:41] LABS: Glucose, Whole Blood 191 mg/dL (60-115)
[2022-03-19 11:41] LABS: Erythrocyte Sedimentation Rate 14 MM/HR (0-15)
[2022-03-19] MEDS: Insulin Lispro 100 UNIT/ML 3 ML VIAL SUBCUT ×3 (11:50→20:16)
[2022-03-19 15:58] VITALS: BP 148/71; PULSE 101; RESP 18; TEMP 36.4; O2SAT 96
[2022-03-19 16:44] LABS: Glucose, Whole Blood 164 mg/dL (60-115)
[2022-03-19 19:43] VITALS: BP 121/65; PULSE 88; RESP 18; TEMP 36.3; O2SAT 97
[2022-03-19] MEDS: Insulin Glargine,Hum.rec.anlog 100 UNIT/ML 10 ML VIAL 14 UNIT SUBCUT (20:15)
[2022-03-19 20:25] LABS: Glucose, Whole Blood 189 mg/dL (60-115)
[2022-03-19] MEDS: cefTRIAXone sodium 1 GM in 0.9 % Sodium Chloride 50 ML IV (21:37)
[2022-03-19] MEDS: Azithromycin 500 MG in 0.9 % Sodium Chloride 250 ML 125 MG IV (22:35)
[2022-03-20] VITALS: BP 129/72; PULSE 65; RESP 17; TEMP 36.3; O2SAT 97
[2022-03-20 04:00] VITALS: BP 123/60; PULSE 75; RESP 17; TEMP 36.9; O2SAT 96
[2022-03-20 06:33] LABS: INTERNATIONAL NORM RATIO 1.2 (0.9-1.1); Prothrombin Time 13.8 SEC (10.0-13.1)
[2022-03-20 07:15] VITALS: BP 131/70; PULSE 86; RESP 16; TEMP 36.2; O2SAT 95
[2022-03-20 07:33] LABS: Glucose, Whole Blood 173 mg/dL (60-115)
[2022-03-20] MEDS: Atorvastatin Calcium 80 MG TABLET PO (08:50)
[2022-03-20] MEDS: 0.9 % Sodium Chloride Flush 3 ML SYRINGE IVFLUSH (08:50)
[2022-03-20] MEDS: Insulin Lispro 100 UNIT/ML 3 ML VIAL SUBCUT ×2 (08:50→12:13)
[2022-03-20] MEDS: Metoprolol Tartrate 25 MG TABLET 75 MG PO (08:51)
[2022-03-20] MEDS: Montelukast Sodium 10 MG TABLET PO (08:51)
[2022-03-20] MEDS: Sertraline HCL 25 MG TABLET PO (08:51)
[2022-03-20] MEDS: lisinopriL 20 MG TABLET PO (08:51)
--- NOTE | 2022-03-20 09:24 | PM.PNPUL ---
Subjective Subjective Date of Service: 03/20/22 Principal diagnosis: Aortic stenosis, atrial fibrillation, elevated BNP Interval history: The patient was seen on exam. Still on room air. Denies any hemoptysis. He is tolerating the antibiotics. He has not been on any Coumadin. His chest x-ray looked a little better today. The patient feels well and is well enough to go home at this time. Objective Data Labs CBC & Chem 7: 03/18/22 07:08 03/18/22 07:07 Labs: Laboratory Results - last 24 hr 03/19/22 03/19/22 03/19/22 10:22 11:30 16:01 ESR 14 PT INR POC Glucose 191 H 164 H 03/19/22 03/20/22 03/20/22 19:50 05:49 07:19 ESR PT 13.8 H INR 1.2 H POC Glucose 189 H 173 H Microbiology Microbiology Results: Microbiology 03/16/22 23:42 Blood - Venous Blood Culture - Preliminary No growth after 48 hours. 03/16/22 23:42 Blood - Venous Blood Culture - Preliminary No growth after 48 hours. Review of Systems Constitutional: Denies chills and Denies fever(s) Eyes: Denies change in vision Denies epistaxis Cardiovascular: Denies chest pain Respiratory: Denies chest congestion, Reports cough, Reports hemoptysis, Denies pain on inspiration and Denies pain with cough Gastrointestinal: Reports no additional gastrointestinal complaints Musculoskeletal: Reports no additional musculoskeletal complaints Skin/Breast: Reports rash Reports system reviewed and no additional complaints, except as documented Hematologic/Lymphatic: Reports easy bruising and Denies lymphadenopathy Physical Exam Vital Signs: Vital Signs: Last Vital Signs Temp 97.2 F 03/20/22 07:15 Pulse 86 03/20/22 07:15 Resp 16 03/20/22 07:15 BP 131/70 03/20/22 07:15 Pulse Ox 95 03/20/22 07:15 O2 Del Method 03/20/22 07:15 BMI result Body Mass Index 33.1 Const: General: comfortable and no acute distress HEENT: Head: Yes normal to inspection Eyes: General: appearance normal, both eyes and all related structures Neck: Neck: Yes normal visual inspection and Yes supple Chest: Chest palpation & inspection: normal inspection of the chest Resp: Effort & Inspection: normal respiratory effort Auscultation: normal I/E ratio, no crackles, rhonchi, no wheezes and diminished lung sounds Cardio: Rate: regular rate Rhythm: regular rhythm Heart sounds: S1 normal heart sound present and S2 normal heart sound present : General: Yes no CVA tenderness Back/Spine/Pelvis: Back: no CVA tenderness Skin: Rashes: rashes noted Extrem: General: Yes no clubbing, cyanosis or edema Procedures Date of Service Date of Service: 03/20/22 Assessment and Plan Assessment and plan (1) Pneumonia: Status: Acute (2) Chronic anticoagulation: Status: Acute (3) Hemoptysis: Status: Acute Plan Continue abx to complete a 10 day course on SaturdayMarch 26 Restart Coumadin SaturdayMarch 27 if no further hemoptysis If has recurrent bleeding will benefit from a bronchoscopy F/U with Pulmonary in 1-2 weeks Time Spent With Patient Time: Total time spent is greater than 50% in coordination of care (as documented) at patient's floor/unit and/or counseling patient: Progress Note: Quality Stroke Does the patient have a stroke diagnosis?: No
--- NOTE | 2022-03-20 10:09 | P.DS_ITS ---
DS: Providers Provider Date of Service: 03/20/22 Date of admission: 03/16/22 23:12 Primary care physician: Gonzalo Hollingsworth DO, MD Consults: 03/16/22 23:11 Consult to Cardiology Routine Consulting Provider: Jairo Edward Reason for consultation: A fib w RVR, CHF Has provider been notified: Yes 03/18/22 09:36 Consult to Pulmonology Routine Consulting Provider: Latisha Platt Reason for consultation: hemoptysis Has provider been notified: No Attending physician on discharge: Aubrey Purvis Discharging clinician: Danica Martinez DS: Diagnosis Discharge Diagnosis (1) Pneumonia: Status: Acute (2) Chronic anticoagulation: Status: Acute (3) Hemoptysis: Status: Acute DS: Summary Hospital Course Hospital Course: HP as per admitting provider This is a pleasant 76-year-old male with past medical history of AFib on Coumadin, diabetes, hypertension, presents to the hospital with complaints of hemoptysis.? Patient reports that he woke up this morning, felt like there was mucus in his throat, when he cleared his throat he found the mucus to be pink tinged.? He reports no chest pain, no shortness of breath more than usual, reports feeling no palpitations.? He reports no headache or change in vision.? He reports no dizziness no other vomiting, no diarrhea constipation, no urinary symptoms and no lower extremity edema.? He denies having any cough at this time.? Denies any orthopnea or PND.? No fever or chills.? He reports chronic lower extremity edema that has not changed, he denies any urinary symptoms.?By the time of my interview, patient had sputum production that was clear. On arrival to the ED patient was found to have a heart rate in the 160s, vitals otherwise stable satting 97% on room air Labs are significant for WBC count of 14.1, left shift with neutrophil of 85, INR of 2.0, troponin of 37 that increased to 90.4, BNP of 471, Chest CT showed clusters small nodular opacities in the left upper lobe suggestive of pneumonia.? Pleural effusion. Patient started on Lasix and IV antibiotics, will be admitted for further management hemoptysis. Resolved likely in the setting of pneumonia Coumadin on hold and to be resumed on 03/27/22 Seen by pulm, hold warfarin until o/p follow up with pulm AFib with RVR continue metoprolol hold Coumadin for hemoptysis Pneumonia Nodular opacities in the left upper lobe on chest CT leukocytosis resolved, afebrile pna as per pulmomology Treated with IV ceftriaxone, azithromycin Home with azithromycin and ceftin until 03/26/22 BCx negative to date HFpEF elevated BNP, traced lower extremity edema as well as pleural effusion on chest x-ray ECHo showing EF 50-55% Severe s/p IV lasix, no need to continue lasix per cardiology continue low sodium diet, I&O Severe Outpatient follow-up with his primary dispensing and measuring optician for consideration of TAVR Thrombocytopenia Appears chronic diabetes continue home medications hypertension stable continue lisinopril, metoprolol Mood Continue Zoloft Time Spent with Patient Time attestation: Total time spent providing and/or coordinating discharge services: Discharge coordination time: Greater than 30 minutes Quality: Safe Use of Opioids Does Pt have an Active Cancer Diagnosis on the Problem List?: No Quality: Stroke Does the patient have a stroke diagnosis?: No Physical Exam Vital Signs: Vital Signs: Last Vital Signs Temp 97.2 F 03/20/22 07:15 Pulse 86 03/20/22 07:15 Resp 16 03/20/22 07:15 BP 131/70 03/20/22 07:15 Pulse Ox 95 03/20/22 07:15 O2 Del Method 03/20/22 07:15 BMI result Body Mass Index 33.1 Appearing in no acute distress head is normocephalic atraumatic eyes pupils are PERRLA sclera is anicteric mouth throat mucous membranes are intact and moist neck is supple no lymphadenopathy, no JVD noted lung sounds are clear to auscultation heart regular rate rhythm, clear S1, S2 positive bowel sounds, abdomen is soft, nontender neuro patient is alert x3, no focal deficits DS: Data Data Completed and Pending Completed studies during hospitalization [Text1]: Procedures Introduction of Remdesivir Anti-infective into Peripheral Vein, Percutaneous Approach, [employer] 5 (09/12/20) Labs on day of discharge: Laboratory Results - last 24 hr 03/19/22 03/19/22 03/19/22 10:22 11:30 16:01 ESR 14 PT INR POC Glucose 191 H 164 H 03/19/22 03/20/22 03/20/22 19:50 05:49 07:19 ESR PT 13.8 H INR 1.2 H POC Glucose 189 H 173 H Preliminary micro results at discharge 03/16/22 23:42 Blood Culture - Preliminary Blood - Venous No growth after 48 hours. 03/16/22 23:42 Blood Culture - Preliminary Blood - Venous No growth after 48 hours. Discharge Plan Discharge Anticipated Discharge Date/Time: 03/20/22 10:03 Patient Disposition: Home, Self-Care Discharge Diagnosis: Hemoptysis AFib with RVR Pneumonia Referrals: Gonzalo Hollingsworth DO, MD [Primary Care Provider] - 1 Week Discharge Medications: New azithromycin 500 mg tablet 500 mg PO DAILY 6 Days Qty: 6 0RF cefuroxime axetil 500 mg tablet 500 mg PO BID Qty: 12 0RF Continued metformin 500 mg tablet 500 mg PO BIDWM atorvastatin 80 mg tablet 80 mg PO DAILY lisinopril 20 mg tablet 20 mg PO DAILY Hold Instructions: Resume on 09/05/21. Do not start until seen by PCP glipizide 5 mg tablet extended release 24hr 5 mg PO DAILY metoprolol tartrate 50 mg tablet 75 mg PO BID montelukast 10 mg tablet 10 mg PO DAILY Tresiba FlexTouch U-100 100 unit/mL (3 mL) insulin pen 20 unit subcut BEDTIME meclizine 25 mg Tablet 25 mg PO TID PRN (Reason: Dizziness) sertraline 25 mg tablet 1 tab PO DAILY Held warfarin 5 mg tablet 1 tab PO DAILY Hold Instructions: Resume on 03/27/22. Discharge Orders: Discharge Order (Routine); Ordered 03/20/22 Ordered By: Danica Martinez Diet: Advance to usual diet Activity on Discharge: As tolerated Stand Alone Forms: Patient Portal Discharge page Care Plan Goals: Continue antibiotics until SaturdayMarch 26 then stop. Continue taking all of your other medications as prescribed Resume warfarin on SaturdayMarch 27 Health Concerns: Hemoptysis AFib with RVR Pneumonia Plan of Treatment: Follow-up with media librarian Follow-up with primary care provider as needed Assessment: See discharge summary
--- NOTE | 2022-03-20 10:16 | MHC.CM.PN ---
Addendum entered by Mallory Castellon 03/20/22 10:24: PATIENT DOES NOT FEEL THE NEED FOR ANY SERVICES HE IS NOW AWARE THAT IF HE CHANGES HIS MIND AFTER DISCHARGE, HE CAN CONTACT HIS PCP TO ARRANGE FOR [facility] SERVICES IMM 03/19 IN CHART Original Note: PATIENT IS DC HOME - SELF CARE
[2022-03-20 11:17] VITALS: BP 121/77; PULSE 73; RESP 18; TEMP 36.4; O2SAT 97
[2022-03-20 12:00] LABS: Glucose, Whole Blood 191 mg/dL (60-115)
[2022-03-21 15:32] LABS: Immunoglobulin G Subclass 1 255 mg/dL (382-929); Immunoglobulin G Subclass 2 217 mg/dL (241-700); Immunoglobulin G Subclass 3 46 mg/dL (22-178); Immunoglobulin G Subclass 4 16.4 mg/dL (4-86); Immunoglobulin G Total 516 mg/dL (600-1540)
[2022-03-21 18:56] LABS: Anti Nuclear Antibody Screen NEGATIVE (NEGATIVE)
[2022-03-22 11:21] LABS: Myeloperoxidase Antibody <1.0 AI; Proteinase 3 PR3 Antibodies <1.0 AI
[2022-03-24 00:27] LABS: Strep Pneumo Ag urine Not Detected (Not Detected)
== END 2022-03-20 13:38 | disposition home or self-care (01) | DRG 194 ==
LOC: HO.ED 18:35 → HO.EDOVER 23:17 → HO.S3 03-18 18:04
PROVIDERS: Hospitalist; Physician Assistant Medical; Admitting Provider Internal Medicine; Emergency Provider Student in an Organized Health Care Education/Training Program; PCP Internal Medicine; Visit Provider Nurse Practitioner Acute Care
DX: J18.9 Pneumonia, unspecified organism (principal); I48.19 Other persistent atrial fibrillation; R04.2 Hemoptysis; I50.32 Chronic diastolic (congestive) heart failure; I35.0 Nonrheumatic aortic (valve) stenosis; D69.6 Thrombocytopenia, unspecified; Z87.81 Personal history of (healed) traumatic fracture; Z20.822 Contact with and (suspected) exposure to COVID-19; Z79.4 Long term (current) use of insulin; Z85.038 Personal history of other malignant neoplasm of large intestine; Z79.01 Long term (current) use of anticoagulants; Z79.84 Long term (current) use of oral hypoglycemic drugs; Z79.899 Other long term (current) drug therapy
CPT/HCPCS: 36415; 71045; 71046; 71250; 80048; 80053; 82784; 82947; 83605; 83690; 83880; 84145; 84484; 85025; 85027; 85610; 85652; 85730; 86021; 86038; 86039; 86140; 87040; 87635; 87899; 93005; 93306; 96365; 96375; 96376; 99285; J0456; J0696; J1940; J2543

== ENCOUNTER → 2022-06-18 14:58 | Outpatient (BNVA) | payer MEDICARE, MEDICAID, SELFPAY | PROVIDERS: PCP Internal Medicine; Visit Provider Hospitalist | DX: R91.1 Solitary pulmonary nodule (principal); J18.9 Pneumonia, unspecified organism | CPT/HCPCS: 99212 ==

== ENCOUNTER 2022-06-26 10:21 | Outpatient (REF) | payer MEDICARE, MEDICAID, SELFPAY ==
--- NOTE | ~2022-06-26 | CT_ITS ---
EXAMINATION: CT CHEST WITHOUT CONTRAST CLINICAL INFORMATION: Pulmonary nodule follow-up COMPARISON: Previous chest x-ray and chest CT March 2022 TECHNIQUE: Multidetector volumetric CT imaging of the chest was done. Axial MIP volume rendering provided. Sagittal and coronal reformatted images were obtained. This CT examination was performed using dose optimization techniques as appropriate, variously including the following: *Automated exposure control *Adjustment of mA and/or kV according to patient size (this includes techniques or standardized protocols for targeted exams where dose is matched to indication/reason for exam; i.e. extremities or head) *Use of iterative reconstruction technique DLP: 4-6 mGy-cm FINDINGS: LUNGS: The previously identified clustered nodular opacities and consolidation in the left upper lobe on March 2022 exam is no longer seen. There is evidence of mild paraseptal emphysema. Small bilateral calcified pulmonary nodules probably representing calcified granulomas that are stable. The largest measures 4 mm in the right middle lobe axial image 227 series 4. There are innumerable small 1 to 2 mm noncalcified right upper lobe nodules. This may represent respiratory bronchiolitis related to smoking. These appear similar to previous exam. Clinical correlation recommended. MEDIASTINUM: There are small mediastinal lymph nodes that are stable. Normal heart size. Coronary artery and aortic valve calcification. Small pericardial effusion stable from previous exam. CORONARY ARTERY CALCIFICATION: Severe coronary artery calcification. PLEURA: Moderate sized left pleural effusion increased from March 2022 exam. No right pleural effusion. AXILLA: No lymphadenopathy. Stable findings to the soft tissues of the right upper back. UPPER ABDOMEN: Stable small liver calcification. OSSEOUS STRUCTURES: Degenerative changes.. CT/CT chest wo IV con IMPRESSION: Resolved left upper lobe pneumonia. Increasing now moderate size left pleural effusion. Stable innumerable small 1 to 2 mm right upper lobe nodules, question representing respiratory bronchiolitis related to smoking. Small stable calcified pulmonary nodules probably representing calcified granulomas. Coronary artery and aortic valve calcification. Stable small pericardial effusion. Fleischner guidelines were followed.
[2022-06-26 11:31] LABS: MANUAL DIFF FLAG NO
[2022-06-26 12:48] LABS: Basophils Percent Auto 0.2 % (0-2); Eosinophils Percent Auto 0.5 % (0-4); Hematocrit 45.4 % (42.0-52.0); Hemoglobin 15.2 g/dl (14.0-18.0); Imm Gran Abs Auto 0.03 X10*3/uL (0.00-0.03); Imm Gran Pct Auto 0.4 % (0.0-0.4); Lymphocytes Absolute Auto 1.4 X10*3/uL (1.2-4.9); Lymphocytes Percent Auto 16.8 % (20-40); Mean Corpuscular HGB Conc 33.5 g/dl (31.0-36.0); Mean Corpuscular Hemoglobin 33.3 pg (27.0-33.0); Mean Corpuscular Volume 99.6 fL (80.0-98.0); Mean Platelet Volume 11.7 fL (9.4-12.4); Monocytes Absolute Auto 0.6 X10*3/uL (0.1-1.2); Monocytes Percent Auto 7.7 % (2-11); Neutrophils Percent Auto 74.4 % (45-73); Platelet Count 120 X10*3/uL (160-400); Red Blood Count 4.56 X10*6/uL (4.60-5.80)
[2022-06-26 13:50] LABS: Erythrocyte Sedimentation Rate 2 MM/HR (0-15)
[2022-06-27 15:02] LABS: IgA 163 mg/dL (70-320); IgG 596 mg/dL (600-1540); IgM 35 mg/dL (50-300)
[2022-06-27 18:32] LABS: Immunoglobulin E 25 kU/L (<OR=114)
== END 2022-06-26 10:22 | disposition home or self-care (01) ==
LOC: HO.CT 10:21
PROVIDERS: PCP Internal Medicine; Visit Provider Hospitalist
DX: R91.1 Solitary pulmonary nodule (principal); J18.9 Pneumonia, unspecified organism
CPT/HCPCS: 36415; 71250; 82784; 82785; 85025; 85652

== ENCOUNTER → 2022-08-14 10:08 | Outpatient (BNVA) | payer MEDICARE, MEDICAID, SELFPAY | PROVIDERS: PCP Internal Medicine; Visit Provider Hospitalist | DX: J90 Pleural effusion, not elsewhere classified (principal); R91.1 Solitary pulmonary nodule; I35.0 Nonrheumatic aortic (valve) stenosis | CPT/HCPCS: 99212 ==

== ENCOUNTER → 2022-09-04 13:56 | Outpatient (REF) | payer MEDICARE, MEDICAID, SELFPAY ==
--- NOTE | 2022-09-04 14:00 | CA_ITS ---
Transthoracic Echocardiogram Patient (Last, First, Middle): Mauricio Naqvi L Gender: Male Date of : 1945 Age: 77 Procedure Date: 09/04/2022 Procedure Type: Transthoracic Echocardiogram Location: OP Height: 180.34 cm Weight: 106.6 kg BSA: 2.26 m2 Heart Rate: bpm BP: 128 / 80 mmHg Financial Aid Advisor: TO Referring MD: Zully Montgomery MD Symptoms: I35.0 AV DISEASE DYSPNEA R06.00 Study Quality: Adequate ECG Rhythm: Atrial Fibrillation Conclusions: - The left ventricular systolic function is mildly decreased. The calculated ejection fraction is 51% by biplane method. - There is severe aortic valve stenosis. Interpretation difficult due to atrial fibrillation, but suspect severe stenosis. Findings Left Ventricle Normal left ventricular cavity size. There is mildly increased left ventricular wall thickness. The left ventricular systolic function is mildly decreased. The calculated ejection fraction is 51% by biplane method. Diastolic function is indeterminate on the basis of available data. There is severe septal asymmetric hypertrophy. Right Ventricle Normal right ventricular cavity size. There is mildly decreased right ventricular systolic function. Atria Both atria are normal in size. Aortic Valve There is severe calcification of the aortic valve. There is severe aortic valve stenosis. The peak aortic velocity is 3.56 m/s with a calculated peak gradient of 51 mmHg. The mean gradient is 32 mmHg. The aortic valve area is 0.89 cm2. There is trace (trivial) aortic valve regurgitation. Mitral Valve The mitral valve appears normal. There is mild mitral annular calcification. There is no mitral valve stenosis. Pulmonic Valve The pulmonic valve is likely normal. Tricuspid Valve Normal tricuspid valve structure. There is mild tricuspid valve regurgitation. There is no evidence of pulmonary hypertension. Great Vessels The asc aorta is normal in size. Venous The inferior vena cava is normal in size and collapses greater than 50% with inspiration. Pericardium/Pleural There is a small loculated pericardial effusion overlying the left ventricle and right atrium. Prior Study Comparison No significant change compared to prior study dated: 03/17/2022. Measurements 2D Linear Measurements IVSd: 1.57 0.6-0.9/0.6-1.0 cm LVIDd: 4.56 3.9-5.3/4.2-5.9 cm LVIDd Index: 2.02 2.4-3.2/2.2-3.1 cm/m2 LVIDs: 2.93 2.0-3.6 cm LVPWd: 1.19 0.7-1.1 cm LA Diam: 4.50 2.7-3.8/3.0-4.0 cm LAIDs Index: 1.99 1.5-2.3 cm/m2 LV Mass: 309.30 67-162/88-224 g LV Mass Index: 136.86 43-95/49-115 g/m2 LVOT Diam: 2.20 3.0+(-)1.3 cm 2D Systolic Function EF 4C: 53.20 >55% EF 2C: 47.50 >55% EF BiP: 50.70 >55% Mitral Valve MV Pk E: 1.05 MV Decel Time: 204.00 E'Lateral: 5.44 E'Medial: 5.98 E/E' Med: 17.60 E/E' Lat: 19.30 PHT: 60.00 MVA PHT: 3.67 Decel [place]: 5.16 Aortic Valve AoV Pk Leroy: 3.56 AoV Mn Leroy: 2.65 AoV VTI: 0.78 AoV Pk Grad: 51.00 Aov Mn Grad: 32.00 MOHAMUD Cont.VTI: 0.89 LVOT LVOT Pk Leroy: 0.72 LVOT Mn Leroy: 0.50 LVOT VTI: 0.18 LVOT Pk Grad: 2.00 LVOT Mn Grad: 1.00 LVOT Diam: 2.20 LVOT Area: 3.80 Diastolic Function MV Pk E: 1.05 E'Medial: 5.98 E/E' Med: 17.60 E' Laterial: 5.44 E/E' Lat: 19.30 Right Ventricle TAPSE (mm): 18.00 TVS' Leroy: 9.00 Tricuspid Valve TR Pk Leroy: 2.27 TR Pk Grad: 21.00 RA Press: 3.00 RVSP: 24.00 Great Vessels Aorta Ao Asc: 4.00 2.1-3.4 cm Updated in Other Vendor System with Status of Final Allen Urbano MD electronically signed on 09/06/2022 1:05:33 PM with status of Final
== END ==
LOC: HO.CARD 13:56
PROVIDERS: Visit Provider Internal Medicine Cardiovascular Disease
DX: I35.0 Nonrheumatic aortic (valve) stenosis (principal)
CPT/HCPCS: 93306

== ENCOUNTER 2022-09-20 09:06 | Outpatient (REF) | payer MEDICARE, MEDICAID, SELFPAY ==
[2022-09-20 09:23] LABS: MANUAL DIFF FLAG NO
[2022-09-20 09:41] LABS: Basophils Percent Auto 0.3 % (0-2); Eosinophils Absolute Auto 0.1 X10*3/uL (0.0-0.4); Eosinophils Percent Auto 0.7 % (0-4); Hematocrit 44.9 % (42.0-52.0); Hemoglobin 14.8 g/dl (14.0-18.0); Imm Gran Abs Auto 0.03 X10*3/uL (0.00-0.03); Imm Gran Pct Auto 0.4 % (0.0-0.4); Lymphocytes Absolute Auto 1.7 X10*3/uL (1.2-4.9); Lymphocytes Percent Auto 22.8 % (20-40); Mean Corpuscular Hemoglobin 32.2 pg (27.0-33.0); Mean Corpuscular Volume 97.6 fL (80.0-98.0); Mean Platelet Volume 11.5 fL (9.4-12.4); Monocytes Absolute Auto 0.8 X10*3/uL (0.1-1.2); Monocytes Percent Auto 10.4 % (2-11); Neutrophils Absolute Auto 4.8 x10*3/uL (2.0-8.3); Neutrophils Percent Auto 65.4 % (45-73); Platelet Count 143 X10*3/uL (160-400); Red Cell Distribution Width 13.9 % (11.0-16.0); White Blood Count 7.3 X10*3/uL (4.8-10.8)
[2022-09-20 10:07] LABS: Anion Gap 11 (12-20); Blood Urea Nitrogen 32 mg/dL (9-16); Calcium 9.3 mg/dL (8.4-10.2); Carbon Dioxide 26 mmol/L (22-29); Chloride 108 mmol/L (96-108); Estimated Glomerular Filt Rate 51; Glucose Random 161 mg/dL (60-115); Potassium 5.3 mmol/L (3.3-5.1); Sodium 140 mmol/L (135-145)
== END 2022-09-20 09:07 | disposition home or self-care (01) ==
LOC: HO.LAB 09:06
PROVIDERS: PCP Internal Medicine; Visit Provider Hospitalist
DX: J90 Pleural effusion, not elsewhere classified (principal)
CPT/HCPCS: 36415; 80048; 85025

== ENCOUNTER 2022-11-21 15:02 | Outpatient (REF) | payer MEDICARE, MEDICAID, SELFPAY ==
[2022-11-21 16:02] LABS: Hematocrit 44.1 % (42.0-52.0); Imm Gran Abs Auto 0.03 X10*3/uL (0.00-0.03); Imm Gran Pct Auto 0.4 % (0.0-0.4); Mean Platelet Volume 11.8 fL (9.4-12.4); PLT CLUMP 1; SCAN SMEAR FLAG 1
[2022-11-21 16:04] LABS: Basophils Percent Auto 0.1 % (0-2); Eosinophils Percent Auto 0.4 % (0-4); Hemoglobin 14.8 g/dl (14.0-18.0); Lymphocytes Absolute Auto 1.7 X10*3/uL (1.2-4.9); Lymphocytes Percent Auto 23.9 % (20-40); Mean Corpuscular HGB Conc 33.6 g/dl (31.0-36.0); Mean Corpuscular Hemoglobin 32.7 pg (27.0-33.0); Mean Corpuscular Volume 97.4 fL (80.0-98.0); Monocytes Absolute Auto 0.7 X10*3/uL (0.1-1.2); Monocytes Percent Auto 9.7 % (2-11); Neutrophils Absolute Auto 4.6 x10*3/uL (2.0-8.3); Neutrophils Percent Auto 65.5 % (45-73); Red Blood Count 4.53 X10*6/uL (4.60-5.80)
[2022-11-21 16:08] LABS: MANUAL DIFF FLAG NO; Platelet Count 133 X10*3/uL (160-400)
[2022-11-21 16:09] LABS: INTERNATIONAL NORM RATIO 1.9 (0.9-1.1); Prothrombin Time 22.4 SEC (10.0-13.1)
[2022-11-21 16:34] LABS: Anion Gap 14 (12-20); Blood Urea Nitrogen 22 mg/dL (9-16); Calcium 9.2 mg/dL (8.4-10.2); Carbon Dioxide 23 mmol/L (22-29); Chloride 111 mmol/L (96-108); Estimated Glomerular Filt Rate 55; Glucose Random 133 mg/dL (60-115); Potassium 4.5 mmol/L (3.3-5.1); Sodium 143 mmol/L (135-145)
== END 2022-11-21 15:03 | disposition home or self-care (01) ==
LOC: HO.LAB 15:02
PROVIDERS: PCP Internal Medicine; Visit Provider Internal Medicine Cardiovascular Disease
DX: Z01.818 Encounter for other preprocedural examination (principal); I35.0 Nonrheumatic aortic (valve) stenosis
CPT/HCPCS: 36415; 80048; 85025; 85610

== ENCOUNTER 2022-12-12 09:26 | Outpatient (REF) | payer MEDICARE, MEDICAID, SELFPAY ==
--- NOTE | ~2022-12-12 | XR_ITS ---
EXAMINATION: XR CHEST CLINICAL INFORMATION: Pleural effusion COMPARISON: Previous chest x-ray most recent March [address] June 2022 TECHNIQUE: 2 views of the chest were obtained. FINDINGS: The cardiac and mediastinal contours are stable. The lungs are clear. No significant pleural effusion. There is slight blunting at the left costophrenic angle questionable for very small left pleural effusion or pleural thickening. No pneumothorax. Degenerative changes of the spine. XR/XR chest 2V IMPRESSION: Slight blunting at the left costophrenic angle questionable for very small left pleural effusion thickening.
[2022-12-12 09:45] LABS: MANUAL DIFF FLAG NO
[2022-12-12 10:06] LABS: Basophils Percent Auto 0.3 % (0-2); Eosinophils Absolute Auto 0.1 X10*3/uL (0.0-0.4); Eosinophils Percent Auto 0.8 % (0-4); Hematocrit 45.1 % (42.0-52.0); Hemoglobin 15.2 g/dl (14.0-18.0); Imm Gran Abs Auto 0.03 X10*3/uL (0.00-0.03); Imm Gran Pct Auto 0.5 % (0.0-0.4); Lymphocytes Absolute Auto 1.5 X10*3/uL (1.2-4.9); Lymphocytes Percent Auto 24.5 % (20-40); Mean Corpuscular HGB Conc 33.7 g/dl (31.0-36.0); Mean Corpuscular Hemoglobin 32.6 pg (27.0-33.0); Mean Corpuscular Volume 96.8 fL (80.0-98.0); Mean Platelet Volume 12.2 fL (9.4-12.4); Monocytes Absolute Auto 0.7 X10*3/uL (0.1-1.2); Monocytes Percent Auto 11.7 % (2-11); Neutrophils Absolute Auto 3.8 x10*3/uL (2.0-8.3); Neutrophils Percent Auto 62.2 % (45-73); Platelet Count 129 X10*3/uL (160-400); Red Blood Count 4.66 X10*6/uL (4.60-5.80); Red Cell Distribution Width 13.6 % (11.0-16.0); White Blood Count 6.2 X10*3/uL (4.8-10.8)
[2022-12-12 10:58] LABS: Erythrocyte Sedimentation Rate 4 MM/HR (0-15)
[2022-12-13 12:53] LABS: Immunoglobulin A 156 mg/dL (70-320); Immunoglobulin G 649 mg/dL (600-1540); Immunoglobulin M 51 mg/dL (50-300)
[2022-12-19 13:24] LABS: Immunoglobulin E 18 kU/L (<OR=114)
== END 2022-12-12 09:27 | disposition home or self-care (01) ==
LOC: HO.LAB 09:26
PROVIDERS: PCP Internal Medicine; Visit Provider Hospitalist
DX: J90 Pleural effusion, not elsewhere classified (principal); R91.1 Solitary pulmonary nodule; I35.0 Nonrheumatic aortic (valve) stenosis
CPT/HCPCS: 36415; 71046; 82784; 82785; 85025; 85652; 99212

== ENCOUNTER 2023-01-03 12:00 | Outpatient (REF) | payer MEDICARE, MEDICAID, SELFPAY ==
--- NOTE | 2023-01-03 08:00 | EMG_ITS ---
Bilateral median and ulnar motor and sensory studies were performed. Bilateral radial sensory studies were performed and paraspinal muscles were tested with a needle. IMPRESSION: 1. Moderately severe bilateral median neuropathy across carpal tunnel. 2. Mild left ulnar neuropathy across cubital tunnel. MD TAMELA Devries/MERLE / [id number]
== END 2023-01-03 12:01 | disposition home or self-care (01) ==
LOC: HO.NEURO 12:00
PROVIDERS: PCP Internal Medicine; Visit Provider Internal Medicine
DX: R20.2 Paresthesia of skin (principal)
CPT/HCPCS: 95886; 95911

== ENCOUNTER 2023-04-11 09:02 | Outpatient (REF) | payer MEDICARE, MEDICAID, SELFPAY ==
--- NOTE | 2023-04-11 09:58 | PFT_ITS ---
FLOWS: 1. FEV1 80% of predicted at 2.48 L. 2. FVC 73% of predicted at 3.15 L. 3. FEV1 to FVC ratio of 0.79. 4. No bronchodilator response. LUNG VOLUMES: 1. Total lung capacity 71% of predicted at 5.15 L. 2. Residual volume 64% of predicted at 1.71 L. 3. Slow vital capacity 74% of predicted at 3.44 L. 4. Expiratory reserve volume 71% of predicted at 0.91 L. 5. Diffusion capacity is mildly decreased, diffusion capacity corrects to normal after adjustment for alveolar ventilation. IMPRESSION: [id number] restrictive ventilatory defect with no bronchodilator response. Decreased diffusion capacity suggests emphysema. MD ERIN Pete/MODL / [id number]
== END 2023-04-11 09:03 | disposition home or self-care (01) ==
LOC: HO.RESP 09:02
PROVIDERS: PCP Internal Medicine; Visit Provider Hospitalist
DX: R06.00 Dyspnea, unspecified (principal)
CPT/HCPCS: 94010; 94727; 94729

== ENCOUNTER → 2023-04-11 09:58 | Outpatient (BNV) | payer MEDICARE, MEDICAID, SELFPAY | PROVIDERS: PCP Internal Medicine; Visit Provider Internal Medicine Pulmonary Disease | DX: J44.9 Chronic obstructive pulmonary disease, unspecified (principal) | CPT/HCPCS: 94060; 94727; 94729 ==

== ENCOUNTER 2023-04-16 08:58 | Outpatient (AMB) | payer MEDICARE, MEDICAID, SELFPAY ==
--- NOTE | 2023-04-16 09:35 | MHC.OFFVIS ---
Intake Vital Signs 04/16/23 09:39 Height 5 ft 11 in Weight 235 lb 14.314 oz BMI 32.9 BP 128/68 Blood Pressure Location Lt brachial Position Sitting Pulse 84 Pulse Source Pulse Oximeter Pulse Oximetry (%) 96 Oxygen Delivery Method Room Air Intake Visit Reasons: [facility] Cardiology - Valve Replacement Curriculum Development Specialist Required: No Fish Filleter: Fish Filleter offered & declined Accompanied by: Self / Same As Patient Allergies No Known Allergies Allergy (Verified 04/16/23 09:41) Medication List - Last Reconciled 04/16/23 by Charity Alexander LPN atorvastatin 80 mg PO DAILY furosemide 20 mg PO DAILY glipizide ER 5 mg PO DAILY insulin degludec (Tresiba FlexTouch U-100 insulin) 20 units subcut BEDTIME lisinopril 20 mg PO DAILY meclizine 25 mg PO TID PRN metformin 500 mg PO BIDWM metoprolol tartrate 75 mg PO BID montelukast 10 mg PO DAILY sertraline 1 tab PO DAILY warfarin 1 tab PO DAILY HPI [facility] Cardiology - Valve Replacement HPI Details Mauricio is a pleasant 77 year old male, former smoker with 60+ pack year history, quit 5 years ago, followed for COPD with underlying atrial fibrillation on metoprolol/coumadin, aortic stenosis and congestive heart failure on lasix 20 mg QD, under the care of cardiology. He reports shortness of breath with moderate exertion, such as hills, otherwise denies any respiratory symptoms. He denies any recent respiratory infections. Today he presents for a preoperative pulmonary evaluation for a proposed valve replacement with [facility] cardiology. [facility] Medical History (Updated 04/17/23 @ 09:34 by Arely Grayson NP) Aortic stenosis Atrial fibrillation Atrial fibrillation with RVR Atypical pneumonia Chronic anticoagulation Diabetes Dyspnea History of colon cancer Hypertension Pleural effusion Pulmonary nodule Sepsis Supratherapeutic INR Surgical History No pertinent past surgical history Family History Other No family history of coronary artery disease Social History (Updated 04/16/23 @ 09:41 by Charity Alexander LPN) Household Members: None Housing: Apartment Housing Other:: elderly housing Do you presently have visiting nurse or other home services: No Alcohol intake: former Patient Tobacco Use Status: Former Tobacco user Smoked in Last 30 Days: No e-Cigarette/Vaping Use: Never Used Second Hand Smoke Exposure: No Advance Directives Date on File: 03/11/22 service: No Current occupational status: retired Review of Systems Const Denies chills, Denies excessive sweating, Denies fever(s), Denies headache(s) and Denies night sweats Eyes Denies dry eyes, Denies irritation and Denies itchy eyes ENT Reports Normal hearing present, Denies headache(s), Denies nasal congestion, Denies nasal discharge, Denies post nasal drip and Denies sore throat Card Denies chest pain, Denies chest pain at rest, Denies chest pain with activity, Denies claudication, Denies leg edema, Denies dyspnea, Denies dyspnea on exertion, Denies orthopnea and Denies paroxysmal nocturnal dyspnea Resp Denies chest congestion, Denies cough, Denies excessive phlegm production, Denies pain on inspiration, Denies pain with cough, Denies dyspnea, Denies dyspnea on exertion, Denies stridor and Denies wheezing Musc Denies myalgias Neuro Reports Normal hearing present and Denies headache(s) Endo Denies excessive sweating Adria/Lymph Denies lymphadenopathy Aller/Immun Denies itchy eyes, Denies seasonal rhinorrhea and Denies wheezing Physical Exam Vital Signs: Last Vital Signs Pulse 84 04/16/23 09:39 BP 128/68 04/16/23 09:39 Pulse Ox 96 04/16/23 09:39 Oxygen Delivery Method Room Air 04/16/23 09:39 BMI result Body Mass Index 32.9 Const General: cooperative, healthy appearing, comfortable, no acute distress, well developed and alert Nutritional Appearance: obese Orientation/consciousness: patient oriented x3 Limitations: no limitations HEENT Head: Yes normal to inspection, Yes normocephalic and Yes atraumatic Ears: hearing grossly normal bilaterally and external ears normal Eyes General: appearance normal, both eyes and all related structures Eyelids: Yes eyelids normal Sclerae: sclerae normal EOM: EOMs intact bilaterally Neck Neck: Yes normal visual inspection and Yes no lymphadenopathy Lymphatic: no lymphadenopathy noted Chest Chest palpation & inspection: normal inspection of the chest Resp Effort & Inspection: normal respiratory effort, able to speak in complete sentences, no audible wheezes, no cough, no stridor, not tachypneic, no tripod positioning and no use of accessory muscles Auscultation: clear to auscultation bilaterally Cardio Jugular venous distension: no JVD Rate: regular rate Rhythm: regular rhythm Skin Other: warm, dry General skin exam: no rashes or lesions noted Neuro General: patient oriented x3 Cranial nerves: Yes Normal hearing present Cognition (Neuro): normal cognition Gait exam (Neuro): Normal gait present Extrem General: Yes normal to inspection, Yes capillary refill normal, Yes no clubbing, cyanosis or edema and Yes no pedal edema Psych Appearance: grossly normal and well kempt Speech and movement: Normal speech and movement present and Clear speech present Affect: normal affect Attitude: cooperative Thought process: Normal thought process present Thought content: Normal thought content present Insight: Good insight present (Psych) Judgement: Good judgement present (Psych) Results Reviewed Results Reviewed: Assessment & Plan Assessment & Plan (1) COPD (chronic obstructive pulmonary disease): Code(s): J44.9 - Chronic obstructive pulmonary disease, unspecified (2) Aortic stenosis: Code(s): I35.0 - Nonrheumatic aortic (valve) stenosis Plan Mauricio presents for pulmonary preoperative evaluation. PFT performed which revealed mild to moderate restrictive ventilatory defect with no response to bronchodilator and decreased diffusion capacity suggestive of emphysema. Full report above. He currently denies any respiratory concerns and no wheezing is appreciated on exam. He denies any recent respiratory infections. At this time, Mauricio is a low risk for perioperative pulmonary complications for proposed aortic valve replacement with [facility] cardiology. His procedure is not scheduled yet but he will call to follow up with Dr. Martinez after procedure is complete. All questions were answered and patient is in agreement of plan. Coding Level of Care Code Est Pt Level 4 (53099) Diagnoses COPD (chronic obstructive pulmonary disease) J44.9 Aortic stenosis I35.0
[2023-04-16 09:39] VITALS: BP 128/68; PULSE 84; O2SAT 96; BMI 32.9
== END 2023-04-16 10:18 | disposition home or self-care (01) ==
PROVIDERS: PCP Internal Medicine; Visit Provider Nurse Practitioner Family
DX: J44.9 Chronic obstructive pulmonary disease, unspecified (principal); I35.0 Nonrheumatic aortic (valve) stenosis
CPT/HCPCS: 99214

== ENCOUNTER → 2023-04-16 08:58 | Outpatient (BNVA) | payer MEDICARE, MEDICAID, SELFPAY | PROVIDERS: PCP Internal Medicine; Visit Provider Nurse Practitioner Family | DX: J44.9 Chronic obstructive pulmonary disease, unspecified (principal); I35.0 Nonrheumatic aortic (valve) stenosis; I48.91 Unspecified atrial fibrillation; Z79.01 Long term (current) use of anticoagulants; Z79.899 Other long term (current) drug therapy | CPT/HCPCS: 99212 ==

== ENCOUNTER 2023-09-23 15:14 | Emergency (ER) | payer MEDICARE, MEDICAID, SELFPAY ==
--- NOTE | ~2023-09-23 | XR_ITS ---
EXAMINATION: XR ELBOW, RIGHT CLINICAL INFORMATION: Pain, fall COMPARISON: None available. TECHNIQUE: AP, lateral, and oblique views of the right elbow. FINDINGS: The bones are intact. No fracture or joint effusion. Alignment is anatomic. Joint spaces are maintained. Bony spur extends off the olecranon. Small calcific density seen posterior to the olecranon. There is mild soft tissue swelling over the olecranon. XR/XR elbow RT min 3V IMPRESSION: No acute bony abnormality.
--- NOTE | ~2023-09-23 | CT_ITS ---
EXAMINATION: CT HEAD WITHOUT CONTRAST CT CERVICAL SPINE WITHOUT CONTRAST CLINICAL INFORMATION: Fall. Pain. COMPARISON: None. TECHNIQUE: Imaging was performed from the skull base to vertex without intravenous administration of contrast. In addition, helical noncontrast CT imaging was acquired through the cervical spine and source images were reviewed along with axial reconstructions and sagittal and coronal MPRs. [This CT examination was performed using dose optimization techniques as appropriate, variously including the following: *Automated exposure control *Adjustment of mA and/or kV according to patient size (this includes techniques or standardized protocols for targeted exams where dose is matched to indication/reason for exam; i.e. extremities or head) *Use of iterative reconstruction technique] DLP: 1393 mGy-cm FINDINGS: HEAD: No intracranial mass, hemorrhage, or midline shift is visualized. There is generalized global volume loss. There is moderate prominence of the ventricles and the sulci . There is mild hypodensity of the periventricular white matter due to chronic small vessel ischemic disease. There are vascular calcifications of the internal carotid arteries bilaterally. No extra-axial collections are identified. Mucosal thickening and air-fluid levels in the bilateral maxillary sinuses, left worse than right. The mastoid air cells and middle ear cavities are normally aerated. CERVICAL SPINE: There is no evidence of acute cervical spine fracture. Vertebral bodies remain normal in height. Cervical vertebrae have normal alignment. There is multilevel degenerative spondylosis of the cervical spine with disc height narrowing and endplate spurs and facet joint arthrosis No pre- or paravertebral soft tissue abnormality is identified. Limited assessment of the lung apices is unremarkable. CT/CT cervical spine wo IV con IMPRESSION: 1. No acute intracranial pathology. 2. No CT evidence of acute cervical spine fracture or traumatic subluxation
--- NOTE | ~2023-09-23 | XR_ITS ---
EXAMINATION: XR SHOULDER, RIGHT CLINICAL INFORMATION: Pain, fall COMPARISON: None available. TECHNIQUE: AP external rotation, Grashey, scapular Y, and axillary views of the right shoulder. FINDINGS: The bones are intact. No fracture. Glenohumeral and acromioclavicular alignment is anatomic with normal glenohumeral joint space. There is mild degenerative change of the acromioclavicular joint. No abnormal soft tissue calcifications. XR/XR shoulder RT min 2V IMPRESSION: 1. No acute bony abnormality. 2. Mild degenerative change of the acromioclavicular joint.
--- NOTE | 2023-09-23 15:38 | ED.GENADULT ---
HPI - General Adult General Chief complaint: Extremity Injury, Upper Stated complaint: [place], hurt shoulder/elbow Time Seen by Provider: 09/23/23 16:46 Source: patient Mode of arrival: ambulatory Limitations: no limitations History of Present Illness HPI narrative: Patient is a 78-year-old male with history of COPD, atrial fibrillation on warfarin presenting to the emergency department with complaint of right shoulder and right elbow pain after [place] the [place]. Patient states that he was attempting to step over a small mount of snow when he lost his balance. States that he initially fell long term to the ground and attempted to steady himself but lost his balance again and fell onto his right shoulder. Unsure of head strike. Denies loss of consciousness. Reports abrasion to right elbow. Reports baseline chronic pain to right shoulder. Denies headache, neck or back pain, blurred vision double vision or changes in vision. Denies chest pain, palpitations or dyspnea. Denies dizziness, lightheadedness. MD complaint: Right upper extremity pain Onset (ago): hour(s) Location: right and upper extremity Severity: moderate Quality: aching Pain Consistency: colicky Relieving factors: rest Exacerbating factors: movement Associated symptoms: denies other symptoms Treatments prior to arrival: none Related Data Home Medications Medication Instructions Recorded Confirmed atorvastatin 80 mg tablet 80 mg PO DAILY 09/12/20 04/16/23 glipizide 5 mg tablet, extended 5 mg PO DAILY 09/12/20 04/16/23 release 24 hr insulin degludec 100 unit/mL (3 20 unit subcut BEDTIME 09/12/20 04/16/23 mL) subcutaneous pen (Tresiba FlexTouch U-100 insulin) lisinopril 20 mg tablet 20 mg PO DAILY 09/12/20 04/16/23 metformin 500 mg tablet 500 mg PO BIDWM 09/12/20 08/14/22 metoprolol tartrate 50 mg tablet 75 mg PO BID 09/12/20 04/16/23 montelukast 10 mg tablet 10 mg PO DAILY 09/12/20 04/16/23 meclizine 25 mg tablet 25 mg PO TID PRN Dizziness 08/26/21 04/16/23 sertraline 25 mg tablet 1 tab PO DAILY 08/26/21 04/16/23 warfarin 5 mg tablet 1 tab PO DAILY 03/16/22 08/14/22 Previous Rx's Medication Instructions Recorded furosemide 20 mg tablet 20 mg PO DAILY #30 tabs 04/12/23 lidocaine 5 % topical patch 1 patch topical DAILY #15 ea 09/23/23 Allergies Allergy/AdvReac Type Severity Reaction Status Date / Time No Known Allergies Allergy Verified 09/23/23 15:39 Review of Systems Review of Systems: As per HPI. Yes all other systems are reviewed and are negative Constitutional: Constitutional: Reports as per HPI [facility] Past Medical History Medical History (Updated 09/23/23 @ 17:35 by Jo Ann Roque NP) Dyspnea Pleural effusion Pulmonary nodule Aortic stenosis History of colon cancer Chronic anticoagulation Atypical pneumonia Supratherapeutic INR Sepsis Atrial fibrillation with RVR Atrial fibrillation Diabetes Hypertension Surgical History No pertinent past surgical history Family History Family History Other No family history of coronary artery disease Social History Social History (Updated 04/16/23 @ 09:41 by Charity Alexander LPN) Household Members: None Housing: Apartment Housing Other:: elderly housing Do you presently have visiting nurse or other home services: No Alcohol intake: former Comment: PILLOWS FOR SUPPORT Patient Tobacco Use Status: Former Tobacco user Smoked in Last 30 Days: No e-Cigarette/Vaping Use: Never Used Second Hand Smoke Exposure: No Use of substances other than those prescribed or required for medical reasons: No Advance Directives: Yes Advance Directives on File: Yes Advance Directives Date on File: 03/11/22 service: No Current occupational status: retired Physical Exam ED Vital Signs: Vital Signs - 24 hr 09/23/23 15:40 09/23/23 17:42 Temperature 98.6 F 97.4 F Pulse Rate 98 70 Respiratory Rate 16 16 Blood Pressure 118/91 H 150/75 H Pulse Oximetry 97 98 Oxygen Delivery Method Room Air Room Air BMI result Body Mass Index 32.8 Vital signs have been reviewed and appear to be correct. Blood pressure normal. Heart rate normal. Respiratory rate normal. Temperature normal. Oxygen saturation normal. Const General: cooperative, healthy appearing and no acute distress Orientation/consciousness: oriented to person, oriented to place, oriented to time and patient oriented x3 Limitations: no limitations HENMT Head: Yes normocephalic, Yes atraumatic, No Randolph's sign, No raccoon eyes and No periorbital ecchymosis Ears: external ears normal, TM's normal bilaterally and EAC's normal General nose exam: Normal external nose present Face and sinus: Yes face symmetric Mouth: oropharynx normal and moist mucous membranes Throat: Yes uvula midline Eyes Pupils: Equal, round and reactive pupils present Neck Neck: Yes normal visual inspection and Yes supple Chest Chest palpation & inspection: normal inspection of the chest and normal palpation of entire chest wall Resp Effort & Inspection: normal respiratory effort and able to speak in complete sentences Auscultation: clear to auscultation bilaterally Cardio Rate: regular rate Rhythm: regular rhythm Heart sounds: S1 normal heart sound present and S2 normal heart sound present GI Inspection: Yes normal to inspection and No abdominal wall ecchymosis Palpation (GI): Soft to palpation and nontender Auscultation: normoactive bowel sounds General: Yes no CVA tenderness Back/Spine/Pelvis Back: no CVA tenderness Cervical Spine: normal cervical lordosis, cervical ROM normal and No step off deformity Thoracic/Lumbar Spine: thoracic and lumbar spine normal to inspection, thoraco-lumbar ROM normal, No pain with thoraco-lumbar ROM, No thoraco-lumbar spasm and No thoracic spinal tenderness Pelvis: no pain with anterior-posterior compression and no pain with lateral compression Skin General skin exam: elasticity normal and turgor normal Neuro General: oriented to person, oriented to place, oriented to time, patient oriented x3, gait normal, tone normal, moves all extremities, Normal light touch and pain sensation, no focal motor deficits, CN's II-XI intact bilaterally and deep tendon reflexes 2+ bilaterally Cranial nerves: Yes Equal, round and reactive pupils present Cognition (Neuro): normal cognition Extrem General: Yes full ROM, Yes no pedal edema and Yes no calf tenderness Right upper extremity: shoulder/upper arm Details: normal to inspection, tenderness Location: of the scapula, axillary nerve sensory function normal and normal ROM; no ecchymosis, no crepitus, no deformity and no unusual warmth and elbow/forearm Details: normal ROM and abrasion elbow posterior Details: single (2cm skin tear with mild oozing of blood, no surrounding erythema); no tenderness Psych Mental Status: mental status grossly normal Affect: normal affect Thought process: Normal thought process present Course Course Course Narrative: RME performed by Delmy Solorzano PA-C. Patient is a 78 year old assigned male at presenting to the emergency department with right elbow pain and right shoulder pain after a slip and fall. Patient is on warfarin. Detailed physical exam and review of systems are deferred to the early childhood education specialist. Imaging ordered. Patient placed back in the waiting room pending room availability and results. Medications Administered Discontinued Medications Generic Name Dose Route Start Last Admin Trade Name Unique PRN Reason Stop Dose Admin Bacitracin 1 appl 09/23/23 17:24 09/23/23 17:39 Bacitracin Oint 0.9 Gm Packet TOPICAL 09/23/23 17:25 1 appl ONCE ONE Administration Protocol Medical Decision Making Medical Decision Making [facility] Narrative: Patient is a 78-year-old male with history of COPD, atrial fibrillation on warfarin presenting to the emergency department with complaint of right shoulder and right elbow pain after falling [place] the [place]. On exam patient is awake, A+Ox3, VS WNL, afebrile, normal neurological exam without focal deficits, physical exam findings as above. Given reported symptoms and physical exam findings, initial differential includes ICH, skull fracture, cervical vertebral fracture, cervical strain, scapular fracture, shoulder strain, elbow fracture, elbow abrasion. X-ray right shoulder and elbow notable for no acute fractures. CT head and C-spine unremarkable. My interpretation is in agreement with the radiologist's interpretation. Abrasion cleansed thoroughly, bacitracin and dressing applied. Advised patient to take Tylenol every 6 hours as needed for discomfort, will prescribe topical lidocaine patches. Advised patient to apply ice for 10-15 minutes at a time several times daily to affected areas. Instructed patient to follow-up with primary care provider. Strict return precautions discussed at bedside. Patient verbalized understanding of and agreement with plan. Differential Diagnosis Differential Diagnoses: The differential diagnosis associated with the presentation includes As per MDM. Admission/Observation Consideration of admission/observation: Escalation of care including admission/observation considered Independent Interpretation I performed an independent interpretation of an: Plain X-Ray and CT Scan Interpretation: No acute findings on CT head or C-spine No acute fractures to right shoulder or elbow Radiology Impression Discussion of test interpretation with radiology: I have reviewed the radiologist's reading. Radiologist Impression: CT/CT head/brain wo IV con IMPRESSION: 1. No acute intracranial pathology. 2. No CT evidence of acute cervical spine fracture or traumatic subluxation XR/XR shoulder RT min 2V IMPRESSION: 1. No acute bony abnormality. 2. Mild degenerative change of the acromioclavicular joint. XR/XR elbow RT min 3V IMPRESSION: No acute bony abnormality. External Record Review External record reviewed: Inpatient record, Office record and Outpatient record Prescription Management I considered prescription management with: Pain Medication Discharge Plan Discharge Clinical Impression: Abrasion of elbow, right, Muscle strain of right shoulder, Fall Patient Disposition: Home, Self-Care Instructions: Muscle Strain (DC), Fall Prevention for Older Adults (ED), Abrasion (ED), R.I.C.E. Treatment (ED), Fall Prevention (ED) Additional Instructions: You have been evaluated in the emergency department today after a fall. Your CT scan did not show signs of bleeding or fractures in your head or neck. Your x-rays did not show evidence of a fracture to your shoulder or elbow. We recommend you take Tylenol 650 mg every 6 hours as needed for pain. You are being prescribed topical lidocaine patches which you can wear for up to 12 hours in a 24 hour period, do not apply heat directly over the patches. You can apply ice to the affected areas for 10-15 minutes at a time several times daily, using caution not to apply ice directly the skin. Please schedule an appointment with for follow-up with your primary care provider as soon as possible. Return to the emergency department if you experience worsening or uncontrolled pain, vision changes, recurrent vomiting, difficulty with normal activities, abnormal behavior, difficulty walking, numbness, weakness, or any other concerning symptoms. Prescriptions: New lidocaine 5 % adhesive patch,medicated 1 patch topical DAILY Qty: 15 0RF Rx Instructions: leave on most painful area for up to 12 hrs No Action furosemide 20 mg tablet 20 mg PO DAILY Qty: 30 0RF metformin 500 mg tablet 500 mg PO BIDWM atorvastatin 80 mg tablet 80 mg PO DAILY lisinopril 20 mg tablet 20 mg PO DAILY Hold Instructions: Resume on 09/05/21. Do not start until seen by PCP glipizide 5 mg tablet extended release 24hr 5 mg PO DAILY metoprolol tartrate 50 mg tablet 75 mg PO BID montelukast 10 mg tablet 10 mg PO DAILY Tresiba FlexTouch U-100 100 unit/mL (3 mL) insulin pen 20 unit subcut BEDTIME meclizine 25 mg Tablet 25 mg PO TID PRN (Reason: Dizziness) sertraline 25 mg tablet 1 tab PO DAILY warfarin 5 mg tablet 1 tab PO DAILY Hold Instructions: Resume on 03/27/22.
[2023-09-23 15:40] VITALS: BP 118/91; PULSE 98; RESP 16; TEMP 37; O2SAT 97; BMI 32.8
[2023-09-23] MEDS: Bacitracin Oint 0.9 GM PACKET 1 APPL TOPICAL (17:39)
[2023-09-23 17:42] VITALS: BP 150/75; PULSE 70; RESP 16; TEMP 36.3; O2SAT 98
[2023-09-23 18:55] VITALS: RESP 16
== END 2023-09-23 18:55 | disposition home or self-care (01) ==
PROVIDERS: Emergency Provider Emergency Medicine; PCP Internal Medicine
DX: S50.311A Abrasion of right elbow, initial encounter (principal); S46.911A Strain of unspecified muscle, fascia and tendon at shoulder and upper arm level, right arm, initial encounter; W18.30XA Fall on same level, unspecified, initial encounter; Y93.89 Activity, other specified; Y92.488 Other paved roadways as the place of occurrence of the external cause; Y99.9 Unspecified external cause status
CPT/HCPCS: 70450; 72125; 73030; 73080; 99284

== ENCOUNTER 2024-04-01 10:02 | Outpatient (AMB) | payer MEDICARE, MEDICAID, SELFPAY ==
--- NOTE | 2024-04-01 10:13 | MHC.OFFVIS ---
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 He had an episode back in [facility]2020 where he has founf to have LLL and CORKY pneumonia. Now the Patient reports that he woke up this morning, felt like there was mucus in his throat, when he cleared his throat he found the mucus to be pink tinged.? He reports no chest pain, no shortness of breath more than usual, reports feeling no palpitations.? He reports no headache or change in vision.? He reports no dizziness no other vomiting, no diarrhea constipation, no urinary symptoms and no lower extremity edema.? He denies having any cough at this time.? Denies any orthopnea or PND.? No fever or chills.? He reports chronic lower extremity edema that has not changed, he denies any urinary symptoms.?On arrival to the ED patient was found to have a heart rate in the 160s, vitals otherwise stable satting 97% on room air. Labs are significant for WBC count of 14.1, left shift with neutrophil of 85, INR of 2.0, troponin of 37 that increased to 90.4, BNP of 471,Chest CT showed clusters small nodular opacities in the left upper lobe suggestive of pneumonia. 06/18/2022 the patient is here for hospital follow-up visit. He had been admitted to the hospital back in August 2021 and then March 2022 with current left-sided pneumonia and hemoptysis. The patient is concerned because of the frequency of the pneumonias. He has been on Coumadin for Atrial fibrillation. He does follow closely with cardiology. When he presented back in March he was taken off his Coumadin for couple weeks and then he restarted the medicine. He has not had any other recurrence hemoptysis at this time. I did review his CT scan of the chest demonstrating some nodular densities which worse more clusters together. Therefore, now that the patient is already treated for the infection does nodular densities need to be reassessed. Therefore, I will request CT scan of the chest at this time. In the meantime will also request blood work to assess his immune system specially with recurrent infections. 08/14/2022 the patient is here for a pulmonary follow-up visit. Overall the patient has been feeling well. Denies any hemoptysis or cough. Does have some shortness of breath with activity mild in severity. Does get better with rest. He also has noticed increased lower extremity edema. Did have a CT scan of the chest the end of June 2022. We personally reviewed in the office. It appears that the airspace disease in the morning has subsided completely which is reassuring. However, he has developed a worsening left-sided pleural effusion which appears to be [id number]. On examination today he does have some diminished breath sounds in the left base but does minimal. Patient also had a echocardiogram demonstrating severe aortic stenosis. May be that this is more related to his underlying valvular disease. While he was in the hospital previously he was taken off his diuretic. He does have appointment with cake inspector soon. I will go ahead and start him back on Lasix 20 mg daily. He should have blood work prior to seeing his cake inspector. In the meantime will repeat the chest x-ray in a couple months to make sure that the pleural effusion is improving. If the patient develops worsening respiratory symptoms he is to call for an earlier evaluation. 12/12/2022 the patient is here for a pulmonary follow-up visit. The patient overall is feeling better. He is responding well to the diuretics. The patient was seen by Cardiology and also by Cardiothoracic surgery. He had a diagnostic cardiac catheterization at [facility] demonstrating single-vessel coronary artery disease but with good collateral flows. Therefore felt to be a good candidate for TVAR. He also needs to go undergo a CT scan. He is responding well to the diuretics and he does have off plan to increase diuretics if he gains weight. At this point the patient is doing well from a respiratory status. Having some dyspnea on certain times. Xqnh-[id number] severity. Will plan to repeat the PFTs once when he returns and on 8-12 months. If he has any issues prior to that he is to call the office for an earlier assessment. 04/01/2024 the patient is here for pulmonary follow-up visit. The patient overall has been doing much better. He is status post his trans vascular aortic valve replacement. The went without any complications. He does not use any inhalers. The patient did have a chest x-ray postoperatively demonstrating small pleural effusion. Although on exam right now sounds well with normal aeration bilaterally. He does have a echocardiogram scheduled. In pulmonary nodules have been stable. Therefore from a pulmonary standpoint the patient is doing well can follow-up in a year's time. He can also follow-up as needed. If he has any issues prior to that he will call for an earlier assessment. FORMERLY [facility], [facility] Medical History (Updated 04/01/24 @ 22:08 by Schuyler Martinez MD) Dyspnea Pleural effusion Pulmonary nodule Aortic stenosis History of colon cancer Chronic anticoagulation Atypical pneumonia Supratherapeutic INR Sepsis Atrial fibrillation with RVR Atrial fibrillation Diabetes Hypertension Surgical History No pertinent past surgical history Family History Other No family history of coronary artery disease Social History (Updated 04/16/23 @ 09:41 by Charity Alexander LPN) Household Members: None Housing: Apartment Housing Other:: elderly housing Do you presently have visiting nurse or other home services: No Alcohol intake: former Comment: PILLOWS FOR SUPPORT Patient Tobacco Use Status: Former Tobacco user e-Cigarette/Vaping Use: Never Used Second Hand Smoke Exposure: No Advance Directives Date on File: 03/11/22 service: No Current occupational status: retired Review of Systems Const Denies fatigue and Denies fever(s) Eyes Denies change in vision ENT Denies change in voice Card Denies chest pain, Denies dyspnea and Reports dyspnea on exertion Resp Denies chest congestion, Denies cough, Denies hemoptysis, Denies dyspnea, Reports dyspnea on exertion and Denies wheezing GI Denies hematochezia Musc Reports no additional complaints Skin/Breast Denies rash Neuro Reports no additional complaints Endo Denies fatigue Adria/Lymph Denies easy bleeding, Denies easy bruising and Denies lymphadenopathy Aller/Immun Denies wheezing Physical Exam Vital Signs: Last Vital Signs Pulse 89 04/01/24 10:15 Pulse Ox 97 04/01/24 10:15 Oxygen Delivery Method Room Air 04/01/24 10:15 BMI result Body Mass Index 32.1 Last Vital Signs Temp 97.2 F 03/20/22 07:15 Pulse 86 03/20/22 07:15 Resp 16 03/20/22 07:15 BP 131/70 03/20/22 07:15 Pulse Ox 95 03/20/22 07:15 O2 Del Method 03/20/22 07:15 BMI result Body Mass Index 33.1 Const General: comfortable and no acute distress HEENT Head: Yes normal to inspection Eyes General: appearance normal, both eyes and all related structures Neck Neck: Yes normal visual inspection and Yes supple Chest Chest palpation & inspection: normal inspection of the chest Resp Effort & Inspection: normal respiratory effort Auscultation: normal I/E ratio, no crackles, no rhonchi, no wheezes and diminished lung sounds Cardio Rate: regular rate Rhythm: regular rhythm Heart sounds: S1 normal heart sound present and S2 normal heart sound present General: Yes no CVA tenderness Back/Spine/Pelvis Back: no CVA tenderness Skin Lesions: lesion noted erosion central nose Extrem General: Yes no clubbing, cyanosis or edema Assessment & Plan Assessment & Plan (1) Pleural effusion: Code(s): J90 - Pleural effusion, not elsewhere classified Category: Medical (2) Pulmonary nodule: Code(s): R91.1 - Solitary pulmonary nodule Category: Medical (3) Aortic stenosis: Comment: s/p TVAR Code(s): I35.0 - Nonrheumatic aortic (valve) stenosis Category: Medical Qualifiers: Cardiac valve disease etiology: etiology unspecified Qualified Code(s): I35.0 - Nonrheumatic aortic (valve) stenosis (4) External nasal lesion: Code(s): L98.9 - Disorder of the skin and subcutaneous tissue, unspecified Category: Medical Plan no need for inhaler therapy consider repeating CXR F/U with PCP re: nasal lesion F/U 12 months or as needed Coding Level of Care Code Est Pt Level 4 (13409) Diagnoses Pleural effusion J90 Pulmonary nodule R91.1 Aortic valve stenosis, etiology of cardiac valve disease unspecified I35.0 Cardiac valve disease etiology: etiology unspecified External nasal lesion L98.9 Time Spent (min) 16
[2024-04-01 10:15] VITALS: PULSE 89; O2SAT 97; BMI 32.1
== END 2024-04-01 10:29 | disposition home or self-care (01) ==
PROVIDERS: PCP Internal Medicine; Visit Provider Hospitalist
DX: J90 Pleural effusion, not elsewhere classified (principal); R91.1 Solitary pulmonary nodule; I35.0 Nonrheumatic aortic (valve) stenosis; L98.9 Disorder of the skin and subcutaneous tissue, unspecified
CPT/HCPCS: 99214

== ENCOUNTER → 2024-04-01 10:02 | Outpatient (BNVA) | payer MEDICARE, MEDICAID, SELFPAY | PROVIDERS: PCP Internal Medicine; Visit Provider Hospitalist | DX: J90 Pleural effusion, not elsewhere classified (principal); R91.1 Solitary pulmonary nodule; I35.0 Nonrheumatic aortic (valve) stenosis; L98.9 Disorder of the skin and subcutaneous tissue, unspecified | CPT/HCPCS: 99212 ==